=== PATIENT | female | born 1950 | race Caucasian/White ===

== ENCOUNTER 2020-03-27 18:57 | Emergency (ER) | payer MEDICARE, SELFPAY ==
--- NOTE | ~2020-03-27 | CT_ITS ---
EXAMINATION: CT BRAIN W/O DATE: 03/27/2020 19:37 INDICATION: Headache TECHNIQUE: Computed tomography (CT) of the head was performed without intravenous contrast. The dose- length product was 605.33 mGy-cm. The mA was adjusted according to patient size. Iterative reconstruc tion technique was employed. COMPARISON: No prior studies for comparison. FINDINGS: Normal brain parenchymal volume for age. Normal mendez-white differentiation. No acute intrac ranial hemorrhage, infarction, mass or mass effect. There are scattered mild periventricular and subc ortical white matter changes, most likely related to small vessel ischemic disease (microangiopathy). No ventriculomegaly or midline shift. Midline sagittal images demonstrate a normal corpus callosum, c raniovertebral junction and sella turcica. Basilar cisterns are patent. Paranasal sinuses and mastoids are pneumatized. No depressed skull fractures. IMPRESSION: 1. No acute intracranial abnormality. 2: Chronic age-related findings. Reviewed, dictated and finalized at location A.
--- NOTE | ~2020-03-27 | XR_ITS ---
XR chest 1V portable 03/27/2020 19:43 Indication: Hypertension. Procedure: AP view of the chest Comparison: No prior studies for comparison. Findings: Heart size normal. There is scarring in the left mid and lower lung. No acute focal pneumon ia, edema or effusion. There are bilateral clavicular osteotomy defects. No acute osseous abnormality . The lungs are hyperinflated which is consistent with, but not diagnostic of chronic obstructive pul monary disease. Impression: 1: No acute cardiopulmonary disease. Reviewed, dictated and finalized at location A. Impression: 1: No acute cardiopulmonary disease.
--- NOTE | 2020-03-27 19:11 | ECG_ITS ---
Measurements Intervals [place] Rate: 81 P: 68 AK: 150 QRS: -14 QRSD: 107 T: 71 QT: 393 QTc: 458 Interpretive Statements SINUS RHYTHM POSSIBLE LEFT ATRIAL ENLARGEMENT DELAYED PRECORDIAL R/S TRANSITION INFERIOR INFARCT, AGE INDETERMINATE ABNORMAL ECG Electronically Signed On 03-28-2020 7:05:41 CDT by Franklin Barros D.O.
[2020-03-27 19:13] VITALS: BP 222/105; PULSE 97; RESP 18; TEMP 37.1; O2SAT 95
--- NOTE | 2020-03-27 19:13 | ED.GENADULT ---
HPI - General Adult General Chief complaint: Recheck/Abnormal Lab/Rx Stated complaint: HTN for 2 week Time Seen by Provider: 03/27/20 19:04 Source: RN notes reviewed History of Present Illness HPI narrative: Patient presents emergency department from home for hypertension. Patient states that over the past 2 weeks she has noted that she has been having elevated blood pressures. States that with this she has been having an intermittent right frontal headache. Patient states that she has a history of hypertension but 3 years ago her blood pressures began to normalize and she is been off of her medication for the past 3 years. She denies any fevers or chills vision changes numbness or tingling in extremities chest pain shortness of breath abdominal pain nausea vomiting or any other symptoms Related Data Allergies Allergy/AdvReac Type Severity Reaction Status Date / Time No Known Allergies Allergy Verified 03/27/20 19:17 Review of Systems Review of Systems: Narrative: Gen.: Denies fevers or chills Eyes: Denies eye pain or visual change ENT: Denies congestion Respiratory: Denies shortness of breath or cough CV: Denies chest pain or palpitations GI: Denies abdominal pain nausea, emesis or diarrhea denies burning, urgency, frequency or hematuria Musculoskeletal: Denies back pain or muscle pain Neuro: Denies numbness, tingling, weakness or focal weakness reports headache Skin: Denies rash Except as documented, all other systems reviewed and negative FORMERLY [facility], [facility] Past Medical History Medical History (Updated 03/27/20 @ 21:18 by Jose Marroquin DO) Bipolar 1 disorder Social History Social History (Updated 03/27/20 @ 19:14 by Jose Marroquin DO) Smoking status: Current some day smoker Gender identity (if verbalized by the patient): Female Exam Narrative: Exam Narrative: APPEARANCE: No acute distress, nontoxic, resting in bed HEENT: Normocephalic, atraumatic, OMM, TMs clear bilaterally EYES: PERRL, EOMI NECK: Supple, nontender, full range of motion without pain, no meningismus RESPIRATORY: No respiratory distress, clear to auscultation bilaterally with no rhonchi wheezing or rales CARDIOVASCULAR: RRR s murmur ABDOMINAL: Soft, nontender, nondistended MUSCULOSKELETAL: Moves all extremities. No clubbing, cyanosis or edema. NEURO: A and O ?3, following commands, speech normal, cranial nerves II through XII grossly intact,muscle strength 5 out of 5 bilateral upper and lower extremities SKIN:: Warm, dry. Normal Color PSYCHIATRIC: Normal affect/mood Course Course Emergency Course: Attempted to page Dr. Stephen office currently with no answering service States he is feeling better this time ready for discharge discussed with patient results of work-up discussed need to follow-up with PCP as an outpatient to possibly be started on hypertensive medication Vital Signs Vital signs: Vital Signs Temperature 98.8 F 03/27/20 19:13 Pulse Rate 97 03/27/20 19:13 Respiratory Rate 18 03/27/20 19:13 Blood Pressure 222/105 H 03/27/20 19:13 Pulse Oximetry 95 03/27/20 19:13 Temperature 98.8 F 03/27/20 19:13 Pulse Rate 78 03/27/20 20:46 Respiratory Rate 03/27/20 20:46 Blood Pressure 171/83 H 03/27/20 20:46 Pulse Oximetry 100 03/27/20 20:46 Medical Decision Making Vital Signs Vital Signs: Vital Signs Temperature 98.8 F 03/27/20 19:13 Pulse Rate 97 03/27/20 19:13 Respiratory Rate 18 03/27/20 19:13 Blood Pressure 222/105 H 03/27/20 19:13 Pulse Oximetry 95 03/27/20 19:13 Temperature 98.8 F 03/27/20 19:13 Pulse Rate 78 03/27/20 20:46 Respiratory Rate 03/27/20 20:46 Blood Pressure 171/83 H 03/27/20 20:46 Pulse Oximetry 100 03/27/20 20:46 Lab Data Result diagrams: 03/27/20 19:20 03/27/20 19:20 Labs: Lab Results 03/27/20 03/27/20 03/27/20 Range/Units 19:20 19:20 19:29 WBC 5.5 (4.5-10.0) K/mm3 RBC 5.23 (4.2-5.4) M
[2020-03-27 19:26] LABS: Basophils Absolute Auto 0.1 K/mm3 (0.0-0.1); Basophils Percent Auto 0.9 % (0.2-1.2); Eosinophils Absolute Auto 0.3 K/mm3 (0-0.3); Eosinophils Percent Auto 4.5 % (0-4.4); Hemoglobin 15.1 g/dL (12.0-15.0); Immature Granulocyte Absolute 0.01 K/mm3 (0.00-0.031); Immature Granulocyte Percent A 0.2 % (0-0.5); Lymphocytes Absolute Auto 2.16 K/mm3 (0.9-3.2); Lymphocytes Percent Auto 39.2 % (18.3-44.2); Mean Corpuscular HGB Conc 33.6 g/dl (32-36); Mean Corpuscular Hemoglobin 28.9 pg (26-34); Mean Platelet Volume 11.2 fl (7.4-10.4); Monocytes Absolute Auto 0.8 K/mm3 (0.1-0.6); Monocytes Percent Auto 14.7 % (2.6-8.5); Neutrophils Absolute Auto 2.2 K/mm3 (1.3-6.7); Neutrophils Percent Auto 40.5 % (45.5-73.1); Platelet Count Result 182 k/mm3 (150-375); Red Blood Count 5.23 M/mm3 (4.2-5.4); Red Cell Distribution Width 14.4 % (11.5-14.5); White Blood Count 5.5 K/mm3 (4.5-10.0)
[2020-03-27 19:40] LABS: Alanine Aminotransferase 17 U/L (4-35); Albumin Level 3.8 g/dL (3.5-5.1); Alkaline Phosphatase 177 U/L (38-126); Aspartate Amino Transferase 31 U/L (14-36); Bilirubin,Total 0.7 mg/dL (0.2-1.3); Blood Urea Nitrogen 16 mg/dL (7-17); Calcium 9.5 mg/dL (8.4-10.2); Carbon Dioxide 24 mmol/L (22-30); Chloride 111 mmol/L (98-107); Estimated CRCL calculation 72 ml/min; Estimated Glomerular Filt Rate > 60; Glucose 106 mg/dL (65-105); Potassium 3.9 mmol/L (3.4-5.0); Sodium 140 mmol/L (137-145)
[2020-03-27 19:42] LABS: Add Urine Microscopic? YES; Appearance Urine Clear (Clear); Bilirubin Urine Negative (Negative); Blood Urine 1+ (Negative); Color Urine Yellow (Yellow); Glucose Urine UA Negative (Negative); Ketones Urine Negative (Negative); Leukocyte Esterase Ur Negative LEU/UL (Negative); Nitrate Urine Negative (Negative); Protein Urine Negative (Negative); RBC Urine 0-2 /hpf (0-2); Specific Grav Ur 1.013 (1.001-1.035); Squamous Epithelial Cell Urine Rare /hpf (Few); WBC Urine 0-3 /hpf
[2020-03-27 19:43] VITALS: BP 182/98; PULSE 77; RESP 18; O2SAT 95
[2020-03-27 20:46] VITALS: BP 171/83; PULSE 78; RESP 19; O2SAT 100
[2020-03-27 21:25] VITALS: BP 166/82; PULSE 84; RESP 19; TEMP 37.2; O2SAT 100
== END 2020-03-27 21:26 | disposition home or self-care (01) ==
PROVIDERS: Emergency Provider Emergency Medicine
DX: I10 Essential (primary) hypertension (principal); F17.200 Nicotine dependence, unspecified, uncomplicated; R94.31 Abnormal electrocardiogram [ECG] [EKG]
CPT/HCPCS: 36415; 70450; 71045; 80053; 81001; 85025; 93005; 96374; 99284; J0131

== ENCOUNTER 2021-06-21 20:44 | Inpatient (IN) | payer MEDICARE, SELFPAY ==
--- NOTE | ~2021-06-21 | XR_ITS ---
XR shoulder RT min 2V DATE: 06/21/2021 23:42 INDICATION: Posterior right shoulder pain. Patient found on floor. TECHNIQUE: 5 views COMPARISON: None FINDINGS: There is osteopenia. There is resection of the lateral aspect of the right clavicle. There is evidence of rotator cuff atrophy. There is no fracture or dislocation, periosteal reaction or bone destruction or abnormal soft tissue calcification of the right shoulder. Prominent degenerative changes of the cervical spine including degenerative change at the apophyseal joints throughout the cervical spine and prominent degenerative disc disease at C5-6 and C6-7. IMPRESSION: Resection lateral right clavicle Rotator cuff atrophy No fracture or dislocation of right shoulder Osteopenia Reviewed, dictated and finalized at location A.
--- NOTE | ~2021-06-21 | XR_ITS ---
EXAMINATION: XR chest 1V portable DATE: 06/24/2021 10:15 INDICATION: Dyspnea. TECHNIQUE: A single frontal view of the chest was obtained. COMPARISON: Chest single view 03/27/2020 FINDINGS: The lungs are hyperexpanded, consistent with emphysema. Again seen is mild scarring in left mid and lower lung zones. No pleural effusion or pneumothorax. The heart size is normal. IMPRESSION: 1. Unchanged mild scarring in left mid and lower lung zones. 2. Emphysema. Reviewed, dictated and finalized at location A.
--- NOTE | ~2021-06-21 | CT_ITS ---
EXAMINATION: CT brain wo con DATE: 06/21/2021 22:18 INDICATION: Confusion for 3 days TECHNIQUE: Computed tomography (CT) of the head was performed without intravenous contrast. The mA wa s adjusted according to patient size. Iterative reconstruction technique was employed. Exam dose: 68 1.00 mGy-cm total exam DLP. COMPARISON: 03/27/2020 CT brain FINDINGS: Bilateral carotid siphon internal carotid artery calcifications. There is nonspecific diminished attenuation cerebral white matter, likely due to chronic small vessel ischemic changes. No intracranial mass lesion or hemorrhage or cerebrovascular accident. No midline shift or mass effec t. No subdural or epidural hematoma. No fracture or bone destruction of the cranial vault. Included paranasal sinuses and mastoid air cell s are normally developed and aerated. IMPRESSION: Cerebral atherosclerosis and chronic small vessel ischemic changes of cerebral white mat ter No acute intracranial finding Reviewed, dictated and finalized at Location A. Reviewed, dictated and finalized at location A. IMPRESSION: Cerebral atherosclerosis and chronic small vessel ischemic changes of cerebral white matter No acute intracranial finding
--- NOTE | ~2021-06-21 | US_ITS ---
EXAMINATION: US carotid duplex BI EXAM DATE: 06/23/2021 11:17 INDICATION: Stroke. TECHNIQUE: Grayscale, color and pulsed Doppler images of the cervical carotid arteries were obtained . The degree of vessel stenosis is placed in one of the following categories: normal, <50% stenosis, 50-69% stenosis, >=70% stenosis but less than near-occlusion, near-occlusion, or occlusion. Note that percent stenosis relative to normal distal artery lumen diameter is indirectly measured from velocit y measurements as described by Andrés, et al. Radiology 2003; 229:340-346. Correlation is made to MR kaylynn guillaume from yesterday. FINDINGS: RIGHT SIDE: Right common carotid artery peak systolic velocity (PSV in cm/s): 72 Right bulb/internal carotid artery peak systolic velocity (PSV in cm/s): 74 Right internal carotid artery end diastolic velocity (EDV in cm/s): 15 Right ICA/CCA peak systolic ratio: 1.0 Right external carotid artery peak systolic velocity (PSV in cm/s): 100 Right vertebral artery antegrade flow: yes There is moderate carotid bulb plaque. Velocity and Doppler waveforms in the common and internal carotid arteries is normal. LEFT SIDE: Left common carotid artery peak systolic velocity (PSV in cm/s): 76 Left bulb/internal carotid artery peak systolic velocity (PSV in cm/s): 64 Left internal carotid artery end diastolic velocity (EDV in cm/s): 20 Left ICA/CCA peak systolic ratio: 0.8 Left external carotid artery peak systolic velocity (PSV in cm/s): 107 Left vertebral artery antegrade flow: yes There is no focal plaque identified. IMPRESSION: 1. Less than 50 percent stenosis in the right internal carotid artery. 2. Normal left internal carotid artery. > Reviewed, dictated and finalized at location A.
--- NOTE | ~2021-06-21 | MR_ITS ---
EXAMINATION: MR brain/brain stem wo con DATE: 06/22/2021 14:17 INDICATION: Altered mental status. TECHNIQUE: Magnetic resonance imaging (MRI) of the brain and brainstem was performed without intraven ous contrast. Sequences included sagittal and axial T1-weighted FSE, axial diffusion-weighted FS EPI, axial T2*-weighted GRE, axial T2-weighted FLAIR Propeller, and axial T2-weighted Propeller. Apparent diffusion coefficient (ADC) maps were created. COMPARISON: Head CT 06/21/2021 FINDINGS: There is a punctate acute infarct in left occipital lobe. There is no intracranial hemorrha ge or abnormal mass lesion. There are scattered areas of nonspecific increased T2-weighted signal int ensity in the cerebral white matter. The ventricles are normal in size. The paranasal sinuses are andrea ar. There are likely changes of right ocular lens replacement surgery. The mastoid air cells are norm al. IMPRESSION: 1. Punctate acute infarct in left occipital lobe. 2. Moderate nonspecific cerebral white matter disease, which likely represents chronic small vessel i schemic disease. Reviewed, dictated and finalized at location A. IMPRESSION: 1. Punctate acute infarct in left occipital lobe. 2. Moderate nonspecific cerebral white matter disease, which likely represents chronic small vessel ischemic disease.
--- NOTE | ~2021-06-21 | XR_ITS ---
XR hip RT 2V w AP pelvis DATE: 06/21/2021 23:41 INDICATION: Lateral right hip pain TECHNIQUE: AP pelvis. AP and lateral views of right hip COMPARISON: None FINDINGS: There is prominent multilevel degenerative disc disease of lumbar and lumbosacral spine, mo st severe at L4-5 and L5-S1. The pubic symphysis and sacroiliac joints are intact. No pelvic fracture or bone destruction is detected. There is heterotopic ossification along the lateral aspect of the greater trochanter and enthesopathy of the greater trochanter of the right proximal femur. No fracture or dislocation, avascular necrosi s or bone destruction of the right hip is detected. Right hip joint space appears well preserved and symmetric with the left side. IMPRESSION: No pelvic or right hip fracture or dislocation Multilevel degenerative disc disease of the lumbar and lumbosacral spine Reviewed, dictated and finalized at location A.
[2021-06-21 20:50] VITALS: BP 89/56; PULSE 94; RESP 16; TEMP 37.1; O2SAT 96
--- NOTE | 2021-06-21 20:56 | ECG_ITS ---
Measurements Intervals [place] Rate: 89 P: 145 AK: 159 QRS: -65 QRSD: 149 T: 118 QT: 415 QTc: 507 Interpretive Statements ECTOPIC ATRIAL RHYTHM LEFT ATRIAL ENLARGEMENT LEFT AXIS DEVIATION RIGHT BUNDLE BRANCH BLOCK BASELINE ARTIFACT- I, AVL ABNORMAL ECG Electronically Signed On 06-22-2021 6:46:52 CDT by Franklin Barros D.O.
[2021-06-21 21:13] VITALS: PULSE 89; RESP 19; O2SAT 99
[2021-06-21 21:30] LABS: Basophils Absolute Auto 0.1 K/mm3 (0.0-0.1); Basophils Percent Auto 0.5 % (0.2-1.2); Eosinophils Absolute Auto 0.1 K/mm3 (0-0.3); Eosinophils Percent Auto 0.6 % (0-4.4); Hematocrit 41.7 % (37.0-47.0); Immature Granulocyte Absolute 0.04 K/mm3 (0.00-0.031); Immature Granulocyte Percent A 0.4 % (0-0.5); Lymphocytes Absolute Auto 0.96 K/mm3 (0.9-3.2); Lymphocytes Percent Auto 9.4 % (18.3-44.2); Mean Corpuscular HGB Conc 33.6 g/dl (32-36); Mean Corpuscular Volume 86.5 fl (80-100); Mean Platelet Volume 10.1 fl (7.4-10.4); Monocytes Absolute Auto 1.5 K/mm3 (0.1-0.6); Monocytes Percent Auto 15.1 % (2.6-8.5); Neutrophils Absolute Auto 7.6 K/mm3 (1.3-6.7); Platelet Count Result 171 k/mm3 (150-375); Red Blood Count 4.82 M/mm3 (4.2-5.4); Red Cell Distribution Width 15.3 % (11.5-14.5); White Blood Count 10.2 K/mm3 (4.5-10.0)
--- NOTE | 2021-06-21 21:43 | PC.NURSE ---
Per daughter at bedside, pt left a note on her counter expressing wishes to Get out of everyones way. Per daughter pt has PMH of psych/SI/attempt. Pt currently denies SI. 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 Pt notes she has been drinking, but states it was a few days ago. Pt unable to recall if she took pills, unable to recall if has been taking normal RX'd PO medications. larry operator made aware. Protocol initiated.
--- NOTE | 2021-06-21 21:46 | PC.NURSE ---
Called lab and spoke to Kayla to add on Ethanol, TSH [phone]
[2021-06-21 21:49] VITALS: RESP 20
--- NOTE | 2021-06-21 21:52 | PC.NURSE ---
Pt to CT scan via stretcher, daughter at bedside, sitter placed at bedside at this time.
[2021-06-21 22:01] LABS: Alanine Aminotransferase 55 U/L (4-35); Albumin Level 3.4 g/dL (3.5-5.1); Alkaline Phosphatase 115 U/L (38-126); Anion Gap 5 mmol/L (8-16); Aspartate Amino Transferase 271 U/L (14-36); Bilirubin,Total 1.1 mg/dL (0.2-1.3); Blood Urea Nitrogen 16 mg/dL (7-17); Carbon Dioxide 22 mmol/L (22-30); Chloride 110 mmol/L (98-107); Estimated CRCL calculation 56 ml/min; Estimated Glomerular Filt Rate > 60; Glucose 109 mg/dL (65-110); Potassium 3.5 mmol/L (3.4-5.0); Sodium 137 mmol/L (137-145)
--- NOTE | 2021-06-21 22:03 | PC.NURSE ---
Pt belongings labeled and placed in room 3/4 cabinets.
[2021-06-21] MEDS: SODIUM CHLORIDE 0.9% IV 1,000 ML 999 ML IV CONT (22:04)
[2021-06-21 22:06] LABS: Add Urine Microscopic? YES; Appearance Urine Clear (Clear); Bilirubin Urine Negative (Negative); Blood Urine Negative (Negative); Color Urine Amber (Yellow); Glucose Urine UA Negative (Negative); Hyaline Casts Urine 15-19 /lpf; Ketones Urine Negative (Negative); Leukocyte Esterase Ur Negative LEU/UL (Negative); Mucus Urine Rare /lpf; Nitrate Urine Negative (Negative); Protein Urine 2+ mg/dL (Negative); RBC Urine 0-2 /hpf (0-2); Specific Grav Ur 1.018 (1.001-1.035); Squamous Epithelial Cell Urine Rare /hpf (Few); Urobilinogen Urine Negative mg/dL (<2.0)
--- NOTE | 2021-06-21 22:11 | PC.NURSE ---
Called [place] poison control and spoke to Ofelia, a pharmacist. Given EKG readings, w/out history of medications and VSS would recommend supportive and symptomatic care.
--- NOTE | 2021-06-21 22:18 | PC.NURSE ---
Called lab and spoke to Liv to add on Salicylate and Acetaminophen 2224
[2021-06-21 22:19] VITALS: BP 139/92; PULSE 90; RESP 18; O2SAT 98
--- NOTE | 2021-06-21 22:23 | ED.AMS ---
HPI - Altered Mental Status General Chief Complaint: Overdose Stated Complaint: AMS Time Seen by Provider: 06/21/21 21:46 Source: patient and family Mode of arrival: EMS Limitations: altered mental status History of Present Illness HPI narrative: Patient is a 70-year-old female brought in by EMS after being found on the floor and confused by a family member. Last known well was 3 days ago. Per family, patient usually able to do normal daily activities of living, and lives at home alone. Patient denies any headache, dizziness, neck pain, chest pain, shortness of breath, abdominal pain, nausea, vomiting, diarrhea, urinary symptoms, fever or chills. Related Data Allergies Allergy/AdvReac Type Severity Reaction Status Date / Time No Known Allergies Allergy Verified 03/27/20 19:17 Review of Systems Review of Systems: All systems reviewed & are unremarkable except as noted in HPI and below Constitutional: Constitutional: Denies body ache(s), Denies chills, Denies excessive sweating, Denies fatigue, Denies fever(s), Denies headache(s), Denies lethargy, Denies malaise, Denies weakness and Denies weight loss Eyes: Eyes: Denies blurry vision, Denies change in vision and Denies loss of vision ENT: Denies dizziness, Denies ear discharge, Denies headache(s), Denies lip swelling, Denies epistaxis, Denies nasal congestion, Denies neck pain, Denies throat swelling and Denies tongue swelling Cardiovascular: Cardiovascular: Denies chest pain, Denies chest pain at rest, Denies chest pain with activity, Denies diaphoresis, Denies rapid heart rate, Denies edema, Denies irregular heart rhythm, Denies lightheadedness, Denies palpitations, Denies dyspnea and Denies dyspnea on exertion Respiratory: Respiratory: Denies chest congestion, Denies cough, Denies hemoptysis, Denies dyspnea and Denies dyspnea on exertion Gastrointestinal: Gastrointestinal: Denies abdominal pain, Denies melena, Denies hematochezia, Denies diarrhea, Denies nausea, Denies vomiting and Denies hematemesis Musculoskeletal: Musculoskeletal: Denies abnormal gait, Denies deformity, Denies joint swelling, Denies limited range of motion, Denies neck pain and Denies numbness Neurologic: Denies Abnormal speech present, Denies abnormal gait, Denies confusion, Denies dizziness, Denies headache(s), Denies focal weakness, Denies loss of vision, Denies numbness, Denies Other visual disturbances, Denies Sensory deficit (Neuro) and Denies weakness Psychiatric: Psychiatric: Denies confusion, Denies depression, Denies auditory hallucinations, Denies homicidal ideation and Denies suicidal ideation Endocrine: Endocrine: Denies cold intolerance, Denies excessive sweating, Denies fatigue, Denies heat intolerance and Denies palpitations Hematologic/Lymphatic: Hematologic/Lymphatic: Denies easy bleeding and Denies easy bruising Allergic/Immunologic: Allergic/Immunologic: Denies lip swelling, Denies throat swelling and Denies tongue swelling PMFSH Past Medical History Medical History Bipolar 1 disorder Social History Social History Smoking status: Current some day smoker Substance use type: unknown Gender identity (if verbalized by the patient): Female Exam Const: General: cooperative, healthy appearing, comfortable, no acute distress, well developed, alert and awake Orientation/consciousness: patient oriented x3 Limitations: no limitations HENMT: Head: normal to inspection, normocephalic and atraumatic Ears: hearing grossly normal bilaterally, TM normal on the right and TM normal on the left General nose exam: Normal external nose present, Normal nares present and No nasal discharge present Face and sinus: normal facial exam Mouth: Yes Normal oral and palatal mucosa present, Yes lip normal, Yes tongue normal and Yes oropharynx normal Throat: posterior oropharynx normal, tonsils cristian
[2021-06-21 22:26] LABS: Ethanol < 10 mg/dL (<10)
[2021-06-21 22:44] LABS: Amphetamine Screen Urine Negative (Negative); Barbiturate Screen Urine Negative (Negative); Benzodiazepines Screen Urine Negative (Negative); Cannabinoid Screen Urine Negative (Negative); Cocaine Screen Urine Negative (Negative); Methadone Screen Urine Negative (Negative); Opiate Screen Urine Negative (Negative); Phencyclidine Screen Urine Negative (Negative)
[2021-06-21 22:45] LABS: Acetaminophen < 10 ug/mL (10-30); Salicylate < 1.0 mg/dL (2-20)
[2021-06-21 22:59] VITALS: BP 167/84; PULSE 91; RESP 17; O2SAT 98
[2021-06-21 23:10] LABS: Creatine Kinase 8044 U/L (30-135)
--- NOTE | 2021-06-21 23:28 | PC.NURSE ---
Pt to XRAY via stretcher at this time.
[2021-06-22] VITALS (12 sets, daily range): BP systolic 118–165; BP diastolic 57–90; PULSE 75–94; RESP 15–21; TEMP 36.4–36.8; O2SAT 93–98; BMI 30.4
[2021-06-22] MEDS: SODIUM CHLORIDE 0.9% IV 1,000 ML 999 ML IV CONT ×2 (00:24→01:11)
--- NOTE | 2021-06-22 01:52 | PC.NURSE ---
Was contacted by Vivian from poison control - calling for an update on pt and lab results. States will call back tomorrow for repeat lab and pt status update.
[2021-06-22] MEDS: SODIUM CHLORIDE 0.9% IV 1,000 ML 125 ML IV CONT ×2 (02:30→09:52)
--- NOTE | 2021-06-22 03:18 | ADMGEN ---
This patient, Sade Drake, was admitted to Intensive Care Unit-5 at 0220. Patient/family oriented to hospital policies and general routines including ID bracelet, bed and alarms, visiting hours, pain management, procedures, bathroom and other care routines, personal items, smoking policy, room service/diet, and visiting hours. Information on how to activate the Rapid Response Team has been discussed. Patient/Family are encouraged to report perceived risks to care and to ask questions if they do not understand what they are told or what they should do.
--- NOTE | 2021-06-22 10:40 | PM.IMHP ---
H&P: HPI History of Present Illness Date/Time: 06/22/21 10:40 Chief Complaint: Altered mental status Narrative: Patient is a 70-year-old female who was brought in yesterday to the ER when he was she was found on the floor by a family member. She was last well known 3 days ago. She lives by herself at home. She states that she fell couple days ago and bumped her right hip. She denies any trauma to her head. She she was not found to have any bony injury on evaluation in the ER. There is a mention of a note found by a family member switch is unavailable for me to review at this time. She however states she was not trying to hurt hurts herself was thus having her drink to have good time. She denies being suicidal at this time. Except for the pain in her right hip due to the fall she does not have any other complaints. Review of Systems Constitutional: Constitutional: Denies body ache(s), Denies chills, Reports fatigue, Reports lethargy, Denies night sweats and Denies weakness Eyes: Eyes: Denies blurry vision and Denies photophobia ENT: Reports Normal hearing present, Denies nasal congestion, Denies nasal discharge and Denies tinnitus Cardiovascular: Cardiovascular: Denies chest pain, Denies diaphoresis, Denies leg edema, Denies lightheadedness and Denies palpitations Respiratory: Respiratory: Denies cough, Denies hemoptysis, Denies dyspnea, Denies dyspnea on exertion and Denies wheezing Gastrointestinal: Gastrointestinal: Denies abdominal pain, Denies melena, Denies bloating, Denies nausea and Denies vomiting Genitourinary: Genitourinary: Denies nocturia and Denies dysuria Musculoskeletal: Musculoskeletal: Reports back pain, Reports arthralgias and Denies neck pain Integumentary/Breasts: Skin/Breast: Denies dry skin and Denies unusual bruising Neurologic: Denies confusion and Denies headache(s) [facility] Past Medical History Medical History (Updated 06/22/21 @ 12:05 by Tyree Donahue MD) Asthma Bipolar 1 disorder COPD (chronic obstructive pulmonary disease) Family History Family History Father Asthma Colon cancer Grandparent Asthma Chronic obstructive pulmonary disease Mother Colon cancer Diabetes mellitus Hypertension Sibling Hypertension Social History Social History Smoking packs per day: 0.5 Smoking cigarettes per day: 10.0 Years smoked: 48 Smoking pack-years: 24.00 Smoking status: Current every day smoker Tobacco type: cigarettes Second hand tobacco smoke exposure: Yes Alcohol intake: current Drinks per week: 5 Substance use: current Substance use type: marijuana Other substance usage details: recreational Last use: oct 2020 Gender identity (if verbalized by the patient): Female Spiritual care concerns: No Meds Home Medications and Allergies Home Medications Medication Instructions Recorded Confirmed Type Unable to Obtain Home Medications 06/22/21 06/22/21 History Allergies Allergy/AdvReac Type Severity Reaction Status Date / Time No Known Allergies Allergy Verified 06/22/21 03:17 Vital Signs Vital Signs - 24 hr 06/21/21 20:50 06/21/21 21:13 06/21/21 21:49 Temperature 98.7 F Pulse Rate 94 89 Respiratory Rate 16 19 20 Blood Pressure 89/56 L Pulse Oximetry 96 99 06/21/21 22:19 06/21/21 22:59 06/22/21 00:03 Temperature Pulse Rate 90 91 94 Respiratory Rate 18 17 18 Blood Pressure 139/92 H 167/84 H 149/90 H Pulse Oximetry 98 98 97 06/22/21 00:58 06/22/21 01:53 06/22/21 02:50 Temperature Pulse Rate 92 87 88 Respiratory Rate 16 17 18 Blood Pressure 129/57 L 148/77 H 152/74 H Pulse Oximetry 98 97 98 06/22/21 04:00 06/22/21 06:00 06/22/21 08:00 Temperature 97.6 F Pulse Rate 84 76 77 Respiratory Rate 16 15 17 Blood Pressure 157/79 H 137/73 148/76 H Pulse Oximetry 96 93 94 06/22/21 10:00 06/22/21 10:2
--- NOTE | 2021-06-22 12:04 | WPDCNINT ---
Assessment and Plan Assessment and plan (1) Rhabdomyolysis: Qualifiers: Encounter type: initial encounter Rhabdomyolysis type: traumatic Qualified Code(s): T79.6XXA - Traumatic ischemia of muscle, initial encounter Code(s): M62.82 - Rhabdomyolysis Status: Acute Assessment and Plan: IV fluids. Will change to LR at 200 mL/hour Monitor CK level and electrolytes (2) COPD (chronic obstructive pulmonary disease): Code(s): J44.9 - Chronic obstructive pulmonary disease, unspecified Status: Inactive Assessment and Plan: Not in any exacerbation On room air P.r.n. DuoNeb (3) Bipolar 1 disorder: Code(s): F31.9 - Bipolar disorder, unspecified Status: Acute Assessment and Plan: Patient daughter will bring the list of medication that she is on Psych evaluation once rhabdomyolysis improved Continue one-to-one sitter until patient evaluated by psychiatry (4) Altered mental status: Qualifiers: Altered mental status type: unspecified Qualified Code(s): R41.82 - Altered mental status, unspecified Code(s): R41.82 - Altered mental status, unspecified Status: Acute Assessment and Plan: Patient now alert oriented x3. 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 Patient told me that she has had problem with her balance lately and she fell yesterday and was unable to get up. She states that she slipped and was on the floor. She denies any trauma to head or loss of consciousness. When patient was brought to ER she was found to be little confused and workup showed rhabdomyolysis. Her hip pelvis x-ray and head CT were negative. At that time her son reported finding a suicide note. Her UDS was negative. When I asked her about this morning she told me that she has bipolar mood disorder but does not know what medication she takes for it. She denies any suicidal homicidal ideation in the past or at this time. States she has never tried to hurt herself or has any plans. She does states that she has started drinking alcohol recently. She was unable to give me exact amount. When I asked her about the suicide note she said that she was just scribbling last week as she was not feeling well. She continue smoke 1 pack per 2 days. Has smoked marijuana in the past and denies any other drug use. She is now alert oriented x3 She states she has pain in her hip and her back hip pain is 5/10. And worse with moving. Does not radiate anywhere else and improves with rest. Her back pain is chronic. Review of system was also positive chronic cough, issues with balance and frequent falls. I spoke to patient's daughter by phone and she told me patient has history of bipolar mood disorder and COPD/asthma. She will bring her medications next time she comes to the hospital. She states she lives with her son who found her on the floor Review of Systems Review of Systems: All systems reviewed & are unremarkable except as noted in HPI and below (HPI) [facility] Past Medical History Medical History (Updated 06/22/21 @ 12:05 by Tyree Donahue MD) Asthma Bipolar 1 disorder COPD (chronic obstructive pulmonary disease) Family History Family History Father Asthma Colon cancer Grandparent Asthma Chronic obstructive pulmonary disease
[2021-06-22] MEDS: LACTATED RINGERS 1,000 ML 200 ML IV CONT ×2 (14:25→19:44)
[2021-06-22] MEDS: HYDROcodone/acetaminophen (*CRX) 5-325 MG TABLET 1 TAB PO ×2 (14:31→20:16)
[2021-06-23] MEDS: LACTATED RINGERS 1,000 ML 200 ML IV CONT ×2 (00:50→09:08)
[2021-06-23 04:43] LABS: Hematocrit 38.5 % (37.0-47.0); Hemoglobin 12.7 g/dL (12.0-15.0); Mean Corpuscular Hemoglobin 29.1 pg (26-34); Mean Corpuscular Volume 88.1 fl (80-100); Mean Platelet Volume 10.6 fl (7.4-10.4); Platelet Count Result 151 k/mm3 (150-375); Red Blood Count 4.37 M/mm3 (4.2-5.4); Red Cell Distribution Width 15.3 % (11.5-14.5); White Blood Count 7.7 K/mm3 (4.5-10.0)
[2021-06-23] MEDS: HYDROcodone/acetaminophen (*CRX) 5-325 MG TABLET 1 TAB PO ×3 (04:46→20:32)
[2021-06-23 05:12] LABS: Alanine Aminotransferase 45 U/L (4-35); Albumin Level 2.8 g/dL (3.5-5.1); Alkaline Phosphatase 127 U/L (38-126); Anion Gap 2 mmol/L (8-16); Aspartate Amino Transferase 138 U/L (14-36); Bilirubin,Total 0.9 mg/dL (0.2-1.3); Blood Urea Nitrogen 9 mg/dL (7-17); Calcium 8.1 mg/dL (8.4-10.2); Carbon Dioxide 25 mmol/L (22-30); Chloride 112 mmol/L (98-107); Creatine Kinase 2580 U/L (30-135); Estimated CRCL calculation 84 ml/min; Estimated Glomerular Filt Rate > 60; Glucose 91 mg/dL (65-110); Magnesium 1.6 mg/dL (1.6-2.3); Phosphorus 1.9 mg/dL (2.5-4.5); Potassium 3.4 mmol/L (3.4-5.0); Sodium 139 mmol/L (137-145)
[2021-06-23 05:38] VITALS: BP 165/84; PULSE 92; RESP 20; TEMP 36.6
[2021-06-23 08:00] VITALS: BP 188/88; PULSE 75; RESP 20; TEMP 37.2; O2SAT 95
[2021-06-23 09:19] LABS: Hemoglobin A1C 5.2 % (<5.7)
[2021-06-23 09:21] LABS: Cholesterol 142 mg/dL (0-200); HDL Direct 57 mg/dL; Triglycerides 64 mg/dL (<150)
[2021-06-23 09:33] LABS: LDL Cholesterol Direct 53 mg/dL
[2021-06-23] MEDS: POTASSIUM PHOS/SODIUM PHOS 250 MG TABLET PO (09:41)
[2021-06-23] MEDS: FLUoxetine HCL 10 MG CAPSULE PO (09:42)
[2021-06-23] MEDS: PANTOPRAZOLE 40 MG TABLET PO (09:42)
[2021-06-23] MEDS: ENOXAPARIN 40 MG/0.4 ML SYRINGE SUB-Q (09:42)
[2021-06-23] MEDS: ASPIRIN 81 MG ENTERIC TABLET PO ×2 (12:06→18:20)
[2021-06-23] MEDS: ALBUTEROL SULFATE (*SP) AEROSOL 1 PUFF 2 PUFF INHALATION (12:14)
[2021-06-23] MEDS: LACTATED RINGERS 1,000 ML 75 ML IV CONT ×2 (14:08→20:29)
[2021-06-23] MEDS: PHARMACIST COMMUNICATION ORDER 1 EACH XX (14:44)
--- NOTE | 2021-06-23 15:25 | PM.IMPN ---
Progress Note: A&P Assessment and Plan (1) Rhabdomyolysis: Qualifiers: Encounter type: initial encounter Rhabdomyolysis type: traumatic Qualified Code(s): T79.6XXA - Traumatic ischemia of muscle, initial encounter Code(s): M62.82 - Rhabdomyolysis Status: Acute Assessment and Plan: IV fluids. LR at 200 mL/hour Monitor CK level and electrolytes CK level better. Will lower the fluids to 75 mL/hour recheck CK level in the morning (2) Altered mental status: Qualifiers: Altered mental status type: unspecified Qualified Code(s): R41.82 - Altered mental status, unspecified Code(s): R41.82 - Altered mental status, unspecified Status: Acute Assessment and Plan: Patient now alert oriented x3. Head CT was negative Could be delirium versus secondary to medication versus CVA Exam is nonfocal Brain MRI with acute left occipital lobe stroke she has not been taking her aspirin for past 2 months will resume aspirin 81 mg a day. Will resume her home medication P.T. OT to see echo and carotid Doppler ordered carotid ultrasound with no significant carotid artery stenosis (3) Bipolar 1 disorder: Code(s): F31.9 - Bipolar disorder, unspecified Status: Acute Assessment and Plan: Patient daughter will bring the list of medication that she is on Psych evaluation once rhabdomyolysis improved Continue one-to-one sitter until patient evaluated by psychiatry Psychiatry crisis team evaluated nonsuicidal no safety plan needed per the team. Love discontinue one-to-one sitter Additional Plan 70-year-old female found on the floor presented with altered mental status Found on the floor CT head negative. Degenerative disc disease in lumbar spine but no fractures or bony injury evident on evaluation. Rhabdomyolysis gentle IV hydration continue to monitor CK level. CK level improving Elevated liver enzymes recheck and monitor Acute encephalopathy CT head negative. Likely from medication and drinking alcohol currently improving Mild leukocytosis no signs of infection History of asthma History of Hepatitis C infection History of rotator cuff disease Hypertension DVT prophylaxis Lovenox History of bipolar disorder on Seroquel at home Possible suicide attempt patient denies same. Currently on suicide precaution. Nonsuicidal after discussion with the patient couple of times will discontinue suicide precautions Subjective Date/time seen: 06/23/21 15:25 Interval history: Patient feels well. States he was never suicidal. She had a note written out while she was attending AA meeting 12 years ago. No vision problem no weakness in her arms or legs. She has not been taking her aspirin for 2 months now Review of Systems Review of Systems: All systems reviewed & are unremarkable except as noted in HPI and below (HPI) Exam Narrative: General: Awake and alert not in acute distress Lungs/Chest: Clear to auscultation no respiratory distress Cardiac: RRR. Normal S1 S2. No murmurs Abdomen: Normal bowel sounds.. Soft. NT. ND. Extremities: No clubbing, cyanosis or edema. Warm Neurologic: Alert and oriented x3 nonsuicidal non non homicidal moving all her extremities Skin: No rash no lesion Musculoskeletal: Bruise on right hip on the lateral side tenderness on her lateral trochanteric area Objective Data Vital Signs Vital Signs: Vital Signs - 24 hr 06/22/21 19:54 06/22/21 21:07 06/23/21 05:38 Temperature 97.9 F 97.8 F Pulse Rate 88 88 92 Respiratory Rate 20 20 20 Blood Pressure 154/68 H 165/84 H Pulse Oximetry 98 98 06/23/21 08:00 Temperature 98.9 F Pulse Rate 75 Respiratory Rate 20 Blood Pressure 188/88 H Pulse Oximetry 95 Intake/Output Intake/Output: Intake & Output 06/20/21 06/21/21 06/22/21 06/23/21 23:59 23:59 23:59 23:59 Intake Total 1000 3450 2880 Output Total 1530 2350 Balance 1000 1920 530 Meds/Results Medications: Active
[2021-06-23 16:00] VITALS: BP 162/82; PULSE 93; RESP 21; TEMP 36.7; O2SAT 97
[2021-06-23] MEDS: QUEtiapine FUMARATE 100 MG TABLET 200 MG PO (18:20)
[2021-06-23 19:00] VITALS: BP 106/56; PULSE 86; RESP 14; TEMP 36.7; O2SAT 96
--- NOTE | 2021-06-23 19:09 | PC.NURSE ---
This patient, Sade Drake, was transferred to [ [facility]] on 06/23/21 [id number]. Personal belongings sent with patient. Report given to [Gisela STARK ]. Appropriate documentation sent with patient.
[2021-06-23] MEDS: ATORVASTATIN 20 MG TABLET PO (20:29)
[2021-06-23 21:27] VITALS: BP 123/54; PULSE 77; RESP 17; TEMP 36.4; O2SAT 97
--- NOTE | 2021-06-24 | ECHO_ITS ---
Patient Info Name: Sade Drake Age: 70 years : 1950 Gender: Female Ht: 67 in Wt: 196 lbs BSA: 2.08 m2 HR: 81 bpm BP: 147 / 85 mmHg Heart Rhythm: Sinus Rhythm Technical Quality: Fair Exam Date: 06/24/2021 3:37 PM Exam Location: [facility] Room: [facility] Patient Status: Inpatient Admit Date: 06/23/2021 Staff Ordering Physician: Kraig Encinas MD [employer] Clerk: Rochelle Arriaza RDCS Attending Provider: Karlene Esteban MD Exam Type: CA echo doppler color flow Study Info Indications - ALTERED MENTAL STATUS Complete two-dimensional, color flow and Doppler transthoracic echocardiogram is performed. Summary 1. Complete two-dimensional, color flow and Doppler transthoracic echocardiogram is performed. 2. Left ventricular chamber dimension is normal. 3. Left ventricular systolic function is hyperdynamic, estimated at >70%. 4. There is moderately increased left ventricular wall thickness. 5. The left ventricular diastolic function is grade I diastolic dysfunction. 6. Left atrial chamber dimension is mildly enlarged. 7. There is mild aortic valve stenosis with a peak velocity of 247 cm/s, mean gradient of 14 mmHg, and aortic valve area of 2.2 cm2. 8. There is mild aortic valve regurgitation. 9. There is mild mitral valve stenosis. 10. The mitral valve has thickened leaflets. 11. There is mild mitral valve regurgitation. 12. The mitral valve annulus is severely calcified. 13. There is mild tricuspid valve regurgitation. 14. Mild pulmonary hypertension, estimated pulmonary arterial systolic pressure is 35 mmHg. Left Ventricle Left ventricular chamber dimension is normal. Left ventricular systolic function is hyperdynamic, estimated at >70%. There is moderately increased left ventricular wall thickness. The left ventricular diastolic function is grade I diastolic dysfunction. Right Ventricle Right ventricular chamber dimension is normal. Right ventricular systolic function is normal. Left Atria Left atrial chamber dimension is mildly enlarged. Right Atria Right atrial chamber dimension is normal. Aortic Valve The aortic valve is not well visualized. There is mild aortic valve stenosis with a peak velocity of 247 cm/s, mean gradient of 14 mmHg, and aortic valve area of 2.2 cm2. There is mild aortic valve regurgitation. Pulmonic Valve The pulmonic valve is not well visualized. Mitral Valve The mitral valve has thickened leaflets. There is mild mitral valve stenosis. There is mild mitral valve regurgitation. The mitral valve annulus is severely calcified. Tricuspid Valve The tricuspid valve leaflets are normal. There is no significant tricuspid valve stenosis. There is mild tricuspid valve regurgitation. Mild pulmonary hypertension, estimated pulmonary arterial systolic pressure is 35 mmHg. Pericardium/Pleural The pericardium appears normal. There is no pericardial effusion. Inferior Vena Cava Normal inferior vena cava with >50% collapse upon inspiration consistent with elevated right atrial pressure, 10 mmHg. Aorta The aortic root size at the sinus of Valsalva is normal. Left Ventricular Outflow Tract Name Value Normal LVOT 2D LVOT Diameter
[2021-06-24 04:57] VITALS: BP 147/85; PULSE 81; RESP 17; TEMP 36.3; O2SAT 96
[2021-06-24 06:25] LABS: Hemoglobin 12.2 g/dL (12.0-15.0); Mean Corpuscular Volume 87.9 fl (80-100); Mean Platelet Volume 11.6 fl (7.4-10.4); Platelet Count Result 152 k/mm3 (150-375); Red Blood Count 4.21 M/mm3 (4.2-5.4); Red Cell Distribution Width 15.5 % (11.5-14.5)
[2021-06-24 07:02] LABS: Alanine Aminotransferase 40 U/L (4-35); Albumin Level 2.5 g/dL (3.5-5.1); Alkaline Phosphatase 123 U/L (38-126); Anion Gap 2 mmol/L (8-16); Aspartate Amino Transferase 98 U/L (14-36); Blood Urea Nitrogen 7 mg/dL (7-17); Calcium 7.9 mg/dL (8.4-10.2); Carbon Dioxide 25 mmol/L (22-30); Chloride 112 mmol/L (98-107); Creatine Kinase 1330 U/L (30-135); Estimated CRCL calculation 82 ml/min; Estimated Glomerular Filt Rate > 60; Glucose 86 mg/dL (65-110); Magnesium 1.5 mg/dL (1.6-2.3); Phosphorus 2.8 mg/dL (2.5-4.5); Potassium 3.2 mmol/L (3.4-5.0); Sodium 139 mmol/L (137-145)
[2021-06-24] MEDS: ENOXAPARIN 40 MG/0.4 ML SYRINGE SUB-Q (09:02)
[2021-06-24] MEDS: ASPIRIN 81 MG ENTERIC TABLET PO (09:02)
[2021-06-24] MEDS: PANTOPRAZOLE 40 MG TABLET PO (09:02)
[2021-06-24] MEDS: buPROPion HCL 100 MG TABLET PO (09:02)
[2021-06-24] MEDS: FLUoxetine HCL 10 MG CAPSULE PO (09:02)
--- NOTE | 2021-06-24 09:27 | WPDCDIQUERY2 ---
CDI Query Clarification Request - 06/22 Brain MRI impression: punctate acute infarct in left occipital lobe. - Altered mental status on problem list and Brain MRI with acute left occipital lobe stroke has been documented. Please clarify if there is a corresponding diagnosis for brain MRI findings. <Nan Junior RN - Last Filed: 06/24/21 09:31>
[2021-06-24 14:00] VITALS: BP 160/86; PULSE 98; RESP 18; TEMP 37.1; O2SAT 99
[2021-06-24] MEDS: HYDROcodone/acetaminophen (*CRX) 5-325 MG TABLET 1 TAB PO ×2 (14:51→21:08)
--- NOTE | 2021-06-24 16:03 | PM.IMPN ---
Progress Note: A&P Assessment and Plan (1) Rhabdomyolysis: Qualifiers: Encounter type: initial encounter Rhabdomyolysis type: traumatic Qualified Code(s): T79.6XXA - Traumatic ischemia of muscle, initial encounter Code(s): M62.82 - Rhabdomyolysis Status: Acute Assessment and Plan: IV fluids. LR at 200 mL/hour Monitor CK level and electrolytes CK level better. Will lower the fluids to 75 mL/hour recheck CK level in the morning She continues to improve will stop fluid today as looks little short of breath will also check chest x-ray (2) Altered mental status: Qualifiers: Altered mental status type: unspecified Qualified Code(s): R41.82 - Altered mental status, unspecified Code(s): R41.82 - Altered mental status, unspecified Status: Acute Assessment and Plan: Patient now alert oriented x3. Head CT was negative Could be delirium versus secondary to medication versus CVA Exam is nonfocal Brain MRI with acute left occipital lobe stroke she has not been taking her aspirin for past 2 months will resume aspirin 81 mg a day. Will resume her home medication P.T. OT to see echo and carotid Doppler ordered carotid ultrasound with no significant carotid artery stenosis echo is pending at Discuss smoking cessation Continue on aspirin and statin (3) Bipolar 1 disorder: Code(s): F31.9 - Bipolar disorder, unspecified Status: Acute Assessment and Plan: Patient daughter will bring the list of medication that she is on Psych evaluation once rhabdomyolysis improved Continue one-to-one sitter until patient evaluated by psychiatry Psychiatry crisis team evaluated nonsuicidal no safety plan needed per the team. Love discontinue one-to-one sitter (4) Acute stroke due to ischemia: Code(s): I63.9 - Cerebral infarction, unspecified Status: Acute Assessment and Plan: Left occipital lobe acute stroke continue aspirin and statin discussed smoking cessation no diabetes carotid ultrasound with no significant carotid artery stenosis. Echo is pending Additional Plan 70-year-old female found on the floor presented with altered mental status Found on the floor CT head negative. Degenerative disc disease in lumbar spine but no fractures or bony injury evident on evaluation. Rhabdomyolysis gentle IV hydration continue to monitor CK level. CK level improving Elevated liver enzymes recheck and monitor Acute encephalopathy CT head negative. Likely from medication and drinking alcohol currently improving Mild leukocytosis no signs of infection History of asthma History of Hepatitis C infection History of rotator cuff disease Hypertension DVT prophylaxis Lovenox History of bipolar disorder on Seroquel at home Possible suicide attempt patient denies same. Currently on suicide precaution. Nonsuicidal after discussion with the patient couple of times will discontinue suicide precautions Acute occipital lobe stroke see above Subjective Date/time seen: 06/24/21 16:03 Interval history: Feels well. No new complaints. She was to quit smoking. Denies any leg swelling or pain or weakness Review of Systems Review of Systems: All systems reviewed & are unremarkable except as noted in HPI and below (HPI) Exam Narrative: General: Awake and alert not in acute distress Lungs/Chest: Clear to auscultation no respiratory distress Cardiac: RRR. Normal S1 S2. No murmurs Abdomen: Normal bowel sounds.. Soft. NT. ND. Extremities: No clubbing, cyanosis or edema. Warm Neurologic: Alert and oriented x3 nonsuicidal non non homicidal moving all her extremities Skin: No rash no lesion Musculoskeletal: Bruise on right hip on the lateral side tenderness on her lateral trochanteric area Objective Data Vital Signs Vital Signs: Vital Signs - 24 hr 06/23/21 19:00 06/23/21 21:27 06/24/21 04:57 Temperature 98.1 F 97.5 F L 97.3 F L Pulse Rate 86 77 81 Respiratory
[2021-06-24 16:16] VITALS: BP 143/81; PULSE 81
[2021-06-24] MEDS: QUEtiapine FUMARATE 100 MG TABLET 200 MG PO (18:03)
[2021-06-24] MEDS: ATORVASTATIN 20 MG TABLET PO (21:08)
[2021-06-24 22:00] VITALS: BP 156/80; PULSE 88; RESP 18; TEMP 36.7; O2SAT 95
[2021-06-25 06:00] VITALS: BP 147/79; PULSE 86; RESP 18; TEMP 35.9; O2SAT 95
[2021-06-25 07:13] LABS: Hematocrit 39.1 % (37.0-47.0); Hemoglobin 12.4 g/dL (12.0-15.0); Mean Corpuscular HGB Conc 31.7 g/dl (32-36); Mean Corpuscular Hemoglobin 28.4 pg (26-34); Mean Corpuscular Volume 89.5 fl (80-100); Mean Platelet Volume 10.9 fl (7.4-10.4); Platelet Count Result 181 k/mm3 (150-375); Red Blood Count 4.37 M/mm3 (4.2-5.4); Red Cell Distribution Width 15.6 % (11.5-14.5); White Blood Count 6.3 K/mm3 (4.5-10.0)
[2021-06-25 07:45] LABS: Alanine Aminotransferase 42 U/L (4-35); Albumin Level 2.8 g/dL (3.5-5.1); Alkaline Phosphatase 133 U/L (38-126); Anion Gap 3 mmol/L (8-16); Aspartate Amino Transferase 85 U/L (14-36); Blood Urea Nitrogen 7 mg/dL (7-17); Calcium 7.9 mg/dL (8.4-10.2); Carbon Dioxide 30 mmol/L (22-30); Chloride 108 mmol/L (98-107); Creatine Kinase 950 U/L (30-135); Estimated CRCL calculation 81 ml/min; Estimated Glomerular Filt Rate > 60; Glucose 82 mg/dL (65-110); Magnesium 1.6 mg/dL (1.6-2.3); Phosphorus 3.1 mg/dL (2.5-4.5); Potassium 3.5 mmol/L (3.4-5.0); Sodium 141 mmol/L (137-145)
[2021-06-25] MEDS: ALBUTEROL SULFATE (*SP) AEROSOL 1 PUFF 2 PUFF INHALATION (08:07)
[2021-06-25 08:08] VITALS: PULSE 83; O2SAT 93
[2021-06-25] MEDS: ACETAMINOPHEN 325 MG TABLET 650 MG PO (09:39)
[2021-06-25] MEDS: LEVOTHYROXINE SODIUM 50 MCG TABLET PO (09:40)
[2021-06-25] MEDS: buPROPion HCL 100 MG TABLET PO (09:40)
[2021-06-25] MEDS: FLUoxetine HCL 10 MG CAPSULE PO (09:40)
[2021-06-25] MEDS: ENOXAPARIN 40 MG/0.4 ML SYRINGE SUB-Q (09:40)
[2021-06-25] MEDS: PANTOPRAZOLE 40 MG TABLET PO (09:40)
[2021-06-25] MEDS: ASPIRIN 81 MG ENTERIC TABLET PO (09:40)
--- NOTE | 2021-06-25 13:23 | PM.DS ---
DS: Admitting Diagnosis Admitting Diagnosis altered mental status DS: Discharge Diagnosis Discharge Diagnosis (1) Rhabdomyolysis: Qualifiers: Encounter type: initial encounter Rhabdomyolysis type: traumatic Qualified Code(s): T79.6XXA - Traumatic ischemia of muscle, initial encounter Code(s): M62.82 - Rhabdomyolysis Status: Acute Assessment and Plan: on admission with CK level 8000. Started on IV fluids with monitoring of CK level. CK level improved down to 900 the time of discharge (2) Altered mental status: Qualifiers: Altered mental status type: unspecified Qualified Code(s): R41.82 - Altered mental status, unspecified Code(s): R41.82 - Altered mental status, unspecified Status: Acute Assessment and Plan: On presentation could be delirium versus medications versus CVA CT head was negative however brain MRI with acute left occipital lobe stroke she has not been taking her aspirin for past 2 months resumed her aspirin 81 mg a day. also started on atorvastatin 20 mg. Her LDL came back at 53. Carotid Doppler with no significant carotid artery stenosis. Echocardiogram unremarkable with no thrombus or PFO. Discuss smoking cessation Continue on aspirin and statin At the time of discharge (3) Bipolar 1 disorder: Code(s): F31.9 - Bipolar disorder, unspecified Status: Acute Assessment and Plan: possible suicide attempt on the day admission due to presence of suicide note by her family members. Was placed on 1 is to 1 sitter in the beginning until her confusion resolved. She states she was drinking last week which is 12 years since her last drink. She stated she has never been suicidal and the note that was found was from the past while she was undergoing a treatments. Psychiatry crisis team also evaluated the patient and deemed nonsuicidal with no safety plan needed. One on 1 sitter was discontinued at that point. She was continued on her regular medication for her bipolar disorder. (4) Acute stroke due to ischemia: Code(s): I63.9 - Cerebral infarction, unspecified Status: Acute Assessment and Plan: Left occipital lobe acute stroke continue aspirin and statin discussed smoking cessation no diabetes carotid ultrasound with no significant carotid artery stenosis. Echo Unremarkable DS: Summary Hospital Course Hospital Course: see above Time Spent with Patient Time attestation: Total time spent providing and/or coordinating discharge services: 45 minutes Exam Narrative: General: Awake and alert not in acute distress Lungs/Chest: Clear to auscultation no respiratory distress Cardiac: RRR. Normal S1 S2. No murmurs Abdomen: Normal bowel sounds.. Soft. NT. ND. Extremities: No clubbing, cyanosis or edema. Warm Neurologic: Alert and oriented x3 nonsuicidal non non homicidal moving all her extremities Skin: No rash no lesion Musculoskeletal: Bruise on right hip on the lateral side tenderness on her lateral trochanteric area DS: Data Data Completed and Pending Labs on day of discharge: Labs from last 24 hours 06/25/21 06/25/21 06:00 06:00 WBC 6.3 RBC 4.37 Hgb 12.4 Hct 39.1 MCV 89.5 MCH 28.4 MCHC 31.7 L RDW 15.6 H Plt Count 181 MPV 10.9 H Sodium 141 Potassium 3.5 Chloride 108 H Carbon Dioxide 30 Anion Gap 3 L BUN 7 Creatinine 0.60 L Estim Creat Clear Calc 81 Estimated GFR > 60 Glucose 82 Calcium 7.9 L Phosphorus 3.1 Magnesium 1.6 Total Bilirubin 1.0 AST 85 H ALT 42 H Alkaline Phosphatase 133 H Total Creatine Kinase 950 H Total Protein 6.0 L Albumin 2.8 L Imaging Radiologist's impression: ITS Impressions Head CT 06/21/21 22:22 IMPRESSION: Cerebral atherosclerosis and chronic small vessel ischemic changes of cerebral white matter No acute intracranial finding Hip/Pelvis X-Ray 06/21/21 23:42 IMPRESSI
[2021-06-25] MEDS: HYDROcodone/acetaminophen (*CRX) 5-325 MG TABLET 1 TAB PO (13:29)
[2021-06-25 14:00] VITALS: BP 151/80; PULSE 72; RESP 16; TEMP 37.5; O2SAT 100
== END 2021-06-25 15:50 | disposition home or self-care (01) | DRG 66 ==
LOC: ANHED 06-22 00:20 → ANHICU 06-22 01:43 → ANH3MEDSUR 06-25 13:23 → ANHICU 06-28 14:43
PROVIDERS: Emergency Medicine; Internal Medicine; Admitting Provider Internal Medicine; Emergency Provider Emergency Medicine; Visit Provider Internal Medicine
DX: I63.9 Cerebral infarction, unspecified (principal); T79.6XXA Traumatic ischemia of muscle, initial encounter; W19.XXXA Unspecified fall, initial encounter; F31.9 Bipolar disorder, unspecified; J44.9 Chronic obstructive pulmonary disease, unspecified; F17.210 Nicotine dependence, cigarettes, uncomplicated; M51.36 Other intervertebral disc degeneration, lumbar region; I10 Essential (primary) hypertension; Z79.82 Long term (current) use of aspirin; Z79.899 Other long term (current) drug therapy
CPT/HCPCS: 36415; 51701; 70450; 70551; 71045; 73030; 73502; 80053; 80061; 80307; 81001; 82550; 83036; 83735; 84100; 84443; 85025; 85027; 93005; 93306; 93880; 94640; 96361; 96365; 96372; 97110; 97162; 97165; 97530; 97535; 99285; A9270; G0378; J0131; J1650; J7030; J7120

== ENCOUNTER 2022-03-09 13:57 | Inpatient (IN) | payer MEDICARE, SELFPAY ==
[2022-03-09] VITALS (18 sets, daily range): BP systolic 67–106; BP diastolic 47–87; PULSE 92–105; RESP 11–27; TEMP 36.2–36.9; O2SAT 93–100; BMI 24.7; BMI 24.6
--- NOTE | ~2022-03-09 | XR_ITS ---
XR abdomen NG/feed tube insert INDICATION: Evaluate NG tube position. TECHNIQUE: Limited KUB perform for evaluating NG tube . COMPARISON: 03/23/2022 FINDINGS: NG tube tip in the stomach, side port near the expected location of the GE junction. Visua lized bowel gas pattern is nonspecific, although incompletely visualized.Right percutaneous nephrosto my catheter partially visualized. Bibasilar atelectasis. IMPRESSION: 1: NG tube tip in the stomach. Reviewed, dictated and finalized at location A.
--- NOTE | ~2022-03-09 | XR_ITS ---
EXAMINATION: XR chest 1V portable DATE: 03/22/2022 06:13 INDICATION: Acute respiratory failure. TECHNIQUE: A single frontal view of the chest was obtained. COMPARISON: Chest single view 03/21/2022, chest CT 03/19/2022 FINDINGS: There are small pleural effusions. There are airspace opacities in the mid and lower lung z ones with a basilar predominance. No pneumothorax. The heart size is normal. The endotracheal tube ti p is 4.6 cm above the aryan. The nasogastric tube tip is beyond the inferior margin of the radiograp h, but at least to the stomach. A left upper extremity peripherally inserted central venous catheter (PICC) is seen with tip at the superior cavoatrial junction. IMPRESSION: 1. Stable small pleural effusions. 2. Stable airspace opacities in the mid and lower lung zones with a basilar predominance, likely atel ectasis. Pneumonia cannot be excluded. Reviewed, dictated and finalized at location A. IMPRESSION: 1. Stable small pleural effusions. 2. Stable airspace opacities in the mid and lower lung zones with a basilar pre dominance, likely atelectasis. Pneumonia cannot be excluded.
--- NOTE | ~2022-03-09 | XR_ITS ---
EXAM: XR abdomen NG/feed tube insert DATE: 03/19/2022 16:34 HISTORY: og insertion . COMPARISON: Same date at 3:01 PM. FINDINGS: Persistent bilateral costophrenic angle blunting. Persistent small bowel dilation. No endo tracheal tube, tip and side port project over the stomach. IMPRESSION: NG tube, in good position. Reviewed, dictated and finalized at location K. IMPRESSION: NG tube, in good position.
--- NOTE | ~2022-03-09 | XR_ITS ---
EXAMINATION: XR abdomen NG/feed tube insert INDICATION: Nasogastric tube insertion TECHNIQUE: Portable AP KUB-NG at 0639 hours COMPARISON: 03/09/2022 FINDINGS: The tip of the nasogastric tube is in the stomach. The proximal side port is near the gastr oesophageal junction. The visualized lung bases are clear. IMPRESSION: 1. Tip of nasogastric tube in the stomach with proximal side port in the distal esophagus. Recommend advancing 3 to 4 cm. Reviewed, dictated and finalized at location A.
--- NOTE | ~2022-03-09 | XR_ITS ---
XR chest 1V portable DATE: 03/28/2022 05:29 INDICATION: Respiratory failure TECHNIQUE: Portable AP chest views on 03/28/2022 at 0514 hours COMPARISON: 03/27/2022 portable AP chest at 0545 hours FINDINGS: Persistent bilateral lower lung infiltrate and/atelectasis and mild pleural effusions. Cardiac megaly. Aortic calcification. There is pulmonary vascular redistribution suggesting mild pulmonary venous hypertension. Chronic discoid scarring in the left mid and lower lung and discoid atelectasis in the right mid and lower lung NG tube in stomach. Diffuse osteopenia. There is widening of the left acromioclavicular joint since 03/27/2022. Bilateral rotator cuff atrophy . Status post resection of the lateral aspect of the right clavicle. IMPRESSION: No significant change of cardiac megaly, congestive changes, primarily lower lung infiltr ates and/or atelectasis and mild pleural effusions Reviewed, dictated and finalized at location A. IMPRESSION: No significant change of cardiac megaly, congestive changes, primar candi lower lung infiltrates and/or atelectasis and mild pleural effusions
--- NOTE | ~2022-03-09 | XR_ITS ---
XR shoulder RT min 2V DATE: 03/12/2022 09:47 INDICATION: Fall. Right shoulder pain TECHNIQUE: 5 views COMPARISON: 06/21/2021 right shoulder FINDINGS: Again noted is resection of the lateral aspect of the right clavicle. No fracture or disloc ation, periosteal reaction or bone destruction or abnormal soft tissue calcification to right shoulde r. IMPRESSION: Resection lateral aspect right clavicle; no fracture or dislocation Reviewed, dictated and finalized at location A.
--- NOTE | ~2022-03-09 | XR_ITS ---
EXAMINATION: XR chest 1V portable DATE: 03/17/2022 13:26 INDICATION: Shortness of breath. Cough. TECHNIQUE: A single frontal view of the chest was obtained. COMPARISON: Chest single view 03/09/2022, CT abdomen and pelvis 03/09/2022 FINDINGS: There are small pleural effusions. There are airspace opacities in the lower lung zones. No pneumothorax. The heart size is normal. IMPRESSION: 1. New small pleural effusions. 2. Worsened airspace opacities in the lower lung zones, consistent with atelectasis versus pneumonia. Reviewed, dictated and finalized at location A. IMPRESSION: 1. New small pleural effusions. 2. Worsened airspace opacities in the lower lung zones, consistent with atelect asis versus pneumonia.
--- NOTE | ~2022-03-09 | XR_ITS ---
XR abdomen NG/feed tube insert DATE: 03/26/2022 11:46 INDICATION: NG tube insertion TECHNIQUE: Portable AP view on 03/26/2022 at 1141 hours COMPARISON: 03/25/2022 portable AP view FINDINGS: NG tube is noted in the stomach, proximal side-port approximately 5.8 cm distal to the diap hragmatic hiatus. Nonspecific gaseous distention of small and large bowel segments. Left lower lobe infiltrate and/or atelectasis. There is chronic discoid scarring in the left lower carlton ng. There is discoid atelectasis in the right mid to lower lung. Bilateral congestive changes, small pleural effusions. IMPRESSION: NG tube in stomach Left lower lobe infiltrate or atelectasis Reviewed, dictated and finalized at Location A. Reviewed, dictated and finalized at location A.
--- NOTE | ~2022-03-09 | XR_ITS ---
XR chest 1V portable DATE: 03/26/2022 05:27 INDICATION: Respiratory failure TECHNIQUE: Portable AP chest on 03/26/2022 at 0520 hours COMPARISON: Portable AP chest on 03/25/2020 0510 hours Portable AP chest on 03/09/2022 at 1430 hours 06/24/2021 portable AP chest 03/27/2020 portable AP chest FINDINGS: ET tube 5.2 cm above aryan. NG tube in stomach. Left upper extremity PIC catheter tip situ ated near superior cavoatrial junction. Chronic discoid scar in the left mid to lower lung. Prominent band of discoid atelectasis overlying the mid to lower right lung. Heart size is normal. This pulmonary vascular congestion and redistribution. There are mild pleural e ffusions. Kaylyn B-lines are noted consistent with pulmonary interstitial edema. There are mild infiltrates in the mid and and to a greater extent lower lung zones, which may be due to pulmonary edema. Pneumonia is not excluded. There is some left lower lobe atelectasis or consolidation. Status post resection of the lateral aspect of the right clavicle. Osteopenia. IMPRESSION: Congestive changes, pulmonary edema, small pleural effusions Left lower lobe atelectasis and/or consolidation Prominent band of discoid atelectasis in the right mid to lower lung Congestive changes appear mildly increased since 03/25/2022 Reviewed, dictated and finalized at location A.
--- NOTE | ~2022-03-09 | XR_ITS ---
EXAM: XR abdomen NG/feed tube insert HISTORY: ng verification COMPARISON: None available FINDINGS: NG tube tip and side port project over the stomach. Small hiatal hernia. Clear lung bases. Partially visualized normal bowel gas pattern. IMPRESSION: NG tube, in good position. Reviewed, dictated and finalized at location K. IMPRESSION: NG tube, in good position.
--- NOTE | ~2022-03-09 | US_ITS ---
EXAMINATION: US venous doppler [facility] DATE: 03/20/2022 21:52 INDICATION: Swelling of lower extremities . TECHNIQUE: Grayscale images without and with compression and Doppler images of the bilateral lower ex tremity veins were obtained. COMPARISON: None FINDINGS: Exam limited by bilateral groin catheters, body habitus, and leg swelling. The right common femoral vein, profunda (deep) femoral vein, femoral vein, popliteal vein, peroneal v ein, posterior tibial veins, and greater saphenous vein are patent. The left common femoral vein, profunda femoral vein, femoral vein, popliteal vein, peroneal vein, pos terior tibial veins, and greater saphenous vein are patent. IMPRESSION: 1. Exam limited as described above, within those constraints, no evidence of deep venous thrombosis Reviewed, dictated and finalized at location K. IMPRESSION: 1. Exam limited as described above, within those constraints, no evidence of d eep venous thrombosis
--- NOTE | ~2022-03-09 | XR_ITS ---
EXAMINATION: XR chest 1V portable DATE: 03/23/2022 05:55 INDICATION: Acute respiratory failure. TECHNIQUE: A single frontal view of the chest was obtained. COMPARISON: Chest single view 03/22/2022 FINDINGS: There are airspace opacities in the mid and lower lung zones with a basilar predominance. T here are small pleural effusions. No pneumothorax. The heart size is normal. The endotracheal tube ti p is 5.7 cm above the aryan. A left upper extremity peripherally inserted central venous catheter (P ICC) is seen with tip at the superior cavoatrial junction. The nasogastric tube tip is beyond the inf erior margin of the radiograph, but at least to the stomach. IMPRESSION: 1. Stable airspace opacities in the mid and lower lung zones with a basilar predominance, likely atel ectasis. Pneumonia cannot be excluded. 2. Stable small pleural effusions. Reviewed, dictated and finalized at location A. IMPRESSION: 1. Stable airspace opacities in the mid and lower lung zones with a basilar pre dominance, likely atelectasis. Pneumonia cannot be excluded. 2. Stable small pleural effusions.
--- NOTE | ~2022-03-09 | XR_ITS ---
EXAM: XR abdomen obstructive series DATE: 03/19/2022 15:10 HISTORY: abdomen pain, no bowel sounds . COMPARISON: None available. FINDINGS: Possible bilateral small effusions. Mildly dilated loops of small bowel. Some centralizati on of bowel loops as can be seen with ascites. No organomegaly. No abnormal abdominal calcification. Degenerative changes in the lumbar spine. IMPRESSION: Small bowel ileus versus obstruction. Reviewed, dictated and finalized at location K.
--- NOTE | ~2022-03-09 | US_ITS ---
EXAMINATION: US abdomen limited DATE: 03/20/2022 10:06 INDICATION: Hyperbilirubinemia TECHNIQUE: Multiple grayscale and Doppler ultrasound images of the abdomen were obtained. COMPARISON: None FINDINGS: The visualized portion of the partially obscured pancreas appears normal. The gallbladder is dilated measuring 10.9 x 6.5 x 6.0 cm with mild wall thickening and shadowing likely impacted gallstone at th e neck of the gallbladder. Sonographic Hummel sign unable to be assessed due to decreased level consc iousness. Liver has normal echogenicity but with coarsened echotexture and subtle liver surface nodul arity consistent with cirrhosis. No liver lesion identified. No intrahepatic biliary duct dilation durbin spected. Portal venous flow was seen in the hepatopetal, normal direction and has normal Doppler wave form. Small amount of perihepatic ascites. Additional small amount of ascites in the right lower quad rant and trace ascites in the left lower quadrant. There is also a right pleural effusion. Visualized portion of the right kidney demonstrates normal echogenicity and contour with no hydronephrosis. IMPRESSION: 1. Acute cholecystitis with likely impacted gallstone at the neck of the gallbladder. 2. Mild dilation of the common bile duct which measures up to 10 mm which appears to taper more dista lly with no definite obstructing lesion or intrahepatic biliary ductal dilation. The distalmost duct is however obscured and would consider follow-up with serial liver function tests. 3. Cirrhosis with small amount of ascites. Reviewed, dictated and finalized at location A. IMPRESSION: 1. Acute cholecystitis with likely impacted gallstone at the neck of the gallbl adder. 2. Mild dilation of the common bile duct which measures up to 10 mm which appea rs to taper more distally with no definite obstructing lesion or intrahepatic b iliary ductal dilation. The distalmost duct is however obscured and would consi george follow-up with serial liver function tests. 3. Cirrhosis with small amount of ascites.
--- NOTE | ~2022-03-09 | CT_ITS ---
EXAMINATION: CT abdomen pelvis w con DATE: 03/09/2022 15:45 INDICATION: abdominal pain, vomiting, sepsis TECHNIQUE: Computed tomography (CT) of the abdomen and pelvis was performed with 100 mL Omnipaque-300 intravenous contrast. Automated exposure control and iterative reconstruction technique were employe d. The dose-length product was 858.41 mGy-cm. COMPARISON: None FINDINGS: Lower thorax: Lung bases clear. Aortic and mitral calcification. Possible mild coronary artery calcif ication. Hiatal hernia. Bilateral breast augmentation, with capsular calcifications and evidence of r upture. Liver: No mass. Nodular border. Left main portal and umbilical varices. The left portal varix passes adjacent to a peripherally nodular enhancing lesion that is likely a hemangioma. Biliary/Gallbladder: Gallbladder is absent. Mucosal hyperemia. Minimal pericholecystic fluid. The com mon bile duct measures 9 mm. Inflammatory change in the marcial hepatis. Spleen: Normal. Pancreas: No mass. Pancreatic duct measures 4 mm. Adrenals:No mass. Kidneys: No mass, stone, or hydronephrosis. Cortical thinning. GI tract: Distal esophageal and gastric wall edema. Segmental wall edema in the sigmoid colon. Scatte red diverticuli without diverticulosis. No obstruction. Appendix not visualized. Mesentery/Peritoneum: No ascites, mass, or free air. Retroperitoneum: No mass. Pelvis: Uterus is absent. Normal bladder. Soft Tissues: Soft tissues and body wall unremarkable. Bones: No acute osseous finding. IMPRESSION: Infectious, inflammatory, or ischemic change in the sigmoid colon. Extrahepatic biliary duct and panc reatic duct dilation with mild inflammatory changes of the gallbladder and marcial hepatis, no obstruct ing stone or mass detected in this examination, clinical and laboratory correlation advised. CT findi ngs suspicious for cirrhosis with portal hypertension. Reviewed, dictated and finalized at location K. IMPRESSION: Infectious, inflammatory, or ischemic change in the sigmoid colon. Extrahepatic biliary duct and pancreatic duct dilation with mild inflammatory changes of th e gallbladder and marcial hepatis, no obstructing stone or mass detected in this examination, clinical and laboratory correlation advised. CT findings suspiciou s for cirrhosis with portal hypertension.
--- NOTE | ~2022-03-09 | XR_ITS ---
EXAMINATION: XR abdomen NG/feed tube rechec INDICATION: Advanced nasogastric tube TECHNIQUE: Portable AP KUB-NG at 0816 hours COMPARISON: 0639 hours FINDINGS: The nasogastric tube has been advanced. The proximal side port is in the stomach. There is otherwise no significant change. IMPRESSION: 1. Nasogastric tube advanced with proximal side port in the stomach. Reviewed, dictated and finalized at location A.
--- NOTE | ~2022-03-09 | US_ITS ---
EXAMINATION: US venous doppler UE RT DATE: 03/17/2022 11:36 INDICATION: Right upper limb swelling TECHNIQUE: Grayscale images without and with compression and Doppler images of the right upper extrem ity veins were obtained. COMPARISON: None. FINDINGS: Noncompressible occlusive thrombus along a short segment of the mid right cephalic vein with the more proximal distal cephalic vein remaining patent and compressible. Additional noncompressible occlusiv e thrombus in the right ulnar vein. The right internal jugular vein, subclavian vein, axillary vein, brachial vein, basilic vein, radial vein are patent. IMPRESSION: 1. Thrombosis of the right ulnar vein and mid cephalic vein. Reviewed, dictated and finalized at location A.
--- NOTE | ~2022-03-09 | XR_ITS ---
EXAMINATION: XR abdomen NG/feed tube insert INDICATION: Nasogastric tube placement TECHNIQUE: Portable AP KUB-NG at 1009 hours COMPARISON: 0816 hours FINDINGS: The nasogastric tube has been further advanced. The tip now projects in the distal body of the stomach. The bowel gas pattern is unremarkable. IMPRESSION: 1. Nasogastric tube in the stomach. Reviewed, dictated and finalized at location A.
--- NOTE | ~2022-03-09 | XR_ITS ---
EXAMINATION: XR abdomen NG/feed tube insert DATE: 03/23/2022 08:32 INDICATION: Nasogastric tube placement. TECHNIQUE: A supine view of the abdomen was obtained. COMPARISON: CT abdomen and pelvis 03/19/2022 FINDINGS: The lower abdomen and right lateral aspect of the abdomen are excluded. The nasogastric tub e tip is in the stomach. A left upper extremity peripherally inserted central venous catheter (PICC) is seen with tip in the superior vena cava. IMPRESSION: 1. Nasogastric tube tip in the stomach. Reviewed, dictated and finalized at location A.
--- NOTE | ~2022-03-09 | CT_ITS ---
EXAMINATION: CT chest abdomen pelvis wo con DATE: 03/19/2022 21:36 INDICATION: Abdominal pain, recent C diff colitis . TECHNIQUE: Computed tomography (CT) of the chest, abdomen, and pelvis was performed without intraveno us contrast. Automated exposure control and iterative reconstruction technique were employed. The dos e-length product was 1697.39 mGy-cm. COMPARISON: 03/09/2022. FINDINGS: Left upper extremity PICC, endotracheal tube, left femoral arterial and right femoral venous catheter s, and nasogastric tubes, all in good position. Thoracic aorta: Atherosclerotic calcification. Lung parenchyma and airways: Senescent changes. Bibasilar atelectasis. Thoracic inlet, axillae and chest wall: No thyroid or sofft tissue mass. No axillary lymphadenopathy. Subcutaneous edema. Bilateral breast augmentation. Bilateral implant rupture. Mediastinum: No mass or lymphadenopathy. Heart and pericardium: Normal heart size. Trace pericardial effusion. Mitral annulus calcification. Coronary artery calcifications: Mild. Pleura: Moderate bilateral effusions. Thoracic bones: No acute osseous finding in the chest. ABDOMEN/PELVIS: Liver: Liver is small with a nodular border. Upper abdominal varices. Biliary/Gallbladder: Gallbladder hydrops. Cholelithiasis. No significant wall thickening or definite surrounding inflammatory change/fluid. No bile duct dilation. Pancreas: No mass or duct dilation. Spleen: Normal. Adrenals:No mass. Kidneys: No mass, stone, or hydronephrosis. GI tract: Mild dilation of proximal small bowel loops. Multiple small bowel air-fluid levels. Wall th ickening in the cecum and distal colon, perhaps related to the history of C. difficile colitis. Appen cecilio not visualized. Mesentery/Peritoneum: Small volume intraperitoneal fluid and mesenteric edema Retroperitoneum: No mass Pelvis: The bladder is decompressed by a Echols catheter. Uterus not visualized. Soft Tissues: Significant subcutaneous edema. Fat-containing bilateral inguinal hernias. Abdominopelvic bones: No acute osseous finding in the abdomen/pelvis. IMPRESSION: Anasarca. Moderate bilateral pleural effusions. Gallbladder hydrops with cholelithiasis, correlate wi th clinical/laboratory findings. Cirrhosis with portal hypertension. Mild small bowel dilation with a ir-fluid levels may reflect ileus, early/partial obstruction not excluded. Colonic wall thickening, p resumably related to the history of C. difficile colitis. The addition of suspected small bowel ileus to the preliminary report was reported telephonically to the patient's nurse Lyn Wolf by Dr. Baez at 6:25 PM on 03/20/2022. Reviewed, dictated and finalized at location K. IMPRESSION: Anasarca. Moderate bilateral pleural effusions. Gallbladder hydrops with cholel ithiasis, correlate with clinical/laboratory findings. Cirrhosis with portal hy pertension. Mild small bowel dilation with air-fluid levels may reflect ileus, early/partial obstruction not excluded. Colonic wall thickening, presumably rel ated to the history of C. difficile colitis. The addition of suspected small bowel ileus to the preliminary report was repor lamont telephonically to the patient's nurse Lyn Wolf by Dr. Baez at 6:25 P M on 03/20/2022.
--- NOTE | ~2022-03-09 | US_ITS ---
EXAMINATION: US perc cholecystostomy w imag DATE: 03/20/2022 15:28 INDICATION: Acute cholecystitis TECHNIQUE: The procedure including the risks and benefits was discussed with the patient's daughter. Risks discussed included bleeding including hemorrhage, infection and allergic reaction. The increase d risk of bleeding due to coagulopathy was discussed as well as the increased risk for surgical treat ment in this setting as well as the risk of ongoing sepsis in the absence of bladder drainage. [facility] consent was obtained. The patient was confirmed to be receiving appropriate antibiotic coverage. The skin overlying the bladder was prepped and draped in usual sterile fashion. Anesthetic was admi nistered with 1% lidocaine subcutaneously as well as at the gallbladder wall. A direct approach avoid ing the liver was chosen due to the coagulopathy and small distance between the gallbladder wall and the skin surface at this location. An 8.5 Fr catheter was inserted into the gallbladder by trocar te chnique and utilizing continuous ultrasound guidance. The metal stiffener and trocar needle were arlette brijesh, and the pigtail tip was locked. Bile was aspirated and sent for culture. The catheter was stitch ed to the skin with suture. Antibiotic ointment and a sterile dressing were applied. There were no im mediate complications. FINDINGS: The gallbladder is dilated with wall thickening and stones and sludge, consistent with acut e cholecystitis. Ultrasound images demonstrate the catheter within the gallbladder. 230 mL dark black maricruz brown-colored bile was aspirated. Final images show the formed pigtail catheter tip in the decom pressed gallbladder. IMPRESSION: 1. Successful ultrasound-guided cholecystostomy tube placement. 2. 50 mL bile was sent for aerobic, anaerobic, and fungal cultures. 3. The catheter will be managed by Dr. Isabel. A catheter cholangiogram may be performed not less than 48 hours after tube placement if clinically indicated to assess cystic duct patency. If cholecystec gwen is not eventually performed and the infectious episode has resolved, the tube may be removed ove r a guidewire, preferably not less than 3 weeks after placement to allow time for a mature catheter t ract to form to prevent bile leakage and peritonitis. Reviewed, dictated and finalized at location A. IMPRESSION: 1. Successful ultrasound-guided cholecystostomy tube placement. 2. 50 mL bile was sent for aerobic, anaerobic, and fungal cultures. 3. The catheter will be managed by Dr. Isabel. A catheter cholangiogram may be p erformed not less than 48 hours after tube placement if clinically indicated to assess cystic duct patency. If cholecystectomy is not eventually performed an d the infectious episode has resolved, the tube may be removed over a guidewire , preferably not less than 3 weeks after placement to allow time for a mature c atheter tract to form to prevent bile leakage and peritonitis.
--- NOTE | ~2022-03-09 | XR_ITS ---
EXAMINATION: XR chest 1V portable DATE: 03/21/2022 05:49 INDICATION: Acute respiratory failure. TECHNIQUE: A single frontal view of the chest was obtained. COMPARISON: Chest single view 03/20/2022, 03/19/2022 FINDINGS: There are small pleural effusions. There are airspace opacities in the mid and lower lung z ones with a basilar predominance. No pneumothorax. The heart size is normal. The endotracheal tube ti p is 4.1 cm above the aryan. The nasogastric tube tip is beyond the inferior margin of the radiograp h, but at least to the stomach. A left upper extremity peripherally inserted central venous catheter (PICC) is seen with tip at the superior cavoatrial junction. Partially visualized is a percutaneous c holecystostomy tube in expected position. Breast implants are noted. IMPRESSION: 1. Stable small pleural effusions. 2. Stable airspace opacities in the mid and lower lung zones with a basilar predominance, consistent with atelectasis. Pneumonia cannot be excluded. Reviewed, dictated and finalized at location A. IMPRESSION: 1. Stable small pleural effusions. 2. Stable airspace opacities in the mid and lower lung zones with a basilar pre dominance, consistent with atelectasis. Pneumonia cannot be excluded.
--- NOTE | ~2022-03-09 | US_ITS ---
US abdomen limited DATE: 03/27/2022 09:45 INDICATION: Cholecystostomy; confirm drain placement TECHNIQUE: Real-time imaging of the gallbladder area COMPARISON: 03/20/2022 Limited abdominal ultrasound 03/19/2022 CTA chest abdomen pelvis FINDINGS: Distended gallbladder containing heterogeneous soft tissue density and apparent intralumina l cholecystostomy catheter. Cholelithiasis. IMPRESSION: Cholecystostomy catheter in distended gallbladder with cholelithiasis Reviewed, dictated and finalized at Location A. Reviewed, dictated and finalized at location A. IMPRESSION: Cholecystostomy catheter in distended gallbladder with cholelithias is
--- NOTE | ~2022-03-09 | XR_ITS ---
EXAMINATION: XR chest 1V portable Exam Date/Time: 03/09/2022 14:25 CDT CLINICAL HISTORY: GI bleed, hypotension DIZZY WEAKNESS NOTED Comparison: 06/24/2021. RESULT: Lines, tubes, and devices: None. Lungs and pleura: Clear. Cardiomediastinal silhouette: Stable cardiomediastinal silhouette. Other: No acute osseous or upper abdominal finding. IMPRESSION: No acute cardiopulmonary process Reviewed, dictated and finalized at location K.
--- NOTE | ~2022-03-09 | XR_ITS ---
EXAMINATION: XR chest 1V portable Exam Date/Time: 03/19/2022 14:50 CDT HISTORY: Sepsis Comparison: 03/17/2022. RESULT: Lines, tubes, and devices: None. Lungs and pleura: Increased diffuse reticular pattern. Bibasilar midlung scarring. Persistent costop hrenic angle blunting bilaterally. Cardiomediastinal silhouette: Stable cardiomediastinal silhouette. Other: No acute osseous or upper abdominal finding. IMPRESSION: Pulmonary findings may reflect interstitial pulmonary edema. Likely small bilateral effusions. Reviewed, dictated and finalized at location K. IMPRESSION: Pulmonary findings may reflect interstitial pulmonary edema. Likely small bilat eral effusions.
--- NOTE | ~2022-03-09 | XR_ITS ---
EXAMINATION: XR chest 1V portable DATE: 03/25/2022 05:32 INDICATION: Respiratory failure. TECHNIQUE: A single frontal view of the chest was obtained. COMPARISON: Chest single view 03/24/2022 FINDINGS: There are small pleural effusions. There are airspace opacities in the mid and lower lung z ones. No pneumothorax. The heart size is normal. The nasogastric tube tip is in the stomach. The endo tracheal tube tip is 4.7 cm above the aryan. A left upper extremity peripherally inserted central ve nous catheter (PICC) is seen with tip in the azygos vein IMPRESSION: 1. Stable airspace opacities in the mid and lower lung zones, likely atelectasis. Pneumonia cannot be excluded. 2. Stable small pleural effusions. Reviewed, dictated and finalized at location A. IMPRESSION: 1. Stable airspace opacities in the mid and lower lung zones, likely atelectasi s. Pneumonia cannot be excluded. 2. Stable small pleural effusions.
--- NOTE | ~2022-03-09 | XR_ITS ---
EXAMINATION: XR chest ET placement Exam Date/Time: 03/19/2022 16:25 CDT HISTORY: ET placement Comparison: Same date at 2:55 PM. RESULT: Lines, tubes, and devices: Tracheal tube terminates 5.7 cm above the aryan. Nasogastric tube terminating off the [id number]. Left upper extremity PICC terminating at the cavoatrial junction. Lungs and pleura: Improved diffuse reticular pattern. Stable bilateral costophrenic angle blunting. Cardiomediastinal silhouette: Stable cardiomediastinal silhouette. Other: No acute osseous or upper abdominal finding. IMPRESSION: Slightly high positioned endotracheal tube, 5.7 cm above the aryan. Improved interstitial opacities. Unchanged small bilateral effusions versus chronic costophrenic angle blunting. Reviewed, dictated and finalized at location K. IMPRESSION: Slightly high positioned endotracheal tube, 5.7 cm above the aryan. Improved i nterstitial opacities. Unchanged small bilateral effusions versus chronic costo phrenic angle blunting.
--- NOTE | ~2022-03-09 | XR_ITS ---
XR chest 1V portable 03/29/2022 05:36 Indication: Respiratory failure Procedure: AP portable chest Comparison: Comparison to multiple prior studies sequentially, with oldest reviewed study dated 03/25. Findings: Significant progression of diffuse bilateral airspace disease. NG tube in the stomach. Smal l pleural effusions. No pneumothorax. Impression: 1: Significant progression of bilateral airspace disease which may represent edema and/or pneumonia. Reviewed, dictated and finalized at location A. Impression: 1: Significant progression of bilateral airspace disease which may represent ed lucrecia and/or pneumonia.
--- NOTE | ~2022-03-09 | XR_ITS ---
EXAMINATION: XR chest 1V portable DATE: 03/24/2022 05:55 INDICATION: Acute respiratory failure. TECHNIQUE: A single frontal view of the chest was obtained. COMPARISON: Chest single view 03/23/2022 FINDINGS: There are airspace opacities in the mid and lower lung zones with a basilar predominance. T here are small pleural effusions. No pneumothorax. The heart size is normal. The endotracheal tube ti p is 4.8 cm above the aryan. The nasogastric tube tip is in the stomach. A left upper extremity stanislaw pherally inserted central venous catheter (PICC) is seen with tip at the superior cavoatrial junction . IMPRESSION: 1. Stable airspace opacities in the mid and lower lung zones with a basilar predominance, likely atel ectasis. Pneumonia cannot be excluded. 2. Small pleural effusions with improvement on the left. Reviewed, dictated and finalized at location A. IMPRESSION: 1. Stable airspace opacities in the mid and lower lung zones with a basilar pre dominance, likely atelectasis. Pneumonia cannot be excluded. 2. Small pleural effusions with improvement on the left.
--- NOTE | ~2022-03-09 | XR_ITS ---
XR chest 1V portable DATE: 03/27/2022 06:08 INDICATION: Respiratory failure TECHNIQUE: Portable AP chest on 03/27/2022 0545 hours COMPARISON: 03/26/2022 portable AP chest at 0520 hours FINDINGS: Interval removal of ET tube since 03/26/2022. NG tube in stomach. Left upper extremity PIC c atheter tip newly curves distally, still overlying the superior vena cava. There is pulmonary vascular congestion but persistent bilateral lower lung infiltrate and/atelectasis and mild pleural effusions. Again noted is a prominent band of discoid atelectasis in the right mid lower lung and chronic discoid scarring in the left mid and lower lung. IMPRESSION: Mild improvement of pulmonary vascular congestion but persistent bilateral lower lung inf iltrate or atelectasis and mild pleural effusions Removal of ET tube since 03/26/2022 Reviewed, dictated and finalized at location A. IMPRESSION: Mild improvement of pulmonary vascular congestion but persistent bi lateral lower lung infiltrate or atelectasis and mild pleural effusions Removal of ET tube since 03/26/2022
--- NOTE | ~2022-03-09 | XR_ITS ---
EXAMINATION: XR chest 1V portable DATE: 03/20/2022 06:38 INDICATION: Acute respiratory failure TECHNIQUE: frontal view of the chest was obtained. COMPARISON: Chest radiograph and CT dated 03/19/2022 FINDINGS: Endotracheal tube tip 5.8 cm above the aryan. Nasogastric tube with proximal side-port in the body o f the stomach and with distal tip collimated off the study. Left upper extremity peripherally inserte d central venous catheter (PICC) tip at the caudal superior vena cava. Linear bands of discoid atelectasis/scarring at both the right middle lobe and lingula. Hazy opacitie s in the bilateral lower lung zones with blunting at the costophrenic angles and left-sided retrocard iac consolidation consistent with bilateral small posterior layering pleural effusions and associated atelectasis although a left lower lobe pneumonia cannot be excluded. No pneumothorax. The cardiomedi astinal silhouette is normal. Dystrophic capsular calcification at the periphery of bilateral breast implants. IMPRESSION: 1. Small bilateral pleural effusions with associated atelectasis in the bilateral lower lung zones. S uperimposed pneumonia cannot be excluded in the left lower lobe. 2. Endotracheal tube tip 5.8 cm above the aryan. Could consider advancement by 3-4 cm. Reviewed, dictated and finalized at location A. IMPRESSION: 1. Small bilateral pleural effusions with associated atelectasis in the bilater al lower lung zones. Superimposed pneumonia cannot be excluded in the left lowe r lobe. 2. Endotracheal tube tip 5.8 cm above the aryan. Could consider advancement by 3-4 cm.
--- NOTE | 2022-03-09 14:21 | ED.GIBLEED ---
HPI - GI Bleed General Chief complaint: GI Bleed Stated complaint: gi bleed Time Seen by Provider: 03/09/22 14:21 Source: patient and EMS Mode of arrival: EMS Limitations: no limitations History of Present Illness HPI Narrative: Patient is a 71-year-old female with a history of CVA, rhabdomyolysis, presenting to the emergency department for evaluation of potential GI bleed. Patient reports she was drinking heavily on January 01, reports nausea, multiple episodes of bloody emesis since the . Patient reports dark, tarry stool. Patient was given IV Zofran, IV fluids in route by EMS. She is denying any current chest pain or abdominal pain. She denies anticoagulation but per my chart review she has been on aspirin in the past. Patient reportedly had bloody emesis in route by EMS. Per my chart review, no history of GI bleed. Her last admission was for rhabdomyolysis, acute CVA. Per chart review, patient also has a history of alcohol abuse, but no diagnosis of cirrhosis. Patient with emesis basin at bedside with blood clot present in it. Related Data Home Medications Medication Instructions Recorded Confirmed albuterol sulfate [ProAir HFA] 18 mcg INHALATION DAILY PRN 06/22/21 03/09/22 aspirin 81 mg PO DAILY 06/22/21 03/09/22 bupropion HCl 100 mg PO DAILY 06/22/21 03/09/22 fluoxetine 10 mg PO DAILY 06/22/21 03/09/22 fluticasone propion-salmeterol 1 ea INHALATION BID 06/22/21 03/09/22 [Wixela Inhub] ibuprofen 800 mg PO TID PRN 06/22/21 03/09/22 quetiapine 200 mg PO QPM 06/22/21 03/09/22 Allergies Allergy/AdvReac Type Severity Reaction Status Date / Time No Known Allergies Allergy Verified 06/22/21 03:17 Review of Systems Review of Systems: CONSTITUTIONAL: Denies fever, chills, or sweats. EYES: Denies visual changes, redness, or discharge. ENT: Denies rhinorrhea, congestion, sore throat, or otalgia. CARDIOVASCULAR: Denies chest pain, palpitations, or edema. RESPIRATORY: Denies cough or dyspnea. GASTROINTESTINAL: Denies abdominal pain, reports nausea, vomiting, diarrhea with melanotic stool GENITOURINARY: Denies dysuria or hematuria. SKIN: Denies rash or itching. MUSCULOSKELETAL: Denies back pain, joint pain, or myalgia. NEUROLOGIC: Denies headache, numbness, reports feeling generally weak PSYCHIATRIC: Reports history of anxiety and depression [facility] Past Medical History Medical History Acute stroke due to ischemia Altered mental status Asthma Bipolar 1 disorder COPD (chronic obstructive pulmonary disease) Falls Rhabdomyolysis Family History Family History Father Asthma Colon cancer Grandparent Asthma Chronic obstructive pulmonary disease Mother Colon cancer Diabetes mellitus Hypertension Sibling Hypertension Social History Social History Smoking packs per day: 0.25 Smoking cigarettes per day: 5.0 Years smoked: 52 Smoking pack-years: 13.00 Smoking status: Light tobacco smoker Tobacco type: cigarettes Second hand tobacco smoke exposure: Yes Alcohol intake: current Drinks per week: 9 Substance use: never Substance use type: does not use Other substance usage details: recreational Last use: 03/03/22 Gender identity (if verbalized by the patient): Female Spiritual care concerns: No Exam Narrative: GENERAL: Awake, alert, conversant, unwell appearing HEAD: Normocephalic, atraumatic. EYES: PERRLA and EOMI. ENT: Nares clear, no rhinorrhea or epistaxis. Mucous membranes moist. NECK: Supple. CHEST: No respiratory distress, breathing even and non labored HEART: Regular rate, sinus rhythm, + holosystolic murmur ABDOMEN:Non distended, mild tenderness throughout, no guarding, rigidity or rebound, no flank tenderness EXTREMITIES: Normal range of motion. No edema. SKIN: Pale, warm, dry, no rash. NEURO:No focal
[2022-03-09] MEDS: ONDANSETRON INJ 4 MG/2 ML VIAL IV PUSH (14:28)
--- NOTE | 2022-03-09 14:28 | ECG_ITS ---
Measurements Intervals [place] Rate: 97 P: 62 AK: 128 QRS: -73 QRSD: 125 T: 55 QT: 403 QTc: 514 Interpretive Statements SINUS RHYTHM RIGHT BUNDLE BRANCH BLOCK LEFT ANTERIOR FASCICULAR BLOCK BASELINE WANDER- V6 ABNORMAL ECG Electronically Signed On 03-09-2022 14:59:19 CDT by Franklin Barros D.O.
[2022-03-09] MEDS: PANTOPRAZOLE SODIUM IV 40 MG VIAL 80 MG IV PUSH (14:32)
[2022-03-09] MEDS: SODIUM CHLORIDE 0.9% IV 500 ML 999 ML IV CONT (14:42)
[2022-03-09 14:48] LABS: Basophils Absolute Auto 0.1 K/mm3 (0.0-0.1); Basophils Percent Auto 0.3 % (0.2-1.2); Eosinophils Absolute Auto 0.1 K/mm3 (0-0.3); Eosinophils Percent Auto 0.6 % (0-4.4); Hematocrit 31.8 % (37.0-47.0); Hemoglobin 10.7 g/dL (12.0-15.0); Immature Granulocyte Absolute 0.11 K/mm3 (0.00-0.031); Immature Granulocyte Percent A 0.6 % (0-0.5); Lymphocytes Absolute Auto 2.37 K/mm3 (0.9-3.2); Mean Corpuscular HGB Conc 33.6 g/dl (32-36); Mean Corpuscular Hemoglobin 29.6 pg (26-34); Mean Corpuscular Volume 87.8 fl (80-100); Mean Platelet Volume 11.4 fl (7.4-10.4); Monocytes Absolute Auto 2.1 K/mm3 (0.1-0.6); Monocytes Percent Auto 10.4 % (2.6-8.5); Neutrophils Percent Auto 76.1 % (45.5-73.1); Platelet Count Result 210 k/mm3 (150-375); Red Blood Count 3.62 M/mm3 (4.2-5.4); Red Cell Distribution Width 16.2 % (11.5-14.5); White Blood Count 19.7 K/mm3 (4.5-10.0)
[2022-03-09 14:50] LABS: Alanine Aminotransferase 41 U/L (6-35); Albumin Level 2.5 g/dL (3.5-5.1); Alkaline Phosphatase 87 U/L (38-126); Anion Gap 6 mmol/L (8-16); Aspartate Amino Transferase 43 U/L (14-36); Bilirubin,Total 1.6 mg/dL (0.2-1.3); Blood Urea Nitrogen 46 mg/dL (7-17); Calcium 7.6 mg/dL (8.4-10.2); Carbon Dioxide 24 mmol/L (22-30); Chloride 108 mmol/L (98-107); Estimated CRCL calculation 46 ml/min; Estimated Glomerular Filt Rate 49; Glucose 100 mg/dL (65-110); Lactic Acid Reflex 2.6 mmol/L (0.7-2.0); Lipase 228 U/L (23-300); Sodium 138 mmol/L (137-145)
[2022-03-09 14:51] LABS: INR 1.6; Partial Thromboplastin Time 32.5 SECONDS (22.3-36.8); Prothrombin Time 18.4 Seconds (11.1-14.7)
[2022-03-09 14:56] LABS: Appearance Urine Clear (Clear); Bilirubin Urine Negative (Negative); Blood Urine Negative (Negative); Color Urine Yellow (Yellow); Glucose Urine UA Negative (Negative); Ketones Urine Negative (Negative); Leukocyte Esterase Ur Negative LEU/UL (Negative); Nitrate Urine Negative (Negative); Protein Urine Negative (Negative); Specific Grav Ur 1.015 (1.001-1.035); pH Urine 6.5 (5.0-9.0)
[2022-03-09 15:09] LABS: Add Urine Microscopic? NO
[2022-03-09] MEDS: OCTREOTIDE ACETATE 50 MCG/ML VIAL IV PUSH (15:12)
[2022-03-09 15:34] LABS: SARS-CoV-2 RNA PCR Negative
--- NOTE | 2022-03-09 15:34 | PC.NURSE ---
patient had approx 500ml dark red bloody emesis with clots. Dr. Lee aware
--- NOTE | 2022-03-09 15:36 | PC.NURSE ---
patient currently denies any thoughts of hurting self
[2022-03-09] MEDS: THIAMINE HCL 200 MG/2 ML VIAL 100 MG IV PUSH (16:05)
[2022-03-09] MEDS: FOLIC ACID 1 MG/0.2 ML INJ IV PUSH (16:18)
--- NOTE | 2022-03-09 16:28 | PC.NURSE ---
verified with brigido Youssef to infuse IV abx at this time and then transfuse 1 unit after IV abx are completed
[2022-03-09 16:46] LABS: Procalcitonin 0.3 ng/mL
[2022-03-09 17:00] LABS: Ethanol < 10 mg/dL (<10)
[2022-03-09 17:33] LABS: Hematocrit 32.4 % (37.0-47.0); Hemoglobin 10.8 g/dL (12.0-15.0)
[2022-03-09 17:38] LABS: Reflex Lactic Acid Yes or No Add Lactic
--- NOTE | 2022-03-09 18:58 | ADMGEN ---
This patient, Sade Drake, was admitted to Intensive Care Unit-6. Patient/family oriented to hospital policies and general routines including ID bracelet, bed and alarms, visiting hours, pain management, procedures, bathroom and other care routines, personal items, smoking policy, room service/diet, and visiting hours. Information on how to activate the Rapid Response Team has been discussed. Patient/Family are encouraged to report perceived risks to care and to ask questions if they do not understand what they are told or what they should do.
[2022-03-09 19:33] LABS: Lactic Acid 2.5 mmol/L (0.7-2.0)
[2022-03-09 19:50] LABS: Troponin I 0.347 ng/mL (0.000-0.034)
--- NOTE | 2022-03-09 20:16 | PC.NURSE ---
Home medications reviewed with patient. Very poor historian. Says she last took any medications over the weekend possibly Monday but not for sure. Nora aware for pt's poor memoory of medications. Perscriptions reviewed with Krystle at [facility] on [facility] in [place]. Patient states that is the only pharmacy she uses.They did not have a record of an albluterol inhaler but patient states she has 2 and uses PRN for shortness of breath or if she feels wheezey.
--- NOTE | 2022-03-09 20:46 | PM.IMHP ---
H&P: HPI History of Present Illness Date/Time: Patient requires inpatient monitoring with expected length of stay to exceed 2 midnights for management of care. 03/09/22 20:46 Chief Complaint: Hematemesis Narrative: Ms. Drake is a 71-year-old female who presents to the emergency room with complaints hematemesis and dark tarry stools that started today. Patient states that she was out ?partying on single to my? and has been vomiting since then, but today she noticed blood in her vomit and dark tarry stools. Patient states she has been getting very dizzy over the last few days and has fallen multiple times. Patient denies any loss of consciousness are hitting her head, she states she has just felt very weak. Patient denies any chest pain, shortness a breath, syncopal, or near syncopal episodes. Patient states that she does drink alcohol on a regular basis. Patient states it depends on what kind of weak it is but typically she drinks 2-3 times weekly and it can be up to a 5th of vodka at a time. Upon evaluation emergency room patient was noted to have bloody vomitus and patient underwent CT scan. CT of the abdomen and pelvis showed infectious, inflammatory, or ischemic changes to the sigmoid colon. Extrahepatic biliary duct and pancreatic duct dilatation with mild inflammatory changes the gallbladder and marcial hepatis, no obstructing stones or masses detected in this examination, clinical and laboratory correlation advised. CT finding suspicious for cirrhosis with portal hypertension. Patient did have an NG tube placed in the emergency room and there was approximately 500 cc of coffee-ground fluid return. Patient states she has a known history of hypertension, and per previous records patient also has a history of asthma, bipolar disorder, and COPD. Review of Systems Review of Systems: A 12 point review of systems was completed patient all pertinent positive and negative per HPI the remainder are unremarkable. [facility] Past Medical History Medical History Acute stroke due to ischemia Altered mental status Asthma Bipolar 1 disorder COPD (chronic obstructive pulmonary disease) Falls Rhabdomyolysis Family History Family History Father Asthma Colon cancer Grandparent Asthma Chronic obstructive pulmonary disease Mother Colon cancer Diabetes mellitus Hypertension Sibling Hypertension Social History Social History Smoking packs per day: 0.25 Smoking cigarettes per day: 5.0 Years smoked: 52 Smoking pack-years: 13.00 Smoking status: Light tobacco smoker Tobacco type: cigarettes Second hand tobacco smoke exposure: Yes Alcohol intake: current Drinks per week: 9 Substance use: never Substance use type: does not use Other substance usage details: recreational Last use: 03/03/22 Gender identity (if verbalized by the patient): Female Spiritual care concerns: No Meds Home Medications and Allergies Home Medications Medication Instructions Recorded Confirmed Type albuterol sulfate [ProAir HFA] 18 mcg INHALATION DAILY PRN 06/22/21 03/09/22 History aspirin 81 mg PO DAILY 06/22/21 03/09/22 History bupropion HCl 100 mg PO DAILY 06/22/21 03/09/22 History fluoxetine 10 mg PO DAILY 06/22/21 03/09/22 History fluticasone propion-salmeterol 1 ea INHALATION BID 06/22/21 03/09/22 History [Wixela Inhub] ibuprofen 800 mg PO TID PRN 06/22/21 03/09/22 History quetiapine 200 mg PO QPM 06/22/21 03/09/22 History Allergies Allergy/AdvReac Type Severity Reaction Status Date / Time No Known Allergies Allergy Verified 06/22/21 03:17 Vital Signs Vital Signs - 24 hr 03/09/22 13:55 03/09/22 14:06 03/09/22 14:15 Temperature 36.6 C Pulse Rate 103 H 104 H 102 H Respiratory Rate 11 L 18 17 Blood Pressure 88/59 L Pulse Oximetry 96 02/27
[2022-03-09] MEDS: SODIUM CHLORIDE 0.9% IV 250 ML 30 ML IV CONT (21:29)
[2022-03-09] MEDS: POTASSIUM CHLORIDE INJ 40 MEQ in SODIUM CHLORIDE 0.9% IV 500 ML 100 MEQ IVPB (21:50)
[2022-03-09] MEDS: LACTATED RINGERS 1,000 ML 999 ML IV CONT (21:51)
[2022-03-10] VITALS (19 sets, daily range): BP systolic 88–126; BP diastolic 52–94; PULSE 77–95; RESP 14–27; TEMP 36.2–37.1; O2SAT 92–100
--- NOTE | 2022-03-10 | ECHO_ITS ---
Patient Info Name: Sade Drake Age: 71 years : 1950 Gender: Female Ht: 67 in Wt: 157 lbs BSA: 1.84 m2 HR: 78 bpm BP: 107 / 79 mmHg Heart Rhythm: Sinus Rhythm Technical Quality: Good Exam Date: 03/10/2022 3:06 PM Exam Location: [facility] Pulmonary Exam Room: ICU6 Patient Status: Inpatient Admit Date: 03/10/2022 Staff Ordering Physician: Tyree Donahue MD [employer] Engine Operator: Rochelle Arriaza RDCS Attending Provider: Rafael Andrea MD Exam Type: CA echo dop color flow w con Study Info Indications - NSTEMI Complete two-dimensional, color flow and Doppler transthoracic echocardiogram is performed. Summary 1. Complete two-dimensional, color flow and Doppler transthoracic echocardiogram is performed. 2. Technically difficult study with limited views. Incomplete evaluation of the aortic valve. 3. Left ventricular systolic function is hyperdynamic, estimated at >70%. 4. There is mildly increased left ventricular wall thickness. 5. The left ventricular diastolic function is grade I diastolic dysfunction. 6. There is trace mitral valve regurgitation. 7. There is trace tricuspid valve regurgitation. 8. Moderate pulmonary hypertension, estimated pulmonary arterial systolic pressure is 44 mmHg. 9. There is small anteriorly located pericardial effusion with fibrinous material within the pericardial space. 10. Normal inferior vena cava with >50% collapse upon inspiration consistent with normal right atrial pressure, 5 mmHg. Left Ventricle Left ventricular chamber dimension is normal. Left ventricular systolic function is hyperdynamic, estimated at >70%. There is mildly increased left ventricular wall thickness. The left ventricular diastolic function is grade I diastolic dysfunction. Technically difficult study with limited views. Incomplete evaluation of the aortic valve. Right Ventricle Right ventricular chamber dimension is normal. Right ventricular systolic function is normal. Left Atria Left atrial chamber dimension is normal. Right Atria Right atrial chamber dimension is normal. Aortic Valve The aortic valve is not well visualized. Pulmonic Valve The pulmonic valve is not well visualized. Mitral Valve The mitral valve has thickened leaflets. There is trace mitral valve regurgitation. The mitral valve annulus is severely calcified. Tricuspid Valve The tricuspid valve leaflets are normal. There is trace tricuspid valve regurgitation. Moderate pulmonary hypertension, estimated pulmonary arterial systolic pressure is 44 mmHg. Pericardium/Pleural The pericardium appears normal. There is small anteriorly located pericardial effusion with fibrinous material within the pericardial space. Inferior Vena Cava Normal inferior vena cava with >50% collapse upon inspiration consistent with normal right atrial pressure, 5 mmHg. Aorta The aortic root size at the sinus of Valsalva is not well visualized. Mitral Valve Name Value Normal MV Doppler MV Decel [place] 464.62 cm/s2 MV PHT 0 s MV Area (PHT) 3.58 cm2 4.00-5.00 MV Diastolic Function
[2022-03-10] MEDS: LACTATED RINGERS 1,000 ML 125 ML IV CONT ×3 (01:22→08:24)
[2022-03-10] MEDS: LACTATED RINGERS 500 ML 300 ML IV CONT (01:25)
[2022-03-10 02:17] LABS: Hematocrit 30.6 % (37.0-47.0)
[2022-03-10 02:53] LABS: Troponin I 0.338 ng/mL (0.000-0.034)
--- NOTE | 2022-03-10 03:39 | PC.NURSE ---
[facility] called and asked to have a unit of PRBC ready in case we need to give emergently to bed 6, per Dr. almaraz request.
[2022-03-10 04:35] LABS: IFOB Positive Control Positive; Immunochemical Fecal Occult Bl Positive (N)
--- NOTE | 2022-03-10 06:04 | PC.NURSE ---
Patient lives with her grandson and his . They called and expressed concern because patient will take a handful of pills and they are unable to stop her. Also she is a heavy drinker and they stated that when she is intoxicated she is very mean to them and their children and they do not want her coming back to the apartment. They do not feel they can care for her as she needs and they said the rest of the family is done with her because she is so mean . They also stated that they will be moving out of the apartment soon and there will be no one to care for her. they are concerned for her welbeing, they stated that they love her but are unable to help her as she needs .
[2022-03-10 06:22] LABS: Basophils Absolute Auto 0.2 K/mm3 (0.0-0.1); Basophils Percent Auto 0.8 % (0.2-1.2); Eosinophils Absolute Auto 0.3 K/mm3 (0-0.3); Eosinophils Percent Auto 1.3 % (0-4.4); Hematocrit 29.7 % (37.0-47.0); Immature Granulocyte Percent A 0.5 % (0-0.5); Lymphocytes Absolute Auto 3.24 K/mm3 (0.9-3.2); Lymphocytes Percent Auto 16.2 % (18.3-44.2); Mean Corpuscular HGB Conc 33.7 g/dl (32-36); Mean Corpuscular Hemoglobin 29.9 pg (26-34); Mean Corpuscular Volume 88.9 fl (80-100); Mean Platelet Volume 11.3 fl (7.4-10.4); Monocytes Absolute Auto 2.4 K/mm3 (0.1-0.6); Monocytes Percent Auto 11.9 % (2.6-8.5); Neutrophils Absolute Auto 13.9 K/mm3 (1.3-6.7); Neutrophils Percent Auto 69.3 % (45.5-73.1); Platelet Count Result 151 k/mm3 (150-375); Red Blood Count 3.34 M/mm3 (4.2-5.4); Red Cell Distribution Width 15.5 % (11.5-14.5)
[2022-03-10 06:32] LABS: Alanine Aminotransferase 29 U/L (6-35); Albumin Level 1.9 g/dL (3.5-5.1); Alkaline Phosphatase 64 U/L (38-126); Anion Gap 2 mmol/L (8-16); Aspartate Amino Transferase 31 U/L (14-36); Bilirubin,Total 1.6 mg/dL (0.2-1.3); Blood Urea Nitrogen 44 mg/dL (7-17); Calcium 6.7 mg/dL (8.4-10.2); Carbon Dioxide 19 mmol/L (22-30); Chloride 113 mmol/L (98-107); Estimated CRCL calculation 41 ml/min; Estimated Glomerular Filt Rate 49; Glucose 121 mg/dL (65-110); Potassium 3.4 mmol/L (3.4-5.0); Sodium 134 mmol/L (137-145)
--- NOTE | 2022-03-10 09:05 | WPDCNINT ---
Assessment and Plan Assessment and plan (1) Upper gastrointestinal hemorrhage: Code(s): K92.2 - Gastrointestinal hemorrhage, unspecified Status: Acute Assessment and Plan: Upper GI bleed secondary to either varices or peptic ulcer disease. Status post transfusion of 1 unit PRBC and IV fluids NPO 10 mg vitamin K for liver disease induced coagulopathy Continue q.6 hours hemoglobin checks Transfuse as needed Continue PPI and octreotide infusion GI consulted and patient is scheduled for EGD today Continue NG tube (2) Sepsis: Code(s): A41.9 - Sepsis, unspecified organism Status: Acute Assessment and Plan: Patient met criteria for sepsis on presentation. Her UA and chest x-ray unremarkable. Her procalcitonin level is low. Her CT scan does show inflammatory changes in sigmoid area Blood cultures are sent and pending Check C diff Change antibiotics to Zosyn She has and is receiving IV fluids (3) Colitis: Code(s): K52.9 - Noninfective gastroenteritis and colitis, unspecified Status: Acute Assessment and Plan: CT of the abdomen and pelvis showed infectious, inflammatory, or ischemic changes to the sigmoid colon. Patient has mild tenderness left reported Change antibiotics to Zosyn GI is following (4) Acute non-ST segment elevation myocardial infarction: Code(s): I21.4 - Non-ST elevation (NSTEMI) myocardial infarction Status: Acute Assessment and Plan: Patient does not have any history of coronary disease but did had elevated troponin which is likely type [address] [place] from upper GI bleed and stress EKG reviewed Check echocardiogram Currently NPO and not a candidate for any antiplatelet or anticoagulation (5) Cardiac murmur: Code(s): R01.1 - Cardiac murmur, unspecified Status: Acute Assessment and Plan: Check echocardiogram (6) Alcohol abuse: Code(s): F10.10 - Alcohol abuse, uncomplicated Status: Acute Assessment and Plan: Thiamine and folic acid ordered Monitor for alcohol withdrawal (7) Acute hypokalemia: Code(s): E87.6 - Hypokalemia Status: Acute Assessment and Plan: Potassium improved after placement but is still lower than normal. Ordered additional replacement (8) COPD (chronic obstructive pulmonary disease): Code(s): J44.9 - Chronic obstructive pulmonary disease, unspecified Status: Acute Assessment and Plan: Not in exacerbation P.r.n. 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 This critical care time included obtaining a history; examining the patient; pulse oximetry; ordering and review of studies; arranging urgent treatment with development of a management plan; evaluation of patient's response to treatment; frequent reassessment; and discussions with other providers. It was exclusive of separately billable procedures and treating other patients and teaching time. Please see Assessment and Plan section and the rest of the note for further information on patient assessment and treatment [employer] Consult Note Consult date: 03/10/22 HPI: Sade Felix Craigalexander is a 71 year old female who presented to the emergency room yesterday with complaints of hematemesis an
[2022-03-10] MEDS: CALCIUM GLUC 2,000 MG/NS 100ML 2,000 MG/100 ML BAG 100 MG IVPB (09:46)
[2022-03-10] MEDS: POTASSIUM CHLORIDE INJ 40 MEQ in SODIUM CHLORIDE 0.9% IV 500 ML 130 MEQ IVPB (09:46)
[2022-03-10] MEDS: LACTATED RINGERS 1,000 ML 100 ML IV CONT ×2 (09:51→21:29)
[2022-03-10] MEDS: PHYTONADIONE INJ 10 MG/ML AMP SUB-Q (09:53)
[2022-03-10] MEDS: LORazepam INJ (*CRX) 2 MG/ML VIAL 1 MG IV PUSH (10:06)
[2022-03-10] MEDS: LACTATED RINGERS 1,000 ML 150 ML IV CONT (11:04)
--- NOTE | 2022-03-10 11:31 | WPDANESEPPF ---
Anes - Initial Pre Proc Eval Procedure: Operation Date: 03/10/22 11:30 Proposed Procedures p Esophagogastroduodenoscopy - Garrett Sanchez MD Date/Time: 03/10/22 11:31 Surgeon: Rafael Andrea MD Pre Op Diagnosis: GI bleed/sepsis Patient Data Age: 71 Gender: F Height: 1.7 m Weight: 71.3 kg Last Vital Signs Temp 97.2 F L 03/10/22 10:58 Pulse 86 03/10/22 10:58 Resp 14 03/10/22 10:58 BP 113/91 H 03/10/22 10:58 Pulse Ox 97 03/10/22 10:58 Allergies Allergy/AdvReac Type Severity Reaction Status Date / Time No Known Allergies Allergy Verified 03/10/22 10:54 Home Medications Medication Instructions Recorded Confirmed Type albuterol sulfate [ProAir HFA] 18 mcg INHALATION DAILY PRN 06/22/21 03/09/22 History aspirin 81 mg PO DAILY 06/22/21 03/09/22 History bupropion HCl 100 mg PO DAILY 06/22/21 03/09/22 History fluoxetine 10 mg PO DAILY 06/22/21 03/09/22 History fluticasone propion-salmeterol 1 ea INHALATION BID 06/22/21 03/09/22 History [Wixela Inhub] ibuprofen 800 mg PO TID PRN 06/22/21 03/09/22 History quetiapine 200 mg PO QPM 06/22/21 03/09/22 History Laboratory Tests 03/09/22 03/09/22 03/09/22 14:31 14:31 14:31 WBC RBC Hgb Hct MCV MCH MCHC RDW Plt Count MPV Immature Gran % (Auto) Neut % (Auto) Lymph % (Auto) Treasure % (Auto) Eos % (Auto) Baso % (Auto) Lymph # (Auto) Treasure # (Auto) Eos # (Auto) Baso # (Auto) Abs Immat Gran (auto) Absolute Neuts (auto) Absolute Nucleated RBC Nucleated RBC % PT 18.4 Seconds H Seconds (11.1-14.7) INR 1.6 APTT 32.5 SECONDS SECONDS (22.3-36.8) Sodium 138 mmol/L mmol/L (137-145) Potassium 3.0 mmol/L L mmol/L (3.4-5.0) Chloride 108 mmol/L H mmol/L (98-107) Carbon Dioxide 24 mmol/L mmol/L (22-30) Anion Gap 6 mmol/L L mmol/L (8-16) BUN 46 mg/dL H D mg/dL (7-17) Creatinine 1.10 mg/dL H mg/dL (0.7-1.0) Estim Creat Clear Calc 46 ml/min ml/min Estimated GFR 49 L (59 - ) Glucose 100 mg/dL mg/dL (65-110) Lactic Acid Calcium 7.6 mg/dL L mg/dL (8.4-10.2) Total Bilirubin 1.6 mg/dL H mg/dL (0.2-1.3) AST 43 U/L H U/L (14-36) ALT 41 U/L H U/L (6-35) Alkaline Phosphatase 87 U/L U/L (38-126) Troponin I Total Protein 6.0 g/dL L g/dL (6.3-8.2) Albumin 2.5 g/dL L g/dL (3.5-5.1) Lipase 228 U/L U/L (23-300) Procalcitonin Urine Color Urine Appearance Urine pH Ur Specific [place] Urine Protein Urine Glucose (UA) Urine Ketones Ur Blood (Man) Urine Nitrate Urine Bilirubin Urine Urobilinogen Leukocyte Esterase Rfl Stl Occult Blood (IFOB) Ethyl Alcohol C. difficile (PCR) SARS-CoV-2 RNA (RT-PCR) Blood Type B Positive Antibody Screen Negative Crossmatch See Detail 03/09/22 03/09/22 03/09/22 14:31 14:31 14:31 WBC RBC Hgb Hct MCV MCH MCHC RDW Plt Count MPV Immature Gran % (Auto) Neut % (Auto) Lymph % (Auto) Treasure % (Auto) Eos % (Auto) Baso % (Auto) Lymph # (Auto) Treasure # (Auto) Eos # (Auto) Baso # (Auto) Abs Immat Gran (auto)
--- NOTE | 2022-03-10 11:48 | WPDGICN ---
Assessment and Plan Assessment and plan (1) Upper gastrointestinal hemorrhage: Code(s): K92.2 - Gastrointestinal hemorrhage, unspecified Status: Acute Assessment and Plan: Patient presents with upper GI bleeding manifest by coffee-ground emesis of black melenic stools. Plan to monitor hemoglobin. Place patient on proton pump inhibitor. Octreotide has been started in the ER will be re-evaluated after endoscopy. EGD will be performed this morning. Further recommendations after endoscopy. (2) Alcohol abuse: Code(s): F10.10 - Alcohol abuse, uncomplicated Status: Acute Assessment and Plan: Patient with significant alcohol abuse. This raises the question of gastritis and concern over alcoholic liver disease. Plan for alcohol abstinence and supportive care if at all possible. Further recommendations after endoscopy. GI Consult Note Consult date/time: 03/10/22 11:48 HPI: Sade Drake is a 71 year old female I am asked to see at the request of the emergency room because of hematemesis. Patient apparently has history of alcohol intake. Yesterday began to vomit coffee-ground material. She began to pass black stools and for this reason presented the emergency room. Patient reports she typically drinks 2 to 3 times a week up to a 5th of alcohol at a time. In the emergency room NG tube lavage revealed coffee-ground return. Patient was admitted to the ICU overnight with octreotide drip for possible esophageal variceal bleeding. CT scan raised the question of possible portal hypertension. Family history is noncontributory. The patient denies any heartburn or pain. Past medical history is significant for bipolar disease, COPD, asthma, and hypertension. Review of Systems Review of Systems: All systems reviewed & are unremarkable except as noted in HPI and below [facility] Past Medical History Medical History (Updated 03/10/22 @ 09:18 by Tyree Donahue MD) Acute stroke due to ischemia Altered mental status Asthma Bipolar 1 disorder COPD (chronic obstructive pulmonary disease) Falls Rhabdomyolysis Family History Family History Father Asthma Colon cancer Grandparent Asthma Chronic obstructive pulmonary disease Mother Colon cancer Diabetes mellitus Hypertension Sibling Hypertension Social History Social History Smoking packs per day: 0.25 Smoking cigarettes per day: 5.0 Years smoked: 52 Smoking pack-years: 13.00 Smoking status: Light tobacco smoker Tobacco type: cigarettes Second hand tobacco smoke exposure: Yes Alcohol intake: current Drinks per week: 9 Substance use: never Substance use type: does not use Other substance usage details: recreational Last use: 03/03/22 Gender identity (if verbalized by the patient): Female Spiritual care concerns: No Meds Home Medications and Allergies Home Medications Medication Instructions Recorded Confirmed Type albuterol sulfate [ProAir HFA] 18 mcg INHALATION DAILY PRN 06/22/21 03/09/22 History aspirin 81 mg PO DAILY 06/22/21 03/09/22 History bupropion HCl 100 mg PO DAILY 06/22/21 03/09/22 History fluoxetine 10 mg PO DAILY 06/22/21 03/09/22 History fluticasone propion-salmeterol 1 ea INHALATION BID 06/22/21 03/09/22 History [Wixela Inhub] ibuprofen 800 mg PO TID PRN 06/22/21 03/09/22 History quetiapine 200 mg PO QPM 06/22/21 03/09/22 History Allergies Allergy/AdvReac Type Severity Reaction Status Date / Time No Known Allergies Allergy Verified 03/10/22 10:54 Vital Signs Vital Signs - 24 hr 03/09/22 13:55 03/09/22 14:06 03/09/22 14:15 Temperature 98 F Pulse Rate 103 H 104 H 102 H Respiratory Rate 11 L 18 17 Blood Pressure 88/59 L Pulse Oximetry 96 03/09/22 14:17 03/09/22 14:25 03/09/22 14:30 Temperature Pulse Rate 105 H 103 H 101 H Respiratory Rate 27 H 2
[2022-03-10 12:44] LABS: Toxigenic C. Diff POSITIVE (NEGATIVE)
[2022-03-10 13:30] LABS: Hematocrit 31.8 % (37.0-47.0); Hemoglobin 10.3 g/dL (12.0-15.0)
[2022-03-10 13:34] LABS: Ammonia < 9 umol/L (9-30)
[2022-03-10] MEDS: ALBUMIN HUMAN 25% 25 GM/100 ML 100 ML IVPB ×2 (15:01→20:19)
[2022-03-10] MEDS: metroNIDAZOLE 500 MG/ISO 100ML 500 MG/100 ML BAG 100 MG IVPB ×2 (15:01→20:20)
[2022-03-10] MEDS: VANCOMYCIN ORAL 125 MG/2.5 ML SYRUP PO ×3 (15:02→23:57)
[2022-03-10] MEDS: PERFLUTREN LIPID MICROSPHERES 1.5 ML VIAL DILUTED TO 10 ML TOTAL VOLUME IV PUSH (15:23)
--- NOTE | 2022-03-10 15:23 | IVDEFINITY ---
Prior to administration of IV Definity the patient was educated on the risks and benefits of the imaging enhancing agent including potential adverse side effects. The patient verbalized understanding. Allergies were verified. No exclusion criteria were identified and at least one of the following inclusion criteria were met: 1) physician request, 2) patient technically difficult to image (per the [place] [employer] guidelines of two or more segments not discernable within the apical view), or 3) questionable left ventricular function. ?
--- NOTE | 2022-03-10 16:14 | PM.IMPN ---
Progress Note: A&P Assessment and Plan (1) Upper gastrointestinal hemorrhage: Code(s): K92.2 - Gastrointestinal hemorrhage, unspecified Status: Acute Assessment and Plan: Upper GI bleed secondary to either varices or peptic ulcer disease. Status post transfusion of 1 unit PRBC and IV fluids NPO 10 mg vitamin K for liver disease induced coagulopathy Continue q.6 hours hemoglobin checks Transfuse as needed Continue PPI and octreotide infusion GI consulted and patient is scheduled for EGD today Continue NG tube 03/10/2022 interval history: patient still remained confused and crying her daughter is present in the room currently patient denies any abdominal pain nausea or vomiting, patient was seen GI and patient had a EGD it showed reflux esophagitis, acute gastric ulcer with hemorrhage acute duodenal ulcer, and multiple antral gastric ulcer, patient being treated with a PPI, avoid NSAID and alcohol, patient is also found to bacteremia preliminary both blood culture bottles are growing Gram-positive cocci in clusters present being treated with Cefepime, and Flagyl, patient is also positive for C diff and started on oral vancomycin, patient with history of alcohol abuse on CIAL protocol being monitor with Librium and Ativan as needed, patient is clinically stable will transfer the patient out of ICU to medical telemetry floor. (2) Sepsis: Code(s): A41.9 - Sepsis, unspecified organism Status: Acute Assessment and Plan: Patient met criteria for sepsis on presentation. Her UA and chest x-ray unremarkable. Her procalcitonin level is low. Her CT scan does show inflammatory changes in sigmoid area Blood cultures are sent and pending Check C diff Change antibiotics to Zosyn She has and is receiving IV fluids (3) Colitis: Code(s): K52.9 - Noninfective gastroenteritis and colitis, unspecified Status: Acute Assessment and Plan: CT of the abdomen and pelvis showed infectious, inflammatory, or ischemic changes to the sigmoid colon. Patient has mild tenderness left reported Change antibiotics to Zosyn GI is following (4) Acute non-ST segment elevation myocardial infarction: Code(s): I21.4 - Non-ST elevation (NSTEMI) myocardial infarction Status: Acute Assessment and Plan: Patient does not have any history of coronary disease but did had elevated troponin which is likely type [address] elevation [place] from upper GI bleed and stress EKG reviewed Check echocardiogram Currently NPO and not a candidate for any antiplatelet or anticoagulation (5) Cardiac murmur: Code(s): R01.1 - Cardiac murmur, unspecified Status: Acute Assessment and Plan: Check echocardiogram (6) Alcohol abuse: Code(s): F10.10 - Alcohol abuse, uncomplicated Status: Acute Assessment and Plan: Thiamine and folic acid ordered Monitor for alcohol withdrawal (7) Acute hypokalemia: Code(s): E87.6 - Hypokalemia Status: Acute Assessment and Plan: Potassium improved after placement but is still lower than normal. Ordered additional replacement (8) COPD (chronic obstructive pulmonary disease): Code(s): J44.9 - Chronic obstructive pulmonary disease, unspecified Status: Acute Assessment and Plan: Not in exacerbation P.r.n. bronchodilators (9) Cirrhosis: Code(s): K74.60 - Unspecified cirrhosis of liver Status: Acute Assessment and Plan: Finding suggest of cirrhosis from alcohol liver disease Check hepatitis panel Check ammonia Subjective Date/time seen: 03/10/22 16:14 Chief Complaint: Hematemesis Narrative: Ms. Drake is a 71-year-old female who presents to the emergency room with complaints hematemesis and dark tarry stools that started today. Patient states that she was out ?partying on single to my? and has been vomiting since then, but today she noticed blood in her vomit and dark tarry stools. Patient states
[2022-03-10] MEDS: SUCRALFATE 1 GM TABLET PO ×2 (18:03→20:20)
--- NOTE | 2022-03-10 18:15 | PC.NURSE ---
This patient, Sade Drake, was transferred to [[id number]] on 03/10/22 at 1815. Personal belongings sent with patient. Report given to [Roman STARK]. Appropriate documentation sent with patient.
[2022-03-10 19:12] LABS: Hematocrit 26.2 % (37.0-47.0); Hemoglobin 8.5 g/dL (12.0-15.0)
[2022-03-10] MEDS: FLUTICASONE/SALMETEROL 115-21 MCG INHALER 1 PUFF 2 PUFF INHALATION (19:53)
[2022-03-10] MEDS: PANTOPRAZOLE 40 MG TABLET PO (20:20)
[2022-03-11] VITALS (30 sets, daily range): BP systolic 94–146; BP diastolic 56–94; PULSE 81–95; RESP 14–24; TEMP 35.7–37.3; O2SAT 90–100
[2022-03-11 01:03] LABS: Hematocrit 24.2 % (37.0-47.0); Hemoglobin 7.7 g/dL (12.0-15.0)
[2022-03-11] MEDS: metroNIDAZOLE 500 MG/ISO 100ML 500 MG/100 ML BAG 100 MG IVPB ×4 (03:15→20:44)
[2022-03-11] MEDS: ALBUMIN HUMAN 25% 25 GM/100 ML 100 ML IVPB ×2 (03:15→08:35)
[2022-03-11 05:08] LABS: Hematocrit 22.1 % (37.0-47.0); Mean Corpuscular HGB Conc 31.2 g/dl (32-36); Mean Corpuscular Hemoglobin 29.9 pg (26-34); Mean Corpuscular Volume 95.7 fl (80-100); Mean Platelet Volume 11.4 fl (7.4-10.4); Platelet Count Result 113 k/mm3 (150-375); Red Blood Count 2.31 M/mm3 (4.2-5.4); Red Cell Distribution Width 15.9 % (11.5-14.5); White Blood Count 9.6 K/mm3 (4.5-10.0)
[2022-03-11 05:11] LABS: Hemoglobin 6.9 g/dL (12.0-15.0)
[2022-03-11 05:21] LABS: Alanine Aminotransferase 21 U/L (6-35); Albumin Level 2.7 g/dL (3.5-5.1); Alkaline Phosphatase 52 U/L (38-126); Anion Gap 6 mmol/L (8-16); Aspartate Amino Transferase 26 U/L (14-36); Bilirubin,Total 1.9 mg/dL (0.2-1.3); Blood Urea Nitrogen 29 mg/dL (7-17); Calcium 7.6 mg/dL (8.4-10.2); Carbon Dioxide 19 mmol/L (22-30); Chloride 115 mmol/L (98-107); Estimated CRCL calculation 49 ml/min; Estimated Glomerular Filt Rate > 60; Glucose 79 mg/dL (65-110); Magnesium 1.8 mg/dL (1.6-2.3); Potassium 3.4 mmol/L (3.4-5.0); Sodium 140 mmol/L (137-145)
[2022-03-11] MEDS: IPRATROPIUM BR 0.02% INH SOLN 0.5 MG/2.5 ML VIAL INHALATION ×2 (05:42→21:04)
[2022-03-11] MEDS: ALBUTEROL SULFATE NEB 2.5 MG/3 ML INH INHALATION ×2 (05:42→21:04)
[2022-03-11] MEDS: FLUTICASONE/SALMETEROL 115-21 MCG INHALER 1 PUFF 2 PUFF INHALATION ×2 (05:42→21:04)
[2022-03-11] MEDS: SODIUM CHLORIDE 0.9% IV 250 ML 30 ML IV CONT (08:33)
[2022-03-11] MEDS: LACTATED RINGERS 1,000 ML 100 ML IV CONT (08:34)
--- NOTE | 2022-03-11 09:21 | WPDANESPN ---
Anes - Prog Note Post-Op Date/Time: 03/11/22 09:21 Cardiovascular status: normal Respiratory status: normal Airway patency: baseline Mental status: baseline Post-Op hydration status: normal Vital Signs: Last Vital Signs Temp 35.7 C L 03/11/22 08:00 Pulse 89 03/11/22 08:00 Resp 20 03/11/22 08:00 BP 101/58 L 03/11/22 08:00 Pulse Ox 96 03/11/22 08:22 Pain Score (VAS): 0 I/O: Intake & Output 03/10/22 03/11/22 03/11/22 23:59 07:59 15:59 Intake Total 930 1200 Output Total 450 700 Balance 480 500 Laboratory Tests 03/11/22 04:16 03/11/22 04:16 03/09/22 03/10/22 03/10/22 14:31 03:52 13:10 WBC RBC Hgb 10.3 L Hct 31.8 L MCV MCH MCHC RDW Plt Count MPV Sodium Potassium Chloride Carbon Dioxide Anion Gap BUN Creatinine Estim Creat Clear Calc Estimated GFR Glucose Calcium Magnesium Total Bilirubin AST ALT Alkaline Phosphatase Ammonia Total Protein Albumin C. difficile (PCR) Positive A* Blood Type B Positive Antibody Screen Negative Crossmatch See Detail 03/10/22 03/10/22 03/11/22 13:10 18:40 00:32 WBC RBC Hgb 8.5 L 7.7 L Hct 26.2 L 24.2 L MCV MCH MCHC RDW Plt Count MPV Sodium Potassium Chloride Carbon Dioxide Anion Gap BUN Creatinine Estim Creat Clear Calc Estimated GFR Glucose Calcium Magnesium Total Bilirubin AST ALT Alkaline Phosphatase Ammonia < 9 L Total Protein Albumin C. difficile (PCR) Blood Type Antibody Screen Crossmatch 03/11/22 03/11/22 04:16 04:16 WBC 9.6 RBC 2.31 L Hgb 6.9 L* Hct 22.1 L MCV 95.7 D MCH 29.9 MCHC 31.2 L RDW 15.9 H Plt Count 113 L MPV 11.4 H Sodium 140 Potassium 3.4 Chloride 115 H Carbon Dioxide 19 L Anion Gap 6 L BUN 29 H D Creatinine 0.90 Estim Creat Clear Calc 49 Estimated GFR > 60 Glucose 79 Calcium 7.6 L Magnesium 1.8 Total Bilirubin 1.9 H AST 26 ALT 21 Alkaline Phosphatase 52 Ammonia Total Protein 5.0 L Albumin 2.7 L C. difficile (PCR) Blood Type Antibody Screen Crossmatch Microbiology 03/09/22 14:40 Blood Blood Culture - Preliminary 03/09/22 14:40 Blood Blood Culture - Preliminary Post-procedural complaints: none Patient Feedback: Patient satisfied with anesthetic care.
--- NOTE | 2022-03-11 12:44 | WPDGIPROGNO ---
Progress Note: A&P Assessment and Plan (1) Peptic ulcer disease: Code(s): K27.9 - Peptic ulcer, site unspecified, unspecified as acute or chronic, without hemorrhage or perforation Status: Acute Assessment and Plan: Patient with GI bleeding from gastric ulcerations. There are multiple ulcers with stigmata of recent bleeding by endoscopy yesterday. Additionally patient has duodenal ulcers and erosive esophagitis. Plan for patient to be started on PPI therapy. Advance diet as tolerated. Monitor hemoglobin closely. Patient's bleeding last night likely is passage of old blood. However patient may require transfusion intermittently. Patient should avoid NSAIDs. H pylori was negative by JOSE testing. Follow up EGD in 2 months advised. (2) C. difficile colitis: Code(s): A04.72 - Enterocolitis due to Clostridium difficile, not specified as recurrent Status: Acute Assessment and Plan: CT scan suggested colitis. Stool sampling confirmed C difficile. Patient now on antibiotic therapy. She may have some diarrhea on this basis. Will need to monitor (3) Alcohol abuse: Code(s): F10.10 - Alcohol abuse, uncomplicated Status: Acute Assessment and Plan: Patient with active alcohol abuse. Alcohol abstinence strongly encourage period (4) Bipolar 1 disorder: Code(s): F31.9 - Bipolar disorder, unspecified Status: Acute (5) Portal hypertension: Code(s): K76.6 - Portal hypertension Status: Acute Assessment and Plan: CT scan suggested possible portal hypertension. She has no lab findings nor endoscopic findings to confirm this however. Unable to be certain she has cirrhosis at this point. Subjective Date/time seen: 03/11/22 12:44 Patient continues to have some diarrhea. Past old blood. NG tube lavage with no active bleeding identified. Review of Systems Review of Systems: ROS unobtainable: Yes unobtainable due to medical condition Exam Narrative: Physical exam reveals patient to be alert. Vital signs stable. HEENT exam is unremarkable. Patient anicteric. Lungs are clear. Heart without murmur. Abdomen soft and nontender. Objective Data Vital Signs Vital Signs: Vital Signs - 24 hr 03/10/22 13:15 03/10/22 14:00 03/10/22 16:00 Temperature 98.7 F Pulse Rate 85 80 79 Pulse Rate [Right Radial] Respiratory Rate 17 16 16 Blood Pressure 110/77 99/64 L 116/64 Pulse Oximetry 92 94 94 03/10/22 18:24 03/10/22 19:54 03/10/22 20:00 Temperature 97.1 F L Pulse Rate 87 87 Pulse Rate [Right Radial] 88 Respiratory Rate 16 Blood Pressure 88/52 L Pulse Oximetry 96 95 03/10/22 21:30 03/10/22 22:00 03/11/22 00:00 Temperature 99.2 F Pulse Rate 86 91 Pulse Rate [Right Radial] 88 Respiratory Rate 16 Blood Pressure 105/56 L 98/57 L Pulse Oximetry 95 93 03/11/22 02:00 03/11/22 04:00 03/11/22 05:50 Temperature 97.7 F Pulse Rate 89 87 Pulse Rate [Right Radial] 84 Respiratory Rate 20 24 H Blood Pressure 94/66 L Pulse Oximetry 90 03/11/22 05:57 03/11/22 06:00 03/11/22 08:00 Temperature 96.3 F L Pulse Rate 90 89 Pulse Rate [Right Radial] Respiratory Rate 20 20 Blood Pressure 101/58 L Pulse Oximetry 94 03/11/22 08:22 03/11/22 10:00 03/11/22 11:05 Temperature 98 F Pulse Rate 95 88 Pulse Rate [Right Radial] Respiratory Rate 16 Blood Pressure 126/56 L Pulse Oximetry 96 99 03/11/22 11:20 03/11/22 12:00 03/11/22 12:20 Temperature 98.2 F 98.4 F Pulse Rate 88 87 87 Pulse Rate [Right Radial] Respiratory Rate 14 24 H Blood Pressure 122/69 137/70 Pulse Oximetry 99 96 03/11/22 12:28 Temperature 98.4 F Pulse Rate 87 Pulse Rate [Right Radial] Respiratory Rate 24 H Blood Pressure 137/70 Pulse Oximetry 96 Intake/Output Intake/Output: Intake & Output 03/08/22 03/09/22 03/10/22 03/11/22 23:59 23:59 23:59 23:59 Intake Total 1550 5368 1300 Outpu
[2022-03-11] MEDS: VANCOMYCIN ORAL 125 MG/2.5 ML SYRUP PO ×2 (16:51→20:53)
[2022-03-11] MEDS: POTASSIUM CHLORIDE 20 MEQ TABLET 40 MEQ PO (16:52)
[2022-03-11] MEDS: SUCRALFATE 1 GM TABLET PO ×2 (16:52→20:52)
--- NOTE | 2022-03-11 17:02 | PM.IMPN ---
Progress Note: A&P Assessment and Plan (1) Upper gastrointestinal hemorrhage: Code(s): K92.2 - Gastrointestinal hemorrhage, unspecified Status: Acute Assessment and Plan: Upper GI bleed secondary to either varices or peptic ulcer disease. Status post transfusion of 1 unit PRBC and IV fluids NPO 10 mg vitamin K for liver disease induced coagulopathy Continue q.6 hours hemoglobin checks Transfuse as needed Continue PPI and octreotide infusion GI consulted and patient is scheduled for EGD today Continue NG tube 03/10/2022 interval history: patient still remained confused and crying her daughter is present in the room currently patient denies any abdominal pain nausea or vomiting, patient was seen GI and patient had a EGD it showed reflux esophagitis, acute gastric ulcer with hemorrhage acute duodenal ulcer, and multiple antral gastric ulcer, patient being treated with a PPI, avoid NSAID and alcohol, patient is also found to bacteremia preliminary both blood culture bottles are growing Gram-positive cocci in clusters present being treated with Cefepime, and Flagyl, patient is also positive for C diff and started on oral vancomycin, patient with history of alcohol abuse on CIWA protocol being monitor with Librium and Ativan as needed, patient is clinically stable will transfer the patient out of ICU to medical telemetry floor. 03/11/2022 interval history: on 03/10 patient was confused and crying her daughter was present in the room, today patient's hemoglobin is trending down 6.9 is given 2 units of pack RBC, currently patient denies any abdominal pain nausea or vomiting, patient was seen GI and patient had a EGD on 03/10 it showed reflux esophagitis, acute gastric ulcer with hemorrhage acute duodenal ulcer, and multiple antral gastric ulcer, patient being treated with a PPI, avoid NSAID and alcohol, patient is also found to bacteremia 1 bottle blood culture is growing Streptococcus hominis another bottle is growing staphylococci epidermidis, present being treated with Cefepime, and Flagyl, however this may be contaminant, to further evaluate will do transthoracic echo for preminar evaluation for any vegetation, patient is also positive for C diff and started on oral vancomycin, patient with history of alcohol abuse on CIWA protocol being monitor with Librium and Ativan as needed, patient is clinically stable will transfer the patient out of ICU to medical telemetry floor. (2) Sepsis: Code(s): A41.9 - Sepsis, unspecified organism Status: Acute Assessment and Plan: Patient met criteria for sepsis on presentation. Her UA and chest x-ray unremarkable. Her procalcitonin level is low. Her CT scan does show inflammatory changes in sigmoid area Blood cultures are sent and pending Check C diff Change antibiotics to Zosyn She has and is receiving IV fluids (3) Colitis: Code(s): K52.9 - Noninfective gastroenteritis and colitis, unspecified Status: Acute Assessment and Plan: CT of the abdomen and pelvis showed infectious, inflammatory, or ischemic changes to the sigmoid colon. Patient has mild tenderness left reported Change antibiotics to Zosyn GI is following (4) Acute non-ST segment elevation myocardial infarction: Code(s): I21.4 - Non-ST elevation (NSTEMI) myocardial infarction Status: Acute Assessment and Plan: Patient does not have any history of coronary disease but did had elevated troponin which is likely type [address] elevation [place] from upper GI bleed and stress EKG reviewed Check echocardiogram Currently NPO and not a candidate for any antiplatelet or anticoagulation (5) Cardiac murmur: Code(s): R01.1 - Cardiac murmur, unspecified Status: Acute Assessment and Plan: Check echocardiogram (6) Alcohol abuse: Code(s): F10.10 - Alcohol abuse, uncomplicated Status: Acute Assessment and Plan: Thiamine and folic acid ordered M
[2022-03-11] MEDS: PANTOPRAZOLE 40 MG TABLET PO (20:51)
[2022-03-11] MEDS: ACETAMINOPHEN 325 MG TABLET 650 MG PO (20:54)
[2022-03-11] MEDS: LORazepam INJ (*CRX) 2 MG/ML VIAL 1 MG IV PUSH (21:10)
[2022-03-11 23:04] LABS: Basophils Absolute Auto 0.1 K/mm3 (0.0-0.1); Basophils Percent Auto 0.9 % (0.2-1.2); Eosinophils Absolute Auto 0.2 K/mm3 (0-0.3); Eosinophils Percent Auto 1.9 % (0-4.4); Hematocrit 31.5 % (37.0-47.0); Hemoglobin 10.4 g/dL (12.0-15.0); Immature Granulocyte Absolute 0.19 K/mm3 (0.00-0.031); Immature Granulocyte Percent A 1.6 % (0-0.5); Lymphocytes Absolute Auto 2.02 K/mm3 (0.9-3.2); Lymphocytes Percent Auto 17.2 % (18.3-44.2); Mean Corpuscular Hemoglobin 29.9 pg (26-34); Mean Corpuscular Volume 90.5 fl (80-100); Mean Platelet Volume 10.5 fl (7.4-10.4); Monocytes Percent Auto 8.4 % (2.6-8.5); Neutrophils Absolute Auto 8.2 K/mm3 (1.3-6.7); Nucleated Red Blood Cells Perc 0.3 % (0.0-0.2); Platelet Count Result 123 k/mm3 (150-375); Red Blood Count 3.48 M/mm3 (4.2-5.4); White Blood Count 11.7 K/mm3 (4.5-10.0)
[2022-03-12] VITALS (13 sets, daily range): BP systolic 127–186; BP diastolic 78–100; PULSE 82–102; RESP 20–28; TEMP 35.9–37.4; O2SAT 89–97
[2022-03-12] MEDS: metroNIDAZOLE 500 MG/ISO 100ML 500 MG/100 ML BAG 100 MG IVPB ×4 (03:13→20:58)
[2022-03-12] MEDS: FLUTICASONE/SALMETEROL 115-21 MCG INHALER 1 PUFF 2 PUFF INHALATION ×2 (05:46→20:22)
[2022-03-12 06:05] LABS: Hematocrit 31.1 % (37.0-47.0); Hemoglobin 10.3 g/dL (12.0-15.0); Immature Platelet Fraction Pct 5.7 % (0.9-11.2); Mean Corpuscular HGB Conc 33.1 g/dl (32-36); Mean Corpuscular Hemoglobin 29.9 pg (26-34); Mean Corpuscular Volume 90.4 fl (80-100); Mean Platelet Volume 11.4 fl (7.4-10.4); Platelet Count Result 117 k/mm3 (150-375); Red Blood Count 3.44 M/mm3 (4.2-5.4); Red Cell Distribution Width 15.3 % (11.5-14.5); White Blood Count 11.6 K/mm3 (4.5-10.0)
[2022-03-12] MEDS: SUCRALFATE 1 GM TABLET PO ×4 (06:15→20:59)
[2022-03-12] MEDS: VANCOMYCIN ORAL 125 MG/2.5 ML SYRUP PO ×4 (06:15→21:00)
[2022-03-12] MEDS: ACETAMINOPHEN 325 MG TABLET 650 MG PO (06:19)
[2022-03-12] MEDS: LACTATED RINGERS 1,000 ML 100 ML IV CONT ×2 (06:20→20:59)
[2022-03-12 06:23] LABS: Alanine Aminotransferase 20 U/L (6-35); Alkaline Phosphatase 59 U/L (38-126); Anion Gap 7 mmol/L (8-16); Aspartate Amino Transferase 33 U/L (14-36); Bilirubin,Total 2.8 mg/dL (0.2-1.3); Blood Urea Nitrogen 16 mg/dL (7-17); Calcium 7.5 mg/dL (8.4-10.2); Carbon Dioxide 18 mmol/L (22-30); Chloride 116 mmol/L (98-107); Estimated CRCL calculation 55 ml/min; Estimated Glomerular Filt Rate > 60; Glucose 88 mg/dL (65-110); Magnesium 1.7 mg/dL (1.6-2.3); Potassium 3.4 mmol/L (3.4-5.0); Sodium 141 mmol/L (137-145)
[2022-03-12 08:11] LABS: Glucose Point of Care 95 mg/dl (65-105)
[2022-03-12] MEDS: POTASSIUM CHLORIDE 20 MEQ TABLET 40 MEQ PO (10:05)
[2022-03-12] MEDS: PANTOPRAZOLE 40 MG TABLET PO ×2 (10:05→20:59)
[2022-03-12 12:14] LABS: Glucose Point of Care 98 mg/dl (65-105)
[2022-03-12] MEDS: LIDOCAINE 5% PATCH 2 PATCH TRANSDERM (13:04)
--- NOTE | 2022-03-12 13:18 | PM.IMPN ---
Progress Note: A&P Assessment and Plan (1) Upper gastrointestinal hemorrhage: Code(s): K92.2 - Gastrointestinal hemorrhage, unspecified Status: Acute Assessment and Plan: Upper GI bleed secondary to either varices or peptic ulcer disease. Status post transfusion of 1 unit PRBC and IV fluids NPO 10 mg vitamin K for liver disease induced coagulopathy Continue q.6 hours hemoglobin checks Transfuse as needed Continue PPI and octreotide infusion GI consulted and patient is scheduled for EGD today Continue NG tube 03/10/2022 interval history: patient still remained confused and crying her daughter is present in the room currently patient denies any abdominal pain nausea or vomiting, patient was seen GI and patient had a EGD it showed reflux esophagitis, acute gastric ulcer with hemorrhage acute duodenal ulcer, and multiple antral gastric ulcer, patient being treated with a PPI, avoid NSAID and alcohol, patient is also found to bacteremia preliminary both blood culture bottles are growing Gram-positive cocci in clusters present being treated with Cefepime, and Flagyl, patient is also positive for C diff and started on oral vancomycin, patient with history of alcohol abuse on CIWA protocol being monitor with Librium and Ativan as needed, patient is clinically stable will transfer the patient out of ICU to medical telemetry floor. 03/11/2022 interval history: on 03/10 patient was confused and crying her daughter was present in the room, today patient's hemoglobin is trending down 6.9 is given 2 units of pack RBC, currently patient denies any abdominal pain nausea or vomiting, patient was seen GI and patient had a EGD on 03/10 it showed reflux esophagitis, acute gastric ulcer with hemorrhage acute duodenal ulcer, and multiple antral gastric ulcer, patient being treated with a PPI, avoid NSAID and alcohol, patient is also found to bacteremia 1 bottle blood culture is growing Streptococcus hominis another bottle is growing staphylococci epidermidis, present being treated with Cefepime, and Flagyl, however this may be contaminant, to further evaluate will do transthoracic echo for preminar evaluation for any vegetation, patient is also positive for C diff and started on oral vancomycin, patient with history of alcohol abuse on CIWA protocol being monitor with Librium and Ativan as needed, patient is clinically stable will transfer the patient out of ICU to medical telemetry floor. 03/12/2022 interval history: on 03/10 patient was confused and crying her daughter was present in the room, on 03/11 patient's hemoglobin was trending down to 6.9 is given 2 units of pack RBC, today her Hgb is 10.3, currently patient denies any abdominal pain nausea or vomiting, patient was seen GI and patient had a EGD on 03/10 it showed reflux esophagitis, acute gastric ulcer with hemorrhage acute duodenal ulcer, and multiple antral gastric ulcer, patient being treated with a PPI, avoid NSAID and alcohol, patient is also found to bacteremia 1 bottle blood culture is growing Streptococcus hominis and both bottle is growing staphylococci epidermidis, present being treated with Cefepime, and Flagyl, however this may be contaminant, to further evaluate will do transthoracic echo for preminal evaluation for any vegetation, patient is also positive for C diff and started on oral vancomycin, patient with history of alcohol abuse on CIWA protocol being monitor with Librium and Ativan as needed, patient is clinically stable will transfer the patient out of ICU to medical telemetry floor. (2) Sepsis: Code(s): A41.9 - Sepsis, unspecified organism Status: Acute Assessment and Plan: Patient met criteria for sepsis on presentation. Her UA and chest x-ray unremarkable. Her procalcitonin level is low. Her CT scan does show inflammatory changes in sigmoid area Blood cultures are sent and pending Check C diff Change antibiotics to Zosyn She has and is rec
[2022-03-12 15:57] LABS: Glucose Point of Care 85 mg/dl (65-105)
[2022-03-12] MEDS: LORazepam INJ (*CRX) 2 MG/ML VIAL 1 MG IV PUSH (20:59)
--- NOTE | 2022-03-12 23:05 | PC.NURSE ---
This patient, Sade Drake, was transferred to [facility] on 03/12/22 at 2305. Personal belongings sent with patient. Report given to Zoraida STARK. Appropriate documentation sent with patient.
--- NOTE | 2022-03-12 23:21 | PC.NURSE ---
Recieved pt per bed from IMU.
[2022-03-13] VITALS (13 sets, daily range): BP systolic 120–148; BP diastolic 69–85; PULSE 84–97; RESP 16–26; TEMP 37.1–38; O2SAT 91–96
[2022-03-13] MEDS: metroNIDAZOLE 500 MG/ISO 100ML 500 MG/100 ML BAG 100 MG IVPB ×4 (02:39→20:18)
[2022-03-13] MEDS: ACETAMINOPHEN 325 MG TABLET 650 MG PO ×2 (02:46→08:42)
[2022-03-13] MEDS: LORazepam INJ (*CRX) 2 MG/ML VIAL 1 MG IV PUSH ×2 (02:58→12:34)
[2022-03-13] MEDS: ONDANSETRON INJ 4 MG/2 ML VIAL IV PUSH (03:03)
[2022-03-13] MEDS: VANCOMYCIN ORAL 125 MG/2.5 ML SYRUP PO ×3 (05:09→17:02)
[2022-03-13] MEDS: SUCRALFATE 1 GM TABLET PO ×4 (05:09→20:19)
[2022-03-13] MEDS: ALBUTEROL SULFATE NEB 2.5 MG/3 ML INH INHALATION ×2 (07:07→21:00)
[2022-03-13] MEDS: FLUTICASONE/SALMETEROL 115-21 MCG INHALER 1 PUFF 2 PUFF INHALATION ×2 (07:07→20:59)
[2022-03-13] MEDS: IPRATROPIUM BR 0.02% INH SOLN 0.5 MG/2.5 ML VIAL INHALATION ×2 (07:08→21:00)
[2022-03-13 07:12] LABS: Hematocrit 30.4 % (37.0-47.0); Hemoglobin 10.4 g/dL (12.0-15.0); Mean Corpuscular HGB Conc 34.2 g/dl (32-36); Mean Corpuscular Hemoglobin 30.3 pg (26-34); Mean Corpuscular Volume 88.6 fl (80-100); Mean Platelet Volume 10.7 fl (7.4-10.4); Platelet Count Result 160 k/mm3 (150-375); Red Blood Count 3.43 M/mm3 (4.2-5.4); Red Cell Distribution Width 15.5 % (11.5-14.5)
[2022-03-13 07:25] LABS: Alanine Aminotransferase 18 U/L (6-35); Albumin Level 2.6 g/dL (3.5-5.1); Alkaline Phosphatase 72 U/L (38-126); Anion Gap 4 mmol/L (8-16); Aspartate Amino Transferase 30 U/L (14-36); Bilirubin,Total 2.3 mg/dL (0.2-1.3); Blood Urea Nitrogen 6 mg/dL (7-17); Calcium 7.1 mg/dL (8.4-10.2); Carbon Dioxide 21 mmol/L (22-30); Chloride 112 mmol/L (98-107); Estimated CRCL calculation 70 ml/min; Estimated Glomerular Filt Rate > 60; Glucose 99 mg/dL (65-110); Magnesium 1.4 mg/dL (1.6-2.3); Potassium 2.9 mmol/L (3.4-5.0); Sodium 137 mmol/L (137-145)
[2022-03-13] MEDS: LIDOCAINE 5% PATCH 2 PATCH TRANSDERM (08:02)
[2022-03-13] MEDS: PANTOPRAZOLE 40 MG TABLET PO ×2 (08:02→20:19)
[2022-03-13] MEDS: POTASSIUM CHLORIDE 20 MEQ TABLET 40 MEQ PO (08:41)
[2022-03-13] MEDS: MAGNESIUM SULF 2 GM/WATER 50ML 2 GM/50 ML BAG IVPB (08:41)
[2022-03-13] MEDS: POTASSIUM CHLORIDE INJ 40 MEQ in SODIUM CHLORIDE 0.9% IV 500 ML 130 MEQ IVPB (08:41)
[2022-03-13] MEDS: LACTATED RINGERS 1,000 ML 100 ML IV CONT (09:05)
[2022-03-13] MEDS: MAGNESIUM OXIDE 400 MG TABLET PO (09:57)
--- NOTE | 2022-03-13 11:34 | PM.IMPN ---
Progress Note: A&P Assessment and Plan (1) Upper gastrointestinal hemorrhage: Code(s): K92.2 - Gastrointestinal hemorrhage, unspecified Status: Acute Assessment and Plan: Upper GI bleed secondary to either varices or peptic ulcer disease. Status post transfusion of 1 unit PRBC and IV fluids NPO 10 mg vitamin K for liver disease induced coagulopathy Continue q.6 hours hemoglobin checks Transfuse as needed Continue PPI and octreotide infusion GI consulted and patient is scheduled for EGD today Continue NG tube 03/10/2022 interval history: patient still remained confused and crying her daughter is present in the room currently patient denies any abdominal pain nausea or vomiting, patient was seen GI and patient had a EGD it showed reflux esophagitis, acute gastric ulcer with hemorrhage acute duodenal ulcer, and multiple antral gastric ulcer, patient being treated with a PPI, avoid NSAID and alcohol, patient is also found to bacteremia preliminary both blood culture bottles are growing Gram-positive cocci in clusters present being treated with Cefepime, and Flagyl, patient is also positive for C diff and started on oral vancomycin, patient with history of alcohol abuse on CIWA protocol being monitor with Librium and Ativan as needed, patient is clinically stable will transfer the patient out of ICU to medical telemetry floor. 03/11/2022 interval history: on 03/10 patient was confused and crying her daughter was present in the room, today patient's hemoglobin is trending down 6.9 is given 2 units of pack RBC, currently patient denies any abdominal pain nausea or vomiting, patient was seen GI and patient had a EGD on 03/10 it showed reflux esophagitis, acute gastric ulcer with hemorrhage acute duodenal ulcer, and multiple antral gastric ulcer, patient being treated with a PPI, avoid NSAID and alcohol, patient is also found to bacteremia 1 bottle blood culture is growing Streptococcus hominis another bottle is growing staphylococci epidermidis, present being treated with Cefepime, and Flagyl, however this may be contaminant, to further evaluate will do transthoracic echo for preminar evaluation for any vegetation, patient is also positive for C diff and started on oral vancomycin, patient with history of alcohol abuse on CIWA protocol being monitor with Librium and Ativan as needed, patient is clinically stable will transfer the patient out of ICU to medical telemetry floor. 03/12/2022 interval history: on 03/10 patient was confused and crying her daughter was present in the room, on 03/11 patient's hemoglobin was trending down to 6.9 is given 2 units of pack RBC, today her Hgb is 10.3, currently patient denies any abdominal pain nausea or vomiting, patient was seen GI and patient had a EGD on 03/10 it showed reflux esophagitis, acute gastric ulcer with hemorrhage acute duodenal ulcer, and multiple antral gastric ulcer, patient being treated with a PPI, avoid NSAID and alcohol, patient is also found to bacteremia 1 bottle blood culture is growing Streptococcus hominis and both bottle is growing staphylococci epidermidis, present being treated with Cefepime, and Flagyl, however this may be contaminant, to further evaluate will do transthoracic echo for preminal evaluation for any vegetation, patient is also positive for C diff and started on oral vancomycin, patient with history of alcohol abuse on CIWA protocol being monitor with Librium and Ativan as needed, patient is clinically stable will transfer the patient out of ICU to medical telemetry floor. 03/13/2022 interval history: on 03/10 patient was confused and crying her daughter was present in the room, on 03/11 patient's hemoglobin was trending down to 6.9 is given 2 units of pack RBC, today her Hgb is 10.3, currently patient denies any abdominal pain nausea or vomiting, patient was seen GI and patient had a EGD on 03/10 it showed reflux esophagitis, acute gastric ulcer with he
[2022-03-14] VITALS (18 sets, daily range): BP systolic 95–130; BP diastolic 51–76; PULSE 78–94; RESP 18–22; TEMP 36.6–37.8; O2SAT 94–100
[2022-03-14] MEDS: VANCOMYCIN ORAL 125 MG/2.5 ML SYRUP PO ×4 (00:52→17:02)
[2022-03-14] MEDS: IPRATROPIUM BR 0.02% INH SOLN 0.5 MG/2.5 ML VIAL INHALATION ×3 (02:14→21:21)
[2022-03-14] MEDS: ALBUTEROL SULFATE NEB 2.5 MG/3 ML INH INHALATION ×2 (02:14→15:30)
[2022-03-14] MEDS: LACTATED RINGERS 1,000 ML 100 ML IV CONT ×2 (02:36→12:25)
[2022-03-14] MEDS: metroNIDAZOLE 500 MG/ISO 100ML 500 MG/100 ML BAG 100 MG IVPB ×4 (02:37→20:48)
[2022-03-14] MEDS: SUCRALFATE 1 GM TABLET PO ×4 (06:25→20:47)
[2022-03-14] MEDS: LIDOCAINE 5% PATCH 2 PATCH TRANSDERM (07:54)
[2022-03-14] MEDS: MAGNESIUM OXIDE 400 MG TABLET PO (07:54)
[2022-03-14] MEDS: PANTOPRAZOLE 40 MG TABLET PO ×2 (07:54→20:47)
[2022-03-14] MEDS: POTASSIUM CHLORIDE 20 MEQ TABLET 40 MEQ PO (08:46)
[2022-03-14] MEDS: MAGNESIUM SULF 4 GM/WATER100ML 4 GM/100 ML BAG IVPB (08:46)
[2022-03-14] MEDS: POTASSIUM CHLORIDE INJ 40 MEQ in SODIUM CHLORIDE 0.9% IV 500 ML 130 MEQ IVPB (08:47)
[2022-03-14] MEDS: FLUTICASONE/SALMETEROL 115-21 MCG INHALER 1 PUFF 2 PUFF INHALATION ×2 (09:18→21:12)
[2022-03-14 10:11] LABS: Hematocrit 34.4 % (37.0-47.0); Hemoglobin 11.2 g/dL (12.0-15.0); Mean Corpuscular HGB Conc 32.6 g/dl (32-36); Mean Corpuscular Hemoglobin 30.8 pg (26-34); Mean Corpuscular Volume 94.5 fl (80-100); Platelet Count Result 185 k/mm3 (150-375); Red Blood Count 3.64 M/mm3 (4.2-5.4); Red Cell Distribution Width 17.6 % (11.5-14.5); White Blood Count 11.1 K/mm3 (4.5-10.0)
[2022-03-14 10:25] LABS: Alanine Aminotransferase 18 U/L (6-35); Albumin Level 2.5 g/dL (3.5-5.1); Alkaline Phosphatase 71 U/L (38-126); Anion Gap 5 mmol/L (8-16); Aspartate Amino Transferase 30 U/L (14-36); Bilirubin,Total 2.6 mg/dL (0.2-1.3); Blood Urea Nitrogen 3 mg/dL (7-17); Calcium 7.1 mg/dL (8.4-10.2); Carbon Dioxide 20 mmol/L (22-30); Chloride 111 mmol/L (98-107); Estimated CRCL calculation 80 ml/min; Estimated Glomerular Filt Rate > 60; Glucose 112 mg/dL (65-110); Magnesium 3.5 mg/dL (1.6-2.3); Potassium 3.2 mmol/L (3.4-5.0); Sodium 136 mmol/L (137-145)
--- NOTE | 2022-03-14 12:29 | WPDGIPROGNO ---
Progress Note: A&P Assessment and Plan (1) C. difficile colitis: Code(s): A04.72 - Enterocolitis due to Clostridium difficile, not specified as recurrent Status: Acute Assessment and Plan: C difficile identified at time of presentation. Plan to complete 10 day course of vancomycin. (2) Peptic ulcer disease: Code(s): K27.9 - Peptic ulcer, site unspecified, unspecified as acute or chronic, without hemorrhage or perforation Status: Acute Assessment and Plan: Patient with bleeding gastric ulcer identified by endoscopy. Also had multiple duodenal ulcers and erosive esophagitis. Plan to avoid NSAIDs. Continue pantoprazole after discharge. Follow-up EGD suggested in 2 months. (3) Alcohol abuse: Code(s): F10.10 - Alcohol abuse, uncomplicated Status: Acute Assessment and Plan: Patient with history of alcohol abuse. Alcohol abstinence strongly encouraged. Currently being monitor for signs of alcohol withdrawal. (4) Bipolar 1 disorder: Code(s): F31.9 - Bipolar disorder, unspecified Status: Acute Subjective Date/time seen: 03/14/22 12:29 Patient alert. No additional bleeding reported. Denies abdominal pain. Review of Systems Review of Systems: All systems reviewed & are unremarkable except as noted in HPI and below Exam Narrative: Patient alert. Vital signs stable HEENT exam unremarkable. Lungs are clear. Heart without murmur. Abdomen bowel sounds present soft nontender. No organomegaly evident. Objective Data Vital Signs Vital Signs: Vital Signs - 24 hr 03/13/22 15:15 03/13/22 16:00 03/13/22 17:26 Temperature 100.4 F H 99.7 F H Pulse Rate 88 86 89 Pulse Rate [Monitor] 86 Respiratory Rate 16 16 Blood Pressure 120/69 130/72 Pulse Oximetry 96 93 03/13/22 20:00 03/13/22 20:10 03/14/22 00:00 Temperature 99.2 F Pulse Rate 90 90 83 Pulse Rate [Monitor] Respiratory Rate 26 H 26 H Blood Pressure 132/85 Pulse Oximetry 95 03/14/22 02:11 03/14/22 02:21 03/14/22 04:00 Temperature Pulse Rate 94 94 92 Pulse Rate [Monitor] Respiratory Rate 22 H 22 H Blood Pressure Pulse Oximetry 03/14/22 05:44 03/14/22 08:00 03/14/22 09:17 Temperature 97.9 F 98.8 F Pulse Rate 80 88 Pulse Rate [Monitor] 88 Respiratory Rate 20 18 Blood Pressure 117/76 130/69 Pulse Oximetry 97 96 94 03/14/22 12:00 Temperature 99.5 F Pulse Rate 84 Pulse Rate [Monitor] Respiratory Rate 18 Blood Pressure 121/69 Pulse Oximetry 97 Intake/Output Intake/Output: Intake & Output 03/11/22 03/12/22 03/13/22 03/14/22 23:59 23:59 23:59 23:59 Intake Total 3420 2090 3820 1830 Output Total 1250 1100 2300 550 Balance 2170 990 1520 1280 Meds/Results Medications: Active Medications Generic Name Dose Route Start Last Admin Trade Name Freq PRN Reason Stop Dose Admin Acetaminophen 650 mg 03/11/22 18:27 03/13/22 08:42 Acetaminophen 325 Mg Tablet PO 650 mg Q6H PRN Administration Mild Pain (1-3) or Fever Albuterol 2.5 mg 03/10/22 09:18 03/14/22 02:14 Albuterol Sulfate Neb 2.5 Mg/3 Ml Inh INHALATION 2.5 mg Q4HRT PRN Administration Shortness Of Breath Cefepime HCl 1 gm in 50 mls @ 100 mls/hr 03/10/22 18:00 03/14/22 05:23 Maxipime 1 Gm/D5w 50 Ml IVPB 100 mls/hr Q12H SAY Administration Metronidazole 500 mg in 100 mls @ 100 mls/hr 03/10/22 21:00 03/14/22 09:02 Flagyl 500 Mg/Iso Soln 100 Ml IVPB Infused Q6H SAY Infusion Lactated Ringer's 1,000 mls @ 100 mls/hr 03/10/22 21:00 03/14/22 12:25 Lr - Lactated Ringers Iv IV CONT 100 mls/hr .Q10H SAY Administration Potassium Chloride 40 meq/ 520 mls @ 130 mls/hr 03/14/22 08:45 03/14/22 08:47 Sodium Chloride IVPB 03/14/22 12:44 130 mls/hr ONCE ONE Administration Ipratropium [place] 0.5 mg 03/10/22 09:18 03/14/22 02:14 Ipratropium Br 0.02% Inh Soln 0.5 Mg/2.5 Ml Vial INHALATION 0.5 mg Q4HRT PRN Adm
[2022-03-14] MEDS: ACETAMINOPHEN 325 MG TABLET 650 MG PO ×2 (14:00→21:41)
--- NOTE | 2022-03-14 14:16 | PC.NURSE ---
covid swab sent to lab
--- NOTE | 2022-03-14 15:23 | PC.NURSE ---
called respiratory for pt, pt wheezy, able to hear audibly.
[2022-03-14] MEDS: LORazepam INJ (*CRX) 2 MG/ML VIAL 1 MG IV PUSH (17:02)
--- NOTE | 2022-03-14 17:13 | PC.NURSE ---
tearfulness this shift, ativan given prn
[2022-03-14] MEDS: ALBUTEROL SULFATE NEB 2.5 MG/0.5 ML INH (21:22)
[2022-03-15] VITALS (16 sets, daily range): BP systolic 125–145; BP diastolic 67–82; PULSE 86–98; RESP 16–28; TEMP 36.1–37.6; O2SAT 96–100
[2022-03-15] MEDS: VANCOMYCIN ORAL 125 MG/2.5 ML SYRUP PO ×4 (01:38→17:12)
[2022-03-15] MEDS: metroNIDAZOLE 500 MG/ISO 100ML 500 MG/100 ML BAG 100 MG IVPB ×4 (03:38→20:08)
[2022-03-15] MEDS: SUCRALFATE 1 GM TABLET PO ×4 (05:55→20:09)
[2022-03-15 06:17] LABS: Hemoglobin 10.7 g/dL (12.0-15.0); Mean Corpuscular HGB Conc 33.4 g/dl (32-36); Mean Corpuscular Hemoglobin 30.4 pg (26-34); Mean Corpuscular Volume 90.9 fl (80-100); Mean Platelet Volume 10.6 fl (7.4-10.4); Platelet Count Result 179 k/mm3 (150-375); Red Blood Count 3.52 M/mm3 (4.2-5.4); White Blood Count 8.6 K/mm3 (4.5-10.0)
[2022-03-15 06:31] LABS: Alanine Aminotransferase 17 U/L (6-35); Albumin Level 2.4 g/dL (3.5-5.1); Alkaline Phosphatase 74 U/L (38-126); Anion Gap 4 mmol/L (8-16); Aspartate Amino Transferase 31 U/L (14-36); Blood Urea Nitrogen 5 mg/dL (7-17); Calcium 7.1 mg/dL (8.4-10.2); Carbon Dioxide 20 mmol/L (22-30); Chloride 114 mmol/L (98-107); Estimated CRCL calculation 71 ml/min; Estimated Glomerular Filt Rate > 60; Glucose 125 mg/dL (65-110); Magnesium 2.2 mg/dL (1.6-2.3); Potassium 3.5 mmol/L (3.4-5.0); Sodium 138 mmol/L (137-145)
[2022-03-15] MEDS: IPRATROPIUM BR 0.02% INH SOLN 0.5 MG/2.5 ML VIAL INHALATION ×2 (06:51→12:15)
[2022-03-15] MEDS: ALBUTEROL SULFATE NEB 2.5 MG/3 ML INH INHALATION (06:51)
[2022-03-15] MEDS: FLUTICASONE/SALMETEROL 115-21 MCG INHALER 1 PUFF 2 PUFF INHALATION ×2 (08:39→19:56)
--- NOTE | 2022-03-15 09:00 | PM.CNCAR ---
Assessment and Plan Assessment and plan (1) Peptic ulcer disease: Code(s): K27.9 - Peptic ulcer, site unspecified, unspecified as acute or chronic, without hemorrhage or perforation Status: Acute Assessment and Plan: 71-year-old female with history of CVA, COPD, bipolar disorder, rhabdomyolysis, falls, alcohol abuse. Patient admitted to the hospital with hematemesis and melena. EGD showed acute gastric and duodenal ulcer. Stool positive for C diff. -management as per primary team and Gastroenterology. -patient currently on PPI, sucralfate (2) C. difficile colitis: Code(s): A04.72 - Enterocolitis due to Clostridium difficile, not specified as recurrent Status: Acute Assessment and Plan: Management per primary team. Patient currently on metronidazole and vancomycin. (3) Bacteremia: Code(s): R78.81 - Bacteremia Status: Acute Assessment and Plan: Blood cultures positive for Staph hominis and epidermis. Patient has eaten breakfast this morning. She can be scheduled for transesophageal echocardiogram tomorrow after patient is NPO. Patient was confused at the time of evaluation today. Consent may have to be taken from patient's family/durable power of employment law attorney, if patient remains confused tomorrow. (4) Alcohol abuse: Code(s): F10.10 - Alcohol abuse, uncomplicated Status: Acute Assessment and Plan: Social work evaluation Delirium tremens prophylaxis as necessary per primary team (5) Elevated troponin: Code(s): R77.8 - Other specified abnormalities of plasma proteins Status: Acute Assessment and Plan: Nonspecific, flat, likely nonACS. Surface echocardiogram showed preserved ejection fraction. History of Present Illness History of Present Illness Consult date/time: 03/15/22 09:00 DATE OF CONSULT: 03/15/2022 REASON FOR CONSULT: Positive blood culture, JASON REQUESTING PHYSICIAN:Rafael Andrea MD CHIEF COMPLAINT: Blood in the vomitus and stool HPI: 71-year-old female with history of CVA, COPD, bipolar disorder, rhabdomyolysis, falls, alcohol abuse. Patient brought to [facility] on 09/09/2022 via EMS with complaints of blood in vomitus and stool. EGD showed acute gastric and duodenal ulcer. Stool positive for C diff. Blood cultures positive for Staph hominis and epidermis. Surface echocardiogram from 03/10/2022 showed hyperdynamic LV systolic function, grade 1 diastolic dysfunction, mild pulmonary hypertension. Cardiology has been consult report JASON. EKG admission which I personally evaluated showed sinus rhythm, RBBB, LAFB. At the time of evaluation today, patient was somewhat confused. She did not recall any prior cardiac history. She denied ongoing chest pain. Reports shortness of breath. On telemetry, patient has been sinus rhythm. Reason For Visit: GI bleed/sepsis Review of Systems Review of Systems: General: Positive for fatigue Psychological: Positive for anxiety Ophthalmic: negative for loss of vision ENT: Negative for epistaxis, headaches Allergy and immunology: Negative for hives, nasal congestion Hematologic and lymphatic: Positive for bruising Endocrine: Negative for hot flashes, palpitations Respiratory: Positive shortness of breath and wheezing Cardiovascular: Negative for chest pain Gastrointestinal: Positive for hematemesis and hematochezia Musculoskeletal: Positive for joint pains Neurological: Positive for generalized weakness Dermatological: Positive for bruising PMFSH Past Medical History Medical History Acute stroke due to ischemia Altered mental status Asthma Bipolar 1 disorder COPD (chronic obstructive pulmonary disease) Falls Rhabdomyolysis Family History Family History Father Asthma Colon cancer Grandparent Asthma Chronic obstructive pulmonary disease Moth
[2022-03-15] MEDS: MAGNESIUM OXIDE 400 MG TABLET PO (09:18)
[2022-03-15] MEDS: LIDOCAINE 5% PATCH 2 PATCH TRANSDERM (09:18)
[2022-03-15] MEDS: POTASSIUM CHLORIDE 20 MEQ TABLET 40 MEQ PO (09:18)
[2022-03-15] MEDS: PANTOPRAZOLE 40 MG TABLET PO ×2 (09:18→20:08)
[2022-03-15] MEDS: LORazepam INJ (*CRX) 2 MG/ML VIAL 1 MG IV PUSH ×3 (09:34→20:31)
--- NOTE | 2022-03-15 10:05 | PCPTNOTE ---
The patient treatment was not able to be completed at this time due to patient having reported increased pain and discomfort. RN states she gave patient medication to help with pain and requested PT hold therapy at this time. Will plan to continue treatment per plan of care.
[2022-03-15] MEDS: LACTATED RINGERS 1,000 ML 100 ML IV CONT (12:04)
[2022-03-15] MEDS: ALBUTEROL SULFATE NEB 2.5 MG/0.5 ML INH (12:15)
--- NOTE | 2022-03-15 12:20 | WPDGIPROGNO ---
Progress Note: A&P Assessment and Plan (1) Peptic ulcer disease: Code(s): K27.9 - Peptic ulcer, site unspecified, unspecified as acute or chronic, without hemorrhage or perforation Status: Acute Assessment and Plan: Patient with gastric ulcer causing bleeding this is now stopped. He also has duodenal ulcers and erosive esophagitis. Plan for long-term PPI therapy. Avoid NSAIDs. Follow-up EGD in 2 months. (2) C. difficile colitis: Code(s): A04.72 - Enterocolitis due to Clostridium difficile, not specified as recurrent Status: Acute Assessment and Plan: Patient with C diff colitis. This likely accounts for her diarrhea. Now on Dificid. Continue this for 10 day course advised. (3) Bipolar 1 disorder: Code(s): F31.9 - Bipolar disorder, unspecified Status: Acute (4) Alcohol abuse: Code(s): F10.10 - Alcohol abuse, uncomplicated Status: Acute Subjective Date/time seen: 03/15/22 12:20 Patient is somnolent this morning. Appears sedated. no complaints offered. Patient denies any obvious bleeding. Apparently has tolerated diet. Review of Systems Review of Systems: All systems reviewed & are unremarkable except as noted in HPI and below Exam Narrative: On physical exam patient is alert sedated. Difficult answer all questions. HEENT exam reveals no icterus. Lungs are clear. Heart without murmur. Abdomen bowel sounds are present soft nontender with no organomegaly. Objective Data Vital Signs Vital Signs: Vital Signs - 24 hr 03/14/22 14:00 03/14/22 15:30 03/14/22 15:42 Temperature 100 F H Pulse Rate 88 91 89 Pulse Rate [Monitor] Respiratory Rate 18 22 H 20 Blood Pressure 95/51 L Pulse Oximetry 100 98 03/14/22 16:00 03/14/22 16:02 03/14/22 17:00 Temperature 98.7 F Pulse Rate 92 Pulse Rate [Monitor] 92 88 Respiratory Rate Blood Pressure Pulse Oximetry 03/14/22 20:00 03/14/22 21:22 03/14/22 21:29 Temperature Pulse Rate 92 88 90 Pulse Rate [Monitor] 88 Respiratory Rate 20 22 H 20 Blood Pressure 100/58 L Pulse Oximetry 100 03/14/22 22:00 03/15/22 00:00 03/15/22 04:00 Temperature 99.6 F Pulse Rate 88 92 86 Pulse Rate [Monitor] Respiratory Rate 20 Blood Pressure 100/58 L Pulse Oximetry 100 03/15/22 05:55 03/15/22 06:51 03/15/22 08:00 Temperature 96.9 F L Pulse Rate 88 87 90 Pulse Rate [Monitor] Respiratory Rate 16 20 Blood Pressure 145/71 H Pulse Oximetry 96 03/15/22 08:39 03/15/22 09:25 03/15/22 12:00 Temperature Pulse Rate 91 Pulse Rate [Monitor] 88 98 Respiratory Rate 20 Blood Pressure Pulse Oximetry 99 Intake/Output Intake/Output: Intake & Output 03/12/22 03/13/22 03/14/22 03/15/22 23:59 23:59 23:59 23:59 Intake Total 2090 3820 4572 650 Output Total 1100 2300 1050 500 Balance 990 1520 3522 150 Meds/Results Medications: Active Medications Generic Name Dose Route Start Last Admin Trade Name Freq PRN Reason Stop Dose Admin Acetaminophen 650 mg 03/11/22 18:27 03/14/22 21:41 Acetaminophen 325 Mg Tablet PO 650 mg Q6H PRN Administration Mild Pain (1-3) or Fever Albuterol 2.5 mg 03/10/22 09:18 03/15/22 06:51 Albuterol Sulfate Neb 2.5 Mg/3 Ml Inh INHALATION 2.5 mg Q4HRT PRN Administration Shortness Of Breath Cefepime HCl 1 gm in 50 mls @ 100 mls/hr 03/10/22 18:00 03/15/22 06:25 Maxipime 1 Gm/D5w 50 Ml IVPB Infused Q12H SAY Infusion Metronidazole 500 mg in 100 mls @ 100 mls/hr 03/10/22 21:00 03/15/22 10:17 Flagyl 500 Mg/Iso Soln 100 Ml IVPB Infused Q6H SAY Infusion Lactated Ringer's 1,000 mls @ 100 mls/hr 03/10/22 21:00 03/15/22 12:04 Lr - Lactated Ringers Iv IV CONT 100 mls/hr .Q10H SAY Administration Ipratropium [place] 0.5 mg 03/10/22 09:18 03/15/22 06:51 Ipratropium Br 0.02% Inh Soln 0.5 Mg/2.5 Ml Vial INHALATION 0.5 mg Q4HRT PRN Administration W
[2022-03-15] MEDS: chlordiazePOXIDE (*CRX) 25 MG CAPSULE PO (17:12)
[2022-03-16] VITALS (21 sets, daily range): BP systolic 104–142; BP diastolic 59–79; PULSE 83–95; RESP 14–24; TEMP 36–36.3; O2SAT 94–100
[2022-03-16] MEDS: VANCOMYCIN ORAL 125 MG/2.5 ML SYRUP PO ×4 (00:20→18:22)
[2022-03-16] MEDS: LACTATED RINGERS 1,000 ML 100 ML IV CONT ×2 (00:22→13:32)
[2022-03-16] MEDS: metroNIDAZOLE 500 MG/ISO 100ML 500 MG/100 ML BAG 100 MG IVPB ×4 (03:03→20:27)
[2022-03-16] MEDS: chlordiazePOXIDE (*CRX) 25 MG CAPSULE PO (03:03)
[2022-03-16] MEDS: ALBUTEROL SULFATE NEB 2.5 MG/3 ML INH INHALATION ×2 (03:11→18:34)
[2022-03-16] MEDS: IPRATROPIUM BR 0.02% INH SOLN 0.5 MG/2.5 ML VIAL INHALATION (03:11)
[2022-03-16] MEDS: SUCRALFATE 1 GM TABLET PO ×4 (05:12→20:25)
[2022-03-16 07:49] LABS: Glucose Point of Care 92 mg/dl (65-105)
[2022-03-16] MEDS: FLUTICASONE/SALMETEROL 115-21 MCG INHALER 1 PUFF 2 PUFF INHALATION ×2 (08:49→18:35)
[2022-03-16] MEDS: LIDOCAINE 5% PATCH 2 PATCH TRANSDERM (09:18)
--- NOTE | 2022-03-16 10:35 | PC.NURSE ---
To Cardiac laborer operator via bed.
--- NOTE | 2022-03-16 10:51 | P.HPUP_ITS ---
History and Physical Update Update Date/Time: 03/16/22 10:51 Patient admitted with hematemesis (EGD showed acute gastric ulcer and duodenal ulcer with esophagitis), positive C diff, sepsis with blood cultures positive for Staph hominis and Staph epidermis. H/O Etoh abuse. Echo showed normal LV function. JASON is recommended to evaluate for possible endocarditis. The patient was very confused earlier this admission. Today she seems more oriented, knows that she is at [facility], that is Feb, 2022 and that she is here because ?I am sick!? History and Physical has been reviewed, including an updated exam of the patient. There are NO changes in the patient's condition. Risks, benefits, and alternatives have been discussed and questions answered. Patient agrees to proceed with procedure.
--- NOTE | 2022-03-16 10:54 | WPDMODSED ---
Moderate Sedation Note-Pt Data Patient Data Diagnosis: Sepsis, positive blood cultures, r/o SBE Present Complaint: Patient admitted with hematemesis (EGD showed acute gastric ulcer and duodenal ulcer with esophagitis), positive C diff, sepsis with blood cultures positive for Staph hominis and Staph epidermis. H/O Etoh abuse. Echo showed normal LV function. JASON is recommended to evaluate for possible endocarditis. The patient was very confused earlier this admission. Today she seems more oriented, knows that she is at [facility], that is Feb, 2022 and that she is here because ?I am sick!? Procedure to be performed/Plan: Conscious sedation Transesophageal echo Allergies Allergy/AdvReac Type Severity Reaction Status Date / Time No Known Allergies Allergy Verified 03/10/22 10:54 Home Medications Medication Instructions Recorded Confirmed Type albuterol sulfate [ProAir HFA] 18 mcg INHALATION DAILY PRN 06/22/21 03/09/22 History aspirin 81 mg PO DAILY 06/22/21 03/09/22 History bupropion HCl 100 mg PO DAILY 06/22/21 03/09/22 History fluoxetine 10 mg PO DAILY 06/22/21 03/09/22 History fluticasone propion-salmeterol 1 ea INHALATION BID 06/22/21 03/09/22 History [Wixela Inhub] ibuprofen 800 mg PO TID PRN 06/22/21 03/09/22 History quetiapine 200 mg PO QPM 06/22/21 03/09/22 History Current Medications: Active Medications Acetaminophen (Acetaminophen 325 Mg Tablet) 650 mg PO Q6H PRN PRN Reason: Mild Pain (1-3) or Fever Last Admin: 03/14/22 21:41 Dose: 650 mg Documented by: Albuterol (Albuterol Sulfate Neb 2.5 Mg/3 Ml Inh) 2.5 mg INHALATION Q4HRT PRN PRN Reason: Shortness Of Breath Last Admin: 03/16/22 03:11 Dose: 2.5 mg Documented by: Chlordiazepoxide HCl (Chlordiazepoxide (*Crx) 25 Mg Capsule) 25 mg PO Q6HR PRN PRN Reason: Alcohol Withdrawal Last Admin: 03/16/22 03:03 Dose: 25 mg Documented by: Cefepime HCl (Maxipime 1 Gm/D5w 50 Ml) 1 gm in 50 mls @ 100 mls/hr IVPB Q12H [facility] Last Infusion: 03/16/22 05:45 Dose: Infused Documented by: Metronidazole (Flagyl 500 Mg/Iso Soln 100 Ml) 500 mg in 100 mls @ 100 mls/hr IVPB Q6H [facility] Last Infusion: 03/16/22 10:17 Dose: Infused Documented by: Lactated Ringer's (Lr - Lactated Ringers Iv) 1,000 mls @ 100 mls/hr IV CONT .Q10H [facility] Last Admin: 03/16/22 00:22 Dose: 100 mls/hr Documented by: Ipratropium Perry (Ipratropium Br 0.02% Inh Soln 0.5 Mg/2.5 Ml Vial) 0.5 mg INHALATION Q4HRT PRN PRN Reason: Wheezing Last Admin: 03/16/22 03:11 Dose: 0.5 mg Documented by: Lidocaine (Lidocaine 5% Patch) 2 patch TRANSDERM DAILY [facility] Last Admin: 03/16/22 09:18 Dose: 2 patch Documented by: Lorazepam (Lorazepam Inj (*Crx) 2 Mg/Ml Vial) 1 mg IV PUSH Q2H PRN PRN Reason: Withdrawal Last Admin: 03/15/22 20:31 Dose: 1 mg Documented by: Lorazepam (Lorazepam Inj (*Crx) 2 Mg/Ml Vial) 2 mg IV PUSH Q2H PRN PRN Reason: Withdrawal Magnesium Oxide (Magnesium Oxide 400 Mg Tablet) 400 mg PO QAM [facility] Last Admin: 03/15/22 09:18 Dose: 400 mg Documented by: Ondansetron HCl (Ondansetron Inj 4 Mg/2 Ml Vial) 4 mg IV PUSH Q4H PRN PRN Reason: Nausea Last Admin: 03/13/22 03:03 Dose: 4 mg Documented by: Pantoprazole Sodium (Pantoprazole 40 Mg Tablet) 40 mg PO Q12HR [facility] Last Admin: 03/15/22 20:08 Dose: 40 mg Documented by: Perflutren Lipid Microsphere (Perflutren Lipid Microspheres 1.5 Ml Vial Diluted To 10 Ml Total Volume) 0 ml IV PUSH ONCE PRN; Protocol PRN Reason: adequate visualization Fluticasone/Salmeterol (Fluticasone/Salmeterol 115-21 Mcg Inhaler 1 Puff) 2 puff INHALATION Q12HRT [facility] Last Admin: 03/16/22 08:49 Dose: 2 puff Documented by: Sucralfate (Sucralfate 1 Gm Tablet) 1 gm PO ACHS [facility] Last Admin: 03/16/22 05:12 Dose: 1 gm Documented by: Vancomycin HCl (Vancomycin Oral 125 Mg/2.5 Ml Syrup) 125 mg PO Q6HR [facility] Last Admin: 03/16/22 05:12 Dose: 125 mg Documented by: Sedation/Anesthesia: No previous sedation/anesthesia problems (including fami
--- NOTE | 2022-03-16 10:56 | PM.IMPN ---
Progress Note: A&P Assessment and Plan (1) Upper gastrointestinal hemorrhage: Code(s): K92.2 - Gastrointestinal hemorrhage, unspecified Status: Acute Assessment and Plan: Upper GI bleed secondary to either varices or peptic ulcer disease. Monitor hemoglobin Transfuse as needed Continue PPI (2) Sepsis: Code(s): A41.9 - Sepsis, unspecified organism Status: Acute Assessment and Plan: Patient met criteria for sepsis on presentation. Her UA and chest x-ray unremarkable. Her procalcitonin level is low. Her CT scan does show inflammatory changes in sigmoid area C diff positive. Continue Flagyl (3) Colitis: Code(s): K52.9 - Noninfective gastroenteritis and colitis, unspecified Status: Acute Assessment and Plan: C diff positive. (4) Acute non-ST segment elevation myocardial infarction: Code(s): I21.4 - Non-ST elevation (NSTEMI) myocardial infarction Status: Acute Assessment and Plan: Likely related to type 2 in 5. No further workup needed. (5) Cardiac murmur: Code(s): R01.1 - Cardiac murmur, unspecified Status: Acute Assessment and Plan: JASON being performed this afternoon (6) Alcohol abuse: Code(s): F10.10 - Alcohol abuse, uncomplicated Status: Acute Assessment and Plan: Monitor for alcohol withdrawal (7) Acute hypokalemia: Code(s): E87.6 - Hypokalemia Status: Acute Assessment and Plan: Monitor (8) COPD (chronic obstructive pulmonary disease): Code(s): J44.9 - Chronic obstructive pulmonary disease, unspecified Status: Acute Assessment and Plan: Not in exacerbation P.r.n. bronchodilators (9) Cirrhosis: Code(s): K74.60 - Unspecified cirrhosis of liver Status: Acute Assessment and Plan: Monitor Subjective Date/time seen: 03/16/22 10:56 Having complaints of headache today. No focal neurological deficits. Exam Narrative: appears chronically ill older than her age Patient is comfortable, NAD HEENT: eyes are clear and none icteric LUNGS: normal respiratory effort ABD: not distended Lower extremities: no edema SKIN: nonjaundiced Neuro: grossly intact. Objective Data Vital Signs Vital Signs: Vital Signs - 24 hr 03/15/22 12:00 03/15/22 12:15 03/15/22 12:25 Temperature Pulse Rate 90 90 86 Pulse Rate [Monitor] 98 Respiratory Rate 20 20 Blood Pressure Pulse Oximetry 03/15/22 14:00 03/15/22 16:00 03/15/22 19:55 Temperature 99.6 F Pulse Rate 92 90 93 Pulse Rate [Monitor] 90 Respiratory Rate 28 H Blood Pressure 125/67 Pulse Oximetry 96 100 03/15/22 20:00 03/15/22 21:30 03/16/22 00:00 Temperature 97.8 F Pulse Rate 95 95 87 Pulse Rate [Monitor] Respiratory Rate 18 18 Blood Pressure 141/82 H Pulse Oximetry 100 100 03/16/22 03:11 03/16/22 03:21 03/16/22 04:00 Temperature Pulse Rate 91 89 88 Pulse Rate [Monitor] Respiratory Rate 22 H 20 Blood Pressure Pulse Oximetry 03/16/22 05:49 03/16/22 08:50 Temperature 97.3 F L Pulse Rate 91 Pulse Rate [Monitor] Respiratory Rate 18 Blood Pressure 142/75 H Pulse Oximetry 100 99 Intake/Output Intake/Output: Intake & Output 03/13/22 03/14/22 03/15/22 03/16/22 23:59 23:59 23:59 23:59 Intake Total 3820 4572 2690 350 Output Total 2300 1050 1500 900 Balance 1520 3522 1190 -550 Meds/Results Medications: Active Medications Generic Name Dose Route Start Last Admin Trade Name Freq PRN Reason Stop Dose Admin Acetaminophen 650 mg 03/11/22 18:27 03/14/22 21:41 Acetaminophen 325 Mg Tablet PO 650 mg Q6H PRN Administration Mild Pain (1-3) or Fever Albuterol 2.5 mg 03/10/22 09:18 03/16/22 03:11 Albuterol Sulfate Neb 2.5 Mg/3 Ml Inh INHALATION 2.5 mg Q4HRT PRN Administration Shortness Of Breath Chlordiazepoxide HCl 25 mg 03/15/22 13:21 03/16/22 03:03 Chlordiazepox
--- NOTE | 2022-03-16 11:02 | PCPTNOTE ---
The patient treatment was not able to be completed this morning due to patient out of room for testing. Will plan to continue treatment per plan of care.
--- NOTE | 2022-03-16 11:31 | PM.OP ---
Procedure Note - Brief Procedure Note - Brief Date of procedure: 03/16/22 Pre-op diagnosis: GI bleed/sepsis Bacteremia, sepsis Post-op diagnosis: Other (Possible aortic valve endocarditis) Procedure performed: Conscious sedation Transesophageal echo Description of procedure: Uneventful transesophageal ECHO. Surgeon: Bessie Murillo MD Complications: No immediate complications Condition: Stable Disposition: Floor Findings: Very small mobile mass, 1-2 mm, noted on the aortic valve which may represent aortic valve endocarditis.
--- NOTE | 2022-03-16 11:33 | W.PM.PROC2 ---
Procedure Note - Detailed Date of Procedure 03/16/22 Pre-op Diagnosis Bacteremia, sepsis, suspected aortic valve endocarditis Post-op Diagnosis Other (Aortic valve endocarditis.) Procedure Performed Conscious sedation Transesophageal echo Surgeon Bessie Murillo MD Anesthesia Local (With conscious sedation) Indications Patient admitted with hematemesis (EGD showed acute gastric ulcer and duodenal ulcer with esophagitis), positive C diff, sepsis with blood cultures positive for Staph hominis and Staph epidermis. H/O Etoh abuse. Echo showed normal LV function. JASON is recommended to evaluate for suspected endocarditis. Findings Small mobile mass noted on the aortic valve suggestive of aortic valve endocarditis. No regurgitation/insufficiency. Aortic valve sclerosis Mitral valve annular calcification and thickening with mild mitral regurgitation. Mild LVH with hyperdynamic left ventricular dysfunction, EF > 70%. Colorflow aliasing in the LVOT but no outflow tract obstruction/HOCM by transthoracic Echo Moderate atherosclerosis of the descending thoracic aorta Recommendations: Treat for aortic valve endocarditis Repeat transthoracic Echo in several weeks. Add statin for atherosclerosis. Description of Procedure Conscious sedation: Assessment: The patient has no history of anesthesia problems. The patient's oropharynx is clear. The patient was deemed to be a good candidate for conscious sedation. The patient had continuous hemodynamic and oximetric monitoring during the procedure. Start time: 1108 Completion time: 1127 Total conscious sedation time: 19 minutes Medications Used: Versed 2 mg, fentanyl 75 mcg IV push Trained observer: Omar Isabel RN Outcome: The patient tolerated the procedure well with no complications. Procedure: After informed consent the patient had viscous lidocaine gargle and Hurricaine spray the hypopharynx. The patient had conscious sedation as described above. The transesophageal echo probe was introduced in the esophagus without difficulty. Imaging was obtained in multiplane views. Agitated saline was injected to evaluate for intracardiac shunting. The patient tolerated the procedure well with no complications. Findings: The left atrium was moderately enlarged. There is no thrombus present in the left atrium or left atrial appendage. The atrial septum appeared mobile but intact. Mitral valve had moderate annular calcification and some thickening of the leaflets. However there is no vegetation seen. The left ventricle had had normal size and mild hypertrophy and a sigmoid septum. There was a degree of systolic anterior motion of the mitral valve apparatus. The left ventricle had hyperdynamic contractility of all segments. The ejection fraction is estimated to be: Greater than 70%. The aortic root was normal. The aortic valve had moderate sclerosis. There was a small mobile mass noted, possibly on the right coronary cusp, measuring about 1-2 mm which may represent aortic valve endocarditis although other etiologies such as a Lambl's excrescence cannot be excluded. The ascending aorta and aortic arch were normal. The descending thoracic aorta had moderate aortic atherosclerosis. The right atrium, tricuspid valve, right ventricle, pulmonic valve and pulmonic artery were all normal. There is no pericardial effusion. When agitated saline was injected intravenously there were couple bubbles seen late in the right atrium, not suggestive of a PFO or significant shunt. Colorflow Doppler Findings: Mild mitral regurgitation, trace tricuspid insufficiency, no aortic stenosis/insufficiency. Some color-flow aliasing in the left ventricular outflow tract. (No outflow obstruction noted on TTE.) No evidence of PFO by color flow. Urine Output 500 Complications No immediate complications Condition Stable Disposition Floor
[2022-03-16] MEDS: MAGNESIUM OXIDE 400 MG TABLET PO (12:36)
[2022-03-16] MEDS: PANTOPRAZOLE 40 MG TABLET PO ×2 (12:36→20:25)
--- NOTE | 2022-03-16 14:48 | WPDGIPROGNO ---
Progress Note: A&P Assessment and Plan (1) Endocarditis: Code(s): I38 - Endocarditis, valve unspecified Status: Acute Assessment and Plan: Patient found to have aortic valve endocarditis by echo today. Continued antibiotic therapy per Cardiology service. (2) C. difficile colitis: Code(s): A04.72 - Enterocolitis due to Clostridium difficile, not specified as recurrent Status: Acute Assessment and Plan: Patient with colitis and diarrhea at time of admission. Stool positive for C difficile. Plan to continue Vancomycin for complete course. (3) Peptic ulcer disease: Code(s): K27.9 - Peptic ulcer, site unspecified, unspecified as acute or chronic, without hemorrhage or perforation Status: Acute Assessment and Plan: Patient with peptic ulcer disease. Erosive esophagitis. Multiple gastric ulcers status post bleeding, and duodenal ulcers. Plan to continue PPI therapy. Avoid NSAIDs. May need to be somewhat cautious with anticoagulation over the next 1-2 weeks. (4) Alcohol abuse: Code(s): F10.10 - Alcohol abuse, uncomplicated Status: Acute Assessment and Plan: Alcohol avoidance strongly encouraged. (5) Bipolar 1 disorder: Code(s): F31.9 - Bipolar disorder, unspecified Status: Acute Subjective Date/time seen: 03/16/22 14:48 Patient appears weak. Less lethargic today. Had echo earlier today. No obvious bleeding described. Patient states she is hungry. Tolerating regular diet. No bleeding reported. Review of Systems Review of Systems: All systems reviewed & are unremarkable except as noted in HPI and below Exam Narrative: Physical exam reveals patient alert and answers all questions appropriately. HEENT exam unremarkable she is anicteric. Lungs are clear. Heart unremarkable to my exam. Abdomen bowel sounds present soft nontender with no organomegaly. Objective Data Vital Signs Vital Signs: Vital Signs - 24 hr 03/15/22 16:00 03/15/22 19:55 03/15/22 20:00 Temperature Pulse Rate 90 93 95 Pulse Rate [Monitor] 90 Respiratory Rate 18 Blood Pressure Pulse Oximetry 100 100 03/15/22 21:30 03/16/22 00:00 03/16/22 03:11 Temperature 97.8 F Pulse Rate 95 87 91 Pulse Rate [Monitor] Respiratory Rate 18 22 H Blood Pressure 141/82 H Pulse Oximetry 100 03/16/22 03:21 03/16/22 04:00 03/16/22 05:49 Temperature 97.3 F L Pulse Rate 89 88 91 Pulse Rate [Monitor] Respiratory Rate 20 18 Blood Pressure 142/75 H Pulse Oximetry 100 03/16/22 08:50 03/16/22 11:10 03/16/22 11:15 Temperature Pulse Rate 87 85 Pulse Rate [Monitor] Respiratory Rate 19 19 Blood Pressure 136/66 137/62 Pulse Oximetry 99 99 98 03/16/22 11:20 03/16/22 11:25 03/16/22 11:30 Temperature Pulse Rate 83 88 86 Pulse Rate [Monitor] Respiratory Rate 15 19 15 Blood Pressure 117/61 125/79 121/59 L Pulse Oximetry 97 97 99 03/16/22 11:45 03/16/22 12:00 03/16/22 12:15 Temperature Pulse Rate 88 85 86 Pulse Rate [Monitor] Respiratory Rate 18 19 19 Blood Pressure 121/65 104/61 111/77 Pulse Oximetry 95 96 96 03/16/22 13:26 Temperature 96.8 F L Pulse Rate 90 Pulse Rate [Monitor] Respiratory Rate 14 Blood Pressure 120/60 Pulse Oximetry 96 Intake/Output Intake/Output: Intake & Output 03/13/22 03/14/22 03/15/22 03/16/22 23:59 23:59 23:59 23:59 Intake Total 3820 4572 2690 1450 Output Total 2300 1050 1500 1400 Balance 1520 3522 1190 50 Meds/Results Medications: Active Medications Generic Name Dose Route Start Last Admin Trade Name Freq PRN Reason Stop Dose Admin Acetaminophen 650 mg 03/11/22 18:27 03/14/22 21:41 Acetaminophen 325 Mg Tablet PO 650 mg Q6H PRN Administration Mild Pain (1-3) or Fever Albuterol 2.5 mg 03/10/22 09:18 03/16/22 03:11 Albuterol Sulfate Neb 2.5 Mg/3 Ml Inh INHALATION 2.5 mg Q4HRT PRN Administration Shortness O
[2022-03-16] MEDS: ACETAMINOPHEN 325 MG TABLET 650 MG PO (16:16)
[2022-03-16] MEDS: ALBUTEROL SULFATE NEB 2.5 MG/3 ML INH (20:27)
[2022-03-17] VITALS (10 sets, daily range): BP systolic 109–126; BP diastolic 65–66; PULSE 86–92; RESP 18–22; TEMP 36.1–36.4; O2SAT 94–96; BMI 31.2
[2022-03-17] MEDS: VANCOMYCIN ORAL 125 MG/2.5 ML SYRUP PO ×4 (00:16→17:00)
[2022-03-17] MEDS: metroNIDAZOLE 500 MG/ISO 100ML 500 MG/100 ML BAG 100 MG IVPB ×2 (03:25→08:31)
[2022-03-17] MEDS: SUCRALFATE 1 GM TABLET PO ×4 (05:28→20:46)
[2022-03-17 07:08] LABS: Estimated CRCL calculation 65 ml/min; Estimated Glomerular Filt Rate > 60
[2022-03-17] MEDS: MAGNESIUM OXIDE 400 MG TABLET PO (08:15)
[2022-03-17] MEDS: LIDOCAINE 5% PATCH 2 PATCH TRANSDERM (08:15)
[2022-03-17] MEDS: ATORVASTATIN 20 MG TABLET PO (08:15)
[2022-03-17] MEDS: PANTOPRAZOLE 40 MG TABLET PO ×2 (08:15→20:46)
[2022-03-17] MEDS: FLUTICASONE/SALMETEROL 115-21 MCG INHALER 1 PUFF 2 PUFF INHALATION ×2 (09:34→20:01)
--- NOTE | 2022-03-17 10:02 | PM.IMPN ---
Progress Note: A&P Assessment and Plan (1) Upper gastrointestinal hemorrhage: Code(s): K92.2 - Gastrointestinal hemorrhage, unspecified Status: Acute Assessment and Plan: gastric ulcer ppi gi following (2) Sepsis: Code(s): A41.9 - Sepsis, unspecified organism Status: Acute Assessment and Plan: 2/2 bacteremia from endocarditis iv nafcillin (3) Colitis: Code(s): K52.9 - Noninfective gastroenteritis and colitis, unspecified Status: Acute Assessment and Plan: C diff positive. oral vanc (4) Acute non-ST segment elevation myocardial infarction: Code(s): I21.4 - Non-ST elevation (NSTEMI) myocardial infarction Status: Acute Assessment and Plan: Likely related to type 2 [place]. No further workup needed. (5) Cardiac murmur: Code(s): R01.1 - Cardiac murmur, unspecified Status: Acute Assessment and Plan: JASON being performed this afternoon (6) Alcohol abuse: Code(s): F10.10 - Alcohol abuse, uncomplicated Status: Acute Assessment and Plan: Monitor for alcohol withdrawal (7) Acute hypokalemia: Code(s): E87.6 - Hypokalemia Status: Acute Assessment and Plan: Monitor (8) COPD (chronic obstructive pulmonary disease): Code(s): J44.9 - Chronic obstructive pulmonary disease, unspecified Status: Acute Assessment and Plan: mild sob continue inhalers (9) Cirrhosis: Code(s): K74.60 - Unspecified cirrhosis of liver Status: Acute Assessment and Plan: Monitor (10) Endocarditis: Code(s): I38 - Endocarditis, valve unspecified Status: Acute Assessment and Plan: w bacteremia 4 weeks iv nafcillin will need to fu with cardiology as outpatient for aortic valve assessment Subjective Date/time seen: 03/17/22 10:02 appears mildly sob ? baseline reports pain all over, this is chronic Exam Narrative: appears chronically ill older than her age Patient is comfortable, NAD HEENT: eyes are clear and none icteric LUNGS: normal respiratory effort ABD: not distended Lower extremities: no edema SKIN: nonjaundiced Neuro: grossly intact. Objective Data Vital Signs Vital Signs: Vital Signs - 24 hr 03/16/22 11:10 03/16/22 11:15 03/16/22 11:20 Temperature Pulse Rate 87 85 83 Pulse Rate [Monitor] Respiratory Rate 19 19 15 Blood Pressure 136/66 137/62 117/61 Pulse Oximetry 99 98 97 03/16/22 11:25 03/16/22 11:30 03/16/22 11:45 Temperature Pulse Rate 88 86 88 Pulse Rate [Monitor] Respiratory Rate 19 15 18 Blood Pressure 125/79 121/59 L 121/65 Pulse Oximetry 97 99 95 03/16/22 12:00 03/16/22 12:15 03/16/22 13:26 Temperature 96.8 F L Pulse Rate 85 86 90 Pulse Rate [Monitor] Respiratory Rate 19 19 14 Blood Pressure 104/61 111/77 120/60 Pulse Oximetry 96 96 96 03/16/22 16:00 03/16/22 18:35 03/16/22 18:48 Temperature Pulse Rate 95 90 94 Pulse Rate [Monitor] Respiratory Rate 20 20 Blood Pressure Pulse Oximetry 03/16/22 20:00 03/16/22 22:00 03/17/22 00:00 Temperature 97.2 F L Pulse Rate 91 94 90 Pulse Rate [Monitor] 94 Respiratory Rate 24 H Blood Pressure 104/61 104/61 Pulse Oximetry 94 03/17/22 04:00 03/17/22 06:00 Temperature 97.0 F L Pulse Rate 89 86 Pulse Rate [Monitor] Respiratory Rate 20 Blood Pressure 126/66 Pulse Oximetry 94 Intake/Output Intake/Output: Intake & Output 03/14/22 03/15/22 03/16/22 03/17/22 23:59 23:59 23:59 23:59 Intake Total 4572 2690 2236 220 Output Total 1050 1500 1950 450 Balance 3522 1190 286 -230 Meds/Results Medications: Active Medications Generic Name Dose Route Start Last Admin Trade Name Freq PRN Reason Stop Dose Admin Acetaminophen 650 mg 03/11/22 18:27 03/16/22 16:16 Acetaminophen 325 Mg Tablet PO 650 mg Q6H PRN Administration Mild Pain (1-3) or Fever Albuterol 2.5 mg 03/10/22 09:
[2022-03-17] MEDS: ACETAMINOPHEN 325 MG TABLET 650 MG PO ×2 (10:22→20:46)
[2022-03-17] MEDS: ALBUTEROL SULFATE NEB 2.5 MG/3 ML INH INHALATION ×2 (10:27→20:01)
[2022-03-17] MEDS: IPRATROPIUM BR 0.02% INH SOLN 0.5 MG/2.5 ML VIAL INHALATION ×2 (10:27→20:02)
[2022-03-17 10:35] LABS: NT Pro B Type Natriuretic Pept 1720 pg/mL (5-100)
--- NOTE | 2022-03-17 13:01 | PCOTNOTE ---
Attempted to see patient this pm, however patient refused stating, Oh please not now. Can you turn off the light? I just want to sleep right now.
[2022-03-17] MEDS: LIDOCAINE HCL 1% PF INJ 5 ML VIAL INFILTRATE (13:40)
[2022-03-17] MEDS: CENTRAL LINE FLUSH 10 ML IV PUSH (20:46)
[2022-03-18] VITALS (25 sets, daily range): BP systolic 73–111; BP diastolic 20–67; PULSE 80–101; RESP 18–24; TEMP 36.2–36.4; O2SAT 91–100
[2022-03-18] MEDS: VANCOMYCIN ORAL 125 MG/2.5 ML SYRUP PO ×4 (00:57→17:59)
[2022-03-18] MEDS: CENTRAL LINE FLUSH 10 ML IV PUSH ×3 (04:57→21:12)
[2022-03-18] MEDS: SUCRALFATE 1 GM TABLET PO ×4 (04:57→21:11)
[2022-03-18] MEDS: ALBUTEROL SULFATE NEB 2.5 MG/3 ML INH INHALATION ×4 (05:00→23:59)
[2022-03-18] MEDS: IPRATROPIUM BR 0.02% INH SOLN 0.5 MG/2.5 ML VIAL INHALATION ×6 (05:00→23:59)
[2022-03-18] MEDS: FLUTICASONE/SALMETEROL 115-21 MCG INHALER 1 PUFF 2 PUFF INHALATION ×2 (05:00→19:29)
[2022-03-18] MEDS: ACETAMINOPHEN 325 MG TABLET 650 MG PO (08:30)
[2022-03-18] MEDS: FUROSEMIDE INJ 40 MG/4 ML VIAL IV PUSH (08:31)
[2022-03-18] MEDS: ONDANSETRON INJ 4 MG/2 ML VIAL IV PUSH (08:31)
[2022-03-18] MEDS: LIDOCAINE 5% PATCH 2 PATCH TRANSDERM (08:31)
[2022-03-18] MEDS: ATORVASTATIN 20 MG TABLET PO (08:32)
[2022-03-18] MEDS: MAGNESIUM OXIDE 400 MG TABLET PO (08:32)
[2022-03-18] MEDS: PANTOPRAZOLE 40 MG TABLET PO ×2 (08:32→21:11)
[2022-03-18] MEDS: CENTRAL LINE FLUSH 20 ML IV PUSH ×3 (08:40→18:40)
[2022-03-18 08:50] LABS: Hemoglobin 11.8 g/dL (12.0-15.0); Mean Corpuscular HGB Conc 32.8 g/dl (32-36); Mean Corpuscular Hemoglobin 30.3 pg (26-34); Mean Corpuscular Volume 92.5 fl (80-100); Mean Platelet Volume 10.2 fl (7.4-10.4); Platelet Count Result 279 k/mm3 (150-375); Red Blood Count 3.89 M/mm3 (4.2-5.4); White Blood Count 8.3 K/mm3 (4.5-10.0)
[2022-03-18 09:03] LABS: Anion Gap 6 mmol/L (8-16); Blood Urea Nitrogen 8 mg/dL (7-17); Calcium 7.7 mg/dL (8.4-10.2); Carbon Dioxide 20 mmol/L (22-30); Chloride 113 mmol/L (98-107); Estimated CRCL calculation 48 ml/min; Estimated Glomerular Filt Rate 49; Glucose 101 mg/dL (65-110); Potassium 3.8 mmol/L (3.4-5.0); Sodium 139 mmol/L (137-145)
[2022-03-18 09:09] LABS: NT Pro B Type Natriuretic Pept 1970 pg/mL (5-100)
--- NOTE | 2022-03-18 09:45 | PCPTNOTE ---
PT treatment held in A.M. per RN due to patient having low BP. PT will continue to follow.
--- NOTE | 2022-03-18 10:42 | PM.IMPN ---
Progress Note: A&P Assessment and Plan (1) Upper gastrointestinal hemorrhage: Code(s): K92.2 - Gastrointestinal hemorrhage, unspecified Status: Acute Assessment and Plan: gastric ulcer ppi gi following (2) Sepsis: Code(s): A41.9 - Sepsis, unspecified organism Status: Acute Assessment and Plan: 2/2 bacteremia from endocarditis iv nafcillin (3) Colitis: Code(s): K52.9 - Noninfective gastroenteritis and colitis, unspecified Status: Acute Assessment and Plan: C diff positive. oral vanc (4) Acute non-ST segment elevation myocardial infarction: Code(s): I21.4 - Non-ST elevation (NSTEMI) myocardial infarction Status: Acute Assessment and Plan: Likely related to type 2 [place]. No further workup needed. (5) Cardiac murmur: Code(s): R01.1 - Cardiac murmur, unspecified Status: Acute Assessment and Plan: endocartisis small vegetation on aortic valve no regurg (6) Alcohol abuse: Code(s): F10.10 - Alcohol abuse, uncomplicated Status: Acute Assessment and Plan: Monitor for alcohol withdrawal (7) Acute hypokalemia: Code(s): E87.6 - Hypokalemia Status: Acute Assessment and Plan: Monitor (8) COPD (chronic obstructive pulmonary disease): Code(s): J44.9 - Chronic obstructive pulmonary disease, unspecified Status: Acute Assessment and Plan: mild sob continue inhalers (9) Cirrhosis: Code(s): K74.60 - Unspecified cirrhosis of liver Status: Acute Assessment and Plan: Monitor (10) Endocarditis: Code(s): I38 - Endocarditis, valve unspecified Status: Acute Assessment and Plan: w bacteremia 4 weeks iv nafcillin will need to fu with cardiology as outpatient for aortic valve assessment Subjective Date/time seen: 03/18/22 10:42 appears sob, but not requiring oxygen Exam Narrative: appears chronically ill older than her age Patient is comfortable, NAD HEENT: eyes are clear and none icteric LUNGS: normal respiratory effort ABD: not distended Lower extremities: no edema SKIN: nonjaundiced Neuro: grossly intact. Objective Data Vital Signs Vital Signs: Vital Signs - 24 hr 03/17/22 12:00 03/17/22 16:00 03/17/22 20:00 Temperature Pulse Rate 91 89 91 Respiratory Rate 18 Blood Pressure Pulse Oximetry 03/17/22 20:03 03/17/22 20:06 03/17/22 21:54 Temperature 97.5 F L Pulse Rate 92 92 Respiratory Rate 18 22 H Blood Pressure 109/65 Pulse Oximetry 96 94 03/18/22 00:00 03/18/22 04:00 03/18/22 05:07 Temperature Pulse Rate 96 93 88 Respiratory Rate 18 Blood Pressure Pulse Oximetry 03/18/22 06:00 03/18/22 08:08 03/18/22 08:22 Temperature 97.1 F L Pulse Rate 80 92 Respiratory Rate 24 H 18 Blood Pressure 111/63 Pulse Oximetry 100 97 Intake/Output Intake/Output: Intake & Output 03/15/22 03/16/22 03/17/22 03/18/22 23:59 23:59 23:59 23:59 Intake Total 2690 2236 1090 318 Output Total 1500 1950 800 225 Balance 1190 286 290 93 Meds/Results Medications: Active Medications Generic Name Dose Route Start Last Admin Trade Name Amorq PRN Reason Stop Dose Admin Acetaminophen 650 mg 03/11/22 18:27 03/18/22 08:30 Acetaminophen 325 Mg Tablet PO 650 mg Q6H PRN Administration Mild Pain (1-3) or Fever Albuterol 2.5 mg 03/18/22 07:38 03/18/22 08:07 Albuterol Sulfate Neb 2.5 Mg/3 Ml Inh INHALATION 2.5 mg Q4HRT PRN Administration Shortness Of Breath Atorvastatin Calcium 20 mg 03/17/22 09:00 03/18/22 08:32 Atorvastatin 20 Mg Tablet PO 20 mg DAILY SAY Administration Chlordiazepoxide HCl 25 mg 03/15/22 13:21 03/16/22 03:03 Chlordiazepoxide (*Crx) 25 Mg Capsule PO 25 mg Q6HR PRN Administration Alcohol Withdrawal Nafcillin Sodium 2 gm/ Sodium 100 mls @ 200 mls/hr 03/17/22 12:00 03/18/22 08:31 Chloride IVPB
[2022-03-18] MEDS: HYDROcodone/acetaminophen (*CRX) 5-325 MG TABLET 1 TAB PO (14:47)
[2022-03-18 17:26] LABS: Procalcitonin 0.2 ng/mL
[2022-03-18 19:20] LABS: Lactic Acid Reflex 1.1 mmol/L (0.7-2.0)
[2022-03-19] VITALS (57 sets, daily range): BP systolic 64–155; BP diastolic 31–72; PULSE 94–115; RESP 17–27; TEMP 34.9–36.5; O2SAT 95–100
[2022-03-19] MEDS: VANCOMYCIN ORAL 125 MG/2.5 ML SYRUP PO ×2 (00:13→05:12)
[2022-03-19] MEDS: ACETAMINOPHEN 325 MG TABLET 650 MG PO (01:22)
[2022-03-19] MEDS: HYDROmorphone HCL INJ (*CRX) 1 MG/ML SYR IV PUSH (02:34)
[2022-03-19] MEDS: IPRATROPIUM BR 0.02% INH SOLN 0.5 MG/2.5 ML VIAL INHALATION ×5 (03:50→23:13)
[2022-03-19] MEDS: ALBUTEROL SULFATE NEB 2.5 MG/3 ML INH INHALATION ×5 (03:50→23:14)
[2022-03-19] MEDS: CENTRAL LINE FLUSH 10 ML IV PUSH ×3 (05:12→20:38)
[2022-03-19] MEDS: SUCRALFATE 1 GM TABLET PO ×2 (05:31→13:25)
[2022-03-19] MEDS: FLUTICASONE/SALMETEROL 115-21 MCG INHALER 1 PUFF 2 PUFF INHALATION (08:35)
[2022-03-19] MEDS: LIDOCAINE 5% PATCH 2 PATCH TRANSDERM (09:07)
--- NOTE | 2022-03-19 09:08 | PM.DS ---
DS: Admitting Diagnosis Discharge Date 03/19/22 Admitting Diagnosis sepsis, poa endocarditis bacteremia ulnar vein dvt DS: Discharge Diagnosis Discharge Diagnosis (1) Upper gastrointestinal hemorrhage: Code(s): K92.2 - Gastrointestinal hemorrhage, unspecified Status: Acute Assessment and Plan: gastric ulcer ppi, sucralfat on dc gi fu (2) Sepsis: Code(s): A41.9 - Sepsis, unspecified organism Status: Acute Assessment and Plan: 2/2 bacteremia from endocarditis iv nafcillinx 4 weeks to be done at sn[facility] (3) Colitis: Code(s): K52.9 - Noninfective gastroenteritis and colitis, unspecified Status: Acute Assessment and Plan: C diff positive. oral vanc on dc (4) Acute non-ST segment elevation myocardial infarction: Code(s): I21.4 - Non-ST elevation (NSTEMI) myocardial infarction Status: Acute Assessment and Plan: Likely related to type 2 [place]. No further workup needed. (5) Cardiac murmur: Code(s): R01.1 - Cardiac murmur, unspecified Status: Acute Assessment and Plan: endocartisis small vegetation on aortic valve no regurg fu cardiology on dc (6) Alcohol abuse: Code(s): F10.10 - Alcohol abuse, uncomplicated Status: Acute Assessment and Plan: Monitor for alcohol withdrawal (7) Acute hypokalemia: Code(s): E87.6 - Hypokalemia Status: Acute Assessment and Plan: Monitor (8) COPD (chronic obstructive pulmonary disease): Code(s): J44.9 - Chronic obstructive pulmonary disease, unspecified Status: Acute Assessment and Plan: mild sob continue inhalers (9) Cirrhosis: Code(s): K74.60 - Unspecified cirrhosis of liver Status: Acute Assessment and Plan: Monitor (10) Endocarditis: Code(s): I38 - Endocarditis, valve unspecified Status: Acute Assessment and Plan: w bacteremia 4 weeks iv nafcillin will need to fu with cardiology as outpatient for aortic valve assessment DS: Summary Hospital Course Hospital Course: Patient was admitted for sepsis and bacteremia. Found to have loose stools and diarrhea. Rectal tube was placed she was positive for C diff. Will need to complete oral vancomycin on discharge. rectal tube has been removed. Patient also had GI bleed with gastric ulcer, she will be discharged on PPI and sucralfate. Also patient was found to be bacteremic and was found have a possibility of a vegetation on her aortic valve without any significant regurgitation. She will need to follow up with Cardiology regarding this. But she will need 4 weeks of IV nafcillin which has been set up for the snf facility. Also to note, the patient did have some swelling in her right upper extremity I ordered a venous duplex. This came back with a ulnar vein DVT. Not likely the cause of her swelling. I spoke with sander wooden pencils and he did not feel strongly about being aggressive in treating this given her strong history of GI bleeding and GI bleeding on this admission. He thought maybe after week or 2 then we could start low-dose Eliquis after there was a lower concern for rebleeding. Again patient is at risk for bleeding and having significant complication being on anticoagulation. Time Spent with Patient Time attestation: Total time spent providing and/or coordinating discharge services: Exam Narrative: appears chronically ill older than her age Patient is comfortable, NAD HEENT: eyes are clear and none icteric LUNGS: normal respiratory effort ABD: not distended Lower extremities: no edema SKIN: nonjaundiced Neuro: grossly intact. DS: Data Data Completed and Pending Completed studies during hospitalization: Pending at discharge 03/10/22 12:09 Surgical [PTH] Routine Labs on day of discharge: Labs from last 24 hours 03/18/22 03/18/22 03/18/22 18:42 16:14 08:37 Lactic Acid 1.1 NT-Pro-B Natriuret Pep
[2022-03-19] MEDS: ONDANSETRON INJ 4 MG/2 ML VIAL IV PUSH (09:31)
--- NOTE | 2022-03-19 09:38 | PCPTNOTE ---
Attempted therapy at this time but patient recently declined to participate. Patient reports she is nauseated. RN updated on patient symptoms. Patient presents very lethargic and unable to keep eyes open. Will attempt therapy at a later time.
--- NOTE | 2022-03-19 09:43 | PM.IMPN ---
Progress Note: A&P Assessment and Plan (1) Upper gastrointestinal hemorrhage: Code(s): K92.2 - Gastrointestinal hemorrhage, unspecified Status: Acute Assessment and Plan: gastric ulcer ppi, sucralfat on dc gi fu (2) Sepsis: Code(s): A41.9 - Sepsis, unspecified organism Status: Acute Assessment and Plan: 2/2 bacteremia from endocarditis iv nafcillinx 4 weeks to be done at sn[facility] (3) Colitis: Code(s): K52.9 - Noninfective gastroenteritis and colitis, unspecified Status: Acute Assessment and Plan: C diff positive. oral vanc on dc (4) Acute non-ST segment elevation myocardial infarction: Code(s): I21.4 - Non-ST elevation (NSTEMI) myocardial infarction Status: Acute Assessment and Plan: Likely related to type 2 [place]. No further workup needed. (5) Cardiac murmur: Code(s): R01.1 - Cardiac murmur, unspecified Status: Acute Assessment and Plan: endocartisis small vegetation on aortic valve no regurg fu cardiology on dc (6) Alcohol abuse: Code(s): F10.10 - Alcohol abuse, uncomplicated Status: Acute Assessment and Plan: Monitor for alcohol withdrawal (7) Acute hypokalemia: Code(s): E87.6 - Hypokalemia Status: Acute Assessment and Plan: Monitor (8) COPD (chronic obstructive pulmonary disease): Code(s): J44.9 - Chronic obstructive pulmonary disease, unspecified Status: Acute Assessment and Plan: mild sob continue inhalers (9) Cirrhosis: Code(s): K74.60 - Unspecified cirrhosis of liver Status: Acute Assessment and Plan: Monitor (10) Endocarditis: Code(s): I38 - Endocarditis, valve unspecified Status: Acute Assessment and Plan: w bacteremia 4 weeks iv nafcillin will need to fu with cardiology as outpatient for aortic valve assessment Subjective Date/time seen: 03/19/22 09:43 sleepy today, received dilausis this am (unsure why) Exam Narrative: appears chronically ill older than her age Patient is comfortable, NAD HEENT: eyes are clear and none icteric LUNGS: normal respiratory effort ABD: not distended Lower extremities: no edema SKIN: nonjaundiced Neuro: grossly intact. Objective Data Vital Signs Vital Signs: Vital Signs - 24 hr 03/18/22 11:26 03/18/22 11:27 03/18/22 11:45 Temperature Pulse Rate 95 Respiratory Rate 24 H Blood Pressure 73/20 L 95/67 L 84/47 L Pulse Oximetry 95 03/18/22 11:51 03/18/22 12:00 03/18/22 12:01 Temperature Pulse Rate 96 95 94 Respiratory Rate 18 18 Blood Pressure Pulse Oximetry 03/18/22 15:50 03/18/22 15:59 03/18/22 16:00 Temperature 97.6 F Pulse Rate 92 95 98 Respiratory Rate 18 18 24 H Blood Pressure 95/54 L Pulse Oximetry 100 03/18/22 19:31 03/18/22 19:34 03/18/22 19:41 Temperature Pulse Rate 93 98 Respiratory Rate 18 18 Blood Pressure Pulse Oximetry 97 03/18/22 20:00 03/18/22 20:28 03/18/22 20:39 Temperature Pulse Rate 100 101 H 99 Respiratory Rate 20 18 Blood Pressure Pulse Oximetry 03/18/22 20:59 03/18/22 22:27 03/19/22 00:00 Temperature 97.6 F Pulse Rate 101 H 99 Respiratory Rate 18 Blood Pressure 105/61 Pulse Oximetry 91 93 03/19/22 00:01 03/19/22 00:11 03/19/22 03:50 Temperature Pulse Rate 97 97 94 Respiratory Rate 18 18 18 Blood Pressure Pulse Oximetry 03/19/22 04:00 03/19/22 04:01 03/19/22 06:00 Temperature 96.9 F L Pulse Rate 100 96 97 Respiratory Rate 18 20 Blood Pressure 86/50 L Pulse Oximetry 97 03/19/22 06:42 03/19/22 08:35 03/19/22 08:44 Temperature Pulse Rate 94 95 Respiratory Rate 18 18 Blood Pressure 98/60 L Pulse Oximetry Intake/Output Intake/Output: Intake & Output 03/16/22 03/17/22 03/18/22 03/19/22 23:59 23:59 23:59 23:59 Intake Total 2236 1090 1040 500 Output Total 1950 800 475 50 Gordy
[2022-03-19] MEDS: NALOXONE HCL 0.4 MG/ML VIAL IV PUSH (10:12)
[2022-03-19] MEDS: SODIUM CHLORIDE 0.9% IV 250 ML IV CONT (10:41)
--- NOTE | 2022-03-19 11:38 | PCOTNOTE ---
Attempted to see pt for Occupational therapy tx this AM, however, per RN pt is not appropriate at this time due to change in medical status. Will continue per POC duration/frequency tomorrow.
[2022-03-19] MEDS: SODIUM CHLORIDE 0.9% IV 1,000 ML 999 ML IV CONT (12:15)
[2022-03-19] MEDS: PANTOPRAZOLE 40 MG TABLET PO (13:24)
[2022-03-19] MEDS: ATORVASTATIN 20 MG TABLET PO (13:24)
[2022-03-19] MEDS: MAGNESIUM OXIDE 400 MG TABLET PO (13:25)
--- NOTE | 2022-03-19 14:10 | PC.NURSE ---
This patient, Sade Drake, was transferred to ICU 6 on 03/19/22 at 1410. Personal belongings sent with patient. Report given to Lyn STARK. Appropriate documentation sent with patient.
--- NOTE | 2022-03-19 14:31 | WPDCNINT ---
Assessment and Plan Assessment and plan (1) Acute respiratory failure: Code(s): J96.00 - Acute respiratory failure, unspecified whether with hypoxia or hypercapnia Status: Acute Assessment and Plan: Patient arrived in the ICU on 03/19, she had shallow broad respirations, tachypneic, ill looking and in impending respiratory failure -patient was intubated on 03/19, she had a lot of coffee-ground emesis during intubation, no white suction have and briskly placed in ET tube through the vocal cords using the glide scope. I still think she aspirated gastric contents -placed on CMV mode of ventilation, peep of and 100% FiO2 -will obtain post intubation blood gas -patient had wheezing, currently on bronchodilators -sedated with fentanyl and Versed infusion, maintain RASS of 0--2, daily sedation vacation (2) Septic shock: Code(s): A41.9 - Sepsis, unspecified organism; R65.21 - Severe sepsis with septic shock Status: Acute Assessment and Plan: Patient has been hypotensive since 03/18/2022. On 03/19/2022 received Dilaudid in the early hours in her systolic blood pressures dropped to the 70s, patient was given 250 mL IV fluid bolus in the was called. I did tell the hospitalist given additional 1 L IV fluid bolus and if blood pressures does not improve to center to the ICU. -upon arrival to the ICU patient systolic pressures was still in the 60s and 70s, under the 500 mL IV fluid bolus has been given, -noninvasive hemodynamic monitoring shows patient is fluid responsive -started patient on Levophed, will maintain mean arterial pressures > 65 mmHg -albumin is low, will also give Hespan and start albumin as patient is edematous -elevated lactic acidosis, will continue to trend -will obtain CT scan of the chest, abdomen and pelvis -will obtain blood cultures, urine cultures and sputum cultures -will switch antibiotics to vancomycin IV Zosyn IV and Flagyl IV (3) Ileus: Code(s): K56.7 - Ileus, unspecified Status: Acute Assessment and Plan: Patient was complaining of abdominal pain on arrival to the ICU, stat obstructive series showed possible ileus versus small-bowel obstruction -will obtain CT scan of the abdomen and pelvis once patient is more stable. CT scan shows obstruction, will have surgery evaluate the patient -patient recently had C diff colitis, currently on p.o. vancomycin. Will switch to IV Flagyl (4) Acute kidney injury: Code(s): N17.9 - Acute kidney failure, unspecified Status: Acute Assessment and Plan: Patient has been hypotensive since the morning of 03/18/2022 -acute kidney injury likely related to hypotension, ATN, septic shock, hypovolemia, infection, -patient has been adequately volume resuscitated -will start sodium bicarb infusion -lactic acid is elevated, will continue to trend -monitor urine output, renal function electrolytes (5) Endocarditis: Code(s): I38 - Endocarditis, valve unspecified Status: Acute Assessment and Plan: Will switch nafcillin to IV vancomycin given chest x-ray has infiltrates -this should also cover for endocarditis -JASON was done on 03/16 which showed Very small mobile mass, 1-2 mm, noted on the aortic valve which may represent aortic valve endocarditis (6) C. difficile colitis: Code(s): A04.72 - Enterocolitis due to Clostridium difficile, not specified as recurrent Status: Acute Assessment and Plan: Patient positive for C diff this admission, was placed on p.o. vancomycin, currently with ileus and or small bowel obstruction. Will switch to IV Flagyl (7) Peptic ulcer disease: Code(s): K27.9 - Peptic ulcer, site unspecified, unspecified as acute or chronic, without hemorrhage or perforation Status: Acute Assessment and Plan: Patient initially presented with hematemesis and melena 03/10: EGD showed reflux esophagitis, acute gastric ulcer with hemorrhage, acute duodenal ulcer, -will swit
[2022-03-19] MEDS: NOREPINEPHRINE 8 MG/D5W 250 ML 8 MG/250 ML BAG 18.75 MG IV CONT (15:00)
[2022-03-19 15:14] LABS: Alveolar/Arterial O2 Gradient 147.1 mmHg; Base Excess ABG -10.5 mEq/l (+/-2.0); Device NASAL CANNULA; Fractional Inspired Oxygen 36 %; HCO3 ABG 14.4 mEq/l (22.0-26.0); Modified Allen's Test Pass; Oxygen Content ABG 15.3 %vol (16.0-22.0); Oxygen Saturation ABG 94.2 % (95.0-100.0); Oxyhemoglobin 93.6 % THb (90.0-100.0); PCO2 ABG 29.4 mmHg (35.0-45.0); PO2 ABG 75.5 mmHg (80.0-100.0); Site Drawn RIGHT RADIAL; Total Hemoglobin 11.6 g/dL (12.0-18.0); pH ABG 7.309 (7.350-7.450)
[2022-03-19 15:17] LABS: Basophils Absolute Auto 0.1 K/mm3 (0.0-0.1); Basophils Percent Auto 0.2 % (0.2-1.2); Hematocrit 34.9 % (37.0-47.0); Hemoglobin 10.9 g/dL (12.0-15.0); Immature Granulocyte Absolute 0.25 K/mm3 (0.00-0.031); Lymphocytes Absolute Auto 0.79 K/mm3 (0.9-3.2); Lymphocytes Percent Auto 3.2 % (18.3-44.2); Mean Corpuscular HGB Conc 31.2 g/dl (32-36); Mean Corpuscular Hemoglobin 30.9 pg (26-34); Mean Corpuscular Volume 98.9 fl (80-100); Mean Platelet Volume 9.9 fl (7.4-10.4); Monocytes Absolute Auto 2.1 K/mm3 (0.1-0.6); Monocytes Percent Auto 8.6 % (2.6-8.5); Neutrophils Absolute Auto 21.1 K/mm3 (1.3-6.7); Nucleated Red Blood Cells Perc 0.1 % (0.0-0.2); Platelet Count Result 318 k/mm3 (150-375); Red Blood Count 3.53 M/mm3 (4.2-5.4); Red Cell Distribution Width 20.9 % (11.5-14.5); White Blood Count 24.3 K/mm3 (4.5-10.0)
[2022-03-19] MEDS: SODIUM CHLORIDE 0.9% IV 500 ML 999 ML (15:24)
[2022-03-19] MEDS: hetaSTARCH 6%/NACL 500 ML 250 ML IV CONT (15:25)
[2022-03-19 15:26] LABS: INR 2.9; Prothrombin Time 29.2 Seconds (11.1-14.7)
[2022-03-19 15:27] LABS: Partial Thromboplastin Time 71.1 SECONDS (22.3-36.8)
[2022-03-19 15:33] LABS: Ammonia < 9 umol/L (9-30)
[2022-03-19 15:37] LABS: Burr Cells 2+ (NORMAL); Platelet Estimate Adequate (Adequate)
[2022-03-19 15:47] LABS: Alanine Aminotransferase 18 U/L (6-35); Albumin Level 2.4 g/dL (3.5-5.1); Alkaline Phosphatase 84 U/L (38-126); Anion Gap 13 mmol/L (8-16); Aspartate Amino Transferase 67 U/L (14-36); Blood Urea Nitrogen 14 mg/dL (7-17); CRP 1.6 mg/dL (<1.0); Calcium 7.2 mg/dL (8.4-10.2); Carbon Dioxide 14 mmol/L (22-30); Chloride 113 mmol/L (98-107); Creatine Kinase 87 U/L (30-135); Estimated CRCL calculation 20 ml/min; Estimated Glomerular Filt Rate 17; Glucose 68 mg/dL (65-110); Magnesium 2.1 mg/dL (1.6-2.3); Phosphorus 4.4 mg/dL (2.5-4.5); Potassium 4.7 mmol/L (3.4-5.0); Sodium 140 mmol/L (137-145)
[2022-03-19 15:49] LABS: Lactic Acid Reflex 5.7 mmol/L (0.7-2.0)
[2022-03-19] MEDS: DEXTROSE 50% 25 GM/50 ML SYRINGE IV PUSH (15:55)
--- NOTE | 2022-03-19 16:00 | PC.NURSE ---
patient arrived to ICU 6 at 1500. dyer assistant assisted Dr. Farfan with Central Line placement and Levophed was started through PICC line. Due to impending respiratory failure, patient was intubated and started on sedation. Due to low blood pressures an ART line was placed.
[2022-03-19] MEDS: SODIUM BICARBONATE 8.4% 50 MEQ/50 ML SYRINGE IV PUSH ×2 (16:21→18:40)
[2022-03-19] MEDS: MIDAZOLAM 100MG/NS 100ML(*CRX) 100 MG/100 ML BAG IV CONT (16:30)
[2022-03-19] MEDS: FENTANYL 2,500MCG/NS250ML(*CRX 2,500 MCG/250 ML BAG IV CONT (16:30)
[2022-03-19 16:40] LABS: Glucose Point of Care 64 mg/dl (65-105)
[2022-03-19 16:40] LABS: Glucose Point of Care 104 mg/dl (65-105)
--- NOTE | 2022-03-19 17:05 | WPDPROCEDUR ---
Procedures Central Line Placement Right Femoral: Central Line Date: 03/19/22 Central Line Time: 15:32 Discussed w/ the patient/family/POA,the placement of a central venous catheter, including its clinical necessity/indication & associated potential risks, benifits and alternatives.: Yes The patient/family/POA understand(s) and acknowledge(s) the need to proceed with central venous catheter insertion as an important element of the patient's clinical management.: Yes Time Out Performed: Yes Patient Position: trendelenburg Patient placed on monitor/pulse ox: Yes Provider Prep: mask, sterile gown, sterile gloves, Max. sterile barrier precautions, cap and hand hygiene with conventional soap/water or alcohol based hand rub Central line prep: 2% Chlorhexidine scrub Local anesthesia used: lidocaine 1% Amount of anesthesia used (ml): 3 Sterile US Technique with sterile gel/sterile probe covers: Yes Hungarian: 12 Length (cm): 16 Depth of Insertion (cm): 16 Post Procedure: sutured in place, good blood return, all ports aspirated, flushed, capped, transparent dressing, hemostatic product, antimicrobial product, securement product and aseptic technique maintained throughout procedure Post procedure x-ray: tip of catheter in good position Patient tolerated procedure: well Complications: none
--- NOTE | 2022-03-19 17:06 | WPDPROCEDUR ---
Procedures Intubation Intubation Date: 03/19/22 Intubation Time: 15:56 A pre-procedural Time-Out was completed immediately before starting the procedure and confirmed: Patient Identification, Site, Procedure, Patient Position and the Availability of Requisite Equipment: Yes Sedative: etomidate Paralytic: rocuronium Laryngoscope: fiber optic video scope Assist device used: fiber optic device ET tube size: 7.5 Tube secured depth (cm): 21 Tube secured location: lips Tube placement confirmation: visualized tube passing through cords, equal breath sounds bilaterally, no breath sounds over epigastrium and confirmation by capnometry Patient tolerated procedure: well Intubation complications: none Additional comments: Patient had a lot of coffee-ground emesis during intubation, used suction and glide scope to visualize the vocal cords and briskly inserted the ETT. I still think that she aspirated gastric contents
--- NOTE | 2022-03-19 17:08 | WPDPROCEDUR ---
Procedures Arterial Line Arterial Line Date: 03/19/22 Arterial Line Time: 15:03 Discussed with the patient/family/POA, the placement of an arterial catheter, including its clinical necessity/indication and associated potential risks, benefits and alternatives.: Yes Patient/family/POA and/or understands and acknowledges the need to proceed with the arterial catheter insertion as an important element of the patient's clinical management.: Yes Time Out Performed: Yes Patient Position: supine Rail Director Prep: sterile gown, sterile gloves, mask and hat Site: left and femoral Site Prep: chlorhexidine and sterile drape Skin Anesthesia: 1% lidocaine Technique used: ultrasound-guided Size (Gauge): 14 Length: 12 cm Closure/Dressing: suture, transparent dressing, hemostatic product, antimicrobial product and securement product Patient tolerated procedure: well Complications: none
[2022-03-19 17:32] LABS: Alveolar/Arterial O2 Gradient 313.8 mmHg; Base Excess ABG -9.9 mEq/l (+/-2.0); Fractional Inspired Oxygen 100 %; HCO3 ABG 17.2 mEq/l (22.0-26.0); Oxygen Content ABG 15.6 %vol (16.0-22.0); Oxygen Saturation ABG 99.7 % (95.0-100.0); Oxyhemoglobin 98.3 % THb (90.0-100.0); PCO2 ABG 42.4 mmHg (35.0-45.0); PO2 ABG 356.8 mmHg (80.0-100.0); PO2 FiO2 Ratio Arterial Blood 3.57 %; Total Hemoglobin 10.6 g/dL (12.0-18.0)
[2022-03-19 17:33] LABS: Arterial Blood Gas PEEP 5 cmH2O; Arterial Blood Gas Tidal Volume 450 ml; Arterial Blood Gas Vent Mode CMV; Arterial Blood Gas Ventilator rate 24 /MIN; Device VENTILATOR; Modified Allen's Test Pass; Site Drawn ARTLINE; pH ABG 7.226 (7.350-7.450)
[2022-03-19] MEDS: SODIUM CHLORIDE 0.9% IV 500 ML IV CONT (18:04)
[2022-03-19 18:07] LABS: Hematocrit 31.5 % (37.0-47.0); Hemoglobin 9.8 g/dL (12.0-15.0)
[2022-03-19 18:14] LABS: Reflex Lactic Acid Yes or No Add Lactic
[2022-03-19] MEDS: metroNIDAZOLE 500 MG/ISO 100ML 500 MG/100 ML BAG 100 MG IVPB (18:17)
[2022-03-19] MEDS: PHYTONADIONE ADULT INJ 10 MG in DEXTROSE 5% IN WATER 50 ML 100 MG IVPB (18:25)
[2022-03-19] MEDS: SODIUM BICARBONATE 8.4% 150 MEQ in DEXTROSE 5% 1,000 ML 950 ML 100 MEQ IV CONT (19:03)
[2022-03-19] MEDS: ALBUMIN HUMAN 25% 25 GM/100 ML 100 ML IVPB ×2 (19:04→23:47)
[2022-03-19 19:28] LABS: Hepatitis B Surface Antigen Negative (Negative)
[2022-03-19 19:29] LABS: Lactic Acid 4.7 mmol/L (0.7-2.0)
[2022-03-19 19:33] LABS: HAV RESULT Negative (Negative); Hepatitis B Core IgM Result Negative (Negative)
[2022-03-19 19:55] LABS: Hepatitis C Virus Antibody Reactive (Negative)
--- NOTE | 2022-03-19 20:11 | PC.NURSE ---
Levophed titration documented according to dr. Farfan's Verbal orders while doing procedures in room.
[2022-03-19] MEDS: MINERAL OIL/WHITE PETROLATUM OINTMENT 1 APPLIC EACH EYE (20:37)
[2022-03-19] MEDS: PANTOPRAZOLE SODIUM IV 40 MG VIAL IV PUSH (22:33)
[2022-03-20] VITALS (74 sets, daily range): BP systolic 85–174; BP diastolic 44–85; PULSE 89–107; RESP 19–28; TEMP 35.7–37.5; O2SAT 92–100
[2022-03-20 00:17] LABS: Lactic Acid Reflex 3.1 mmol/L (0.7-2.0)
[2022-03-20 01:03] LABS: Glucose Point of Care 136 mg/dl (65-105)
[2022-03-20] MEDS: metroNIDAZOLE 500 MG/ISO 100ML 500 MG/100 ML BAG 100 MG IVPB ×3 (02:28→17:43)
[2022-03-20] MEDS: IPRATROPIUM BR 0.02% INH SOLN 0.5 MG/2.5 ML VIAL INHALATION ×6 (04:03→23:35)
[2022-03-20] MEDS: ALBUTEROL SULFATE NEB 2.5 MG/3 ML INH INHALATION ×6 (04:03→23:35)
[2022-03-20 04:55] LABS: Appearance Urine Slightly Cloudy (Clear); Bilirubin Urine 3+ (Negative); Blood Urine 3+ (Negative); Color Urine Other (Yellow); Glucose Urine UA Negative (Negative); Ketones Urine Trace mg/dL (Negative); Leukocyte Esterase Ur Negative LEU/UL (Negative); Nitrate Urine Positive (Negative); Protein Urine 3+ mg/dL (Negative); pH Urine 5.5 (5.0-9.0)
[2022-03-20 04:59] LABS: Basophils Absolute Auto 0.1 K/mm3 (0.0-0.1); Basophils Percent Auto 0.4 % (0.2-1.2); Eosinophils Absolute Auto 0.1 K/mm3 (0-0.3); Eosinophils Percent Auto 0.3 % (0-4.4); Hematocrit 23.3 % (37.0-47.0); Hemoglobin 7.2 g/dL (12.0-15.0); Immature Granulocyte Absolute 0.16 K/mm3 (0.00-0.031); Immature Granulocyte Percent A 0.8 % (0-0.5); Lymphocytes Absolute Auto 1.41 K/mm3 (0.9-3.2); Lymphocytes Percent Auto 6.7 % (18.3-44.2); Mean Corpuscular HGB Conc 30.9 g/dl (32-36); Mean Corpuscular Hemoglobin 30.1 pg (26-34); Mean Corpuscular Volume 97.5 fl (80-100); Mean Platelet Volume 10.2 fl (7.4-10.4); Monocytes Absolute Auto 1.5 K/mm3 (0.1-0.6); Monocytes Percent Auto 7.3 % (2.6-8.5); Neutrophils Absolute Auto 17.7 K/mm3 (1.3-6.7); Neutrophils Percent Auto 84.5 % (45.5-73.1); Nucleated Red Blood Cells Perc 0.1 % (0.0-0.2); Platelet Count Result 192 k/mm3 (150-375); Red Blood Count 2.39 M/mm3 (4.2-5.4); Red Cell Distribution Width 20.1 % (11.5-14.5)
[2022-03-20 05:03] LABS: Alveolar/Arterial O2 Gradient 112.2 mmHg; Base Excess ABG -1.3 mEq/l (+/-2.0); Carboxyhemoglobin 0.1 % THb (0-2.0); Fractional Inspired Oxygen 30 %; HCO3 ABG 23.1 mEq/l (22.0-26.0); Methemoglobin ABG 0.4 %THb (0-1.5); Oxygen Content ABG 10.5 %vol (16.0-22.0); Oxygen Saturation ABG 90.7 % (95.0-100.0); Oxyhemoglobin 91.7 % THb (90.0-100.0); PO2 ABG 58.2 mmHg (80.0-100.0); PO2 FiO2 Ratio Arterial Blood 1.94 %; Reduced Hemoglobin 7.8 %THb (0-5.0); Total Hemoglobin 8.1 g/dL (12.0-18.0); pH ABG 7.413 (7.350-7.450)
[2022-03-20 05:05] LABS: Lactic Acid Reflex 1.5 mmol/L (0.7-2.0)
[2022-03-20 05:05] LABS: Arterial Blood Gas PEEP 5 cmH2O; Arterial Blood Gas Tidal Volume 450 ml; Arterial Blood Gas Vent Mode CMV; Arterial Blood Gas Ventilator rate 24 /MIN; Device VENTILATOR; Site Drawn ARTLINE
[2022-03-20 05:05] LABS: Mucus Urine Rare /lpf; RBC Urine >75 /hpf (0-2); WBC Urine 16-20 /hpf
[2022-03-20 05:06] LABS: Add Urine Microscopic? YES
[2022-03-20 05:06] LABS: Alanine Aminotransferase 28 U/L (6-35); Albumin Level 2.7 g/dL (3.5-5.1); Alkaline Phosphatase 52 U/L (38-126); Anion Gap 10 mmol/L (8-16); Aspartate Amino Transferase 166 U/L (14-36); Bilirubin,Total 7.1 mg/dL (0.2-1.3); Blood Urea Nitrogen 20 mg/dL (7-17); CRP 2.2 mg/dL (<1.0); Calcium 6.8 mg/dL (8.4-10.2); Carbon Dioxide 22 mmol/L (22-30); Chloride 108 mmol/L (98-107); Creatine Kinase 85 U/L (30-135); Estimated CRCL calculation 20 ml/min; Estimated Glomerular Filt Rate 17; Glucose 130 mg/dL (65-110); Lipase 243 U/L (23-300); Phosphorus 2.8 mg/dL (2.5-4.5); Potassium 3.7 mmol/L (3.4-5.0); Sodium 140 mmol/L (137-145)
[2022-03-20] MEDS: SODIUM BICARBONATE 8.4% 150 MEQ in DEXTROSE 5% 1,000 ML 950 ML 100 MEQ IV CONT (05:08)
[2022-03-20] MEDS: CENTRAL LINE FLUSH 10 ML IV PUSH ×4 (05:09→20:18)
[2022-03-20] MEDS: ALBUMIN HUMAN 25% 25 GM/100 ML 100 ML IVPB ×2 (05:09→11:02)
[2022-03-20 05:12] LABS: INR 2.6; Prothrombin Time 27.4 Seconds (11.1-14.7)
[2022-03-20 05:14] LABS: Partial Thromboplastin Time 75.9 SECONDS (22.3-36.8)
[2022-03-20 05:24] LABS: Anisocytosis 1+ (NORMAL); Platelet Estimate Adequate (Adequate)
[2022-03-20 05:26] LABS: Poikilocytosis 1+ (NORMAL)
[2022-03-20] MEDS: NOREPINEPHRINE 8 MG/D5W 250 ML 8 MG/250 ML BAG 28.13 MG IV CONT (05:29)
--- NOTE | 2022-03-20 07:37 | PCPTNOTE ---
Pt had a significant change in status with transfer to ICU with intubation. Will DC skilled PT services.
--- NOTE | 2022-03-20 07:41 | PCOTNOTE ---
Pt had a significant change in status with transfer to ICU with intubation. Will DC skilled OT services at this time. Will reevaluate if status improves.
[2022-03-20] MEDS: PHYTONADIONE ADULT INJ 10 MG in DEXTROSE 5% IN WATER 50 ML 68 MG IVPB (08:16)
[2022-03-20] MEDS: MINERAL OIL/WHITE PETROLATUM OINTMENT 1 APPLIC EACH EYE ×2 (08:19→20:18)
[2022-03-20] MEDS: PANTOPRAZOLE SODIUM IV 40 MG VIAL IV PUSH ×2 (08:19→20:19)
[2022-03-20 08:41] LABS: Mean Platelet Volume 10.7 fl (7.4-10.4); Platelet Count Result 168 k/mm3 (150-375)
[2022-03-20 08:45] LABS: Hemoglobin 6.6 g/dL (12.0-15.0)
[2022-03-20 08:46] LABS: Hematocrit 20.8 % (37.0-47.0)
[2022-03-20 08:58] LABS: INR 2.8; Prothrombin Time 28.6 Seconds (11.1-14.7)
[2022-03-20 08:59] LABS: Partial Thromboplastin Time 67.4 SECONDS (22.3-36.8)
[2022-03-20] MEDS: SODIUM CHLORIDE 0.9% IV 250 ML 30 ML IV CONT ×3 (09:00→13:09)
[2022-03-20 09:02] LABS: D Dimer 3.43 ug/mL (<0.48)
[2022-03-20 09:05] LABS: Fibrinogen 160 mg/dl (215-510)
--- NOTE | 2022-03-20 09:10 | PM.CNGS ---
Assessment and Plan Assessment and plan (1) Septic shock: Code(s): A41.9 - Sepsis, unspecified organism; R65.21 - Severe sepsis with septic shock Status: Acute Assessment and Plan: continue IV antibiotics, source control with percutaneous cholecystostomy (2) Acute cholecystitis: Code(s): K81.0 - Acute cholecystitis Status: Acute Assessment and Plan: discussed with interventional radiology and well proceed with percutaneous cholecystostomy (3) Cirrhosis: Code(s): K74.60 - Unspecified cirrhosis of liver Status: Acute Assessment and Plan: end-stage at this point, management per aviation metals[employer] team (4) Acute respiratory failure: Code(s): J96.00 - Acute respiratory failure, unspecified whether with hypoxia or hypercapnia Status: Acute Assessment and Plan: intubated, vent management per aviation [employer] team History of Present Illness Consult details Consult date: 03/20/22 Reason for consult: abdominal pain Requesting physician: Tata Farfan MD Narrative: The patient is a 71-year-old female with multiple medical issues including alcoholic cirrhosis, that is now in the ICU with severe septic shock. The patient initially presented to the hospital with a GI bleed that has now stabilized. According to the chart, the patient became very hypotensive and unresponsive yesterday. She has been since transferred to the ICU and is now intubated. Workup for her sepsis, including imaging, is significant for acute cholecystitis. Of note, the patient is largely obtunded and does not follow commands. All history is obtained via chart. Review of Systems Review of Systems: ROS unobtainable: Yes unobtainable due to endotracheal tube and unobtainable due to medical condition [facility] Past Medical History Medical History Acute stroke due to ischemia Altered mental status Asthma Bipolar 1 disorder COPD (chronic obstructive pulmonary disease) Falls Rhabdomyolysis Family History Family History Father Asthma Colon cancer Grandparent Asthma Chronic obstructive pulmonary disease Mother Colon cancer Diabetes mellitus Hypertension Sibling Hypertension Social History Social History Smoking packs per day: 0.25 Smoking cigarettes per day: 5.0 Years smoked: 52 Smoking pack-years: 13.00 Smoking status: Light tobacco smoker Tobacco type: cigarettes Second hand tobacco smoke exposure: Yes Alcohol intake: current Drinks per week: 9 Substance use: never Substance use type: does not use Other substance usage details: recreational Last use: 03/03/22 Gender identity (if verbalized by the patient): Female Spiritual care concerns: No Meds Home Medications and Allergies Home Medications Medication Instructions Recorded Confirmed Type albuterol sulfate [ProAir HFA] 18 mcg INHALATION DAILY PRN 06/22/21 03/09/22 History aspirin 81 mg PO DAILY 06/22/21 03/09/22 History bupropion HCl 100 mg PO DAILY 06/22/21 03/09/22 History fluoxetine 10 mg PO DAILY 06/22/21 03/09/22 History fluticasone propion-salmeterol 1 ea INHALATION BID 06/22/21 03/09/22 History [Wixela Inhub] ibuprofen 800 mg PO TID PRN 06/22/21 03/09/22 History quetiapine 200 mg PO QPM 06/22/21 03/09/22 History atorvastatin 20 mg PO DAILY 30 Days #30 tablet 03/19/22 Rx nafcillin 2 g IV Q4HR 28 Days #112 ea 03/19/22 Rx sucralfate 1 g PO ACHS 30 Days #120 tablet 03/19/22 Rx vancomycin 125 mg PO Q6HR 10 Days #40 ea 03/19/22 Rx Allergies Allergy/AdvReac Type Severity Reaction Status Date / Time No Known Allergies Allergy Verified 03/10/22 10:54 Vital Signs Vital Signs - 24 hr 03/19/22 09:30 03/19/22 10:30 03/19/22 11:42 Temperature Pulse Rate Respiratory Rate Blood Pressure 64/31 L 73/37 L
--- NOTE | 2022-03-20 10:49 | PM.CNNEP ---
Assessment and Plan Additional Plan 1. Liver has acute kidney injury. She is oliguric. Total CK is normal. UA shows protein blood nitrates bilirubin red cells and white cells. These are all acute as the 1 done on admission was bland. Most likely her renal failure is due to hypotension and bleeding. Interstitial nephritis would be unlikely because of the pace of the rise of the creatinine. Does not have a rash and there is no peripheral eosinophilia. She was on ibuprofen before she came in but she has not received any of this while here. I will check urine electrolytes and a renal sonogram. Will continue supportive care. Her blood pressure seems a bit better now on the pressors. Hopefully there will be renal recovery once her hemodynamic situation is improved. 2. The patient has GI bleed. Dr. Campbell saw the patient and he is going to be doing a scope soon. 3. Patient had elevated white cell count. Cultures are done and she is on antibiotics. 4. She is very anemic. Should be getting transfusions. No need for EPO at this point. 5. Patient has a long history of alcohol abuse. She has liver damage from this. Her INR is 2.8. She is getting FFP for this. 6. Patient has C diff colitis. No liquid bowel movements lately. 7. Reversible airways disease. She is intubated. History of Present Illness Reason for Consult Consult date: 03/20/22 Chief Complaint Chief complaint: GI bleed/sepsis History of Present Illness Narrative: Tonya is a very pleasant 71-year-old lady who has multiple medical problems including alcohol abuse disorder and is still actively drinking, history of rhabdomyolysis, several falls, COPD, bipolar 1 disorder, asthma, ischemic stroke, reversible airways disease, hyperlipidemia, depression, arthritis. The patient came to the hospital because she was throwing up blood. She also had dark tarry stools. She was seen in the ER. CT showed changes to the sigmoid colon which could be infectious inflammatory or ischemic. Later cultures showed C diff. And admitted. She was given fluids. Blood cultures were done and were positive. Echo was done which showed pericardial fluid and a JASON was performed which showed a possible aortic valve endocarditis. The patient was treated supportively. It was a long hospital stay but yesterday the patient was felt to be ready for discharge. She was given some Dilaudid and her blood pressure dropped so she was given some fluids the blood pressure dropped further so she was transferred to the ICU and eventually had to be placed on pressors and intubated. She had more bleeding. CT scan showed dilated gallbladder and so surgery was consulted and they are going to send her for a cholecystostomy tube. In the meantime her creatinine was ranging from 0.6-1.1 early in the hospital stay. On the the creatinine was 0.8. Then it benny to 1.1 on the and 2.7 yesterday then 2.8 today. So renal consultation was made because of the high creatinine. The patient cannot give a history. There is no sign of prior renal issues in the chart. No history noted of grossly bloody urine, foamy urine, kidney stones, or bladder infections. There was a CT with contrast on , to long ago to be playing a role here. She was acidotic and so sodium bicarb drip was started. There is possibility of infection so she is on broad-spectrum antibiotics. Review of Systems Review of Systems: ROS unobtainable: Yes unobtainable due to endotracheal tube and unobtainable due to medical condition [facility] Past Medical History Medical History Acute stroke due to ischemia Altered mental status Asthma Bipolar 1 disorder COPD (chronic obstructive pulmonary disease) Falls Rhabdomyolysis Family History Family History Father Asthma Colon cancer Grandparent Asthma Chronic obstructive pulmonary dise
--- NOTE | 2022-03-20 10:49 | WPDINTPN ---
Progress Note: A&P Assessment and Plan (1) Septic shock: Code(s): A41.9 - Sepsis, unspecified organism; R65.21 - Severe sepsis with septic shock Status: Acute Assessment and Plan: Patient has been hypotensive since 03/18/2022. On 03/19/2022 received Dilaudid in the early hours in her systolic blood pressures dropped to the 70s, patient was given 250 mL IV fluid bolus in the was called. I did tell the hospitalist given additional 1 L IV fluid bolus and if blood pressures does not improve to center to the ICU. -upon arrival to the ICU patient systolic pressures was still in the 60s and 70s, patient was given 30 mL/kg IV fluids, -continue Levophed, will maintain mean arterial pressures > 65 mmHg -patient also give Hespan and start albumin as patient is edematous -lactic acid is normal -source is likely secondary to UTI, acute cholecystitis, hemorrhagic shock -03/19/2022: Blood cultures, urine cultures and sputum cultures obtained and pending -continue vancomycin IV, Zosyn IV, Flagyl IV 03/19/2022: CT scan of the chest abdomen and pelvis -Distended gallbladder with gallstone in the neck correlate for acute cholecystitis, cirrhosis, anasarca, small ascites. Bilateral breast implants probable intracapsular left imprint lecture and possible extracapsular right implant rupture. Moderate pleural effusions bilaterally with atelectasis, correlate for aspiration or pneumonia. (2) Acute respiratory failure: Code(s): J96.00 - Acute respiratory failure, unspecified whether with hypoxia or hypercapnia Status: Acute Assessment and Plan: Patient arrived in the ICU on 03/19, she had shallow broad respirations, tachypneic, ill looking and in impending respiratory failure -patient was intubated on 03/19, she had a lot of coffee-ground emesis during intubation, no white suction have and briskly placed in ET tube through the vocal cords using the glide scope. I still think she aspirated gastric contents -continue CMV mode of ventilation, peep of 5 on 30% FiO2 -chest x-ray and ABGs reviewed -continue bronchodilators -sedated with fentanyl and Versed infusion, maintain RASS of 0--2, daily sedation vacation -patient was also started on antibiotic as above (3) Ileus: Code(s): K56.7 - Ileus, unspecified Status: Acute Assessment and Plan: Patient was complaining of abdominal pain on arrival to the ICU, stat obstructive series showed possible ileus versus small-bowel obstruction -will obtain CT scan of the abdomen and pelvis once patient is more stable. CT scan shows obstruction, will have surgery evaluate the patient -patient recently had C diff colitis, currently on p.o. vancomycin. Will switch to IV Flagyl -NG tube with a ground emesis (4) Acute kidney injury: Code(s): N17.9 - Acute kidney failure, unspecified Status: Acute Assessment and Plan: Patient has been hypotensive since the morning of 03/18/2022 -acute kidney injury likely related to hypotension, ATN, septic shock, hypovolemia, infection, -patient has been adequately volume resuscitated -continue t sodium bicarb infusion -lactic acid normalized -low urine output with clots , have asked the bedside RN to flush Echols -will obtain renal ultrasound and urine lytes along with CK level and urine eosinophils -nephrology has been consulted -monitor urine output, renal function electrolytes (5) Endocarditis: Code(s): I38 - Endocarditis, valve unspecified Status: Acute Assessment and Plan: Will switch nafcillin to IV vancomycin given chest x-ray has infiltrates -this should also cover for endocarditis -JASON was done on 03/16 which showed Very small mobile mass, 1-2 mm, noted on the aortic valve which may represent aortic valve endocarditis -continue antibiotics as above (6) C. difficile colitis: Code(s): A04.72 - Enterocolitis due to Clostridium difficile, not specified as recurrent Status: Acute Assessment
--- NOTE | 2022-03-20 11:14 | WPDGICN ---
Assessment and Plan Assessment and plan (1) Upper gastrointestinal hemorrhage: Code(s): K92.2 - Gastrointestinal hemorrhage, unspecified Status: Acute Assessment and Plan: she had been found to have multiple ulcers on endoscopy 12 days ago but at that time there was no active bleeding. Now she obviously is bleeding based on the findings at the time of intubation and blood in her OG tube. She will have emergency EGD this morning. First we will give her 2 units of plasma (2) Acute cholecystitis: Code(s): K81.0 - Acute cholecystitis Status: Acute Assessment and Plan: surgery has spoke to Radiology. She is going to have a cholecystostomy tube placed this morning (3) Abnormal coagulation profile: Code(s): R79.1 - Abnormal coagulation profile Status: Acute Assessment and Plan: INR is 2.8. She is receiving plasma now (4) Acute respiratory failure: Code(s): J96.00 - Acute respiratory failure, unspecified whether with hypoxia or hypercapnia Status: Acute Assessment and Plan: she was intubated yesterday on arrival to intensive care (5) Endocarditis: Code(s): I38 - Endocarditis, valve unspecified Status: Acute Assessment and Plan: this was diagnosed a few days ago and she is currently on antibiotics, piperacillin and vancomycin at the present time (6) C. difficile colitis: Code(s): A04.72 - Enterocolitis due to Clostridium difficile, not specified as recurrent Status: Acute Assessment and Plan: she had been treated with oral vancomycin is now on intravenous vancomycin GI Consult Note Consult date/time: 03/20/22 11:14 HPI: Sade Drake is a 71 year old female who was originally admitted to the hospital about 11 days ago with evidence of gastrointestinal bleeding. She had coffee-ground emesis and black stools. It was noted that she drinks heavily, up to a 5th of alcohol at a time. She had she been started on octreotide for possible variceal bleeding. She then underwent endoscopy by Malena on March 10 which revealed severe erosive esophagitis, multiple gastric antral ulcers some with stigmata of bleeding but no active bleeding and also broad superficial duodenal ulcers. She was found have C difficile colitis as well. The C diff colitis was been treated with oral vancomycin. Few days ago she had jailyn revealing aortic valve endocarditis. For that she is currently on piperacillin and vancomycin. Over the last couple days she became hypotensive and had been transferred back to intensive care. She required intubation yesterday and during that process she was noted to have a large amount of coffee-ground emesis. Additionally her blood counts have been dropping, from 10.9 yesterday to 6.6 today also her INR has been persistently elevated at 2.8. Fibrinogen level is low at 160. Her platelet count is adequate. She has 2 units of fresh frozen plasma ordered has received at least 1 unit of blood so far this morning. Her blood pressure about 115/59. Yesterday It was 73/37 on presentation to intensive care. she is intubated therefore unresponsive and unable to give me any history. OG tube does have dark blood in it at this time. She will have emergency endoscopy this morning to hopefully control bleeding after she has received 2 units of platelets. FOR[facility]LY [facility] Past Medical History Medical History Acute stroke due to ischemia Altered mental status Asthma Bipolar 1 disorder COPD (chronic obstructive pulmonary disease) Falls Rhabdomyolysis Family History Family History Father Asthma Colon cancer Grandparent Asthma Chronic obstructive pulmonary disease Mother Colon cancer Diabetes mellitus Hypertension Sibling Hypertension Social History Social History (Reviewed 03/20/22 @ 11:18 by Florentino Gomes
--- NOTE | 2022-03-20 11:34 | PM.IMPN ---
Progress Note: A&P Assessment and Plan (1) Septic shock: Code(s): A41.9 - Sepsis, unspecified organism; R65.21 - Severe sepsis with septic shock Status: Acute Assessment and Plan: . As per ICU Also likely upper GI bleed. Plan for scope. (2) Acute respiratory failure: Code(s): J96.00 - Acute respiratory failure, unspecified whether with hypoxia or hypercapnia Status: Acute Assessment and Plan: Masching for ICU (3) Ileus: Code(s): K56.7 - Ileus, unspecified Status: Acute Assessment and Plan: GI consult noted. Plan for scope. (4) Acute kidney injury: Code(s): N17.9 - Acute kidney failure, unspecified Status: Acute Assessment and Plan: Patient has been hypotensive since the morning of 03/18/2022 -acute kidney injury likely related to hypotension, ATN, septic shock, hypovolemia, infection, -patient has been adequately volume resuscitated -continue t sodium bicarb infusion -lactic acid normalized -low urine output with clots , have asked the bedside RN to flush Echols -will obtain renal ultrasound and urine lytes along with CK level and urine eosinophils -nephrology has been consulted -monitor urine output, renal function electrolytes (5) Endocarditis: Code(s): I38 - Endocarditis, valve unspecified Status: Acute Assessment and Plan: -continue antibiotics as above (6) C. difficile colitis: Code(s): A04.72 - Enterocolitis due to Clostridium difficile, not specified as recurrent Status: Acute Assessment and Plan: Patient positive for C diff this admission, was placed on p.o. vancomycin, currently with ileus and or small bowel obstruction. Continue IV Flagyl -GI is following the patient (7) Hyperbilirubinemia: Code(s): E80.6 - Other disorders of bilirubin metabolism Status: Acute Assessment and Plan: Possible cholecystitis, surgical console continue supportive care in the ICU (8) Peptic ulcer disease: Code(s): K27.9 - Peptic ulcer, site unspecified, unspecified as acute or chronic, without hemorrhage or perforation Status: Acute Assessment and Plan: GI to perform scope. (9) Alcohol abuse: Code(s): F10.10 - Alcohol abuse, uncomplicated Status: Acute Assessment and Plan: Patient with history of alcohol abuse, -patient currently intubated and sedated -likely underlying chronic cirrhosis (10) Abnormal coagulation profile: Code(s): R79.1 - Abnormal coagulation profile Status: Acute Assessment and Plan: Likely underlying chronic cirrhosis. FFP given. (11) DVT prophylaxis: Code(s): Z29.9 - Encounter for prophylactic measures, unspecified Status: Acute Assessment and Plan: SCDs given patient had coffee-ground emesis (12) DVT (deep venous thrombosis): Code(s): I82.409 - Acute embolism and thrombosis of unspecified deep veins of unspecified lower extremity Status: Acute Assessment and Plan: Ulnar vein. Clearly not a main issue right now with her elevated INR and everything else going on with her. Question whether or not I would even treat this given her high risk for GI bleed. Subjective Date/time seen: 03/20/22 11:34 Patient now intubated in the ICU Exam Narrative: General: Patient intubated sedated HEENT: sclera is slightly icteric, ETT in place Neck: Supple, no lymphadenopathy Respiratory: bilateral coarse breath sounds, decreased at bases, adequate air entry Cardiac: S1-S2 is normal, sinus rate and rhythm Abdomen: Soft, distended, diffuse tenderness, no bowel sounds Extremities: Bilateral upper and lower extremity edema and puffiness Neuro: Patient currently intubated and sedated, does not open her eyes to name follows simple commands Prior to intubation Patient is awake, alert, follows simple commands, answers to questions Skin: Diffuse bruising noted on bilateral upper and l
[2022-03-20] MEDS: METOCLOPRAMIDE HCL INJ 10 MG/2 ML VIAL IV PUSH (11:59)
[2022-03-20] MEDS: MIDAZOLAM HCL (*CRX) 2 MG/2 ML VIAL IV PUSH ×2 (12:25→12:36)
[2022-03-20 12:32] LABS: Creatinine Urine 31.8 mg/dL; Total Protein Urine Random 190 mg/dL; Ur Ttl Prot Creatinine Ratio 5.97 mg/mg (0-0.20)
[2022-03-20 12:44] LABS: Sodium Urine Random 39 meq/L
[2022-03-20] MEDS: EPINEPHrine INJ 1 MG/10 ML SYRINGE (12:54)
--- NOTE | 2022-03-20 13:26 | SUR.OPER ---
ENTERED ROOM AT 1200, VS HR 102, TEMP 99.0, B/P 112/64, 02 SAT 100%. 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 PER DR FLORES PT TO RECEIVE SECOND UNIT OF PLASMA BEFORE BEGINNING PROCEDURE, KANDY STARK RUNNING PLASMA AT THIS TIME. KANDY STARK MANAGING PT'S VERSED AND FENTANYL FOR SEDATION PRIOR AND DURING PROCEDURE. VS AT START OF PROCEDURE 105, 99.0, 117/67, 95%. PT GIVEN 1.1MG(11ML) OF EPINEPHRINE DURING PROCEDURE WITH GOLD PROBE TO BLEEDING GASTRIC ULCER. VS AT END OF PROCEDURE 109. 99.1, 129/64, 95%. KANDY STARK REMAINS AT BEDSIDE.
[2022-03-20] MEDS: NOREPINEPHRINE 8 MG/D5W 250 ML 8 MG/250 ML BAG 33.75 MG IV CONT (14:04)
[2022-03-20 15:14] LABS: Glucose Point of Care 93 mg/dl (65-105)
[2022-03-20 15:30] LABS: Hematocrit 27.6 % (37.0-47.0); Hemoglobin 8.7 g/dL (12.0-15.0); Mean Corpuscular HGB Conc 31.5 g/dl (32-36); Mean Corpuscular Volume 95.2 fl (80-100); Mean Platelet Volume 10.5 fl (7.4-10.4); Platelet Count Result 140 k/mm3 (150-375); Red Cell Distribution Width 18.5 % (11.5-14.5); White Blood Count 15.6 K/mm3 (4.5-10.0)
[2022-03-20] MEDS: NOREPINEPHRINE 8 MG/D5W 250 ML 8 MG/250 ML BAG 37.5 MG IV CONT (20:30)
[2022-03-20] MEDS: VASOPRESSIN INJ 100 UNITS in DEXTROSE 5% 95 ML IV CONT (21:05)
[2022-03-21] VITALS (52 sets, daily range): BP systolic 80–147; BP diastolic 43–85; PULSE 81–100; RESP 20–24; TEMP 36.5–37.3; O2SAT 92–96; BMI 35.9
[2022-03-21] MEDS: metroNIDAZOLE 500 MG/ISO 100ML 500 MG/100 ML BAG 100 MG IVPB ×3 (02:17→18:03)
[2022-03-21] MEDS: ALBUTEROL SULFATE NEB 2.5 MG/3 ML INH INHALATION ×5 (04:19→20:11)
[2022-03-21] MEDS: IPRATROPIUM BR 0.02% INH SOLN 0.5 MG/2.5 ML VIAL INHALATION ×5 (04:19→20:11)
[2022-03-21 04:30] LABS: Alveolar/Arterial O2 Gradient 98.7 mmHg; Base Excess ABG -4.8 mEq/l (+/-2.0); Carboxyhemoglobin 0.3 % THb (0-2.0); Fractional Inspired Oxygen 30 %; HCO3 ABG 20.6 mEq/l (22.0-26.0); Methemoglobin ABG 0.2 %THb (0-1.5); Oxygen Content ABG 11.6 %vol (16.0-22.0); Oxygen Saturation ABG 93.1 % (95.0-100.0); Oxyhemoglobin 92.2 % THb (90.0-100.0); PCO2 ABG 38.9 mmHg (35.0-45.0); PO2 ABG 69.5 mmHg (80.0-100.0); PO2 FiO2 Ratio Arterial Blood 2.32 %; Reduced Hemoglobin 7.3 %THb (0-5.0); Total Hemoglobin 8.9 g/dL (12.0-18.0); pH ABG 7.341 (7.350-7.450)
[2022-03-21 04:32] LABS: Arterial Blood Gas Vent Mode CMV; Arterial Blood Gas Ventilator rate 24 /MIN; Device VENTILATOR; Site Drawn ARTLINE
[2022-03-21 04:33] LABS: Arterial Blood Gas PEEP 5 cmH2O; Arterial Blood Gas Tidal Volume 450 ml
[2022-03-21 05:14] LABS: Basophils Absolute Auto 0.1 K/mm3 (0.0-0.1); Basophils Percent Auto 0.4 % (0.2-1.2); Eosinophils Absolute Auto 0.1 K/mm3 (0-0.3); Eosinophils Percent Auto 0.8 % (0-4.4); Hematocrit 26.7 % (37.0-47.0); Hemoglobin 8.7 g/dL (12.0-15.0); Immature Granulocyte Absolute 0.26 K/mm3 (0.00-0.031); Immature Granulocyte Percent A 1.8 % (0-0.5); Lymphocytes Absolute Auto 1.07 K/mm3 (0.9-3.2); Lymphocytes Percent Auto 7.6 % (18.3-44.2); Mean Corpuscular HGB Conc 32.6 g/dl (32-36); Mean Corpuscular Volume 92.1 fl (80-100); Mean Platelet Volume 10.3 fl (7.4-10.4); Monocytes Absolute Auto 1.4 K/mm3 (0.1-0.6); Monocytes Percent Auto 9.5 % (2.6-8.5); Neutrophils Absolute Auto 11.3 K/mm3 (1.3-6.7); Neutrophils Percent Auto 79.9 % (45.5-73.1); Nucleated Red Blood Cells Absolute Auto 0.1 K/mm3 (0.0-0.012); Nucleated Red Blood Cells Perc 0.4 % (0.0-0.2); Platelet Count Result 163 k/mm3 (150-375); Red Cell Distribution Width 18.6 % (11.5-14.5); White Blood Count 14.2 K/mm3 (4.5-10.0)
[2022-03-21] MEDS: CENTRAL LINE FLUSH 10 ML IV PUSH ×4 (05:14→20:02)
[2022-03-21 05:26] LABS: Lactic Acid Reflex 1.2 mmol/L (0.7-2.0)
[2022-03-21 05:28] LABS: INR 2.3; Prothrombin Time 24.9 Seconds (11.1-14.7)
[2022-03-21 05:29] LABS: Partial Thromboplastin Time 66.1 SECONDS (22.3-36.8)
[2022-03-21 05:38] LABS: Alanine Aminotransferase 29 U/L (6-35); Albumin Level 2.8 g/dL (3.5-5.1); Alkaline Phosphatase 56 U/L (38-126); Anion Gap 9 mmol/L (8-16); Aspartate Amino Transferase 139 U/L (14-36); Bilirubin,Total 6.8 mg/dL (0.2-1.3); Blood Urea Nitrogen 33 mg/dL (7-17); Calcium 6.9 mg/dL (8.4-10.2); Carbon Dioxide 22 mmol/L (22-30); Chloride 105 mmol/L (98-107); Estimated CRCL calculation 17 ml/min; Estimated Glomerular Filt Rate 13; Glucose 111 mg/dL (65-110); Phosphorus 3.8 mg/dL (2.5-4.5); Potassium 3.6 mmol/L (3.4-5.0); Sodium 136 mmol/L (137-145)
[2022-03-21] MEDS: NOREPINEPHRINE 8 MG/D5W 250 ML 8 MG/250 ML BAG 18.75 MG IV CONT (08:16)
[2022-03-21] MEDS: MINERAL OIL/WHITE PETROLATUM OINTMENT 1 APPLIC EACH EYE ×2 (08:31→20:03)
[2022-03-21] MEDS: CALCIUM GLUC 2,000 MG/NS 100ML 2,000 MG/100 ML BAG 100 MG IVPB (08:31)
[2022-03-21] MEDS: PANTOPRAZOLE SODIUM IV 40 MG VIAL IV PUSH ×2 (08:39→20:03)
--- NOTE | 2022-03-21 11:44 | PCFNICU ---
ICU Rounding Note: Pt current nutrition is NPO Last recorded weight is 104.1 kg, no new weight to report. Bowel Motility: +BM reported 03/21 Labs Reviewed:Glu 111, GFR 13, BUN 33, Cr 3.5, Hct 26.7,Hgb 8.7,Alb 2.8, Na 136 Meds Noted:Fentanyl, Versed, Flagyl, Vancomycin, Zosyn, Levophed, Protonix, Albuterol Skin: WNL Additional Notes: Patient current with mechanical vent. EGD 03/20-gastric ulcer noted. No plans for nutrition at this time. Will continue to monitor and follow with plan of care. Following daily in ICU rounds.
--- NOTE | 2022-03-21 12:27 | P.PNNP_ITS ---
Progress Note: A&P Assessment and Plan (1) Acute kidney injury: Code(s): N17.9 - Acute kidney failure, unspecified Status: Acute Assessment and Plan: * due to ATN from hypotension, infection/sepsis, and prerenal factors * urine electrolytes are non-prerenal * CPK levels okay * imaging without obstruction * follow repeat labs and UOP * remains at risk for MANAGER IT SECURITY/dialysis (2) Septic shock: Code(s): A41.9 - Sepsis, unspecified organism; R65.21 - Severe sepsis with septic shock Status: Acute Assessment and Plan: * due to acute cholecystitis +/- UTI +/- endocarditis * pressor support to maintain MAP * IV antibiotics * follow culture data (3) Acute respiratory failure: Code(s): J96.00 - Acute respiratory failure, unspecified whether with hypoxia or hypercapnia Status: Acute Assessment and Plan: * due to sepsis and hemocynamic instability * continue ventilator support (4) Endocarditis: Code(s): I38 - Endocarditis, valve unspecified Status: Acute Assessment and Plan: * as noted by JASON * on antibioitcs (5) C. difficile colitis: Code(s): A04.72 - Enterocolitis due to Clostridium difficile, not specified as recurrent Status: Acute Assessment and Plan: * as noted by stool studies * continue current therapy (6) Cirrhosis: Code(s): K74.60 - Unspecified cirrhosis of liver Status: Chronic Assessment and Plan: * known issues secondary to alcohol abuse Will continue to follow. Subjective Date/time seen: 03/21/22 12:27 Chart reviewed - assuming care from Dr. Gutiérrez; remains on full ventilator support as well as pressor support with increasing requirements noted; decline in urine output noted with rise in creatinine as well. Exam Narrative: General: female intubated/sedated Heart: normal S1 and S2; no rub Lungs: coarse breath sounds Abdomen: soft, TTP, no bowel sounds Extremities: no cyanosis or clubbing; trace - 1+ edema Skin: jaundiced Objective Data Vital Signs Vital Signs: Vital Signs Temp Pulse Resp BP Pulse Ox 03/21/22 11:06 86 92 03/21/22 11:04 85 24 H 03/21/22 10:19 82 116/60 03/21/22 10:00 81 24 H 104/56 L 94 03/21/22 08:35 94 20 05/23/22 08:33 85 94 03/21/22 08:24 81 24 H 03/21/22 08:16 81 103/59 L 03/21/22 08:00 36.5 C 82 24 H 82/49 L 96 03/21/22 06:00 36.7 C 84 24 H 108/61 96 03/21/22 04:55 84 110/62 03/21/22 04:54 84 24 H 107/61 03/21/22 04:21 88 95 03/21/22 04:20 88 24 H 03/21/22 04:00 36.9 C 91 24 H 116/85 95 03/21/22 03:26 84 24 H 94 03/21/22 02:31 86 95 03/21/22 02:00 37.1 C 87 24 H 106/62 95 03/21/22 00:03 100 24 H 143/74 H 03/21/22 00:02 91 24 H 03/21/22 00:00 37.3 C 92 24 H 147/75 H 94 03/20/22 23:45 101 H 24 H 03/20/22 23:42 94 174/85 H 03/20/22 23:36 94 94 03/20/22 23:35 99 24 H 03/20/22 23:24 89 24 H 94 03/20/22 22:51 92 136/72 03/20/22 22:00 37.3 C 92 19 136/72 94 03/20/22 21:45 91 136/72 03/20/22 21:24 93 132/72 03/20/22 21:05 99 93/56 L
--- NOTE | 2022-03-21 12:27 | PM.PNNEP ---
Progress Note: A&P Assessment and Plan (1) Acute kidney injury: Code(s): N17.9 - Acute kidney failure, unspecified Status: Acute Assessment and Plan: due to ATN from hypotension, infection/sepsis, and prerenal factors urine electrolytes are non-prerenal CPK levels okay imaging without obstruction follow repeat labs and UOP remains at risk for TERMITE EXTERMINATOR/dialysis (2) Septic shock: Code(s): A41.9 - Sepsis, unspecified organism; R65.21 - Severe sepsis with septic shock Status: Acute Assessment and Plan: due to acute cholecystitis +/- UTI +/- endocarditis pressor support to maintain MAP IV antibiotics follow culture data (3) Acute respiratory failure: Code(s): J96.00 - Acute respiratory failure, unspecified whether with hypoxia or hypercapnia Status: Acute Assessment and Plan: due to sepsis and hemocynamic instability continue ventilator support (4) Endocarditis: Code(s): I38 - Endocarditis, valve unspecified Status: Acute Assessment and Plan: as noted by JASON on antibioitcs (5) C. difficile colitis: Code(s): A04.72 - Enterocolitis due to Clostridium difficile, not specified as recurrent Status: Acute Assessment and Plan: as noted by stool studies continue current therapy (6) Cirrhosis: Code(s): K74.60 - Unspecified cirrhosis of liver Status: Chronic Assessment and Plan: known issues secondary to alcohol abuse Will continue to follow. Subjective Date/time seen: 03/21/22 12:27 Chart reviewed - assuming care from Dr. Gutiérrez; remains on full ventilator support as well as pressor support with increasing requirements noted; decline in urine output noted with rise in creatinine as well. Exam Narrative: General: female intubated/sedated Heart: normal S1 and S2; no rub Lungs: coarse breath sounds Abdomen: soft, TTP, no bowel sounds Extremities: no cyanosis or clubbing; trace - 1+ edema Skin: jaundiced Objective Data Vital Signs Vital Signs: Vital Signs Temp Pulse Resp BP Pulse Ox 03/21/22 11:06 86 92 03/21/22 11:04 85 24 H 03/21/22 10:19 82 116/60 03/21/22 10:00 81 24 H 104/56 L 94 03/21/22 08:35 94 20 03/21/22 08:33 85 94 03/21/22 08:24 81 24 H 03/21/22 08:16 81 103/59 L 03/21/22 08:00 36.5 C 82 24 H 82/49 L 96 03/21/22 06:00 36.7 C 84 24 H 108/61 96 03/21/22 04:55 84 110/62 03/21/22 04:54 84 24 H 107/61 03/21/22 04:21 88 95 03/21/22 04:20 88 24 H 03/21/22 04:00 36.9 C 91 24 H 116/85 95 03/21/22 03:26 84 24 H 94 03/21/22 02:31 86 95 03/21/22 02:00 37.1 C 87 24 H 106/62 95 03/21/22 00:03 100 24 H 143/74 H 03/21/22 00:02 91 24 H 03/21/22 00:00 37.3 C 92 24 H 147/75 H 94 03/20/22 23:45 101 H 24 H 03/20/22 23:42 94 174/85 H 03/20/22 23:36 94 94 03/20/22 23:35 99 24 H 03/20/22 23:24 89 24 H 94 03/20/22 22:51 92 136/72 03/20/22 22:00 37.3 C 92 19 136/72 94 03/20/22 21:45 91 136/72 03/20/22 21:24 93 132/72 03/20/22 21:05 99 93/56 L 03/20/22 20:57 37.5 C 99 24 H 91/54 L 96 03/20/22 20:43 101 H 24 H 03/20/22 20:37 101 H 24 H 93 03/20/22 20:30 101 H 87/52 L 03/20/22 20:27 100 24 H 03/20/22 20:25 101 H 85/51 L 03/20/22 20:17 102 H 24 H 95/57 L 03/20/22 20:00 37.5 C 100 24 H 90/50 L 95 03/20/22 18:00 37.5 C 103 H 24 H 99/60 L 93 03/20/22 17:55 100/62 03/20/22 17:00 104 H 93 03/20/22 16:32 97 03/20/22 16:00 37.4 C 101 H 25 H 117/62 92 03/20/22 15:34 101 H 25 H 03/20/22 14:03 109/62 03/20/22 14:00 37.1 C 101 H 19 109/62 96 03/20/22 13:56 102 H 97 03/20/22 13:28 37.2 C 103 H 24 H 137/71 97 03/20/22 13:17 136/70 03/20/22 13:12 37.2 C 105 H 24 H 135/69 98 03/20/22
--- NOTE | 2022-03-21 12:36 | PM.IMPN ---
Progress Note: A&P Assessment and Plan (1) Septic shock: Code(s): A41.9 - Sepsis, unspecified organism; R65.21 - Severe sepsis with septic shock Status: Acute Assessment and Plan: . As per ICU Also likely upper GI bleed. Plan for scope. (2) Acute respiratory failure: Code(s): J96.00 - Acute respiratory failure, unspecified whether with hypoxia or hypercapnia Status: Acute Assessment and Plan: Masching for ICU (3) Ileus: Code(s): K56.7 - Ileus, unspecified Status: Acute Assessment and Plan: GI consult noted. Plan for scope. (4) Acute kidney injury: Code(s): N17.9 - Acute kidney failure, unspecified Status: Acute Assessment and Plan: Per Nephrology (5) Endocarditis: Code(s): I38 - Endocarditis, valve unspecified Status: Acute Assessment and Plan: -continue antibiotics as above (6) C. difficile colitis: Code(s): A04.72 - Enterocolitis due to Clostridium difficile, not specified as recurrent Status: Acute Assessment and Plan: Patient positive for C diff this admission, was placed on p.o. vancomycin, currently with ileus and or small bowel obstruction. Continue IV Flagyl -GI is following the patient (7) Hyperbilirubinemia: Code(s): E80.6 - Other disorders of bilirubin metabolism Status: Acute Assessment and Plan: Possible cholecystitis, surgical console continue supportive care in the ICU (8) Peptic ulcer disease: Code(s): K27.9 - Peptic ulcer, site unspecified, unspecified as acute or chronic, without hemorrhage or perforation Status: Acute Assessment and Plan: GI to perform scope. (9) Alcohol abuse: Code(s): F10.10 - Alcohol abuse, uncomplicated Status: Acute Assessment and Plan: Patient with history of alcohol abuse, -patient currently intubated and sedated -likely underlying chronic cirrhosis (10) Abnormal coagulation profile: Code(s): R79.1 - Abnormal coagulation profile Status: Acute Assessment and Plan: Likely underlying chronic cirrhosis. FFP given. (11) DVT prophylaxis: Code(s): Z29.9 - Encounter for prophylactic measures, unspecified Status: Acute Assessment and Plan: SCDs given patient had coffee-ground emesis (12) DVT (deep venous thrombosis): Code(s): I82.409 - Acute embolism and thrombosis of unspecified deep veins of unspecified lower extremity Status: Acute Assessment and Plan: Ulnar vein. Clearly not a main issue right now with her elevated INR and everything else going on with her. Question whether or not I would even treat this given her high risk for GI bleed. Additional Plan DVT prophylaxis -SCDs Stress ulcer prophylaxis -continue PPI infusion Nutrition -NPO Code Status -patient requests to be full code and requests her daughter to be her decision maker if she is unable to do it herself Total Critical Care Time - 32 minutes Due to a high probability of clinically significant, life threatening deterioration, the patient required my highest level of preparedness to intervene emergently and I personally spent this critical care time directly and personally managing the patient. This critical care time included obtaining a history; examining the patient; pulse oximetry; ordering and review of studies; arranging urgent treatment with development of a management plan; evaluation of patient's response to treatment; frequent reassessment; and discussions with other providers. It was exclusive of separately billable procedures and treating other patients and teaching time. Please see Assessment and Plan section and the rest of the note for further information on patient assessment and treatment Subjective Date/time seen: 03/21/22 12:36 Sedated and intubated in the ICU Exam Narrative: General: Patient intubated sedated HEENT: sclera is slightly icteric, ETT in plac
[2022-03-21] MEDS: MIDAZOLAM 100MG/NS 100ML(*CRX) 100 MG/100 ML BAG IV CONT (12:49)
[2022-03-21] MEDS: FENTANYL 2,500MCG/NS250ML(*CRX 2,500 MCG/250 ML BAG IV CONT (12:50)
[2022-03-21] MEDS: ALBUMIN HUMAN 25% 25 GM/100 ML 100 ML IVPB ×3 (13:10→23:47)
--- NOTE | 2022-03-21 13:21 | WPDINTPN ---
Progress Note: A&P Assessment and Plan (1) Septic shock: Code(s): A41.9 - Sepsis, unspecified organism; R65.21 - Severe sepsis with septic shock Status: Acute Assessment and Plan: Patient has been hypotensive since 03/18/2022. On 03/19/2022 received Dilaudid in the early hours in her systolic blood pressures dropped to the 70s, patient was given 250 mL IV fluid bolus in the was called. I did tell the hospitalist given additional 1 L IV fluid bolus and if blood pressures does not improve to center to the ICU. -upon arrival to the ICU patient systolic pressures was still in the 60s and 70s, patient was given 30 mL/kg IV fluids, -continue Levophed and vasopressin, will maintain mean arterial pressures > 65 mmHg -lactic acid is normal -source is likely secondary to UTI, acute cholecystitis, hemorrhagic shock -03/19/2022: Blood cultures, urine cultures and sputum cultures obtained and pending -continue vancomycin IV, Zosyn IV, Flagyl IV 03/20/2022: Ultrasound-guided percutaneous cholecystostomy tube was inserted by Interventional Radiology. Surgery team also following the patient 03/19/2022: CT scan of the chest abdomen and pelvis -Distended gallbladder with gallstone in the neck correlate for acute cholecystitis, cirrhosis, anasarca, small ascites. Bilateral breast implants probable intracapsular left imprint lecture and possible extracapsular right implant rupture. Moderate pleural effusions bilaterally with atelectasis, correlate for aspiration or pneumonia. (2) Acute respiratory failure: Code(s): J96.00 - Acute respiratory failure, unspecified whether with hypoxia or hypercapnia Status: Acute Assessment and Plan: Patient arrived in the ICU on 03/19, she had shallow broad respirations, tachypneic, ill looking and in impending respiratory failure -patient was intubated on 03/19, she had a lot of coffee-ground emesis during intubation, no white suction have and briskly placed in ET tube through the vocal cords using the glide scope. I still think she aspirated gastric contents -continue CMV mode of ventilation, peep of 5 on 30% FiO2 -chest x-ray and ABGs reviewed -continue bronchodilators -sedated with fentanyl and Versed infusion, maintain RASS of 0--2, daily sedation vacation -patient was also started on antibiotic as above (3) Ileus: Code(s): K56.7 - Ileus, unspecified Status: Acute Assessment and Plan: Patient was complaining of abdominal pain on arrival to the ICU, stat obstructive series showed possible ileus versus small-bowel obstruction -will obtain CT scan of the abdomen and pelvis once patient is more stable. CT scan shows obstruction, will have surgery evaluate the patient -patient recently had C diff colitis, currently on p.o. vancomycin. Now on IV Flagyl -NG tube with a ground emesis (4) Acute kidney injury: Code(s): N17.9 - Acute kidney failure, unspecified Status: Acute Assessment and Plan: Patient has been hypotensive since the morning of 03/18/2022 -acute kidney injury likely related to hypotension, ATN, septic shock, hypovolemia, infection, -patient has been adequately volume resuscitated -hold IV fluids as patient has received significant IV fluids and blood products -lactic acid normalized -low urine output with increase in creatinine, appreciate nephrology following the patient -urine lytes not reflective of volume depletion/prerenal, CK levels within normal limits -nephrology has been consulted -continue monitor urine output, renal function electrolytes (5) Endocarditis: Code(s): I38 - Endocarditis, valve unspecified Status: Acute Assessment and Plan: Will switch nafcillin to IV vancomycin given chest x-ray has infiltrates -this should also cover for endocarditis -JASON was done on 03/16 which showed Very small mobile mass, 1-2 mm, noted on the aortic valve which may represent aortic valve endocarditis -continue antibiotics as above
[2022-03-21] MEDS: PHYTONADIONE ADULT INJ 10 MG in DEXTROSE 5% IN WATER 50 ML 68 MG IVPB (14:15)
--- NOTE | 2022-03-21 14:55 | WPDGIPROGNO ---
Progress Note: A&P Assessment and Plan (1) Acute cholecystitis: Code(s): K81.0 - Acute cholecystitis Status: Acute Assessment and Plan: Patient with acute cholecystitis now with cholecystotomy tube. [place] to have septic shock in the ICU on pressors. Surgery service following. (2) Abnormal coagulation profile: Code(s): R79.1 - Abnormal coagulation profile Status: Acute Assessment and Plan: Elevated protime and INR not evident on presentation. I have discussed this with endoscopy registered nurse service. Patient likely and DIC. Known to have portal hypertension with significant alcohol intake is is suspected patient has significant alcoholic cirrhosis. This may be a contributing factor. (3) Acute kidney injury: Code(s): N17.9 - Acute kidney failure, unspecified Status: Acute Assessment and Plan: Patient is noted to have declining renal function with elevated creatinine suggesting renal injury at this time. (4) Endocarditis: Code(s): I38 - Endocarditis, valve unspecified Status: Acute (5) C. difficile colitis: Code(s): A04.72 - Enterocolitis due to Clostridium difficile, not specified as recurrent Status: Acute Assessment and Plan: Patient with C difficile colitis identified at time of presentation. Patient has been on vancomycin (6) Peptic ulcer disease: Code(s): K27.9 - Peptic ulcer, site unspecified, unspecified as acute or chronic, without hemorrhage or perforation Status: Acute Assessment and Plan: significant ulcerations of the stomach duodenum and esophagus noted on presentation. EGD yesterday by Dr. Campbell revealed bleeding gastric ulcerations status post endoscopic therapy yesterday will continue to monitor closely. Oral gastric tube continues to drain coffee-ground material. (7) Portal hypertension: Code(s): K76.6 - Portal hypertension Status: Acute Assessment and Plan: Portal hypertension identified on initial CT scan. Given patient's significant heavy alcohol intake suspect she has underlying cirrhosis. This likely contributes to the current coagulopathy. (8) Alcohol abuse: Code(s): F10.10 - Alcohol abuse, uncomplicated Status: Acute (9) Bipolar 1 disorder: Code(s): F31.9 - Bipolar disorder, unspecified Status: Acute (10) Acute respiratory failure: Code(s): J96.00 - Acute respiratory failure, unspecified whether with hypoxia or hypercapnia Status: Acute Assessment and Plan: Patient intubated remains on ventilator at this time with acute respiratory failure. Subjective Date/time seen: 03/21/22 14:55 Events of the weekend noted. Patient suffered respiratory distress and failure subsequently intubated. [place] to be septic ultimately found to have acute cholecystitis. Cholecystotomy tube placed over the weekend. Patient had decreased blood pressure consistent with shock. [place] to have sepsis likely on the basis of cholecystitis. Also experience significant upper GI bleeding requiring emergent EGD and cautery of gastric ulceration. Patient now with DIC and elevated protime. Patient has developed multiorgan failure with renal insufficiency and significant azotemia. Patient has underlying bipolar illness with alcohol abuse. Presented week and half ago with GI bleed from erosive esophagitis, duodenal ulcerations and gastric ulcerations. Patient has been treated with C difficile colitis and diarrhea. 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 Review of Systems Review of Systems: ROS unobtainable: Yes unobtainable due to endotracheal tube Exam Narrative: On physical exam patient remains on pressors. Orogastric tube with dark blackish to dark reddish return. Remains on ventilator. HEENT exam reveals no icterus. Lungs reveal scattered rhonchi. Heart without murmur. Abdomen with cholecystotomy tube in place. Wilian
--- NOTE | 2022-03-21 15:09 | PM.PNGS ---
Progress Note: A&P Assessment and Plan (1) Acute cholecystitis: Code(s): K81.0 - Acute cholecystitis Status: Acute Assessment and Plan: cont IV abx, perc drain (2) Sepsis: Code(s): A41.9 - Sepsis, unspecified organism Status: Acute Assessment and Plan: see above, await cx, wean pressors as elis Subjective Subjective Date/Time Seen: 03/21/22 15:09 no acute issues, still intubated on pressors, perc cholecystostomy yesterday Review of Systems Review of Systems: ROS unobtainable: Yes unobtainable due to endotracheal tube Exam Const: General: ill appearing Limitations: physical limitations Resp: Auscultation: diminished lung sounds Cardio: Rate: regular rate Rhythm: regular rhythm GI: Inspection: normal to inspection and distended GI Palp: Yes Soft to palpation Other: perc sunita - bilious drainage Objective Data Vital Signs Vital Signs: Vital Signs - 24 hr 03/20/22 15:34 03/20/22 16:00 03/20/22 16:32 Temperature 37.4 C Pulse Rate 101 H 101 H Respiratory Rate 25 H 25 H Blood Pressure 117/62 Pulse Oximetry 92 97 03/20/22 17:00 03/20/22 17:55 03/20/22 18:00 Temperature 37.5 C Pulse Rate 104 H 103 H Respiratory Rate 24 H Blood Pressure 100/62 99/60 L Pulse Oximetry 93 93 03/20/22 20:00 03/20/22 20:17 03/20/22 20:25 Temperature 37.5 C Pulse Rate 100 102 H 101 H Respiratory Rate 24 H 24 H Blood Pressure 90/50 L 95/57 L 85/51 L Pulse Oximetry 95 03/20/22 20:27 03/20/22 20:30 03/20/22 20:37 Temperature Pulse Rate 100 101 H 101 H Respiratory Rate 24 H 24 H Blood Pressure 87/52 L Pulse Oximetry 93 03/20/22 20:43 03/20/22 20:57 03/20/22 21:05 Temperature 37.5 C Pulse Rate 101 H 99 99 Respiratory Rate 24 H 24 H Blood Pressure 91/54 L 93/56 L Pulse Oximetry 96 03/20/22 21:24 03/20/22 21:45 03/20/22 22:00 Temperature 37.3 C Pulse Rate 93 91 92 Respiratory Rate 19 Blood Pressure 132/72 136/72 136/72 Pulse Oximetry 94 03/20/22 22:51 03/20/22 23:24 03/20/22 23:35 Temperature Pulse Rate 92 89 99 Respiratory Rate 24 H 24 H Blood Pressure 136/72 Pulse Oximetry 94 03/20/22 23:36 03/20/22 23:42 03/20/22 23:45 Temperature Pulse Rate 94 94 101 H Respiratory Rate 24 H Blood Pressure 174/85 H Pulse Oximetry 94 03/21/22 00:00 03/21/22 00:02 03/21/22 00:03 Temperature 37.3 C Pulse Rate 92 91 100 Respiratory Rate 24 H 24 H 24 H Blood Pressure 147/75 H 143/74 H Pulse Oximetry 94 03/21/22 02:00 03/21/22 02:31 03/21/22 03:26 Temperature 37.1 C Pulse Rate 87 86 84 Respiratory Rate 24 H 24 H Blood Pressure 106/62 Pulse Oximetry 95 95 94 03/21/22 04:00 03/21/22 04:20 03/21/22 04:21 Temperature 36.9 C Pulse Rate 91 88 88 Respiratory Rate 24 H 24 H Blood Pressure 116/85 Pulse Oximetry 95 95 03/21/22 04:54 03/21/22 04:55 03/21/22 06:00 Temperature 36.7 C Pulse Rate 84 84 84 Respiratory Rate 24 H 24 H Blood Pressure 107/61 110/62 108/61 Pulse Oximetry 96 03/21/22 08:00 03/21/22 08:16 03/21/22 08:24 Temperature 36.5 C Pulse Rate 82 81 81 Respiratory Rate 24 H 24 H Blood Pressure 82/49 L 103/59 L Pulse Oximetry 96 03/21/22 08:33 03/21/22 08:35 03/21/22 10:00 Temperature Pulse Rate 85 94 81 Respiratory Rate 20 24 H Blood Pressure 104/56 L Pulse Oximetry 94 94 03/21/22 10:19 03/21/22 11:04 03/21/22 11:06 Temperature Pulse Rate 82 85 86 Respiratory Rate 24 H Blood Pressure 116/60 Pulse Oximetry 92 03/21/22 12:30 03/21/22 12:49 03/21/22 12:50 Temperature Pulse Rate 90 89 Respiratory Rate 24 H 24 H Blood Pressure 80/43 L Pulse Oximetry 03/21/22 13:25 03/21/22 14:27 Temperature Pulse Rate 88 89 Respiratory Rate Blood Pressure 115/60 Pulse Oximetry 92 Intake/Output Intake/Output: Intake & Output 03/18/22 03/19/22 03/20/22 03/21/22 23:59 23:59 23:59 23:59 Intake To
[2022-03-21] MEDS: SODIUM CHLORIDE 0.9% IV 250 ML 30 ML IV CONT (17:00)
[2022-03-22] VITALS (53 sets, daily range): BP systolic 96–143; BP diastolic 54–77; PULSE 77–91; RESP 18–244; TEMP 36.3–36.8; O2SAT 92–97
[2022-03-22] MEDS: IPRATROPIUM BR 0.02% INH SOLN 0.5 MG/2.5 ML VIAL INHALATION ×6 (00:10→23:26)
[2022-03-22] MEDS: ALBUTEROL SULFATE NEB 2.5 MG/3 ML INH INHALATION ×6 (00:10→23:26)
[2022-03-22] MEDS: NOREPINEPHRINE 8 MG/D5W 250 ML 8 MG/250 ML BAG 7.5 MG IV CONT (01:06)
[2022-03-22] MEDS: metroNIDAZOLE 500 MG/ISO 100ML 500 MG/100 ML BAG 100 MG IVPB ×3 (01:47→17:13)
[2022-03-22] MEDS: ALBUMIN HUMAN 25% 25 GM/100 ML 100 ML IVPB (05:00)
[2022-03-22] MEDS: CENTRAL LINE FLUSH 10 ML IV PUSH ×3 (06:09→20:07)
[2022-03-22 06:11] LABS: Base Excess ABG -1.4 mEq/l (+/-2.0); HCO3 ABG 22.6 mEq/l (22.0-26.0); Oxygen Saturation ABG 97.5 % (95.0-100.0); PO2 ABG 93.7 mmHg (80.0-100.0)
[2022-03-22 06:13] LABS: Total Hemoglobin 6.3 g/dL (12.0-18.0)
[2022-03-22 06:14] LABS: Alveolar/Arterial O2 Gradient 152.4 mmHg; Carboxyhemoglobin 0.1 % THb (0-2.0); Fractional Inspired Oxygen 40 %; Methemoglobin ABG 0.7 %THb (0-1.5); Oxygen Content ABG 8.7 %vol (16.0-22.0); Oxyhemoglobin 95.5 % THb (90.0-100.0); PO2 FiO2 Ratio Arterial Blood 2.34 %; Reduced Hemoglobin 3.7 %THb (0-5.0)
[2022-03-22 06:15] LABS: Arterial Blood Gas Ventilator rate 24 /MIN; Device VENTILATOR; Site Drawn ARTLINE
[2022-03-22 06:16] LABS: Arterial Blood Gas PEEP 5 cmH2O; Arterial Blood Gas Tidal Volume 450 ml; Arterial Blood Gas Vent Mode CMV
[2022-03-22 06:21] LABS: Alanine Aminotransferase 23 U/L (6-35); Albumin Level 3.1 g/dL (3.5-5.1); Alkaline Phosphatase 45 U/L (38-126); Anion Gap 14 mmol/L (8-16); Aspartate Amino Transferase 81 U/L (14-36); Bilirubin,Total 5.5 mg/dL (0.2-1.3); Blood Urea Nitrogen 40 mg/dL (7-17); Calcium 7.7 mg/dL (8.4-10.2); Carbon Dioxide 21 mmol/L (22-30); Chloride 102 mmol/L (98-107); Estimated CRCL calculation 17 ml/min; Estimated Glomerular Filt Rate 13; Glucose 94 mg/dL (65-110); Phosphorus 3.8 mg/dL (2.5-4.5); Sodium 137 mmol/L (137-145)
[2022-03-22 06:34] LABS: Potassium 2.8 mmol/L (3.4-5.0)
[2022-03-22 06:48] LABS: INR 2.3; Partial Thromboplastin Time 57.9 SECONDS (22.3-36.8); Prothrombin Time 24.6 Seconds (11.1-14.7)
[2022-03-22 06:49] LABS: Red Blood Count 2.14 M/mm3 (4.2-5.4); White Blood Count 9.6 K/mm3 (4.5-10.0)
[2022-03-22 06:50] LABS: Hemoglobin 6.4 g/dL (12.0-15.0)
[2022-03-22 06:51] LABS: Immature Granulocyte Percent A 1.6 % (0-0.5); Mean Corpuscular Hemoglobin 29.9 pg (26-34); Mean Corpuscular Volume 93.5 fl (80-100); Mean Platelet Volume 10.6 fl (7.4-10.4); Nucleated Red Blood Cells Perc 0.8 % (0.0-0.2); Platelet Count Result 129 k/mm3 (150-375); Red Cell Distribution Width 18.8 % (11.5-14.5)
[2022-03-22 06:52] LABS: Basophils Percent Auto 0.3 % (0.2-1.2); Eosinophils Absolute Auto 0.1 K/mm3 (0-0.3); Eosinophils Percent Auto 0.6 % (0-4.4); Immature Granulocyte Absolute 0.15 K/mm3 (0.00-0.031); Lymphocytes Absolute Auto 1.05 K/mm3 (0.9-3.2); Lymphocytes Percent Auto 10.9 % (18.3-44.2); Neutrophils Absolute Auto 7.4 K/mm3 (1.3-6.7); Neutrophils Percent Auto 76.6 % (45.5-73.1); Nucleated Red Blood Cells Absolute Auto 0.1 K/mm3 (0.0-0.012)
[2022-03-22] MEDS: KCL 40 MEQ/WATER 100 ML 100 ML 25 ML IVPB (07:16)
[2022-03-22] MEDS: POTASSIUM CHLORIDE 20 MEQ PACKET (FOR LIQUID) 40 MEQ FEED TUBE ×2 (07:19→13:52)
[2022-03-22] MEDS: PANTOPRAZOLE SODIUM IV 40 MG VIAL IV PUSH ×2 (08:07→20:06)
[2022-03-22] MEDS: MINERAL OIL/WHITE PETROLATUM OINTMENT 1 APPLIC EACH EYE ×2 (08:07→20:06)
[2022-03-22] MEDS: CALCIUM GLUC 2,000 MG/NS 100ML 2,000 MG/100 ML BAG 100 MG IVPB (08:53)
[2022-03-22] MEDS: SODIUM CHLORIDE 0.9% IV 250 ML 30 ML IV CONT (08:59)
--- NOTE | 2022-03-22 10:47 | PM.PNGS ---
Progress Note: A&P Assessment and Plan (1) Acute cholecystitis: Code(s): K81.0 - Acute cholecystitis Status: Acute Assessment and Plan: improved s/p drainage, cont abx, wean pressors as elis (2) Upper gastrointestinal hemorrhage: Code(s): K92.2 - Gastrointestinal hemorrhage, unspecified Status: Acute Assessment and Plan: give blood products as necessary, await GI input for possible scope/intervention Subjective Subjective Date/Time Seen: 03/22/22 10:47 drop in H/H, currently getting PRBC, slowly weaning off pressors Review of Systems Review of Systems: ROS unobtainable: Yes unobtainable due to endotracheal tube Exam Const: Other: intubated, sedated Resp: Auscultation: diminished lung sounds Cardio: Rate: tachycardic Rhythm: regular rhythm GI: Other: soft, sl dist, perc sunita tube c bloody bilious drainage Objective Data Vital Signs Vital Signs: Vital Signs - 24 hr 03/21/22 11:04 03/21/22 11:06 03/21/22 12:49 Temperature Pulse Rate 85 86 90 Respiratory Rate 24 H 24 H Blood Pressure Pulse Oximetry 92 Oxygen Delivery Mechanical Ventilation Fraction of Inspired Oxygen 30 03/21/22 12:50 03/21/22 12:50 03/21/22 12:30 Temperature Pulse Rate 89 89 Respiratory Rate 24 H 24 H Blood Pressure 80/43 L Pulse Oximetry Oxygen Delivery Fraction of Inspired Oxygen 03/21/22 13:25 03/21/22 14:27 03/21/22 12:00 Temperature Pulse Rate 88 89 90 Respiratory Rate Blood Pressure 115/60 Pulse Oximetry 92 Oxygen Delivery Mechanical Ventilation Fraction of Inspired Oxygen 35 03/21/22 12:00 03/21/22 12:00 03/21/22 12:00 Temperature 36.8 C Pulse Rate 90 Respiratory Rate 24 H Blood Pressure 86/50 L Pulse Oximetry 95 Oxygen Delivery Mechanical Ventilation Fraction of Inspired Oxygen 35 35 03/21/22 14:00 03/21/22 14:00 03/21/22 16:00 Temperature Pulse Rate 86 90 Respiratory Rate 24 H Blood Pressure 103/57 L Pulse Oximetry 95 Oxygen Delivery Fraction of Inspired Oxygen 35 03/21/22 16:00 03/21/22 16:00 03/21/22 16:00 Temperature 36.6 C Pulse Rate 86 86 Respiratory Rate 24 H Blood Pressure 110/60 Pulse Oximetry 93 93 Oxygen Delivery Mechanical Ventilation Fraction of Inspired Oxygen 35 03/21/22 16:55 03/21/22 17:03 03/21/22 17:04 Temperature Pulse Rate 84 89 89 Respiratory Rate 24 H 24 H Blood Pressure Pulse Oximetry 93 Oxygen Delivery Mechanical Ventilation Fraction of Inspired Oxygen 35 03/21/22 17:15 03/21/22 17:30 03/21/22 17:59 Temperature 36.6 C 36.6 C 36.6 C Pulse Rate 86 87 87 Respiratory Rate 24 H 24 H 24 H Blood Pressure 121/63 123/66 132/69 Pulse Oximetry 92 94 94 Oxygen Delivery Fraction of Inspired Oxygen 03/21/22 15:30 03/21/22 17:00 03/21/22 18:00 Temperature Pulse Rate 88 84 Respiratory Rate Blood Pressure 128/47 L 128/67 Pulse Oximetry Oxygen Delivery Fraction of Inspired Oxygen 03/21/22 18:00 03/21/22 19:21 03/21/22 19:31 Temperature Pulse Rate 85 86 Respiratory Rate 24 H 24 H Blood Pressure 124/65 Pulse Oximetry 95 Oxygen Delivery Fraction of Inspired Oxygen 35 03/21/22 19:31 03/21/22 19:33 03/21/22 19:55 Temperature Pulse Rate 85 85 82 Respiratory Rate 24 H 24 H Blood Pressure 135/70 Pulse Oximetry 94 Oxygen Delivery Mechanical Ventilation Fraction of Inspired Oxygen 35 03/21/22 20:00 03/21/22 20:09 03/21/22 20:10 Temperature 36.6 C Pulse Rate 88 85 Respiratory Rate 24 H Blood Pressure 141/73 H 124/65 Pulse Oximetry 94 Oxygen Delivery Fraction of Inspired Oxygen 40 03/21/22 20:12 03/21/22 20:11 03/21/22 20:21 Temperature Pulse Rate 85 85 84 Respiratory Rate 24 H 24 H Blood Pressure Pulse Oximetry 95 Oxygen Delivery Mechanical Ventilation Fraction of Inspired Oxygen 40 03/21/22 20:00 03/21/22
--- NOTE | 2022-03-22 10:49 | PCNFU ---
Nutrition Follow-Up Complete: Suboptimal po intake related to reduced appetite and intake as evidenced by charted intake of meals 25% or less most meals. Goal: Increase PO intake Patient is not meeting current goal, due to intubation. Pt current nutrition is NPO x 4 days. Last recorded weight is 103.8 kg, down from 104.1 kg on admit. Bowel Motility: +Bm reported 03/21 Labs Reviewed:Cr 3.5,BUN 40, Alb 3.1, K 2.8, Hct 20.0,Hgb 6.4 Meds Noted:Fentanyl, Versed, Flagyl, Vancomycin, Zosyn, Protonix, Albuterol Skin: WNL Additional Notes: Patient currently NPO. blood given today. Cholecystostomy tube in place. Surgery and GI are following. No plans for nutrition today. Monitor daily in ICU rounds.
--- NOTE | 2022-03-22 10:53 | WPDINTPN ---
Progress Note: A&P Assessment and Plan (1) Septic shock: Code(s): A41.9 - Sepsis, unspecified organism; R65.21 - Severe sepsis with septic shock Status: Acute Assessment and Plan: Patient has been hypotensive since 03/18/2022. On 03/19/2022 received Dilaudid in the early hours in her systolic blood pressures dropped to the 70s, patient was given 250 mL IV fluid bolus in the was called. I did tell the hospitalist given additional 1 L IV fluid bolus and if blood pressures does not improve to center to the ICU. -upon arrival to the ICU patient systolic pressures was still in the 60s and 70s, patient was given 30 mL/kg IV fluids, -continue Levophed and vasopressin, will maintain mean arterial pressures > 65 mmHg -lactic acid has normalized -source is likely secondary to UTI, acute cholecystitis, hemorrhagic shock -03/19/2022: Blood cultures, urine cultures and sputum cultures obtained and pending -continue vancomycin IV, Flagyl IV, change Zosyn to cefepime 03/20/2022: Ultrasound-guided percutaneous cholecystostomy tube was inserted by Interventional Radiology. Surgery team also following the patient 03/19/2022: CT scan of the chest abdomen and pelvis -Distended gallbladder with gallstone in the neck correlate for acute cholecystitis, cirrhosis, anasarca, small ascites. Bilateral breast implants probable intracapsular left imprint lecture and possible extracapsular right implant rupture. Moderate pleural effusions bilaterally with atelectasis, correlate for aspiration or pneumonia. (2) Acute respiratory failure: Code(s): J96.00 - Acute respiratory failure, unspecified whether with hypoxia or hypercapnia Status: Acute Assessment and Plan: Patient arrived in the ICU on 03/19, she had shallow broad respirations, tachypneic, ill looking and in impending respiratory failure -patient was intubated on 03/19, she had a lot of coffee-ground emesis during intubation, no white suction have and briskly placed in ET tube through the vocal cords using the glide scope. Physician who intubated the patient concluded that patient likely aspirated gastric contents -continue CMV mode of ventilation, peep of 5 on 30% FiO2 decrease rate to 22 -chest x-ray and ABGs reviewed -continue bronchodilators -sedated with fentanyl and Versed infusion, maintain RASS of 0--2, daily sedation vacation -patient was also started on antibiotic as above (3) Ileus: Code(s): K56.7 - Ileus, unspecified Status: Acute Assessment and Plan: Patient was complaining of abdominal pain on arrival to the ICU, stat obstructive series showed possible ileus versus small-bowel obstruction CT scan suggested obstruction -general surgery is following. NG tube suction NPO -patient recently had C diff colitis, currently on p.o. vancomycin. Now on IV Flagyl -NG tube with a ground emesis (4) Acute kidney injury: Code(s): N17.9 - Acute kidney failure, unspecified Status: Acute Assessment and Plan: Patient has been hypotensive since the morning of 03/18/2022 -acute kidney injury likely related to hypotension, ATN, septic shock, hypovolemia, infection, -patient has been adequately volume resuscitated -hold further IV fluids as patient has received significant IV fluids and blood products -lactic acid normalized -low urine output with increase in creatinine, appreciate nephrology following the patient -urine lytes not reflective of volume depletion/prerenal, CK levels within normal limits -continue monitor urine output, renal function electrolytes (5) Endocarditis: Code(s): I38 - Endocarditis, valve unspecified Status: Acute Assessment and Plan: Was switched from nafcillin to IV vancomycin given her chest x-ray has infiltrates -this should also cover for endocarditis -JASON was done on 03/16 which showed Very small mobile mass, 1-2 mm, noted on the aortic valve which may represent aortic valve endocarditis -continue an
--- NOTE | 2022-03-22 11:48 | PM.IMPN ---
Progress Note: A&P Assessment and Plan (1) Septic shock: Code(s): A41.9 - Sepsis, unspecified organism; R65.21 - Severe sepsis with septic shock Status: Acute Assessment and Plan: GI bleed likely with cholecystitis. Drains placed by Interventional Radiology. Continue supportive care in the ICU. IV antibiotics per ICU as well. Patient condition also likely complicated by DIC and liver cirrhosis. other possibilities include small bowel obstruction. Surgery and GI is also following. (2) Acute respiratory failure: Code(s): J96.00 - Acute respiratory failure, unspecified whether with hypoxia or hypercapnia Status: Acute Assessment and Plan: being managed by ICU (3) Acute kidney injury: Code(s): N17.9 - Acute kidney failure, unspecified Status: Acute Assessment and Plan: Per Nephrology (4) Endocarditis: Code(s): I38 - Endocarditis, valve unspecified Status: Acute Assessment and Plan: -continue antibiotics as above (5) C. difficile colitis: Code(s): A04.72 - Enterocolitis due to Clostridium difficile, not specified as recurrent Status: Acute Assessment and Plan: Patient positive for C diff this admission, was placed on p.o. vancomycin, currently with ileus and or small bowel obstruction. Continue IV Flagyl -GI is following the patient (6) Hyperbilirubinemia: Code(s): E80.6 - Other disorders of bilirubin metabolism Status: Acute Assessment and Plan: likely cholecystitis, cholecystostomy tube placed by IR (7) Peptic ulcer disease: Code(s): K27.9 - Peptic ulcer, site unspecified, unspecified as acute or chronic, without hemorrhage or perforation Status: Acute Assessment and Plan: see plan above (8) Alcohol abuse: Code(s): F10.10 - Alcohol abuse, uncomplicated Status: Acute Assessment and Plan: Patient with history of alcohol abuse, -patient currently intubated and sedated -likely underlying chronic cirrhosis (9) Abnormal coagulation profile: Code(s): R79.1 - Abnormal coagulation profile Status: Acute Assessment and Plan: Likely underlying chronic cirrhosis. (10) DVT prophylaxis: Code(s): Z29.9 - Encounter for prophylactic measures, unspecified Status: Acute Assessment and Plan: SCDs given patient had coffee-ground emesis (11) DVT (deep venous thrombosis): Code(s): I82.409 - Acute embolism and thrombosis of unspecified deep veins of unspecified lower extremity Status: Acute Assessment and Plan: Ulnar vein. Clearly not a main issue right now with her elevated INR and everything else going on with her. Question whether or not I would even treat this given her high risk for GI bleed. (12) Acute cholecystitis: Code(s): K81.0 - Acute cholecystitis Status: Acute Additional Plan DVT prophylaxis -SCDs Stress ulcer prophylaxis -continue PPI infusion Nutrition -NPO Code Status -patient requests to be full code and requests her daughter to be her decision maker if she is unable to do it herself Total Critical Care Time - 32 minutes Due to a high probability of clinically significant, life threatening deterioration, the patient required my highest level of preparedness to intervene emergently and I personally spent this critical care time directly and personally managing the patient. This critical care time included obtaining a history; examining the patient; pulse oximetry; ordering and review of studies; arranging urgent treatment with development of a management plan; evaluation of patient's response to treatment; frequent reassessment; and discussions with other providers. It was exclusive of separately billable procedures and treating other patients and teaching time. Please see Assessment and Plan section and the rest of the note for further information on patient assessment and treatment Subj
[2022-03-22 12:11] LABS: Hematocrit 27.2 % (37.0-47.0)
[2022-03-22 12:21] LABS: Anion Gap 10 mmol/L (8-16); Blood Urea Nitrogen 42 mg/dL (7-17); Calcium 8.2 mg/dL (8.4-10.2); Carbon Dioxide 24 mmol/L (22-30); Chloride 107 mmol/L (98-107); Estimated CRCL calculation 17 ml/min; Estimated Glomerular Filt Rate 13; Glucose 85 mg/dL (65-110); Potassium 3.3 mmol/L (3.4-5.0); Sodium 141 mmol/L (137-145)
[2022-03-22 12:26] LABS: Fibrinogen 184 mg/dl (215-510)
--- NOTE | 2022-03-22 12:52 | WPDGIPROGNO ---
Progress Note: A&P Assessment and Plan (1) Acute cholecystitis: Code(s): K81.0 - Acute cholecystitis Status: Acute Assessment and Plan: Patient with acute cholecystitis now status post cholecystotomy tube. Surgical service is following. Patient appears to be septic on this basis. Likely has ileus on this basis as well. Continued supportive care. (2) Acute kidney injury: Code(s): N17.9 - Acute kidney failure, unspecified Status: Acute Assessment and Plan: Renal insufficiency with significant azotemia. Likely related to acute sepsis. (3) Abnormal coagulation profile: Code(s): R79.1 - Abnormal coagulation profile Status: Acute Assessment and Plan: Patient's protime elevated consistent with DIC. This is protime remains prolonged period likely this contributes to her current bleeding from the gastric ulcer. Coagulopathy would make it difficult for additional cautery. Currently she does not appear to be actively bleeding will follow conservatively at this point. D IC being treated by warehouse logistics manager service. (4) Ileus: Code(s): K56.7 - Ileus, unspecified Status: Acute Assessment and Plan: Patient with apparent ileus. Likely related to acute cholecystitis. Continued supportive care. Hopefully we can stop NG tube suction soon as this undoubtedly traumatize the stomach while coagulopathy persists. (5) Acute respiratory failure: Code(s): J96.00 - Acute respiratory failure, unspecified whether with hypoxia or hypercapnia Status: Acute Assessment and Plan: Patient now on ventilator. (6) Endocarditis: Code(s): I38 - Endocarditis, valve unspecified Status: Acute Assessment and Plan: Aortic valve endocarditis identified patient anticipated to be on long-term antibiotics. (7) Peptic ulcer disease: Code(s): K27.9 - Peptic ulcer, site unspecified, unspecified as acute or chronic, without hemorrhage or perforation Status: Acute Assessment and Plan: Patient with bleeding evident from gastric ulcers. Status post cautery on Monday. She additionally has erosive esophagitis and duodenal ulcers. Continue to monitor. Likely she has had intermittent bleeding aggravated by her coagulopathy. Transfuse as necessary. Hemoglobin pending today after 2units given this morning. (8) C. difficile colitis: Code(s): A04.72 - Enterocolitis due to Clostridium difficile, not specified as recurrent Status: Acute Assessment and Plan: Patient with C difficile colitis identified at the time of admission. She has received vancomycin for week and half. Hopefully this is adequate we may need to check for residual infection at some point if diarrhea returns. (9) Alcohol abuse: Code(s): F10.10 - Alcohol abuse, uncomplicated Status: Acute (10) Bipolar 1 disorder: Code(s): F31.9 - Bipolar disorder, unspecified Status: Acute (11) Upper gastrointestinal hemorrhage: Code(s): K92.2 - Gastrointestinal hemorrhage, unspecified Status: Acute Assessment and Plan: Patient admitted with GI bleeding from peptic ulcers. Follow-up EGD on Monday revealed active bleeding from a gastric ulcer. This was cauterized. Patient may have additional bleeding as she remains with coagulopathy. Will follow hemoglobin and transfuse as necessary. Because of old dried blood in her NG tube no signs of active bleeding at this time would defer endoscopy. Endoscopy and cautery while anticoagulated may trigger additional bleeding if not corrected. Subjective Date/time seen: 03/22/22 12:52 Patient remains intubated on the ventilator. Oral gastric tube in place with dark coffee-ground black return. No evidence for active bleeding. Review of Systems Review of Systems: ROS unobtainable: Yes unobtainable due to endotracheal tube Exam Narrative: Patient remains on ventilator. Remain
--- NOTE | 2022-03-22 13:04 | PDONCCN ---
[facility] - Date of Consult Date/Time: 03/22/22 13:04 Requesting Physician: Rafael Andrea MD Primary Care Provider: PHYSICIAN NOT ON STAFF - Consult Narrative Reason for consult: Profound anemia and thrombocytopenia Narrative: Sade Drake is a 71 year old female with history of liver cirrhosis came into the hospital with hematemesis and dark tarry stool is started day of the admission. She was also complaining of nausea vomiting. She was complaining of lightheadedness and dizziness. Patient has a history of drinking on a regular basis. CT abdomen and pelvis showed mild inflammatory changes of the gallbladder and marcial hepaticus and inflammatory changes of the sigmoid colon. Labs on admission showed hemoglobin of 10.7 now dropped down to 6.4. Platelets were normal at 210,000 now dropped down to 129,000. She is currently intubated and sedated. Patient was diagnosed with sepsis and DIC. PTT and INR was elevated. Fibrinogen level was low at 160. She received multiple units of fresh frozen plasma as well as cryoprecipitate. She also received total of 7 units of packed red blood cell transfusion. Patient was diagnosed with acute cholecystitis, diff colitis and acute renal failure secondary sepsis. Patient was also diagnosed with endocarditis and received IV antibiotics. Review of Systems - Review of Systems All systems reviewed & are unremarkable except as noted in [facility] and [facility] Medical History: Medical History (Last Reviewed 03/20/22 @ 11:01 by Alexei Gutiérrez MD) Acute stroke due to ischemia Altered mental status Asthma Bipolar 1 disorder COPD (chronic obstructive pulmonary disease) Falls Rhabdomyolysis Family History: Family History (Last Reviewed 03/20/22 @ 11:18 by Florentino Campbell MD) Father Asthma Colon cancer Grandparent Asthma Chronic obstructive pulmonary disease Mother Colon cancer Diabetes mellitus Hypertension Sibling Hypertension - Social History Social History: Social History (Last Reviewed 03/20/22 @ 11:18 by Florentino Campbell MD) Gender Identity: Gender identity (if verbalized by the patient): Female Alcohol Use: Alcohol intake: current Drinks per week: 9 Substance Use: Substance use: never Substance use type: does not use Other substance usage details: recreational Last use: 03/03/22 Others: Spiritual care concerns: No Smoking Status: Smoking status: Light tobacco smoker Tobacco type: cigarettes Second hand tobacco smoke exposure: Yes Smoking Pack-years: Smoking packs per day: 0.25 Smoking cigarettes per day: 5.0 Years smoked: 52 Smoking pack-years: 13.00 Meds Home Medications Medication Instructions Recorded Confirmed Type albuterol sulfate 90 mcg/actuation 18 mcg inhalation DAILY PRN 06/22/21 03/09/22 History aerosol inhaler (ProAir HFA) Shortness Of Breath Or Wheezing aspirin 81 mg tablet,delayed 81 mg PO DAILY 06/22/21 03/09/22 History release bupropion HCl 100 mg tablet 100 mg PO DAILY 06/22/21 03/09/22 History fluoxetine 10 mg capsule 10 mg PO DAILY 06/22/21 03/09/22 History fluticasone 100 mcg-salmeterol 50 1 ea inhalation BID 06/22/21 03/09/22 History mcg/dose blistr powdr for inhalation (Kera Hawley) ibuprofen 800 mg tablet 800 mg PO TID PRN Pain 06/22/21 03/09/22 History quetiapine 200 mg tablet 200 mg PO QPM 06/22/21 03/09/22 History atorvastatin 20 mg tablet 20 mg PO DAILY 30 days #30 tabs 03/19/22 Rx nafcillin 2 gram intravenous 2 g IV Q4HR 28 days #112 ea 03/19/22 Rx solution sucralfate 1 gram tablet 1 g PO ACHS 30 days #120 tabs 03/19/22 Rx vancomycin 1,000 mg intravenous 125 mg PO Q6HR 10 days #40 ea 03/19/22 Rx injection Allergies Allergy/AdvReac Type Severity Reaction Status Date / Time No Known Allergies Allergy Verified 03/10/22 10:54 Results - Labs CBC & Chem 7: 03/22/22 12:05 03/22/22 12:05 Labs:
--- NOTE | 2022-03-22 13:13 | PM.PNNEP ---
Progress Note: A&P Assessment and Plan (1) Acute kidney injury: Code(s): N17.9 - Acute kidney failure, unspecified Status: Acute Assessment and Plan: the patient has acute kidney injury. due to ATN from hypotension, infection/sepsis, and prerenal factors urine electrolytes are non-prerenal CPK levels okay imaging without obstruction Creatinine benny quickly then seemed to plateau the last couple of days. Now the creatinine is slightly lower than it was yesterday. She made 900cc of urine yesterday. Will check some more labs tomorrow (2) Septic shock: Code(s): A41.9 - Sepsis, unspecified organism; R65.21 - Severe sepsis with septic shock Status: Acute Assessment and Plan: due to acute cholecystitis +/- UTI +/- endocarditis she is off pressors. Getting IV antibiotics yeast in the sputum follow culture data (3) Acute respiratory failure: Code(s): J96.00 - Acute respiratory failure, unspecified whether with hypoxia or hypercapnia Status: Acute Assessment and Plan: due to sepsis and hemodynamic instability continue ventilator support (4) Endocarditis: Code(s): I38 - Endocarditis, valve unspecified Status: Acute Assessment and Plan: as noted by JASON on antibioitcs (5) C. difficile colitis: Code(s): A04.72 - Enterocolitis due to Clostridium difficile, not specified as recurrent Status: Acute Assessment and Plan: as noted by stool studies continue current therapy (6) Cirrhosis: Code(s): K74.60 - Unspecified cirrhosis of liver Status: Chronic Assessment and Plan: known issues secondary to alcohol abuse Will continue to follow. Additional Plan 1. Liver has acute kidney injury. She is oliguric. Total CK is normal. UA shows protein blood nitrates bilirubin red cells and white cells. These are all acute as the 1 done on admission was bland. Most likely her renal failure is due to hypotension and bleeding. Interstitial nephritis would be unlikely because of the pace of the rise of the creatinine. Does not have a rash and there is no peripheral eosinophilia. She was on ibuprofen before she came in but she has not received any of this while here. I will check urine electrolytes and a renal sonogram. Will continue supportive care. Her blood pressure seems a bit better now on the pressors. Hopefully there will be renal recovery once her hemodynamic situation is improved. 2. The patient has GI bleed. Dr. Campbell saw the patient and he is going to be doing a scope soon. 3. Patient had elevated white cell count. Cultures are done and she is on antibiotics. 4. She is very anemic. Should be getting transfusions. No need for EPO at this point. 5. Patient has a long history of alcohol abuse. She has liver damage from this. Her INR is 2.8. She is getting FFP for this. 6. Patient has C diff colitis. No liquid bowel movements lately. 7. Reversible airways disease. She is intubated. Subjective Date/time seen: 03/22/22 13:13 Interval history: patient is on the ventilator. Sedated. Exam Narrative: General: female intubated/sedated Heart: normal S1 and S2; no rub or gallop Lungs: coarse breath sounds Abdomen: soft, TTP, no bowel sounds Extremities: no cyanosis or clubbing; trace - 1+ edema Skin: jaundiced Objective Data Vital Signs Vital Signs: Vital Signs - 24 hr 03/21/22 13:25 03/21/22 14:27 03/21/22 14:00 Temperature Pulse Rate 88 89 86 Respiratory Rate Blood Pressure 115/60 Pulse Oximetry 92 Oxygen Delivery Mechanical Ventilation Fraction of Inspired Oxygen 35 03/21/22 14:00 03/21/22 16:00 03/21/22 16:00 Temperature 36.6 C Pulse Rate 90 86 Respiratory Rate 24 H 24 H Blood Pressure 103/57 L 110/60 Pulse Oximetry 95 93 Oxygen Delivery Fraction of Inspired Oxygen 35 03/21/22 16:00
--- NOTE | 2022-03-22 13:15 | PC.NURSE ---
Notified Dr. Donahue of patient's potassium level of 3.3 after 40meq IVPB and 40 meq per feeding tube given this AM. New order for 40meq per feeding tube one time and recheck in AM
[2022-03-22 14:16] LABS: Lactate Dehydrogenase 614 U/L (313-618)
[2022-03-22 15:23] LABS: Folic Acid 11.2 ng/mL (2.76->20)
[2022-03-22] MEDS: MIDAZOLAM 100MG/NS 100ML(*CRX) 100 MG/100 ML BAG IV CONT (17:17)
[2022-03-22 17:54] LABS: Hematocrit 27.1 % (37.0-47.0)
[2022-03-22 18:25] LABS: Vancomycin Trough 18.2 ug/mL (10.0-20.0)
[2022-03-23] VITALS (38 sets, daily range): BP systolic 92–189; BP diastolic 50–88; PULSE 81–105; RESP 16–26; TEMP 36.8–37.2; O2SAT 88–99
[2022-03-23 00:43] LABS: Hematocrit 27.2 % (37.0-47.0); Hemoglobin 9.1 g/dL (12.0-15.0)
[2022-03-23] MEDS: metroNIDAZOLE 500 MG/ISO 100ML 500 MG/100 ML BAG 100 MG IVPB ×3 (01:15→18:19)
[2022-03-23] MEDS: IPRATROPIUM BR 0.02% INH SOLN 0.5 MG/2.5 ML VIAL INHALATION ×5 (04:41→19:46)
[2022-03-23] MEDS: ALBUTEROL SULFATE NEB 2.5 MG/3 ML INH INHALATION ×5 (04:41→19:46)
[2022-03-23 04:46] LABS: Alveolar/Arterial O2 Gradient 85.3 mmHg; Base Excess ABG -2.6 mEq/l (+/-2.0); Carboxyhemoglobin 0.3 % THb (0-2.0); Fractional Inspired Oxygen 30 %; HCO3 ABG 22.6 mEq/l (22.0-26.0); Methemoglobin ABG 0.4 %THb (0-1.5); Oxygen Content ABG 14.3 %vol (16.0-22.0); Oxygen Saturation ABG 95.6 % (95.0-100.0); Oxyhemoglobin 94.2 % THb (90.0-100.0); PCO2 ABG 40.4 mmHg (35.0-45.0); PO2 ABG 81.1 mmHg (80.0-100.0); Reduced Hemoglobin 5.1 %THb (0-5.0); Total Hemoglobin 10.7 g/dL (12.0-18.0); pH ABG 7.365 (7.350-7.450)
[2022-03-23 04:48] LABS: Arterial Blood Gas Vent Mode CMV; Arterial Blood Gas Ventilator rate 22 /MIN; Device VENTILATOR; Modified Allen's Test Unable to perform; Site Drawn ARTLINE
[2022-03-23 04:49] LABS: Arterial Blood Gas PEEP 5 cmH2O; Arterial Blood Gas Tidal Volume 450 ml
[2022-03-23] MEDS: CENTRAL LINE FLUSH 10 ML IV PUSH ×3 (05:06→20:17)
[2022-03-23 05:12] LABS: Basophils Absolute Auto 0.1 K/mm3 (0.0-0.1); Basophils Percent Auto 0.7 % (0.2-1.2); Eosinophils Absolute Auto 0.3 K/mm3 (0-0.3); Eosinophils Percent Auto 2.7 % (0-4.4); Hematocrit 28.4 % (37.0-47.0); Hemoglobin 9.5 g/dL (12.0-15.0); Immature Granulocyte Absolute 0.19 K/mm3 (0.00-0.031); Immature Granulocyte Percent A 1.9 % (0-0.5); Lymphocytes Absolute Auto 1.08 K/mm3 (0.9-3.2); Lymphocytes Percent Auto 10.9 % (18.3-44.2); Mean Corpuscular HGB Conc 33.5 g/dl (32-36); Mean Corpuscular Hemoglobin 30.6 pg (26-34); Mean Corpuscular Volume 91.6 fl (80-100); Mean Platelet Volume 10.4 fl (7.4-10.4); Monocytes Absolute Auto 1.2 K/mm3 (0.1-0.6); Neutrophils Absolute Auto 7.1 K/mm3 (1.3-6.7); Neutrophils Percent Auto 71.8 % (45.5-73.1); Nucleated Red Blood Cells Absolute Auto 0.1 K/mm3 (0.0-0.012); Nucleated Red Blood Cells Perc 0.5 % (0.0-0.2); Platelet Count Result 139 k/mm3 (150-375); Red Cell Distribution Width 17.7 % (11.5-14.5); White Blood Count 9.9 K/mm3 (4.5-10.0)
[2022-03-23 05:18] LABS: Alanine Aminotransferase 22 U/L (6-35); Albumin Level 2.8 g/dL (3.5-5.1); Alkaline Phosphatase 50 U/L (38-126); Anion Gap 10 mmol/L (8-16); Aspartate Amino Transferase 64 U/L (14-36); Bilirubin,Total 5.5 mg/dL (0.2-1.3); Blood Urea Nitrogen 44 mg/dL (7-17); Calcium 8.2 mg/dL (8.4-10.2); Carbon Dioxide 23 mmol/L (22-30); Chloride 110 mmol/L (98-107); Estimated CRCL calculation 18 ml/min; Estimated Glomerular Filt Rate 14; Glucose 79 mg/dL (65-110); Magnesium 1.9 mg/dL (1.6-2.3); Phosphorus 3.5 mg/dL (2.5-4.5); Potassium 3.1 mmol/L (3.4-5.0); Sodium 143 mmol/L (137-145)
[2022-03-23 05:19] LABS: Prothrombin Time 22.2 Seconds (11.1-14.7)
[2022-03-23 05:20] LABS: Partial Thromboplastin Time 50.4 SECONDS (22.3-36.8)
[2022-03-23] MEDS: MINERAL OIL/WHITE PETROLATUM OINTMENT 1 APPLIC EACH EYE ×2 (08:38→20:07)
[2022-03-23] MEDS: KCL 40 MEQ/WATER 100 ML 100 ML 25 ML IVPB (08:38)
[2022-03-23] MEDS: PANTOPRAZOLE SODIUM IV 40 MG VIAL IV PUSH ×2 (08:38→20:08)
[2022-03-23] MEDS: CEFEPIME 0.5 GM in DEXTROSE 5% IN WATER 50 ML IVPB ×2 (08:43→20:14)
--- NOTE | 2022-03-23 09:02 | WPDINTPN ---
Progress Note: A&P Assessment and Plan (1) Septic shock: Code(s): A41.9 - Sepsis, unspecified organism; R65.21 - Severe sepsis with septic shock Status: Acute Assessment and Plan: Patient has been hypotensive since 03/18/2022. On 03/19/2022 received Dilaudid in the early hours in her systolic blood pressures dropped to the 70s, patient was given 250 mL IV fluid bolus in the was called. I did tell the hospitalist given additional 1 L IV fluid bolus and if blood pressures does not improve to center to the ICU. -upon arrival to the ICU patient systolic pressures was still in the 60s and 70s, patient was given 30 mL/kg IV fluids, -Levophed and vasopressin weaned off at this time, will maintain mean arterial pressures > 65 mmHg -lactic acid has normalized -source is likely secondary to UTI, acute cholecystitis, hemorrhagic shock -03/19/2022: Blood cultures, urine cultures and sputum cultures obtained and pending -continue vancomycin IV, Flagyl IV, changed Zosyn to cefepime 03/20/2022: Ultrasound-guided percutaneous cholecystostomy tube was inserted by Interventional Radiology. Surgery team also following the patient 03/19/2022: CT scan of the chest abdomen and pelvis -Distended gallbladder with gallstone in the neck correlate for acute cholecystitis, cirrhosis, anasarca, small ascites. Bilateral breast implants probable intracapsular left imprint lecture and possible extracapsular right implant rupture. Moderate pleural effusions bilaterally with atelectasis, correlate for aspiration or pneumonia. (2) Acute respiratory failure: Code(s): J96.00 - Acute respiratory failure, unspecified whether with hypoxia or hypercapnia Status: Acute Assessment and Plan: Patient arrived in the ICU on 03/19, she had shallow broad respirations, tachypneic, ill looking and in impending respiratory failure -patient was intubated on 03/19, she had a lot of coffee-ground emesis during intubation, no white suction have and briskly placed in ET tube through the vocal cords using the glide scope. Physician who intubated the patient concluded that patient likely aspirated gastric contents -continue CMV mode of ventilation, peep of 5 on 30% FiO2 decrease rate to 22 -chest x-ray and ABGs reviewed -continue bronchodilators -sedated with fentanyl and Versed infusion. sedation holiday today -patient was also started on antibiotic as above (3) Ileus: Code(s): K56.7 - Ileus, unspecified Status: Acute Assessment and Plan: Patient was complaining of abdominal pain on arrival to the ICU, stat obstructive series showed possible ileus versus small-bowel obstruction CT scan suggested obstruction -general surgery is following. NG tube suction NPO -patient recently had C diff colitis, currently on p.o. vancomycin. Now on IV Flagyl -NG tube with a minimal coffee ground emesis (4) Acute kidney injury: Code(s): N17.9 - Acute kidney failure, unspecified Status: Acute Assessment and Plan: Patient has been hypotensive since the morning of 03/18/2022 -acute kidney injury likely related to hypotension, ATN, septic shock, hypovolemia, infection, -patient has been adequately volume resuscitated -hold further IV fluids as patient has received significant IV fluids and blood products -lactic acid normalized - creatinine remains elevated but is stable -low urine output with increase in creatinine, appreciate nephrology following the patient -urine lytes not reflective of volume depletion/prerenal, CK levels within normal limits -continue monitor urine output, renal function electrolytes (5) Endocarditis: Code(s): I38 - Endocarditis, valve unspecified Status: Acute Assessment and Plan: she was switched from nafcillin to IV vancomycin given her chest x-ray has infiltrates -this should also cover for endocarditis -JASON was done on 03/16 which showed Very small mobile mass, 1-2 mm, noted on the aortic valve w
[2022-03-23] MEDS: POTASSIUM CHLORIDE 20 MEQ PACKET (FOR LIQUID) 40 MEQ FEED TUBE (09:41)
--- NOTE | 2022-03-23 09:56 | PM.PNGS ---
Progress Note: A&P Assessment and Plan (1) Acute cholecystitis: Code(s): K81.0 - Acute cholecystitis Status: Acute Assessment and Plan: much improved, cont abx, perc drain, ok to start po feeds (2) Sepsis: Code(s): A41.9 - Sepsis, unspecified organism Status: Acute Assessment and Plan: resolving, off pressors, wean vent per couture alterations dressmaker Subjective Subjective Date/Time Seen: 03/23/22 09:56 no acute issues overnight, off pressors Review of Systems Review of Systems: ROS unobtainable: Yes unobtainable due to endotracheal tube Exam Resp: Auscultation: diminished lung sounds Cardio: Rate: regular rate Rhythm: regular rhythm GI: Other: soft, sl dist, perc sunita c bilious output Objective Data Vital Signs Vital Signs: Vital Signs - 24 hr 03/22/22 10:00 03/22/22 10:00 03/22/22 10:00 Temperature 36.3 C L 36.4 C L Pulse Rate 82 82 80 Respiratory Rate 20 24 H Blood Pressure 118/67 112/59 L Pulse Oximetry 96 93 Oxygen Delivery Fraction of Inspired Oxygen 03/22/22 10:56 03/22/22 11:10 03/22/22 11:10 Temperature 36.4 C L Pulse Rate 79 80 80 Respiratory Rate 20 23 H Blood Pressure 112/62 Pulse Oximetry 96 96 Oxygen Delivery Mechanical Ventilation Fraction of Inspired Oxygen 30 03/22/22 11:17 03/22/22 12:31 03/22/22 10:00 Temperature Pulse Rate 85 82 82 Respiratory Rate 23 H 20 20 Blood Pressure Pulse Oximetry Oxygen Delivery Fraction of Inspired Oxygen 03/22/22 12:32 03/22/22 12:00 03/22/22 12:00 Temperature 36.4 C Pulse Rate 82 83 Respiratory Rate 20 22 H Blood Pressure 102/56 L Pulse Oximetry 94 Oxygen Delivery Fraction of Inspired Oxygen 35 03/22/22 12:00 03/22/22 12:00 03/22/22 14:00 Temperature Pulse Rate 83 81 Respiratory Rate Blood Pressure Pulse Oximetry 97 Oxygen Delivery Mechanical Ventilation Fraction of Inspired Oxygen 35 03/22/22 14:00 03/22/22 14:34 03/22/22 14:34 Temperature 36.5 C Pulse Rate 80 80 80 Respiratory Rate 22 H 22 H 22 H Blood Pressure 102/57 L Pulse Oximetry 94 Oxygen Delivery Fraction of Inspired Oxygen 03/22/22 14:35 03/22/22 16:00 03/22/22 16:24 Temperature Pulse Rate 80 81 80 Respiratory Rate 22 H Blood Pressure Pulse Oximetry 94 Oxygen Delivery Mechanical Ventilation Fraction of Inspired Oxygen 30 03/22/22 16:24 03/22/22 16:00 03/22/22 17:17 Temperature 36.6 C Pulse Rate 80 80 82 Respiratory Rate 22 H 18 22 H Blood Pressure 99/57 L Pulse Oximetry 93 Oxygen Delivery Fraction of Inspired Oxygen 03/22/22 17:20 03/22/22 16:00 03/22/22 16:00 Temperature Pulse Rate 82 Respiratory Rate 22 H Blood Pressure Pulse Oximetry 93 Oxygen Delivery Mechanical Ventilation Fraction of Inspired Oxygen 35 35 03/22/22 18:19 03/22/22 18:31 03/22/22 18:31 Temperature 36.7 C Pulse Rate 81 80 80 Respiratory Rate 22 H Blood Pressure 102/58 L Pulse Oximetry 95 92 Oxygen Delivery Mechanical Ventilation Fraction of Inspired Oxygen 30 03/22/22 19:23 03/22/22 19:25 03/22/22 19:44 Temperature Pulse Rate 83 79 Respiratory Rate 24 H 22 H Blood Pressure Pulse Oximetry 93 Oxygen Delivery Mechanical Ventilation Fraction of Inspired Oxygen 30 30 03/22/22 19:44 03/22/22 20:00 03/22/22 20:02 Temperature Pulse Rate 81 81 84 Respiratory Rate 22 H 22 H Blood Pressure Pulse Oximetry 93 Oxygen Delivery Mechanical Ventilation Fraction of Inspired Oxygen 30 03/22/22 20:15 03/22/22 20:00 03/22/22 20:00 Temperature 36.7 C Pulse Rate 83 85 86 Respiratory Rate 22 H 22 H Blood Pressure 103/57 L Pulse Oximetry 94 Oxygen Delivery Fraction of Inspired Oxygen 03/22/22 22:00 03/22/22 22:00 03/22/22 22:37 Temperature 36.8 C Pulse Rate 84 84 85 Respiratory Rate 22 H 26 H Blood Pressure 99/58 L Pulse Oximetry 93
[2022-03-23] MEDS: OXYMETAZOLINE HCL 0.05% NAS 15 ML BTL (*BKC) 1 SPRAY NASAL ×4 (11:06→12:44)
--- NOTE | 2022-03-23 11:28 | PCNFU ---
Nutrition Follow-Up Complete: Suboptimal po intake related to reduced appetite and intake as evidenced by charted intake of meals 25% or less most meals. Goal: Increase PO intake Patient is not progressing towards goal. We will continue current goal. Pt current nutrition is Vital AF 1.2 at 20 ml/hr. Last recorded weight is 102.8 kg, down from 104.1 kg on admit. Bowel Motility:+BM reported 03/23 Labs Reviewed:Cr 3.3,K 3.1,BUN 44, GFR 14, Hct 28.4,Hgb 9.5 Meds Noted:Protonix, Flagyl, Zosyn, Levophed, Vancomycin, Atrovent, Cefepime Skin: WNL Additional Notes: Patient remains on mechanical vent. Patient is currently not on any sedation. Tube feedings started today of Vital AF 1.2 at 20 ml/hr over 22 hours,providing 528 kcals/33 gms protein. Recommend goal rate at 70 ml/hr over 22 hours providing 1848 kcals/115 gm protein/1249 ml water. 30 ml free water flush q 4 hours. Monitoring: daily in ICU rounds and reassessing every Monday and Monday.
[2022-03-23] MEDS: ALBUMIN HUMAN 25% 25 GM/100 ML 100 ML IVPB ×3 (11:35→23:46)
[2022-03-23 11:58] LABS: Hematocrit 28.4 % (37.0-47.0); Hemoglobin 9.5 g/dL (12.0-15.0)
--- NOTE | 2022-03-23 12:48 | P.PNNP_ITS ---
Progress Note: A&P Assessment and Plan (1) Acute kidney injury: Code(s): N17.9 - Acute kidney failure, unspecified Status: Acute Assessment and Plan: * due to ATN from hypotension, infection/sepsis, and prerenal factors * evaluation to date: * urine electrolytes are non-prerenal * CPK levels okay * imaging without obstruction * possible peak/plateau creatinine at 3.5mg/dl -- creatinine doing better in the last 48 hours with increase in urine output * follow repeat labs and UOP (2) Septic shock: Code(s): A41.9 - Sepsis, unspecified organism; R65.21 - Severe sepsis with septic shock Status: Acute Assessment and Plan: * due to acute cholecystitis +/- UTI +/- endocarditis * s/p cholecystostomy drain placement * off pressors at this time * continue IV antibiotics * follow culture data (3) Acute respiratory failure: Code(s): J96.00 - Acute respiratory failure, unspecified whether with hypoxia or hyperca pnia Status: Acute Assessment and Plan: * due to sepsis and hemodynamic instability * continue ventilator support * wean as tolerated (4) Endocarditis: Code(s): I38 - Endocarditis, valve unspecified Status: Acute Assessment and Plan: * as noted by JASON * on antibioitcs (5) C. difficile colitis: Code(s): A04.72 - Enterocolitis due to Clostridium difficile, not specified as recurrent Status: Acute Assessment and Plan: * as noted by stool studies * continue current therapy (6) Cirrhosis: Code(s): K74.60 - Unspecified cirrhosis of liver Status: Chronic Assessment and Plan: * known issues secondary to alcohol abuse Will continue to follow. Subjective Date/time seen: 03/23/22 12:48 Remains on full ventilator support at this time; remains hemodynamically stable off vasopressor therapy at this time; H/H remains relatively stable at this time; no other issues/events overnight or earlier this morning. Exam Narrative: General: female intubated/sedated Heart: normal S1 and S2; no rub Lungs: coarse breath sounds Abdomen: soft, TTP, no bowel sounds Extremities: no cyanosis or clubbing; trace - 1+ edema Skin: jaundice apparent Objective Data Vital Signs Vital Signs: Vital Signs Temp Pulse Resp BP Pulse Ox O2 Del Method FiO2 03/23/22 12:00 30 03/23/22 12:00 93 CPAP 30 03/23/22 12:00 101 H 03/23/22 12:00 36.9 C 101 H 16 131/69 91 03/23/22 11:03 95 99 Mechanical Ventilation 30 03/23/22 10:00 36.9 C 95 22 H 93/51 L 94 03/23/22 10:00 95 03/23/22 08:00 36.9 C 89 22 H 103/59 L 94 03/23/22 08:00 98 03/23/22 08:00 30 03/23/22 08:00 22 H 94 Mechanical Ventilation 30 03/23/22 08:45 95 22 H 03/23/22 08:45 95 22 H 03/23/22 08:00 89 22 H 03/23/22 08:00 89 22 H 03/23/22 08:20 95 95 Mechanical Ventilation 03/23/22 08:17 95 24 H 03/23/22 06:00 89 22 H 92/50 L 92 03/23/22 06:00 88 03/23/22 05:58 93 22 H 03/23/22 05:58 93 22 H 03/23/22 04:57 90 22 H 03/23/22 04:57 90 22 H 03/23/22 04:49 93 95 Mechanical V
--- NOTE | 2022-03-23 12:48 | PM.PNNEP ---
Progress Note: A&P Assessment and Plan (1) Acute kidney injury: Code(s): N17.9 - Acute kidney failure, unspecified Status: Acute Assessment and Plan: due to ATN from hypotension, infection/sepsis, and prerenal factors evaluation to date: urine electrolytes are non-prerenal CPK levels okay imaging without obstruction possible peak/plateau creatinine at 3.5mg/dl -- creatinine doing better in the last 48 hours with increase in urine output follow repeat labs and UOP (2) Septic shock: Code(s): A41.9 - Sepsis, unspecified organism; R65.21 - Severe sepsis with septic shock Status: Acute Assessment and Plan: due to acute cholecystitis +/- UTI +/- endocarditis s/p cholecystostomy drain placement off pressors at this time continue IV antibiotics follow culture data (3) Acute respiratory failure: Code(s): J96.00 - Acute respiratory failure, unspecified whether with hypoxia or hypercapnia Status: Acute Assessment and Plan: due to sepsis and hemodynamic instability continue ventilator support wean as tolerated (4) Endocarditis: Code(s): I38 - Endocarditis, valve unspecified Status: Acute Assessment and Plan: as noted by JASON on antibioitcs (5) C. difficile colitis: Code(s): A04.72 - Enterocolitis due to Clostridium difficile, not specified as recurrent Status: Acute Assessment and Plan: as noted by stool studies continue current therapy (6) Cirrhosis: Code(s): K74.60 - Unspecified cirrhosis of liver Status: Chronic Assessment and Plan: known issues secondary to alcohol abuse Will continue to follow. Subjective Date/time seen: 03/23/22 12:48 Remains on full ventilator support at this time; remains hemodynamically stable off vasopressor therapy at this time; H/H remains relatively stable at this time; no other issues/events overnight or earlier this morning. Exam Narrative: General: female intubated/sedated Heart: normal S1 and S2; no rub Lungs: coarse breath sounds Abdomen: soft, TTP, no bowel sounds Extremities: no cyanosis or clubbing; trace - 1+ edema Skin: jaundice apparent Objective Data Vital Signs Vital Signs: Vital Signs Temp Pulse Resp BP Pulse Ox O2 Del Method FiO2 03/23/22 12:00 30 03/23/22 12:00 93 CPAP 30 03/23/22 12:00 101 H 03/23/22 12:00 36.9 C 101 H 16 131/69 91 03/23/22 11:03 95 99 Mechanical Ventilation 30 03/23/22 10:00 36.9 C 95 22 H 93/51 L 94 03/23/22 10:00 95 03/23/22 08:00 36.9 C 89 22 H 103/59 L 94 03/23/22 08:00 98 03/23/22 08:00 30 03/23/22 08:00 22 H 94 Mechanical Ventilation 03/23/22 08:45 95 22 H 03/23/22 08:45 95 22 H 03/23/22 08:00 89 22 H 03/23/22 08:00 89 22 H 03/23/22 08:20 95 95 Mechanical Ventilation 03/23/22 08:17 95 24 H 03/23/22 06:00 89 22 H 92/50 L 92 03/23/22 06:00 88 03/23/22 05:58 93 22 H 03/23/22 05:58 93 22 H 03/23/22 04:57 90 22 H 03/23/22 04:57 90 22 H 03/23/22 04:49 93 95 Mechanical Ventilation 03/23/22 04:42 96 24 H 03/23/22 04:00 90 03/23/22 04:00 36.8 C 90 22 H 104/59 L 93 03/23/22 03:20 30 03/23/22 03:16 88 22 H 93 Mechanical Ventilation 03/23/22 02:25 85 24 H 03/23/22 02:25 85 24 H 03/23/22 02:01 84 22 H 03/23/22 02:00 36.8 C 83 22 H 101/56 L 95 03/23/22 02:00 84 03/22/22 23:45 85 22 H 03/23/22 01:56 85 96 Mechanical Ventilation 03/23/22 00:00 82 03/23/22 00:00 36.8 C 81 22 H 100/55 L 94 03/22/22 23:25 87 23 H 03/22/22 23:10 30 03/22/22 23:07 86 22 H 95 Mechanical Ventilation 03/22/22 23:03 86 96 Mechanical Ventilation 03/22/22 22:37
[2022-03-23] MEDS: BACITRACIN OINTMENT 15 GM TUBE 1 APPLIC TOPICAL (14:06)
[2022-03-23] MEDS: fentaNYL CITRATE INJ (*CRX) 100 MCG/2 ML VIAL 50 MCG IV PUSH (14:10)
--- NOTE | 2022-03-23 14:12 | P.PNCROSS_ITS ---
Event Note Event Note Event Note: patient had OG tube in place. NG tube was inserted this morning in anticipati on the patient will need gastric access for GI bleed and possible tube feeds in the event she gets extubated. Post NG insertion patient started having epistaxis. Blood was coming from both sides but it is most likely coming from the right as that is where the NG tube was inserted. Patient also is coagulopathic from sepsis and liver disease. we tried Afrin spray multiple times with no benefit. I inserted a rhino rocket on the right side with bacitracin ointment. ENT has been consulted. I will monitor. If bleeding persists on the left side I will insert another on the left. Also spoke to patient's daughter at bedside and updated her with events and answered all her questions.
[2022-03-23] MEDS: MIDAZOLAM HCL (*CRX) 2 MG/2 ML VIAL IV PUSH (14:56)
--- NOTE | 2022-03-23 15:00 | PC.NURSE ---
NG tube inserted into right nare to 55cm per measurement. After initial chest x-ray it was advanced 15 more cm and was then in proper location per x-ray. 5-10 minutes after advancement, red drainage was noticed coming from right nare. Nare was suctioned and pressure applied for 5 minutes. Bleeding seemed to have stopped, but when I re-entered the room 10 minutes later, drainage was again down patient's face. Pressure was again applied and rolled tissue inserted into patient's nare. Doctor Godfrey notified. Later, blood was noticed coming out of the left nare and patient's mouth. Dr. Donahue was again notified and Afran spray ordered. After 4 attempts using Afran spray in bilateral nares, Dr. Donahue was again notified. He then consulted ENT who suggested a 7.5 Rhino Rocket, which Dr. Donahue applied to the patient's right nare. After an hour, there was still blood coming from the left nare and mouth so a second Rhino Rocket was inserted into the left nare. ENT to come evaluate later.
--- NOTE | 2022-03-23 15:04 | WPDGIPROGNO ---
Progress Note: A&P Assessment and Plan (1) Acute cholecystitis: Code(s): K81.0 - Acute cholecystitis Status: Acute Assessment and Plan: Patient with acute cholecystitis. Now with cholecystotomy tube in place. Appears to be improving clinically. Surgical service following. Suspect sepsis is related to this. (2) Acute kidney injury: Code(s): N17.9 - Acute kidney failure, unspecified Status: Acute Assessment and Plan: Patient with depressed renal function elevated creatinine. Appears to correlate with sepsis from her cholecystitis and now DIC. Continued supportive care. (3) Abnormal coagulation profile: Code(s): R79.1 - Abnormal coagulation profile Status: Acute Assessment and Plan: Elevated prothrombin time. This appears to be secondary to DIC. This appears to contribute to her bleeding not only from the stomach but from the nose after placement of NG tube today. Hemoglobin improved after transfusion. Platelets modestly low but not to the same degree as her coagulopathy. (4) Ileus: Code(s): K56.7 - Ileus, unspecified Status: Acute Assessment and Plan: Patient initially felt to have ileus. Her abdomen is much softer today. There was a question of small-bowel obstruction on CT scanning. But this seems unlikely to clinical exam. Surgeon following. Hopefully we can stop in G-tube decompressions. (5) Acute respiratory failure: Code(s): J96.00 - Acute respiratory failure, unspecified whether with hypoxia or hypercapnia Status: Acute Assessment and Plan: Patient remains on the ventilator at this time. (6) Endocarditis: Code(s): I38 - Endocarditis, valve unspecified Status: Acute Assessment and Plan: Endocarditis by JASON. Patient will require long-term antibiotics. (7) C. difficile colitis: Code(s): A04.72 - Enterocolitis due to Clostridium difficile, not specified as recurrent Status: Acute Assessment and Plan: Patient found to have C diff colitis at the time of presentation. Now after complete course of therapy will need to monitor for recurrence. (8) Cirrhosis: Code(s): K74.60 - Unspecified cirrhosis of liver Status: Chronic Assessment and Plan: Initial scanning reveals a nodular liver consistent with cirrhosis. Features suspicious for portal hypertension. There were no varices on EGD. Underlying alcoholic liver disease may contribute to her coagulopathy however. Continued supportive care for now. (9) Bipolar 1 disorder: Code(s): F31.9 - Bipolar disorder, unspecified Status: Acute (10) DVT (deep venous thrombosis): Code(s): I82.409 - Acute embolism and thrombosis of unspecified deep veins of unspecified lower extremity Status: Acute Subjective Date/time seen: 03/23/22 15:04 patient remains sedated on the ventilator. OG tube was attempted be changed NG tube today. Patient subsequently had bleeding from the trauma of placement of NG tube. Review of Systems Review of Systems: ROS unobtainable: Yes unobtainable due to endotracheal tube Exam Narrative: Physical exam patient is on the ventilator. Sedated. HEENT exam reveals some epistaxis. Lungs reveal bilateral rhonchi. Heart without murmur. Abdomen bowel sounds present soft no localized tenderness. Cholecystotomy tube in place. Objective Data Vital Signs Vital Signs: Vital Signs - 24 hr 03/22/22 16:00 03/22/22 16:24 03/22/22 16:24 Temperature Pulse Rate 81 80 80 Respiratory Rate 22 H 22 H Blood Pressure Pulse Oximetry Oxygen Delivery Fraction of Inspired Oxygen 03/22/22 16:00 03/22/22 17:17 03/22/22 17:20 Temperature 97.8 F Pulse Rate 80 82 82 Respiratory Rate 18 22 H 22 H Blood Pressure 99/57 L Pulse Oximetry 93 Oxygen Delivery Fraction of Inspired Oxygen 03/22/22 16:00 03/22/22 16:00 03/22/22 18:19 Temp
[2022-03-23 16:40] LABS: Glucose Point of Care 85 mg/dl (65-105)
--- NOTE | 2022-03-23 17:03 | PM.IMPN ---
Progress Note: A&P Assessment and Plan (1) Septic shock: Code(s): A41.9 - Sepsis, unspecified organism; R65.21 - Severe sepsis with septic shock Status: Acute Assessment and Plan: Patient has been hypotensive since 03/18/2022. On 03/19/2022 received Dilaudid in the early hours in her systolic blood pressures dropped to the 70s, patient was given 250 mL IV fluid bolus in the was called. I did tell the hospitalist given additional 1 L IV fluid bolus and if blood pressures does not improve to center to the ICU. -upon arrival to the ICU patient systolic pressures was still in the 60s and 70s, patient was given 30 mL/kg IV fluids, -Levophed and vasopressin weaned off at this time, will maintain mean arterial pressures > 65 mmHg -lactic acid has normalized -source is likely secondary to UTI, acute cholecystitis, hemorrhagic shock -03/19/2022: Blood cultures, urine cultures and sputum cultures obtained and pending -continue vancomycin IV, Flagyl IV, changed Zosyn to cefepime 03/20/2022: Ultrasound-guided percutaneous cholecystostomy tube was inserted by Interventional Radiology. Surgery team also following the patient 03/19/2022: CT scan of the chest abdomen and pelvis -Distended gallbladder with gallstone in the neck correlate for acute cholecystitis, cirrhosis, anasarca, small ascites. Bilateral breast implants probable intracapsular left imprint lecture and possible extracapsular right implant rupture. Moderate pleural effusions bilaterally with atelectasis, correlate for aspiration or pneumonia. 03/23/2022 interval history: patient is 71-year-old female admitted to the hospital with GI bleed and history of alcohol abuse patient went into respiratory failure on 03/19 and was transferred to ICU and intubated patient had a coffee-ground emesis during the intervention, patient also developed sepsis reason shock patient was directly hydrated however required pressors, patient also with acute cholecystitis on 03/20 patient had ultrasound-guided cholecystostomy tube placement surgery service suspect sepsis secondary to acute cholecystitis being treated Cefepime, Flagyl and vancomycin, bile still no growth, patient with abnormal prothrombin time secondary to DIC, and cause of her bleeding, patient currently on vent unable to provide any review of symptom, patient is seen by pharmacy clerk, GI and General surgery and appreciate. (2) Acute respiratory failure: Code(s): J96.00 - Acute respiratory failure, unspecified whether with hypoxia or hypercapnia Status: Acute Assessment and Plan: Patient arrived in the ICU on 03/19, she had shallow broad respirations, tachypneic, ill looking and in impending respiratory failure -patient was intubated on 03/19, she had a lot of coffee-ground emesis during intubation, no white suction have and briskly placed in ET tube through the vocal cords using the glide scope. Physician who intubated the patient concluded that patient likely aspirated gastric contents -continue CMV mode of ventilation, peep of 5 on 30% FiO2 decrease rate to 22 -chest x-ray and ABGs reviewed -continue bronchodilators -sedated with fentanyl and Versed infusion. sedation holiday today -patient was also started on antibiotic as above (3) Ileus: Code(s): K56.7 - Ileus, unspecified Status: Acute Assessment and Plan: Patient was complaining of abdominal pain on arrival to the ICU, stat obstructive series showed possible ileus versus small-bowel obstruction CT scan suggested obstruction -general surgery is following. NG tube suction NPO -patient recently had C diff colitis, currently on p.o. vancomycin. Now on IV Flagyl -NG tube with a minimal coffee ground emesis (4) Acute kidney injury: Code(s): N17.9 - Acute kidney failure, unspecified Status: Acute Assessment and Plan: Patient has been hypotensive since the morning of 03/18/2022 -acute kidney injury likely related to hypotens
--- NOTE | 2022-03-23 17:44 | WPDCN ---
Assessment and Plan Assessment and plan (1) Right-sided epistaxis: Code(s): R04.0 - Epistaxis Status: Acute Plan Epistaxis. Keep rhinorocket inflated. Can inflate further if desired. About 12-15cc of air in their now. Can insert in left if needed as well. If the patient isn't bleeding Monday will lower balloon. Please fix DIC if possible. HPI Data of Consult Date/Time: 03/23/22 17:44 Requesting Physician: Rafael Andrea MD Primary Care Provider: PHYSICIAN NOT ON STAFF Consult Narrative Narrative: Sade Drake is a 71 year old female with a pmh of liver failure and dic. NG placed, epistaxis resulted. ICU placed rhinorocket. ENT consulted for further evaluation and treatment. Review of Systems Review of Systems: ROS unobtainable: Yes unobtainable due to endotracheal tube PMFSH Past Medical History Medical History Acute stroke due to ischemia Altered mental status Asthma Bipolar 1 disorder COPD (chronic obstructive pulmonary disease) [place] Rhabdomyolysis Family History Family History Father Asthma Colon cancer Grandparent Asthma Chronic obstructive pulmonary disease Mother Colon cancer Diabetes mellitus Hypertension Sibling Hypertension Social History Social History Smoking packs per day: 0.25 Smoking cigarettes per day: 5.0 Years smoked: 52 Smoking pack-years: 13.00 Smoking status: Light tobacco smoker Tobacco type: cigarettes Second hand tobacco smoke exposure: Yes Alcohol intake: current Drinks per week: 9 Substance use: never Substance use type: does not use Other substance usage details: recreational Last use: 03/03/22 Gender identity (if verbalized by the patient): Female Spiritual care concerns: No Meds Home Medications and Allergies Home Medications Medication Instructions Recorded Confirmed Type albuterol sulfate 90 mcg/actuation 18 mcg inhalation DAILY PRN 06/22/21 03/09/22 History aerosol inhaler (ProAir HFA) Shortness Of Breath Or Wheezing aspirin 81 mg tablet,delayed 81 mg PO DAILY 06/22/21 03/09/22 History release bupropion HCl 100 mg tablet 100 mg PO DAILY 06/22/21 03/09/22 History fluoxetine 10 mg capsule 10 mg PO DAILY 06/22/21 03/09/22 History fluticasone 100 mcg-salmeterol 50 1 ea inhalation BID 06/22/21 03/09/22 History mcg/dose blistr powdr for inhalation (Kera Inhub) ibuprofen 800 mg tablet 800 mg PO TID PRN Pain 06/22/21 03/09/22 History quetiapine 200 mg tablet 200 mg PO QPM 06/22/21 03/09/22 History atorvastatin 20 mg tablet 20 mg PO DAILY 30 days #30 tabs 03/19/22 Rx nafcillin 2 gram intravenous 2 g IV Q4HR 28 days #112 ea 03/19/22 Rx solution sucralfate 1 gram tablet 1 g PO ACHS 30 days #120 tabs 03/19/22 Rx vancomycin 1,000 mg intravenous 125 mg PO Q6HR 10 days #40 ea 03/19/22 Rx injection Allergies Allergy/AdvReac Type Severity Reaction Status Date / Time No Known Allergies Allergy Verified 03/10/22 10:54 Vital Signs Vital Signs - 24 hr 03/22/22 18:19 03/22/22 18:31 03/22/22 18:31 Temperature 36.7 C Pulse Rate 81 80 80 Respiratory Rate 22 H Blood Pressure 102/58 L Pulse Oximetry 95 92 Oxygen Delivery Mechanical Ventilation Fraction of Inspired Oxygen 30 03/22/22 19:23 03/22/22 19:25 03/22/22 19:44 Temperature Pulse Rate 83 79 Respiratory Rate 24 H 22 H Blood Pressure Pulse Oximetry 93 Oxygen Delivery Mechanical Ventilation Fraction of Inspired Oxygen 30 30 03/22/22 19:44 03/22/22 20:00 03/22/22 20:02 Temperature Pulse Rate 81 81 84 Respiratory Rate 22 H 22 H Blood Pressure Pulse Oximetry 93 Oxygen Delivery Mechanical Ventilation Fraction of Inspired Oxygen 30 03/22/22 20:15 03/22/22 20:00 03/22/22 20:00 Temperature 36.7 C Pu
--- NOTE | 2022-03-23 18:33 | PC.NURSE ---
Patient continues to have bleeding from right nare. 3 more ml of air inserted into rhino rocket per Dr. Arango's note.
[2022-03-23 20:52] LABS: Hematocrit 23.7 % (37.0-47.0); Hemoglobin 7.9 g/dL (12.0-15.0); Mean Corpuscular HGB Conc 33.3 g/dl (32-36); Mean Corpuscular Volume 92.9 fl (80-100); Platelet Count Result 118 k/mm3 (150-375); Red Blood Count 2.55 M/mm3 (4.2-5.4); Red Cell Distribution Width 18.1 % (11.5-14.5); White Blood Count 8.8 K/mm3 (4.5-10.0)
[2022-03-23] MEDS: FENTANYL 2,500MCG/NS250ML(*CRX 2,500 MCG/250 ML BAG 7.5 MCG IV CONT (21:29)
[2022-03-24] VITALS (49 sets, daily range): BP systolic 114–168; BP diastolic 61–104; PULSE 83–919; RESP 20–26; TEMP 36.8–37.7; O2SAT 91–97
[2022-03-24] MEDS: IPRATROPIUM BR 0.02% INH SOLN 0.5 MG/2.5 ML VIAL INHALATION ×6 (02:13→23:34)
[2022-03-24] MEDS: ALBUTEROL SULFATE NEB 2.5 MG/3 ML INH INHALATION ×6 (02:13→23:34)
[2022-03-24] MEDS: metroNIDAZOLE 500 MG/ISO 100ML 500 MG/100 ML BAG 100 MG IVPB ×3 (02:44→18:05)
[2022-03-24] MEDS: CENTRAL LINE FLUSH 10 ML IV PUSH ×3 (05:03→20:10)
[2022-03-24] MEDS: ALBUMIN HUMAN 25% 25 GM/100 ML 100 ML IVPB ×4 (05:03→23:24)
[2022-03-24 05:15] LABS: Basophils Absolute Auto 0.1 K/mm3 (0.0-0.1); Eosinophils Absolute Auto 0.2 K/mm3 (0-0.3); Eosinophils Percent Auto 2.1 % (0-4.4); Hemoglobin 7.7 g/dL (12.0-15.0); Immature Granulocyte Absolute 0.19 K/mm3 (0.00-0.031); Immature Granulocyte Percent A 2.3 % (0-0.5); Lymphocytes Absolute Auto 1.15 K/mm3 (0.9-3.2); Lymphocytes Percent Auto 13.9 % (18.3-44.2); Mean Corpuscular HGB Conc 33.5 g/dl (32-36); Mean Corpuscular Hemoglobin 30.7 pg (26-34); Mean Corpuscular Volume 91.6 fl (80-100); Mean Platelet Volume 10.7 fl (7.4-10.4); Monocytes Absolute Auto 1.4 K/mm3 (0.1-0.6); Monocytes Percent Auto 17.4 % (2.6-8.5); Neutrophils Absolute Auto 5.2 K/mm3 (1.3-6.7); Neutrophils Percent Auto 63.3 % (45.5-73.1); Nucleated Red Blood Cells Perc 0.5 % (0.0-0.2); Platelet Count Result 128 k/mm3 (150-375); Red Blood Count 2.51 M/mm3 (4.2-5.4); Red Cell Distribution Width 17.8 % (11.5-14.5); White Blood Count 8.3 K/mm3 (4.5-10.0)
[2022-03-24 05:23] LABS: Alanine Aminotransferase 17 U/L (6-35); Albumin Level 3.3 g/dL (3.5-5.1); Alkaline Phosphatase 53 U/L (38-126); Anion Gap 11 mmol/L (8-16); Aspartate Amino Transferase 50 U/L (14-36); Bilirubin,Total 5.3 mg/dL (0.2-1.3); Blood Urea Nitrogen 41 mg/dL (7-17); Calcium 8.4 mg/dL (8.4-10.2); Carbon Dioxide 22 mmol/L (22-30); Chloride 111 mmol/L (98-107); Estimated CRCL calculation 22 ml/min; Estimated Glomerular Filt Rate 17; Glucose 72 mg/dL (65-110); Magnesium 1.9 mg/dL (1.6-2.3); Phosphorus 3.1 mg/dL (2.5-4.5); Potassium 3.1 mmol/L (3.4-5.0); Sodium 144 mmol/L (137-145)
[2022-03-24 05:25] LABS: INR 2.2; Partial Thromboplastin Time 50.2 SECONDS (22.3-36.8); Prothrombin Time 23.8 Seconds (11.1-14.7)
[2022-03-24 05:44] LABS: Alveolar/Arterial O2 Gradient 124.4 mmHg; Arterial Blood Gas Vent Mode CMV; Arterial Blood Gas Ventilator rate 22 /MIN; Carboxyhemoglobin 0.3 % THb (0-2.0); Device VENTILATOR; Fractional Inspired Oxygen 35 %; HCO3 ABG 22.7 mEq/l (22.0-26.0); Methemoglobin ABG 0.5 %THb (0-1.5); Oxygen Content ABG 13.6 %vol (16.0-22.0); Oxygen Saturation ABG 96.9 % (95.0-100.0); Oxyhemoglobin 94.9 % THb (90.0-100.0); PO2 ABG 85.6 mmHg (80.0-100.0); PO2 FiO2 Ratio Arterial Blood 2.45 %; Reduced Hemoglobin 4.3 %THb (0-5.0); Site Drawn ARTLINE; Total Hemoglobin 10.1 g/dL (12.0-18.0); pH ABG 7.443 (7.350-7.450)
[2022-03-24 05:45] LABS: Arterial Blood Gas PEEP 5 cmH2O; Arterial Blood Gas Tidal Volume 450 ml
[2022-03-24] MEDS: CEFEPIME 0.5 GM in DEXTROSE 5% IN WATER 50 ML IVPB ×2 (08:01→20:07)
[2022-03-24] MEDS: PANTOPRAZOLE SODIUM IV 40 MG VIAL IV PUSH ×2 (08:08→20:08)
[2022-03-24] MEDS: MINERAL OIL/WHITE PETROLATUM OINTMENT 1 APPLIC EACH EYE ×2 (08:08→20:08)
[2022-03-24 08:11] LABS: Hepatitis C RNA, Quant PCR <15 IU/mL
--- NOTE | 2022-03-24 08:51 | WPDINTPN ---
Progress Note: A&P Assessment and Plan (1) Septic shock: Code(s): A41.9 - Sepsis, unspecified organism; R65.21 - Severe sepsis with septic shock Status: Acute Assessment and Plan: Patient has been hypotensive since 03/18/2022. On 03/19/2022 received Dilaudid in the early hours in her systolic blood pressures dropped to the 70s, patient was given 250 mL IV fluid bolus in the was called. I did tell the hospitalist given additional 1 L IV fluid bolus and if blood pressures does not improve to center to the ICU. -upon arrival to the ICU patient systolic pressures was still in the 60s and 70s, patient was given 30 mL/kg IV fluids, -Levophed and vasopressin weaned off at this time, will maintain mean arterial pressures > 65 mmHg -lactic acid has normalized -source is likely secondary to UTI, acute cholecystitis, hemorrhagic shock -03/19/2022: Blood cultures, urine cultures and sputum cultures obtained and negative till now - currently on vancomycin IV, Flagyl IV, changed Zosyn to cefepime. I will DC vancomycin but continue Flagyl and cefepime 03/20/2022: Ultrasound-guided percutaneous cholecystostomy tube was inserted by Interventional Radiology. Surgery team also following the patient 15 mL output overnight 03/19/2022: CT scan of the chest abdomen and pelvis -Distended gallbladder with gallstone in the neck correlate for acute cholecystitis, cirrhosis, anasarca, small ascites. Bilateral breast implants probable intracapsular left imprint lecture and possible extracapsular right implant rupture. Moderate pleural effusions bilaterally with atelectasis, correlate for aspiration or pneumonia. (2) Acute respiratory failure: Code(s): J96.00 - Acute respiratory failure, unspecified whether with hypoxia or hypercapnia Status: Acute Assessment and Plan: Patient arrived in the ICU on 03/19, she had shallow broad respirations, tachypneic, ill looking and in impending respiratory failure -patient was intubated on 03/19, she had a lot of coffee-ground emesis during intubation, no white suction have and briskly placed in ET tube through the vocal cords using the glide scope. Physician who intubated the patient concluded that patient likely aspirated gastric contents -continue CMV mode of ventilation, peep of 5 on 30% FiO2 decrease rate to 22 -chest x-ray and ABGs reviewed -continue bronchodilators - currently sedated with fentanyl infusion. sedation holiday today -patient was also started on antibiotic as above - patient tolerated pressure support ventilation yesterday drowsy and not awake enough. And also was having epistaxis hence no temps ways to extubate patient -I will discuss with GI and see if they have any plan to repeat EGD (3) Ileus: Code(s): K56.7 - Ileus, unspecified Status: Acute Assessment and Plan: Patient was complaining of abdominal pain on arrival to the ICU, stat obstructive series showed possible ileus versus small-bowel obstruction CT scan suggested obstruction -general surgery is following. NG tube suction NPO -patient recently had C diff colitis, currently on p.o. vancomycin. Now on IV Flagyl -NG tube with a bloody output with blood clots (4) Acute kidney injury: Code(s): N17.9 - Acute kidney failure, unspecified Status: Acute Assessment and Plan: Patient has been hypotensive since the morning of 03/18/2022 -acute kidney injury likely related to hypotension, ATN, septic shock, hypovolemia, infection, -patient has been adequately volume resuscitated -hold further IV fluids as patient has received significant IV fluids and blood products -lactic acid normalized - creatinine remains elevated but is stable -low urine output with increase in creatinine, appreciate nephrology following the patient -urine lytes not reflective of volume depletion/prerenal, CK levels within normal limits -continue monitor urine output, renal function electrolytes (5) Endocarditis:
[2022-03-24] MEDS: KCL 40 MEQ/WATER 100 ML 100 ML 25 ML IVPB (09:12)
[2022-03-24] MEDS: POTASSIUM CHLORIDE 20 MEQ PACKET (FOR LIQUID) 40 MEQ FEED TUBE (09:12)
--- NOTE | 2022-03-24 10:11 | WPDGIPROGNO ---
Progress Note: A&P Assessment and Plan (1) Right-sided epistaxis: Code(s): R04.0 - Epistaxis Status: Acute Assessment and Plan: Patient had nasal packing yesterday because of significant bleeding after attempts to place NG tube. This may contribute to anemia. Continue to monitor blood count closely. (2) Acute cholecystitis: Code(s): K81.0 - Acute cholecystitis Status: Acute Assessment and Plan: Acute cholecystitis evident. Cholecystotomy tube in place. Clinically this appears improving. Surgery is following this (3) DVT (deep venous thrombosis): Code(s): I82.409 - Acute embolism and thrombosis of unspecified deep veins of unspecified lower extremity Status: Acute (4) Abnormal coagulation profile: Code(s): R79.1 - Abnormal coagulation profile Status: Acute Assessment and Plan: patient continues to have a prolonged clotting time coagulation profile prolonged. Likely this is related to DIC. Fibrinogen level is low. Potentially patient has underlying cirrhosis contributing to this as well. Patient to receive additional plasma attempts to control this presently. 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 Patient continues on antibiotics will need this long-term. (7) C. difficile colitis: Code(s): A04.72 - Enterocolitis due to Clostridium difficile, not specified as recurrent Status: Acute Assessment and Plan: C difficile colitis has been treated with antibiotics. Now status post a 10 day course. Continued monitoring advised. (8) Cirrhosis: Code(s): K74.60 - Unspecified cirrhosis of liver Status: Chronic Assessment and Plan: Imaging studies suggest patient has underlying cirrhosis on the basis of alcohol use. Likely this contributes to her coagulopathy. Anasarca on this basis as well. Supportive care for now. There were no varices identified on either of the 2 previous endoscopies. (9) Peptic ulcer disease: Code(s): K27.9 - Peptic ulcer, site unspecified, unspecified as acute or chronic, without hemorrhage or perforation Status: Acute Assessment and Plan: Patient found to have gastric ulceration with evidence for bleeding. Current bleeding likely related to NG tube trauma. Would recommend discontinuing NG tube suction. NG tube can be used to place Carafate. Will continue patient on PPI therapy for now. Monitor hemoglobin closely. Blood return from NG tube likely from nasal bleeding today. (10) Alcohol abuse: Code(s): F10.10 - Alcohol abuse, uncomplicated Status: Acute (11) Bipolar 1 disorder: Code(s): F31.9 - Bipolar disorder, unspecified Status: Acute Subjective Date/time seen: 03/24/22 10:11 Patient remains intubated. Significant clotting at the nose after nasal packing was placed last night. Patient had significant epistaxis after attempts to place NG tube. Overnight hemoglobin has dropped somewhat. NG tube lavage reported to have clots returned. Patient to receive additional transfusion and plasma today. Review of Systems Review of Systems: Unable to obtain review of systems because of intubation. Exam Narrative: On physical exam patient is sedated intubated in the ICU. Orogastric tube reveals blackish to dark return. Significant clotting at the nasal opening were packing is in place. HEENT exam reveals no icterus. Lungs reveal a few rhonchi bilaterally. Heart without murmur. Abdomen is bowel sounds present soft nontender cholecystostomy tube in place. Objective Data Vital Signs Vital Signs:
[2022-03-24] MEDS: SODIUM CHLORIDE 0.9% IV 250 ML 30 ML IV CONT ×2 (10:20→17:17)
[2022-03-24] MEDS: FENTANYL 2,500MCG/NS250ML(*CRX 2,500 MCG/250 ML BAG IV CONT (10:34)
[2022-03-24] MEDS: MIDAZOLAM HCL (*CRX) 2 MG/2 ML VIAL IV PUSH (11:17)
--- NOTE | 2022-03-24 12:16 | PCFNICU ---
ICU Rounding Note: Pt current nutrition is Vital AF 1.2 at 20 ml/hr. Last recorded weight is 107 kg, up from 104 kg on admit. Bowel Motility: +Bm reported 03/23 Labs Reviewed:Cr 2.7,K 3.1, Alb 3.3,GFR 17, BUN 41, Hct 23.0,Hgb 7.7 Meds Noted:Protonix, Flagyl, Zosyn, Levophed, Vancomycin, Atrovent, Cefepime, Fentanyl. Skin: WNL Additional Notes: Patient remains on mechanical vent and tube feeding of Vital AF 1.2 started today at 20 ml/hr. NGT placed. Goal rate of tube feeding recommended at 70 ml/hr over 22 hours, which will provide 1848 kcals/115 gm protein/1249 ml water. Free water flush 30 ml q 4 hours. Following daily in ICU rounds and reassessing every Monday and Monday.
--- NOTE | 2022-03-24 12:57 | P.PNNP_ITS ---
Progress Note: A&P Assessment and Plan (1) Acute kidney injury: Code(s): N17.9 - Acute kidney failure, unspecified Status: Acute Assessment and Plan: * due to ATN from hypotension, infection/sepsis, and prerenal factors * evaluation to date: * urine electrolytes are non-prerenal * CPK levels okay * imaging without obstruction * possible peak/plateau creatinine at 3.5mg/dl * creatinine continues to improve * cautious repletion of K+ * follow repeat labs and UOP (2) Septic shock: Code(s): A41.9 - Sepsis, unspecified organism; R65.21 - Severe sepsis with septic shock Status: Acute Assessment and Plan: * due to acute cholecystitis +/- UTI +/- endocarditis * s/p cholecystostomy drain placement * off pressors at this time * continue IV antibiotics * follow culture data (3) Acute respiratory failure: Code(s): J96.00 - Acute respiratory failure, unspecified whether with hypoxia or hypercapnia Status: Acute Assessment and Plan: * due to sepsis and hemodynamic instability * continue ventilator support * wean as tolerated (4) Endocarditis: Code(s): I38 - Endocarditis, valve unspecified Status: Acute Assessment and Plan: * as noted by JASON * on antibioitcs (5) C. difficile colitis: Code(s): A04.72 - Enterocolitis due to Clostridium difficile, not specified as recurrent Status: Acute Assessment and Plan: * as noted by stool studies * continue current therapy (6) Cirrhosis: Code(s): K74.60 - Unspecified cirrhosis of liver Status: Chronic Assessment and Plan: * known issues secondary to alcohol abuse Will continue to follow. Subjective Date/time seen: 03/24/22 12:57 Events noted yesterday afternoon -- NG tube placement complicated by epistaxis; unable to control bleeding so Rhino-rocket placement and ENT consulted; noted drop in H/H by AM labs; remain on mechanical ventilation with stable hemodynamics without the need for pressor support. Exam Narrative: General: female intubated/sedated Heart: normal S1 and S2; no rub Lungs: coarse breath sounds Abdomen: soft, TTP, no bowel sounds Extremities: no cyanosis or clubbing; trace - 1+ edema Skin: jaundice noted Objective Data Vital Signs Vital Signs: Vital Signs Temp Pulse Resp BP Pulse Ox O2 Del Method FiO2 03/24/22 12:00 37.4 C 98 22 H 168/79 H 93 03/24/22 12:00 35 03/24/22 12:00 93 Mechanical Ventilation 35 03/24/22 12:00 92 03/24/22 13:12 37.3 C 87 22 H 140/67 95 03/24/22 12:56 37.4 C 83 20 131/67 95 03/24/22 12:15 37.4 C 92 22 H 147/72 H 93 03/24/22 12:26 89 96 Mechanical Ventilation 35 03/24/22 11:38 36.8 C 101 H 22 H 164/78 H 93 03/24/22 10:00 37.2 C 87 22 H 139/67 97 03/24/22 10:00 87 03/24/22 10:38 37.3 C 88 22 H 131/62 95 03/24/22 10:34 89 22 H 03/24/22 10:22 37.2 C 89 22 H 150/73 H 97 03/24/22 09:15 89 22 H 03/24/22 08:00 88 22 H 03/24/22 08:00 35 03/24/22 08:00 94 Mechanical Ventilation 35 03/24/22 08:00 89 03/24/22 08:07 88 22 H 03/24/22 08:03 90 93 Mechanical Ventilation
--- NOTE | 2022-03-24 12:57 | PM.PNNEP ---
Progress Note: A&P Assessment and Plan (1) Acute kidney injury: Code(s): N17.9 - Acute kidney failure, unspecified Status: Acute Assessment and Plan: due to ATN from hypotension, infection/sepsis, and prerenal factors evaluation to date: urine electrolytes are non-prerenal CPK levels okay imaging without obstruction possible peak/plateau creatinine at 3.5mg/dl creatinine continues to improve cautious repletion of K+ follow repeat labs and UOP (2) Septic shock: Code(s): A41.9 - Sepsis, unspecified organism; R65.21 - Severe sepsis with septic shock Status: Acute Assessment and Plan: due to acute cholecystitis +/- UTI +/- endocarditis s/p cholecystostomy drain placement off pressors at this time continue IV antibiotics follow culture data (3) Acute respiratory failure: Code(s): J96.00 - Acute respiratory failure, unspecified whether with hypoxia or hypercapnia Status: Acute Assessment and Plan: due to sepsis and hemodynamic instability continue ventilator support wean as tolerated (4) Endocarditis: Code(s): I38 - Endocarditis, valve unspecified Status: Acute Assessment and Plan: as noted by JASON on antibioitcs (5) C. difficile colitis: Code(s): A04.72 - Enterocolitis due to Clostridium difficile, not specified as recurrent Status: Acute Assessment and Plan: as noted by stool studies continue current therapy (6) Cirrhosis: Code(s): K74.60 - Unspecified cirrhosis of liver Status: Chronic Assessment and Plan: known issues secondary to alcohol abuse Will continue to follow. Subjective Date/time seen: 03/24/22 12:57 Events noted yesterday afternoon -- NG tube placement complicated by epistaxis; unable to control bleeding so Rhino-rocket placement and ENT consulted; noted drop in H/H by AM labs; remain on mechanical ventilation with stable hemodynamics without the need for pressor support. Exam Narrative: General: female intubated/sedated Heart: normal S1 and S2; no rub Lungs: coarse breath sounds Abdomen: soft, TTP, no bowel sounds Extremities: no cyanosis or clubbing; trace - 1+ edema Skin: jaundice noted Objective Data Vital Signs Vital Signs: Vital Signs Temp Pulse Resp BP Pulse Ox O2 Del Method FiO2 03/24/22 12:00 37.4 C 98 22 H 168/79 H 93 03/24/22 12:00 35 03/24/22 12:00 93 Mechanical Ventilation 35 03/24/22 12:00 92 03/24/22 13:12 37.3 C 87 22 H 140/67 95 03/24/22 12:56 37.4 C 83 20 131/67 95 03/24/22 12:15 37.4 C 92 22 H 147/72 H 93 03/24/22 12:26 89 96 Mechanical Ventilation 35 03/24/22 11:38 36.8 C 101 H 22 H 164/78 H 93 03/24/22 10:00 37.2 C 87 22 H 139/67 97 03/24/22 10:00 87 03/24/22 10:38 37.3 C 88 22 H 131/62 95 03/24/22 10:34 89 22 H 03/24/22 10:22 37.2 C 89 22 H 150/73 H 97 03/24/22 09:15 89 22 H 03/24/22 08:00 88 22 H 03/24/22 08:00 35 03/24/22 08:00 94 Mechanical Ventilation 35 03/24/22 08:00 89 03/24/22 08:07 88 22 H 03/24/22 08:03 90 93 Mechanical Ventilation 35 03/24/22 07:59 91 22 H 03/24/22 07:39 37.2 C 89 22 H 150/71 H 93 03/24/22 07:16 89 22 H 03/24/22 06:00 37.2 C 89 22 H 136/67 92 03/24/22 06:00 89 03/24/22 05:50 88 22 H 03/24/22 03:30 89 22 H 03/24/22 05:35 86 22 H 03/24/22 05:30 86 93 Mechanical Ventilation 35 03/24/22 04:00 37.2 C 92 22 H 138/70 93 03/24/22 04:00 92 03/24/22 04:00 35 03/24/22 04:00 Mechanical Ventilation 35 03/24/22 02:00 37.2 C 90 22 H 141/72 H 93 03/24/22 02:00 90 03/24/22 02:17 87 93 Mechanical Ventilation 35 03/24/22 02:16 87 22 H 03/23/22 20:00 95 23 H 03/24/22 00:35 95
--- NOTE | 2022-03-24 12:58 | PM.PNGS ---
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 Subjective Subjective Date/Time Seen: 03/24/22 12:58 no acute issues, still intubated, sedated, does not follow commands when off sedation Review of Systems Review of Systems: ROS unobtainable: Yes unobtainable due to endotracheal tube Exam Const: Other: intubated, sedated Resp: Auscultation: diminished lung sounds Cardio: Rate: regular rate Rhythm: regular rhythm GI: Other: soft, sl dist, perc sunita c bilious drainage Objective Data Vital Signs Vital Signs: Vital Signs - 24 hr 03/23/22 13:44 03/23/22 14:03 03/23/22 14:00 Temperature Pulse Rate 100 102 H 99 Respiratory Rate 22 H Blood Pressure Pulse Oximetry 89 L Oxygen Delivery Mechanical Ventilation Fraction of Inspired Oxygen 30 03/23/22 14:00 03/23/22 14:50 03/23/22 15:59 Temperature 36.8 C Pulse Rate 99 105 H 96 Respiratory Rate 19 26 H 22 H Blood Pressure 149/73 H Pulse Oximetry 92 Oxygen Delivery Fraction of Inspired Oxygen 03/23/22 16:00 03/23/22 16:00 03/23/22 16:00 Temperature 37.1 C Pulse Rate 94 99 Respiratory Rate 22 H 26 H Blood Pressure 158/74 H Pulse Oximetry 91 91 Oxygen Delivery Mechanical Ventilation Fraction of Inspired Oxygen 30 03/23/22 16:00 03/23/22 16:46 03/23/22 16:40 Temperature Pulse Rate 96 95 Respiratory Rate 24 H Blood Pressure Pulse Oximetry 96 Oxygen Delivery Mechanical Ventilation Fraction of Inspired Oxygen 30 30 03/23/22 16:49 03/23/22 18:00 03/23/22 18:00 Temperature 37.2 C Pulse Rate 94 103 H 103 H Respiratory Rate 24 H 20 Blood Pressure 189/88 H Pulse Oximetry 96 Oxygen Delivery Fraction of Inspired Oxygen 03/23/22 18:00 03/23/22 18:49 03/23/22 20:00 Temperature 37.2 C Pulse Rate 103 H 98 95 Respiratory Rate 20 22 H 22 H Blood Pressure 141/69 H Pulse Oximetry 93 Oxygen Delivery Fraction of Inspired Oxygen 03/23/22 20:00 03/23/22 20:41 03/23/22 20:00 Temperature Pulse Rate Respiratory Rate Blood Pressure Pulse Oximetry 88 L Oxygen Delivery Mechanical Ventilation Fraction of Inspired Oxygen 30 40 30 03/23/22 20:00 03/23/22 21:29 03/23/22 21:29 Temperature Pulse Rate 97 90 90 Respiratory Rate 22 H 22 H Blood Pressure Pulse Oximetry Oxygen Delivery Fraction of Inspired Oxygen 03/23/22 22:00 03/23/22 22:00 03/23/22 19:45 Temperature 37.2 C Pulse Rate 88 88 94 Respiratory Rate 22 H Blood Pressure 127/64 Pulse Oximetry 96 95 Oxygen Delivery Mechanical Ventilation Fraction of Inspired Oxygen 30 03/23/22 19:48 03/24/22 00:00 03/24/22 00:00 Temperature 37.1 C Pulse Rate 94 83 83 Respiratory Rate 23 H 22 H Blood Pressure 114/61 Pulse Oximetry 93 Oxygen Delivery Fraction of Inspired Oxygen 03/24/22 00:00 03/24/22 00:00 03/23/22 23:00 Temperature Pulse Rate 88 Respiratory Rate Blood Pressure Pulse Oximetry 96 Oxygen Delivery Mechanical Ventilation Mechanical Ventilation Fraction of Inspired Oxygen 35 35 40 03/24/22 00:35 03/23/22 20:00 03/24/22 02:16 Temperature Pulse Rate 95 87 Respiratory Rate 23 H 22 H Blood Pressure Pulse Oximetry 95 Oxygen Delivery Fraction of Inspired Oxygen 35 03/24/22 02:17 03/24/22 02:00 03/24/22 02:00 Temperature 37.2 C Pulse Rate 87 90 90 Respiratory Rate 22 H Bloo
--- NOTE | 2022-03-24 15:21 | PCRCNOTE ---
Window of time for administration has passed. See next scheduled administration.
[2022-03-24 16:27] LABS: Mean Corpuscular HGB Conc 33.2 g/dl (32-36); Mean Corpuscular Volume 93.5 fl (80-100); Mean Platelet Volume 9.9 fl (7.4-10.4); Platelet Count Result 107 k/mm3 (150-375); Red Blood Count 2.16 M/mm3 (4.2-5.4); Red Cell Distribution Width 18.3 % (11.5-14.5); White Blood Count 7.8 K/mm3 (4.5-10.0)
[2022-03-24 16:30] LABS: Hematocrit 20.2 % (37.0-47.0); Hemoglobin 6.7 g/dL (12.0-15.0)
--- NOTE | 2022-03-24 16:30 | PM.IMPN ---
Progress Note: A&P Assessment and Plan (1) Septic shock: Code(s): A41.9 - Sepsis, unspecified organism; R65.21 - Severe sepsis with septic shock Status: Acute Assessment and Plan: Patient has been hypotensive since 03/18/2022. On 03/19/2022 received Dilaudid in the early hours in her systolic blood pressures dropped to the 70s, patient was given 250 mL IV fluid bolus in the was called. I did tell the hospitalist given additional 1 L IV fluid bolus and if blood pressures does not improve to center to the ICU. -upon arrival to the ICU patient systolic pressures was still in the 60s and 70s, patient was given 30 mL/kg IV fluids, -Levophed and vasopressin weaned off at this time, will maintain mean arterial pressures > 65 mmHg -lactic acid has normalized -source is likely secondary to UTI, acute cholecystitis, hemorrhagic shock -03/19/2022: Blood cultures, urine cultures and sputum cultures obtained and pending -continue vancomycin IV, Flagyl IV, changed Zosyn to cefepime 03/20/2022: Ultrasound-guided percutaneous cholecystostomy tube was inserted by Interventional Radiology. Surgery team also following the patient 03/19/2022: CT scan of the chest abdomen and pelvis -Distended gallbladder with gallstone in the neck correlate for acute cholecystitis, cirrhosis, anasarca, small ascites. Bilateral breast implants probable intracapsular left imprint lecture and possible extracapsular right implant rupture. Moderate pleural effusions bilaterally with atelectasis, correlate for aspiration or pneumonia. 03/23/2022 interval history: patient is 71-year-old female admitted to the hospital with GI bleed and history of alcohol abuse patient went into respiratory failure on 03/19 and was transferred to ICU and intubated patient had a coffee-ground emesis during the intervention, patient also developed sepsis reason shock patient was directly hydrated however required pressors, patient also with acute cholecystitis on 03/20 patient had ultrasound-guided cholecystostomy tube placement surgery service suspect sepsis secondary to acute cholecystitis being treated Cefepime, Flagyl and vancomycin, bile still no growth, patient with abnormal prothrombin time secondary to DIC, and cause of her bleeding, patient currently on vent unable to provide any review of symptom, patient is seen by decision support manager, GI and General surgery and appreciate. 03/24/2022 interval history: patient is 71-year-old female admitted to the hospital with GI bleed and history of alcohol abuse patient went into respiratory failure on 03/19 and was transferred to ICU and intubated patient had a coffee-ground emesis during the intervention, patient also developed sepsis reason shock patient was directly hydrated however required pressors, patient also with acute cholecystitis on 03/20 patient had ultrasound-guided cholecystostomy tube placement surgery service suspect sepsis secondary to acute cholecystitis being treated Cefepime, Flagyl and vancomycin, bile still no growth, patient with abnormal prothrombin time secondary to DIC, and cause of her bleeding, Patient developed nose bleeding seen by ENT, and rhino rocket was placed, and plan is to remove the packing on Monday is no bleeding, patient currently on vent unable to provide any review of symptom, patient is seen by decision support manager, GI and General surgery and appreciate. (2) Acute respiratory failure: Code(s): J96.00 - Acute respiratory failure, unspecified whether with hypoxia or hypercapnia Status: Acute Assessment and Plan: Patient arrived in the ICU on 03/19, she had shallow broad respirations, tachypneic, ill looking and in impending respiratory failure -patient was intubated on 03/19, she had a lot of coffee-ground emesis during intubation, no white suction have and briskly placed in ET tube through the vocal cords using the glide scope. Physician who intubated the patient concluded that patient likely aspirate
--- NOTE | 2022-03-24 16:54 | PC.NURSE ---
Patient's art line no longer working. Removal discussed with Dr. Donahue. Art line was originally removed with minimal bleeding; however, while I was holding pressure to ensure clot formation, Respiratory needed to suction the patient. This caused the patient to bare down, breaking the newly formed clot. Another nurse was called in to help apply additional pressure (2 inches above insertion site) until the patient calmed down and a new clot was formed. I continued to hold pressure for 10 additional minutes to insure there was no further bleeding. Site is soft, with no hematoma or bruising. Doctor Godfrey notified. Will continue to monitor.
[2022-03-24] MEDS: ALTEPLASE 2 MG VIAL (CATHFLO) IV PUSH (17:17)
[2022-03-24 20:45] LABS: Heparin Induced Platelet Antib Negative (Negative)
[2022-03-24] MEDS: FUROSEMIDE INJ 40 MG/4 ML VIAL IV PUSH (21:58)
[2022-03-24 22:40] LABS: Hematocrit 23.7 % (37.0-47.0); Hemoglobin 7.9 g/dL (12.0-15.0)
[2022-03-25] VITALS (29 sets, daily range): BP systolic 85–169; BP diastolic 51–91; PULSE 85–103; RESP 14–25; TEMP 37.3–37.7; O2SAT 92–100
[2022-03-25] MEDS: metroNIDAZOLE 500 MG/ISO 100ML 500 MG/100 ML BAG 100 MG IVPB ×3 (01:16→17:19)
[2022-03-25] MEDS: ALBUTEROL SULFATE NEB 2.5 MG/3 ML INH INHALATION ×6 (04:04→23:43)
[2022-03-25] MEDS: IPRATROPIUM BR 0.02% INH SOLN 0.5 MG/2.5 ML VIAL INHALATION ×6 (04:04→23:44)
[2022-03-25 04:15] LABS: Hematocrit 21.9 % (37.0-47.0); Hemoglobin 7.6 g/dL (12.0-15.0); Mean Corpuscular HGB Conc 34.7 g/dl (32-36); Mean Corpuscular Hemoglobin 31.5 pg (26-34); Mean Corpuscular Volume 90.9 fl (80-100); Mean Platelet Volume 10.4 fl (7.4-10.4); Platelet Count Result 110 k/mm3 (150-375); Red Blood Count 2.41 M/mm3 (4.2-5.4); Red Cell Distribution Width 17.4 % (11.5-14.5); White Blood Count 8.9 K/mm3 (4.5-10.0)
[2022-03-25 04:29] LABS: Alanine Aminotransferase 15 U/L (6-35); Albumin Level 3.7 g/dL (3.5-5.1); Alkaline Phosphatase 42 U/L (38-126); Anion Gap 13 mmol/L (8-16); Aspartate Amino Transferase 37 U/L (14-36); Bilirubin,Total 5.9 mg/dL (0.2-1.3); Blood Urea Nitrogen 38 mg/dL (7-17); Calcium 8.9 mg/dL (8.4-10.2); Carbon Dioxide 23 mmol/L (22-30); Chloride 111 mmol/L (98-107); Estimated CRCL calculation 28 ml/min; Estimated Glomerular Filt Rate 23; Glucose 93 mg/dL (65-110); Magnesium 1.6 mg/dL (1.6-2.3); Phosphorus 2.6 mg/dL (2.5-4.5); Potassium 3.1 mmol/L (3.4-5.0); Sodium 147 mmol/L (137-145)
[2022-03-25] MEDS: ALBUMIN HUMAN 25% 25 GM/100 ML 100 ML IVPB ×4 (05:02→23:36)
[2022-03-25] MEDS: CENTRAL LINE FLUSH 10 ML IV PUSH ×3 (05:03→20:38)
[2022-03-25 05:15] LABS: Alveolar/Arterial O2 Gradient 99.5 mmHg; Base Excess ABG -0.1 mEq/l (+/-2.0); Carboxyhemoglobin 0.3 % THb (0-2.0); Fractional Inspired Oxygen 30 %; HCO3 ABG 22.7 mEq/l (22.0-26.0); Methemoglobin ABG 0.8 %THb (0-1.5); Oxygen Content ABG 10.8 %vol (16.0-22.0); Oxygen Saturation ABG 96.8 % (95.0-100.0); Oxyhemoglobin 93.8 % THb (90.0-100.0); PCO2 ABG 29.5 mmHg (35.0-45.0); PO2 ABG 79.7 mmHg (80.0-100.0); PO2 FiO2 Ratio Arterial Blood 2.66 %; Reduced Hemoglobin 5.1 %THb (0-5.0); Total Hemoglobin 8.1 g/dL (12.0-18.0)
[2022-03-25 05:17] LABS: Device VENTILATOR; Modified Allen's Test Unable to perform; Site Drawn RIGHT RADIAL; pH ABG 7.504 (7.350-7.450)
[2022-03-25 05:18] LABS: Arterial Blood Gas PEEP 5 cmH2O; Arterial Blood Gas Tidal Volume 450 ml; Arterial Blood Gas Vent Mode CMV; Arterial Blood Gas Ventilator rate 22 /MIN
--- NOTE | 2022-03-25 08:15 | WPDINTPN ---
Progress Note: A&P Assessment and Plan (1) Septic shock: Code(s): A41.9 - Sepsis, unspecified organism; R65.21 - Severe sepsis with septic shock Status: Acute Assessment and Plan: Patient has been hypotensive since 03/18/2022. On 03/19/2022 received Dilaudid in the early hours in her systolic blood pressures dropped to the 70s, patient was given 250 mL IV fluid bolus in the was called. I did tell the hospitalist given additional 1 L IV fluid bolus and if blood pressures does not improve to center to the ICU. -upon arrival to the ICU patient systolic pressures was still in the 60s and 70s, patient was given 30 mL/kg IV fluids, -Levophed and vasopressin weaned off at this time -lactic acid has normalized -source is likely secondary to UTI, acute cholecystitis, hemorrhagic shock -03/19/2022: Blood cultures, urine cultures and sputum cultures obtained and negative till now - vancomycin IV dced 03/24 - changed Zosyn to cefepime 03/23 - Continue Flagyl and cefepime 03/20/2022: Ultrasound-guided percutaneous cholecystostomy tube was inserted by Interventional Radiology. Surgery team also following the patient 15 mL output overnight - will send repeat cultures 03/19/2022: CT scan of the chest abdomen and pelvis -Distended gallbladder with gallstone in the neck correlate for acute cholecystitis, cirrhosis, anasarca, small ascites. Bilateral breast implants probable intracapsular left imprint lecture and possible extracapsular right implant rupture. Moderate pleural effusions bilaterally with atelectasis, correlate for aspiration or pneumonia. (2) Acute respiratory failure: Code(s): J96.00 - Acute respiratory failure, unspecified whether with hypoxia or hypercapnia Status: Acute Assessment and Plan: Patient arrived in the ICU on 03/19, she had shallow broad respirations, tachypneic, ill looking and in impending respiratory failure -patient was intubated on 03/19, she had a lot of coffee-ground emesis during intubation, no white suction have and briskly placed in ET tube through the vocal cords using the glide scope. Physician who intubated the patient concluded that patient likely aspirated gastric contents -continue CMV mode of ventilation, peep of 5 on 30% FiO2 decrease rate to 20 and tidal volume to 400 -chest x-ray and ABGs reviewed -continue bronchodilators - currently sedated with fentanyl infusion. sedation holiday today -patient was also started on antibiotic as above - patient tolerated pressure support ventilation 03/23. she was drowsy and not awake enough. And also was having epistaxis hence no attempts were made to extubate patient - patient is scheduled for EGD today. Plan SBT post EGD (3) Ileus: Code(s): K56.7 - Ileus, unspecified Status: Acute Assessment and Plan: Patient was complaining of abdominal pain on arrival to the ICU, stat obstructive series showed possible ileus versus small-bowel obstruction CT scan suggested obstruction -general surgery is following. -patient recently had C diff colitis, currently on p.o. vancomycin. Now on IV Flagyl - tube feeds were started yesterday but were hold for anticipated EGD (4) Acute kidney injury: Code(s): N17.9 - Acute kidney failure, unspecified Status: Acute Assessment and Plan: Patient has been hypotensive since the morning of 03/18/2022 -acute kidney injury likely related to hypotension, ATN, septic shock, hypovolemia, infection, -patient has been adequately volume resuscitated -hold further IV fluids as patient has received significant IV fluids and blood products -lactic acid normalized - creatinine improving and is 2.1 today -low urine output with increase in creatinine, appreciate nephrology following the patient -urine lytes not reflective of volume depletion/prerenal, CK levels within normal limits -continue monitor urine output, renal function electrolytes - Lasix 40 mg IV given 03/24 after blood
[2022-03-25] MEDS: CEFEPIME 0.5 GM in DEXTROSE 5% IN WATER 50 ML IVPB ×2 (08:19→20:30)
[2022-03-25] MEDS: KCL 40 MEQ/WATER 100 ML 100 ML 25 ML IVPB (08:19)
[2022-03-25] MEDS: MAGNESIUM SULF 2 GM/WATER 50ML 2 GM/50 ML BAG IVPB (08:20)
[2022-03-25] MEDS: POTASSIUM CHLORIDE 20 MEQ PACKET (FOR LIQUID) 40 MEQ FEED TUBE (08:20)
[2022-03-25] MEDS: MINERAL OIL/WHITE PETROLATUM OINTMENT 1 APPLIC EACH EYE ×2 (08:21→20:38)
[2022-03-25] MEDS: PANTOPRAZOLE SODIUM IV 40 MG VIAL IV PUSH ×2 (08:21→20:38)
--- NOTE | 2022-03-25 10:33 | PM.PNNEP ---
Progress Note: A&P Assessment and Plan (1) Acute kidney injury: Code(s): N17.9 - Acute kidney failure, unspecified Status: Acute Assessment and Plan: improving due to ATN from hypotension, infection/sepsis, and prerenal factors evaluation to date: urine electrolytes are non-prerenal CPK levels okay imaging without obstruction peak/plateau of creatinine at 3.5mg/dl creatinine continues to improve cautious repletion of K+ follow repeat labs and UOP (2) Septic shock: Code(s): A41.9 - Sepsis, unspecified organism; R65.21 - Severe sepsis with septic shock Status: Acute Assessment and Plan: due to acute cholecystitis +/- UTI +/- endocarditis s/p cholecystostomy drain placement - Surgery following off pressors at this time continue IV antibiotics follow culture data (3) Acute respiratory failure: Code(s): J96.00 - Acute respiratory failure, unspecified whether with hypoxia or hypercapnia Status: Acute Assessment and Plan: due to sepsis and previous hemodynamic instability continue ventilator support wean as tolerated (4) Endocarditis: Code(s): I38 - Endocarditis, valve unspecified Status: Acute Assessment and Plan: as noted by JASON on antibioitcs (5) C. difficile colitis: Code(s): A04.72 - Enterocolitis due to Clostridium difficile, not specified as recurrent Status: Acute Assessment and Plan: as noted by stool studies continue current therapy (6) Cirrhosis: Code(s): K74.60 - Unspecified cirrhosis of liver Status: Chronic Assessment and Plan: known issues secondary to alcohol abuse Will continue to follow. Subjective Date/time seen: 03/25/22 10:33 Drop in H/H noted yesterday afternoon so transfused with PRBCs and FFP; noted plans for repeat EGD today as well; remains on mechanical ventilation; ongoing improvement in renal function noted with excellent urine output; remains hemodynamically stable without the need for vasopressor therapy. Exam Narrative: General: female intubated/sedated Heart: normal S1 and S2; no rub Lungs: coarse breath sounds Abdomen: soft, TTP, no bowel sounds Extremities: no cyanosis or clubbing; trace - 1+ edema Skin: jaundice noted Objective Data Vital Signs Vital Signs: Vital Signs Temp Pulse Resp BP Pulse Ox O2 Del Method FiO2 03/25/22 10:00 103 H 03/25/22 10:44 99 92 Mechanical Ventilation 30 03/25/22 10:00 37.5 C 102 H 19 152/91 H 92 03/25/22 08:00 37.7 C H 100 14 153/87 H 92 03/25/22 08:00 30 03/25/22 08:00 101 H 03/25/22 08:00 101 H 21 H 93 Mechanical Ventilation 03/25/22 07:45 97 22 H 03/25/22 07:31 96 93 Mechanical Ventilation 30 03/25/22 07:31 96 22 H 03/25/22 06:00 37.7 C H 103 H 22 H 133/85 97 03/25/22 06:00 103 H 03/25/22 04:53 100 97 Mechanical Ventilation 03/25/22 04:12 98 25 H 03/25/22 04:04 95 22 H 03/25/22 04:00 37.7 C H 98 22 H 85/51 L 94 03/25/22 04:00 30 03/25/22 04:00 98 22 H 94 Mechanical Ventilation 03/25/22 04:00 98 03/25/22 02:00 94 97 Mechanical Ventilation 03/25/22 02:00 37.7 C H 99 22 H 135/81 97 03/25/22 02:00 99 03/25/22 00:00 37.7 C H 102 H 22 H 139/87 95 03/25/22 00:00 30 03/25/22 00:00 102 H 22 H 95 Mechanical Ventilation 03/25/22 00:00 102 H 03/24/22 23:44 97 26 H 03/24/22 23:34 99 25 H 03/24/22 23:00 98 96 Mechanical Ventilation 30 03/24/22 22:00 37.7 C H 96 22 H 139/98 H 96 03/24/22 22:00 98 03/24/22 21:30 37.7 C H 96 22 H 148/86 H 96 03/24/22 19:30 37.6 C H 87 22 H 140/94 H 96 03/24/22 20:05 94 97 Mechanical Ventilation 35 03/24/22 20:00 37.7 C H 93 22 H 145/89 H 97 03/24/22 20:00
--- NOTE | 2022-03-25 10:33 | P.PNNP_ITS ---
Progress Note: A&P Assessment and Plan (1) Acute kidney injury: Code(s): N17.9 - Acute kidney failure, unspecified Status: Acute Assessment and Plan: * improving * due to ATN from hypotension, infection/sepsis, and prerenal factors * evaluation to date: * urine electrolytes are non-prerenal * CPK levels okay * imaging without obstruction * peak/plateau of creatinine at 3.5mg/dl * creatinine continues to improve * cautious repletion of K+ * follow repeat labs and UOP (2) Septic shock: Code(s): A41.9 - Sepsis, unspecified organism; R65.21 - Severe sepsis with septic shock Status: Acute Assessment and Plan: * due to acute cholecystitis +/- UTI +/- endocarditis * s/p cholecystostomy drain placement - Surgery following * off pressors at this time * continue IV antibiotics * follow culture data (3) Acute respiratory failure: Code(s): J96.00 - Acute respiratory failure, unspecified whether with hypoxia or hypercapnia Status: Acute Assessment and Plan: * due to sepsis and previous hemodynamic instability * continue ventilator support * wean as tolerated (4) Endocarditis: Code(s): I38 - Endocarditis, valve unspecified Status: Acute Assessment and Plan: * as noted by JASON * on antibioitcs (5) C. difficile colitis: Code(s): A04.72 - Enterocolitis due to Clostridium difficile, not specified as recurrent Status: Acute Assessment and Plan: * as noted by stool studies * continue current therapy (6) Cirrhosis: Code(s): K74.60 - Unspecified cirrhosis of liver Status: Chronic Assessment and Plan: * known issues secondary to alcohol abuse Will continue to follow. Subjective Date/time seen: 03/25/22 10:33 Drop in H/H noted yesterday afternoon so transfused with PRBCs and FFP; noted plans for repeat EGD today as well; remains on mechanical ventilation; ongoing improvement in renal function noted with excellent urine output; remains hemodynamically stable without the need for vasopressor therapy. Exam Narrative: General: female intubated/sedated Heart: normal S1 and S2; no rub Lungs: coarse breath sounds Abdomen: soft, TTP, no bowel sounds Extremities: no cyanosis or clubbing; trace - 1+ edema Skin: jaundice noted Objective Data Vital Signs Vital Signs: Vital Signs Temp Pulse Resp BP Pulse Ox O2 Del Method FiO2 03/25/22 10:00 103 H 03/25/22 10:44 99 92 Mechanical Ventilation 03/25/22 10:00 37.5 C 102 H 19 152/91 H 92 03/25/22 08:00 37.7 C H 100 14 153/87 H 92 03/25/22 08:00 30 03/25/22 08:00 101 H 03/25/22 08:00 101 H 21 H 93 Mechanical Ventilation 03/25/22 07:45 97 22 H 03/25/22 07:31 96 93 Mechanical Ventilation 03/25/22 07:31 96 22 H 03/25/22 06:00 37.7 C H 103 H 22 H 133/85 97 03/25/22 06:00 103 H 03/25/22 04:53 100 97 Mechanical Ventilation 03/25/22 04:12 98 25 H 03/25/22 04:04 95 22 H 03/25/22 04:00 37.7 C H 98 22 H 85/51 L 94 03/25/22 04:00 30 03/25/22 04:00 98 22 H 94 Mechanical Ventilation 03/25/22 04:00 98 03/25/22 02:00 94 97
[2022-03-25 10:43] LABS: Appearance Urine Cloudy (Clear); Blood Urine Trace-Intact (Negative); Color Urine Yellow (Yellow); Glucose Urine UA Negative (Negative); Ketones Urine Negative (Negative); Protein Urine Negative (Negative); Specific Grav Ur 1.015 (1.001-1.035); pH Urine 6.5 (5.0-9.0)
[2022-03-25 10:48] LABS: Add Urine Microscopic? YES; Bilirubin Urine Negative (Negative); Leukocyte Esterase Ur 1+ LEU/UL (Negative); Nitrate Urine Negative (Negative); Urobilinogen Urine 0.2 mg/dL (<2.0)
[2022-03-25 10:52] LABS: Bacteria Urine 1+ /hpf; Budding Yeast Urine Present /hpf; RBC Urine 21-50 /hpf (0-2); WBC Clumps Urine Present /HPF; WBC Urine 16-20 /hpf
--- NOTE | 2022-03-25 10:52 | PM.PNGS ---
Progress Note: A&P Assessment and Plan (1) Acute cholecystitis: Code(s): K81.0 - Acute cholecystitis Status: Acute Assessment and Plan: better, off pressors, good drainage, leukocytosis resolved (2) Upper GI bleed: Code(s): K92.2 - Gastrointestinal hemorrhage, unspecified Status: Acute Assessment and Plan: EGD today Subjective Subjective Date/Time Seen: 03/25/22 10:52 intubated, sedated, cont to have upper GI bleed, plan for EGD today Review of Systems Review of Systems: ROS unobtainable: Yes unobtainable due to endotracheal tube Exam Const: Other: intubated, sedated Resp: Auscultation: diminished lung sounds Cardio: Rate: regular rate Rhythm: regular rhythm GI: Other: soft, sl dist, perc sunita c bloody bilious drainage Objective Data Vital Signs Vital Signs: Vital Signs - 24 hr 03/24/22 11:38 03/24/22 12:26 03/24/22 12:15 Temperature 36.8 C 37.4 C Pulse Rate 101 H 89 92 Respiratory Rate 22 H 22 H Blood Pressure 164/78 H 147/72 H Pulse Oximetry 93 96 93 Oxygen Delivery Mechanical Ventilation Fraction of Inspired Oxygen 35 03/24/22 12:56 03/24/22 13:12 03/24/22 12:00 Temperature 37.4 C 37.3 C Pulse Rate 83 87 92 Respiratory Rate 20 22 H Blood Pressure 131/67 140/67 Pulse Oximetry 95 95 Oxygen Delivery Fraction of Inspired Oxygen 03/24/22 12:00 03/24/22 12:00 03/24/22 12:00 Temperature 37.4 C Pulse Rate 98 Respiratory Rate 22 H Blood Pressure 168/79 H Pulse Oximetry 93 93 Oxygen Delivery Mechanical Ventilation Fraction of Inspired Oxygen 35 35 03/24/22 14:53 03/24/22 14:57 03/24/22 15:06 Temperature Pulse Rate 89 97 91 Respiratory Rate 22 H 22 H Blood Pressure Pulse Oximetry 94 Oxygen Delivery Mechanical Ventilation Fraction of Inspired Oxygen 35 03/24/22 14:12 03/24/22 15:00 03/24/22 14:00 Temperature 37.5 C 37.6 C Pulse Rate 89 102 H 89 Respiratory Rate 22 H 22 H Blood Pressure 129/76 138/104 H Pulse Oximetry 91 93 Oxygen Delivery Fraction of Inspired Oxygen 03/24/22 14:00 03/24/22 16:00 03/24/22 16:00 Temperature 37.4 C 37.6 C H Pulse Rate 85 100 Respiratory Rate 22 H 22 H Blood Pressure 140/69 149/87 H Pulse Oximetry 93 95 95 Oxygen Delivery Mechanical Ventilation Fraction of Inspired Oxygen 35 03/24/22 16:00 03/24/22 16:00 03/24/22 17:15 Temperature 37.5 C Pulse Rate 96 92 Respiratory Rate 22 H Blood Pressure 135/83 Pulse Oximetry 96 Oxygen Delivery Fraction of Inspired Oxygen 35 03/24/22 17:30 03/24/22 17:29 03/24/22 18:00 Temperature 37.5 C Pulse Rate 94 93 95 Respiratory Rate 22 H Blood Pressure 134/81 Pulse Oximetry 96 95 Oxygen Delivery Mechanical Ventilation Fraction of Inspired Oxygen 35 03/24/22 18:00 03/24/22 18:30 03/24/22 19:55 Temperature 37.6 C Pulse Rate 95 90 90 Respiratory Rate 22 H 22 H 22 H Blood Pressure 134/83 133/83 Pulse Oximetry 95 97 Oxygen Delivery Fraction of Inspired Oxygen 03/24/22 20:05 03/24/22 20:00 03/24/22 20:00 Temperature Pulse Rate 91 919 H 93 Respiratory Rate 22 H 22 H Blood Pressure Pulse Oximetry 97 Oxygen Delivery Mechanical Ventilation Fraction of Inspired Oxygen 35 03/24/22 20:00 03/24/22 20:00 03/24/22 20:05 Temperature 37.7 C H Pulse Rate 93 94 Respiratory Rate 22 H Blood Pressure 145/89 H Pulse Oximetry 97 97 Oxygen Delivery Mechanical Ventilation Fraction of Inspired Oxygen 35 35 03/24/22 19:30 03/24/22 21:30 03/24/22 22:00 Temperature 37.6 C H 37.7 C H Pulse Rate 87 96 98 Respiratory Rate 22 H 22 H Blood Pressure 140/94 H 148/86 H Pulse Oximetry 96 96 Oxygen Delivery Fraction of Inspired Oxygen 03/24/22 22:00 03/24/22 23:00 03/24/22 23:34 Temperature 37.7 C H Pulse Rate 96 98 99 Respiratory Rate 22 H 25 H Blood Pressure 139/98 H Pulse Oximetry 96 96 Oxygen Delivery
--- NOTE | 2022-03-25 11:52 | PCNFU ---
Nutrition Follow-Up Complete: Suboptimal po intake related to reduced appetite and intake as evidenced by charted intake of meals 25% or less most meals. Goal: Increase PO intake Patient has limited progress towards goal. Pt current nutrition is NPO. Last recorded weight is 101.7 kg, down from 104.1 kg on admit. Bowel Motility:+BM reported 03/25 Labs Reviewed:Cr 2.1,Na 147, Hgb 7.6, Hct 21.9, GFR 23 Meds Noted:Protonix, Flagyl, Zosyn, Levophed, Vancomycin, Atrovent, Cefepime, Fentanyl. Skin: WNL Additional Notes: Patient remains on mechanical vent. Plans for EGD today. Bloody stools reported. Tube feeding recommendations: Vital AF 1.2 at 20 ml/hr over 22 hours advancing by 10 ml q 4 hours to goal rate of 70 ml/hr. Free water flush 30 ml q 4 hours. If tube feedings are not started would recommend Clinimix 5/15 at 40 ml/hr with 250 ml of 20% Lipid Emulsion. Will monitor in ICU rounds and reassessing every Monday and Monday.
--- NOTE | 2022-03-25 12:44 | PM.OP ---
Procedure Note - Brief Procedure Note - Brief Date of procedure: 03/25/22 Pre-op diagnosis: GI bleed/sepsis gastric ulcer, GI bleeding Procedure performed: EGD. Description of procedure: Informed consent for the procedure obtained from patient's power of civil attorney. The risks benefits alternatives indications were discussed. The family agrees to proceed. Risks include but are not limited to aspiration. The risk of missed pathology. The risk of bleeding. They agreed to proceed. Patient is given additional sedation with fentanyl, Versed and propofol under the direction of the package line relief operator. Fujinon video endoscope passed through the esophagus. No varices are noted. Previous erosions appear to have healed. GE junction located 40 cm from the incisors. Stomach is seen in its entirety and reveals several crater gastric ulcers in the antrum. At the present time the base of these ulcers appear clean flat white. There are no stigmata of recent bleeding. Duodenum reveals several erosions in the duodenal bulb these are not bleeding. And much improved from previous endoscopy several weeks ago. Surgeon: Garrett Sanchez MD Estimated blood loss (mL): 0 Findings: Several gastric ulcers. These are currently not bleeding. No varices identified. plan to continue pantoprazole. Avoid NSAIDs. May advanced diet as tolerated. I see no contraindication to extubation if necessary. Carafate can used additionally if necessary however complete stop this time as there is no ongoing bleeding. Continue monitor hemoglobin as we are doing.
[2022-03-25] MEDS: PROPOFOL IV EMULSION 100 ML 50 MG (13:06)
[2022-03-25] MEDS: MIDAZOLAM HCL (*CRX) 2 MG/2 ML VIAL 4 MG IV PUSH (13:08)
[2022-03-25] MEDS: fentaNYL CITRATE INJ (*CRX) 100 MCG/2 ML VIAL 50 MCG IV PUSH (13:08)
--- NOTE | 2022-03-25 15:13 | PM.IMPN ---
Progress Note: A&P Assessment and Plan (1) Septic shock: Code(s): A41.9 - Sepsis, unspecified organism; R65.21 - Severe sepsis with septic shock Status: Acute Assessment and Plan: Patient has been hypotensive since 03/18/2022. On 03/19/2022 received Dilaudid in the early hours in her systolic blood pressures dropped to the 70s, patient was given 250 mL IV fluid bolus in the was called. I did tell the hospitalist given additional 1 L IV fluid bolus and if blood pressures does not improve to center to the ICU. -upon arrival to the ICU patient systolic pressures was still in the 60s and 70s, patient was given 30 mL/kg IV fluids, -Levophed and vasopressin weaned off at this time, will maintain mean arterial pressures > 65 mmHg -lactic acid has normalized -source is likely secondary to UTI, acute cholecystitis, hemorrhagic shock -03/19/2022: Blood cultures, urine cultures and sputum cultures obtained and pending -continue vancomycin IV, Flagyl IV, changed Zosyn to cefepime 03/20/2022: Ultrasound-guided percutaneous cholecystostomy tube was inserted by Interventional Radiology. Surgery team also following the patient 03/19/2022: CT scan of the chest abdomen and pelvis -Distended gallbladder with gallstone in the neck correlate for acute cholecystitis, cirrhosis, anasarca, small ascites. Bilateral breast implants probable intracapsular left imprint lecture and possible extracapsular right implant rupture. Moderate pleural effusions bilaterally with atelectasis, correlate for aspiration or pneumonia. 03/23/2022 interval history: patient is 71-year-old female admitted to the hospital with GI bleed and history of alcohol abuse patient went into respiratory failure on 03/19 and was transferred to ICU and intubated patient had a coffee-ground emesis during the intervention, patient also developed sepsis reason shock patient was directly hydrated however required pressors, patient also with acute cholecystitis on 03/20 patient had ultrasound-guided cholecystostomy tube placement surgery service suspect sepsis secondary to acute cholecystitis being treated Cefepime, Flagyl and vancomycin, bile still no growth, patient with abnormal prothrombin time secondary to DIC, and cause of her bleeding, patient currently on vent unable to provide any review of symptom, patient is seen by administrative aide, GI and General surgery and appreciate. 03/24/2022 interval history: patient is 71-year-old female admitted to the hospital with GI bleed and history of alcohol abuse patient went into respiratory failure on 03/19 and was transferred to ICU and intubated patient had a coffee-ground emesis during the intervention, patient also developed sepsis reason shock patient was directly hydrated however required pressors, patient also with acute cholecystitis on 03/20 patient had ultrasound-guided cholecystostomy tube placement surgery service suspect sepsis secondary to acute cholecystitis being treated Cefepime, Flagyl and vancomycin, bile still no growth, patient with abnormal prothrombin time secondary to DIC, and cause of her bleeding, Patient developed nose bleeding seen by ENT, and rhino rocket was placed, and plan is to remove the packing on Monday is no bleeding, patient currently on vent unable to provide any review of symptom, patient is seen by administrative aide, GI and General surgery and appreciate. 03/25/2022 interval history: patient is 71-year-old female admitted to the hospital with GI bleed and history of alcohol abuse patient went into respiratory failure on 03/19 and was transferred to ICU and intubated patient had a coffee-ground emesis during the intervention, patient also developed sepsis reason shock patient was vigorously hydrated however required pressors, patient also with acute cholecystitis on 03/20 patient had ultrasound-guided cholecystostomy tube placement, surgery service suspect sepsis secondary to acute cholecystitis being treated Cefepime, [place]
[2022-03-25] MEDS: SUCRALFATE 1 GM TABLET PO ×2 (17:18→23:37)
[2022-03-25 17:20] LABS: Hematocrit 21.7 % (37.0-47.0); Hemoglobin 7.2 g/dL (12.0-15.0); Mean Corpuscular HGB Conc 33.2 g/dl (32-36); Mean Corpuscular Hemoglobin 30.9 pg (26-34); Mean Corpuscular Volume 93.1 fl (80-100); Mean Platelet Volume 10.3 fl (7.4-10.4); Platelet Count Result 108 k/mm3 (150-375); Red Blood Count 2.33 M/mm3 (4.2-5.4); Red Cell Distribution Width 18.9 % (11.5-14.5); White Blood Count 8.6 K/mm3 (4.5-10.0)
[2022-03-26] VITALS (35 sets, daily range): BP systolic 110–164; BP diastolic 65–102; PULSE 90–131; RESP 14–25; TEMP 37.2–37.8; O2SAT 90–100
[2022-03-26] MEDS: metroNIDAZOLE 500 MG/ISO 100ML 500 MG/100 ML BAG 100 MG IVPB ×3 (02:22→17:51)
[2022-03-26] MEDS: ALBUTEROL SULFATE NEB 2.5 MG/3 ML INH INHALATION ×6 (02:40→23:16)
[2022-03-26] MEDS: IPRATROPIUM BR 0.02% INH SOLN 0.5 MG/2.5 ML VIAL INHALATION ×6 (02:40→23:16)
[2022-03-26] MEDS: FENTANYL 2,500MCG/NS250ML(*CRX 2,500 MCG/250 ML BAG IV CONT (03:27)
[2022-03-26] MEDS: CENTRAL LINE FLUSH 10 ML IV PUSH ×3 (04:57→20:41)
[2022-03-26 05:34] LABS: Alveolar/Arterial O2 Gradient 97.9 mmHg; Base Excess ABG -0.6 mEq/l (+/-2.0); Carboxyhemoglobin 0.3 % THb (0-2.0); Fractional Inspired Oxygen 30 %; HCO3 ABG 23.4 mEq/l (22.0-26.0); Methemoglobin ABG 0.7 %THb (0-1.5); Oxygen Content ABG 10.6 %vol (16.0-22.0); Oxygen Saturation ABG 95.5 % (95.0-100.0); Oxyhemoglobin 92.9 % THb (90.0-100.0); PCO2 ABG 35.4 mmHg (35.0-45.0); PO2 ABG 74.4 mmHg (80.0-100.0); PO2 FiO2 Ratio Arterial Blood 2.48 %; Reduced Hemoglobin 6.1 %THb (0-5.0); pH ABG 7.438 (7.350-7.450)
[2022-03-26 05:36] LABS: Site Drawn RIGHT BRACHIAL
[2022-03-26 05:37] LABS: Arterial Blood Gas PEEP 5 cmH2O; Arterial Blood Gas Tidal Volume 400 ml; Arterial Blood Gas Vent Mode CMV; Arterial Blood Gas Ventilator rate 20 /MIN; Device VENTILATOR
[2022-03-26] MEDS: ALBUMIN HUMAN 25% 25 GM/100 ML 100 ML IVPB ×4 (05:39→23:10)
[2022-03-26 05:40] LABS: Hematocrit 21.6 % (37.0-47.0); Hemoglobin 7.2 g/dL (12.0-15.0); Mean Corpuscular HGB Conc 33.3 g/dl (32-36); Mean Corpuscular Volume 93.1 fl (80-100); Mean Platelet Volume 9.6 fl (7.4-10.4); Platelet Count Result 110 k/mm3 (150-375); Red Blood Count 2.32 M/mm3 (4.2-5.4); Red Cell Distribution Width 19.5 % (11.5-14.5); White Blood Count 7.4 K/mm3 (4.5-10.0)
[2022-03-26] MEDS: SUCRALFATE 1 GM TABLET PO ×4 (05:40→23:08)
[2022-03-26 05:53] LABS: INR 2.6; Prothrombin Time 27.3 Seconds (11.1-14.7)
[2022-03-26 05:54] LABS: Partial Thromboplastin Time 44.1 SECONDS (22.3-36.8)
[2022-03-26 05:56] LABS: Alanine Aminotransferase 13 U/L (6-35); Albumin Level 3.9 g/dL (3.5-5.1); Alkaline Phosphatase 43 U/L (38-126); Anion Gap 10 mmol/L (8-16); Aspartate Amino Transferase 37 U/L (14-36); Bilirubin,Total 6.3 mg/dL (0.2-1.3); Blood Urea Nitrogen 34 mg/dL (7-17); Calcium 8.8 mg/dL (8.4-10.2); Carbon Dioxide 25 mmol/L (22-30); Chloride 113 mmol/L (98-107); Estimated CRCL calculation 36 ml/min; Estimated Glomerular Filt Rate 32; Glucose 98 mg/dL (65-110); Magnesium 1.7 mg/dL (1.6-2.3); Phosphorus 2.5 mg/dL (2.5-4.5); Potassium 2.6 mmol/L (3.4-5.0); Sodium 148 mmol/L (137-145)
[2022-03-26] MEDS: POTASSIUM CHLORIDE 20 MEQ PACKET (FOR LIQUID) 40 MEQ FEED TUBE ×2 (06:44→12:07)
[2022-03-26] MEDS: MINERAL OIL/WHITE PETROLATUM OINTMENT 1 APPLIC EACH EYE (08:22)
[2022-03-26] MEDS: KCL 40 MEQ/WATER 100 ML 100 ML 25 ML IVPB ×2 (08:22→19:51)
[2022-03-26] MEDS: PANTOPRAZOLE SODIUM IV 40 MG VIAL IV PUSH ×2 (08:25→20:41)
[2022-03-26] MEDS: CEFEPIME 0.5 GM in DEXTROSE 5% IN WATER 50 ML IVPB ×2 (08:35→20:41)
--- NOTE | 2022-03-26 08:37 | WPDINTPN ---
Progress Note: A&P Assessment and Plan (1) Septic shock: Code(s): A41.9 - Sepsis, unspecified organism; R65.21 - Severe sepsis with septic shock Status: Acute Assessment and Plan: Patient has been hypotensive since 03/18/2022. On 03/19/2022 received Dilaudid in the early hours in her systolic blood pressures dropped to the 70s, patient was given 250 mL IV fluid bolus in the was called. I did tell the hospitalist given additional 1 L IV fluid bolus and if blood pressures does not improve to center to the ICU. -upon arrival to the ICU patient systolic pressures was still in the 60s and 70s, patient was given 30 mL/kg IV fluids, -Levophed and vasopressin weaned off at this time -lactic acid has normalized -source is likely secondary to UTI, acute cholecystitis, hemorrhagic shock -03/19/2022: Blood cultures, urine cultures and sputum cultures obtained and negative till now - vancomycin IV dced 03/24 - changed Zosyn to cefepime 03/23 - Continue Flagyl and cefepime 03/20/2022: Ultrasound-guided percutaneous cholecystostomy tube was inserted by Interventional Radiology. Surgery team also following the patient 10 mL output overnight - 03/25 repeat blood and urine culture sent - change Echols 03/19/2022: CT scan of the chest abdomen and pelvis -Distended gallbladder with gallstone in the neck correlate for acute cholecystitis, cirrhosis, anasarca, small ascites. Bilateral breast implants probable intracapsular left imprint lecture and possible extracapsular right implant rupture. Moderate pleural effusions bilaterally with atelectasis, correlate for aspiration or pneumonia. (2) Acute respiratory failure: Code(s): J96.00 - Acute respiratory failure, unspecified whether with hypoxia or hypercapnia Status: Acute Assessment and Plan: Patient arrived in the ICU on 03/19, she had shallow broad respirations, tachypneic, ill looking and in impending respiratory failure -patient was intubated on 03/19, she had a lot of coffee-ground emesis during intubation, no white suction have and briskly placed in ET tube through the vocal cords using the glide scope. Physician who intubated the patient concluded that patient likely aspirated gastric contents -continue CMV mode of ventilation, peep of 5 on 30% FiO2 decrease rate to 20 and tidal volume to 400 -chest x-ray and ABGs reviewed -continue bronchodilators - currently sedated with fentanyl infusion. sedation holiday today -patient was also started on antibiotic as above - patient tolerated pressure support ventilation 03/23. she was drowsy and not awake enough. And also was having epistaxis hence no attempts were made to extubate patient - patient placed on weaning trial this morning - Lasix IV ordered (3) Ileus: Code(s): K56.7 - Ileus, unspecified Status: Acute Assessment and Plan: Patient was complaining of abdominal pain on arrival to the ICU, stat obstructive series showed possible ileus versus small-bowel obstruction CT scan suggested obstruction -general surgery is following. -patient recently had C diff colitis, currently on p.o. vancomycin. Now on IV Flagyl - tube feeds were resumed after EGD yesterday (4) Acute kidney injury: Code(s): N17.9 - Acute kidney failure, unspecified Status: Acute Assessment and Plan: Patient has been hypotensive since the morning of 03/18/2022 -acute kidney injury likely related to hypotension, ATN, septic shock, hypovolemia, infection, -patient has been adequately volume resuscitated -hold further IV fluids as patient has received significant IV fluids and blood products -lactic acid normalized - creatinine improving and is1.6 today -low urine output with increase in creatinine, appreciate nephrology following the patient -urine lytes not reflective of volume depletion/prerenal, CK levels within normal limits -continue monitor urine output, renal function electrolytes - will give another Las
[2022-03-26 10:08] LABS: Alveolar/Arterial O2 Gradient 106.7 mmHg; Base Excess ABG -0.9 mEq/l (+/-2.0); Fractional Inspired Oxygen 30 %; HCO3 ABG 24.2 mEq/l (22.0-26.0); Oxygen Content ABG 10.1 %vol (16.0-22.0); Oxygen Saturation ABG 89.6 % (95.0-100.0); Oxyhemoglobin 88.3 % THb (90.0-100.0); PCO2 ABG 41.9 mmHg (35.0-45.0); PO2 FiO2 Ratio Arterial Blood 1.93 %; Total Hemoglobin 8.1 g/dL (12.0-18.0); pH ABG 7.379 (7.350-7.450)
[2022-03-26 10:11] LABS: Device VENTILATOR; Modified Allen's Test Pass; Site Drawn RIGHT RADIAL
[2022-03-26 10:12] LABS: Arterial Blood Gas PEEP 5 cmH2O; Arterial Blood Gas Pressure Support 5 cmH2O; Arterial Blood Gas Vent Mode SPONTANEOUS
--- NOTE | 2022-03-26 10:29 | PCFNICU ---
ICU Rounding Note: Pt current nutrition is NPO, Tube feeding ordered and initiated: Vital AF 1.2. Nutrition recommendation: Vital AF 1.2 at 20 ml/hr over 22 hours advancing by 10 ml q 4 hours to goal rate of 70 ml/hr. Free water flush 30 ml q 4 hours. *If tube feedings are not started would recommend Clinimix 5/15 at 40 ml/hr with 250 ml of 20% Lipid Emulsion. Last recorded weight is 101.2 - down from 104 kg. Bowel Motility:+BM 03/26 Labs Reviewed:Hgb:7.2, HCT:21.6, NA:148, K:2.6, GFR:32, BUN:34, Cr:1.6 Meds Noted:Protonix, Flagyl, Zosyn, Levophed, Vancomycin, Atrovent, Cefepime, Fentanyl. Skin: WNL Additional Notes: Pt remains on mechanical ventilation. TF was initiated overnight at 20ml/hr, noted 80-200ml residuals per nursing, blood in residuals this AM. TF to be placed on hold again today for trial extubation. Following daily in ICU rounds. Monitor intake, wt, labs. Follow up in 5 days.
[2022-03-26] MEDS: FUROSEMIDE INJ 40 MG/4 ML VIAL IV PUSH (10:41)
--- NOTE | 2022-03-26 10:44 | PC.NURSE ---
Lasix 40 mg ivp given now, per Dr. Donahue
--- NOTE | 2022-03-26 10:47 | P.PNCROSS_ITS ---
Event Note Event Note Event Note: 03/03 PSV SBT done for more than 1 hour. RSBI, ABGI and Vitals acceptable. Pt aw cynthia and following commands. she is very weak and has a weak cough. air leak present around deflated ETT cuff. I have extubated patient and will monitor closely. Lasix IV will be given. Will keep NPO. she does have a high risk of re-intubation. I spoke to patient regarding this and she is AO x1. She stated no when asked if she wanted re-intubation if needed. It did not appear the patient fully understood the situation. I spoke to patient's daughter. She is on her way to see patient and will let me know if patient does not want re- intubation.
--- NOTE | 2022-03-26 10:53 | PC.NURSE ---
Patient extubated at 1030, placed on Venti mask 15 L 50%
--- NOTE | 2022-03-26 11:24 | P.PNIM_ITS ---
Progress Note: A&P Assessment and Plan (1) Septic shock: Code(s): A41.9 - Sepsis, unspecified organism; R65.21 - Severe sepsis with septic shock Status: Acute Assessment and Plan: Patient has been hypotensive since 03/18/2022. On 03/19/2022 received Dilaudid in the early hours in her systolic blood pressures dropped to the 70s, patient was given 250 mL IV fluid bolus in the was called. I did tell the hospitalist given additional 1 L IV fluid bolus and if blood pressures does not improve to center to the ICU. -upon arrival to the ICU patient systolic pressures was still in the 60s and 70s, patient was given 30 mL/kg IV fluids, -Levophed and vasopressin weaned off at this time -lactic acid has normalized -source is likely secondary to UTI, acute cholecystitis, hemorrhagic shock -03/19/2022: Blood cultures, urine cultures and sputum cultures obtained and negative till now - vancomycin IV dced 03/24 - changed Zosyn to cefepime 03/23 - Continue Flagyl and cefepime 03/20/2022: Ultrasound-guided percutaneous cholecystostomy tube was inserted by Interventional Radiology. Surgery team also following the patient 10 mL output overnight - 03/25 repeat blood and urine culture sent - change Echols 03/19/2022: CT scan of the chest abdomen and pelvis -Distended gallbladder with gallstone in the neck correlate for acute cholecystitis, cirrhosis, anasarca, small ascites. Bilateral breast implants probable intracapsular left imprint lecture and possible extracapsular right implant rupture. Moderate pleural effusions bilaterally with atelectasis, correlate for aspiration or pneumonia. (2) Acute respiratory failure: Code(s): J96.00 - Acute respiratory failure, unspecified whether with hypoxia or hypercapnia Status: Acute Assessment and Plan: Patient arrived in the ICU on 03/19, she had shallow broad respirations, tachypneic, ill looking and in impending respiratory failure -patient was intubated on 03/19, she had a lot of coffee-ground emesis during intubation, no white suction have and briskly placed in ET tube through the vocal cords using the glide scope. Physician who intubated the patient concluded that patient likely aspirated gastric contents -continue CMV mode of ventilation, peep of 5 on 30% FiO2 decrease rate to 20 and tidal volume to 400 -chest x-ray and ABGs reviewed -continue bronchodilators - currently sedated with fentanyl infusion. sedation holiday today -patient was also started on antibiotic as above - patient tolerated pressure support ventilation 03/23. she was drowsy and not awake enough. And also was having epistaxis hence no attempts were made to extubate patient - patient placed on weaning trial this morning - Lasix IV ordered (3) Ileus: Code(s): K56.7 - Ileus, unspecified Status: Acute Assessment and Plan: Patient was complaining of abdominal pain on arrival to the ICU, stat obstruct abner series showed possible ileus versus small-bowel obstruction CT scan suggested obstruction -general surgery is following. -patient recently had C diff colitis, currently on p.o. vancomycin. Now on IV Flagyl - tube feeds were resumed after EGD yesterday (4) Acute kidney injury: Code(s): N17.9 - Acute kidney failure, unspecified Status: Acute Assessment and Plan: Patient has been hypotensive since the morning of 03/18/2022 -acute kidney injury likely related to hypotension, ATN, septic shock, hypovolemia, infection, -patient has been adequately volume resuscitated -hold further IV fluids as patient has received significant IV fluids and blood products -lactic acid normalized
--- NOTE | 2022-03-26 12:36 | WPDGIPROGNO ---
Subjective Date/time seen: 03/26/22 12:36 Patient recently extubated. She is not having any specific complaints. She appears ill. Patient continues to have some black stools. Blood continues to drain from cholecystostomy tube. Vitals pulse 108 saturation 94% respiratory rate 21 blood pressure 130/80. Heart rate and rhythm regular. Lungs decreased breath sounds with expiratory wheezes. Abdomen was soft. Bowel sounds were present. Cholecystostomy tube in place. Skin multiple bruises. Acute blood loss anemia secondary to gastric ulcer disease. multiple other areas contribute to anemia. Gastric ulcer disease. Alcoholic Cirrhosis with complicating factors: Coagulopathy. 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 Portal hypertension. C diff colitis. Cholecystitis status post cholecystostomy tube. Endocarditis. COPD. Acute Respiratory failure. DVT. alcohol abuse. Nose bleed status post packing. CECILE. History CVA. Bipolar disease. Recommendation: Continue Protonix. Continue Carafate. Continue treatment for C diff colitis. Continue supportive care. Objective Data Vital Signs Vital Signs: Vital Signs - 24 hr 03/25/22 13:06 03/25/22 13:32 03/25/22 13:33 Temperature Pulse Rate 85 86 86 Respiratory Rate 22 H Blood Pressure Pulse Oximetry 95 Oxygen Delivery Mechanical Ventilation Oxygen Flow Rate Fraction of Inspired Oxygen 30 03/25/22 13:45 03/25/22 14:00 03/25/22 14:00 Temperature 37.3 C Pulse Rate 89 93 93 Respiratory Rate 20 22 H Blood Pressure 148/84 H Pulse Oximetry 92 Oxygen Delivery Oxygen Flow Rate Fraction of Inspired Oxygen 03/25/22 16:45 03/25/22 16:45 03/25/22 16:00 Temperature Pulse Rate 102 H 102 H 95 Respiratory Rate 22 H 18 Blood Pressure Pulse Oximetry 98 93 Oxygen Delivery Mechanical Ventilation Mechanical Ventilation Oxygen Flow Rate Fraction of Inspired Oxygen 30 30 03/25/22 16:00 03/25/22 16:00 03/25/22 16:00 Temperature 37.4 C Pulse Rate 100 100 Respiratory Rate 20 Blood Pressure 152/89 H Pulse Oximetry 100 Oxygen Delivery Oxygen Flow Rate Fraction of Inspired Oxygen 30 03/25/22 18:00 03/25/22 18:00 03/25/22 17:04 Temperature 37.5 C Pulse Rate 101 H 101 H 100 Respiratory Rate 22 H 22 H Blood Pressure 142/89 H Pulse Oximetry 100 Oxygen Delivery Oxygen Flow Rate Fraction of Inspired Oxygen 03/25/22 20:04 03/25/22 20:00 03/25/22 20:00 Temperature Pulse Rate 95 94 Respiratory Rate 21 H 20 Blood Pressure Pulse Oximetry 99 Oxygen Delivery Mechanical Ventilation Oxygen Flow Rate Fraction of Inspired Oxygen 30 30 03/25/22 20:00 03/25/22 20:10 03/25/22 20:10 Temperature 37.5 C Pulse Rate 92 97 97 Respiratory Rate 20 22 H Blood Pressure 169/87 H Pulse Oximetry 98 97 Oxygen Delivery Mechanical Ventilation Oxygen Flow Rate Fraction of Inspired Oxygen 35 03/25/22 20:20 03/25/22 20:00 03/25/22 22:00 Temperature Pulse Rate 97 96 94 Respiratory Rate 22 H 20 Blood Pressure 124/64 Pulse Oximetry 97 Oxygen Delivery Oxygen Flow Rate Fraction of Inspired Oxygen 03/25/22 23:44 03/25/22 23:44 03/25/22 23:54 Temperature Pulse Rate 90 90 90 Respiratory Rate 24 H 24 H Blood Pressure Pulse Oximetry 97 Oxygen Delivery Mechanical Ventilation Oxygen Flow Rate Fraction of Inspired Oxygen 30 03/26/22 00:00 03/26/22 00:00 03/26/22 00:00 Temperature Pulse Rate 91 91 Respiratory Rate 20 Blood Pressure Pulse Oximetry 95 Oxygen Delivery Mechanical Ventilation Oxygen Flow Rate Fraction of Inspired Oxygen 30 30 03/26/22 00:00 03/26/22 01:43 03/26/22 01:43 Temperature 37.3 C 37.2 C Pulse Rate 91 97 95 Respiratory Rate 20 19 Blood Pressure 116/67 110/65 Pulse Oximetry 94 96 Oxygen Delivery Oxygen Flow Rate Fraction of Ins
--- NOTE | 2022-03-26 12:46 | P.PNNP_ITS ---
Progress Note: A&P Assessment and Plan (1) Acute kidney injury: Code(s): N17.9 - Acute kidney failure, unspecified Status: Acute Assessment and Plan: * improving * due to ATN from hypotension, infection/sepsis, and prerenal factors * evaluation to date: * urine electrolytes are non-prerenal * CPK levels okay * imaging without obstruction * peak/plateau of creatinine at 3.5mg/dl * creatinine continues to improve * repletion of K+ as needed * follow repeat labs and UOP (2) Hypernatremia: Code(s): E87.0 - Hyperosmolality and hypernatremia Status: Acute Assessment and Plan: * due to free water deficit with possible exacerbation by PRN IV diuretics * would use free water tube flushes to compensate * alternatively, D5W IVFs can be used if necessary * follow trend of sodium (3) Septic shock: Code(s): A41.9 - Sepsis, unspecified organism; R65.21 - Severe sepsis with septic shock Status: Acute Assessment and Plan: * resolving * due to acute cholecystitis +/- UTI +/- endocarditis * s/p cholecystostomy drain placement - Surgery following * off pressors at this time * continue IV antibiotics * follow culture data (4) Acute respiratory failure: Code(s): J96.00 - Acute respiratory failure, unspecified whether with hypoxia or hypercapnia Status: Acute Assessment and Plan: * due to sepsis and previous hemodynamic instability * extubated today (but at high risk for re-intubation) * follow respiratory status closely (5) Endocarditis: Code(s): I38 - Endocarditis, valve unspecified Status: Acute Assessment and Plan: * as noted by JASON * on antibioitcs (6) C. difficile colitis: Code(s): A04.72 - Enterocolitis due to Clostridium difficile, not specified as recurrent Status: Acute Assessment and Plan: * as noted by stool studies * continue current therapy (7) Cirrhosis: Code(s): K74.60 - Unspecified cirrhosis of liver Status: Chronic Assessment and Plan: * known issues secondary to alcohol abuse Will continue to follow. Subjective Date/time seen: 03/26/22 12:46 S/P repeat EGD yesterday with noted presence of several gastric ulcer but no active bleeding; extubated earlier today as well but not fully oriented (she remains at risk for re-intubation as well); renal function continues to improve with good urine output; rising sodium and chloride noted. Exam Narrative: General: female (looks older than stated age); extubated on venti- mask Heart: normal S1 and S2; no rub Lungs: coarse breath sounds Abdomen: soft, TTP, no bowel sounds Extremities: no cyanosis or clubbing; trace - 1+ edema Skin: jaundice present Objective Data Vital Signs Vital Signs: Vital Signs Temp Pulse Resp BP Pulse Ox O2 Del Method O2 Flow Rate 03/26/22 12:00 102 H 03/26/22 11:09 106 H 18 93 Venturi Mask 15 03/26/22 11:09 117 H 15 03/26/22 11:00 103 H 15 03/26/22 10:30 102 H 90 03/26/22 10:00 103 H 19 151/84 H 03/26/22 10:00 103 H 03/26/22 10:12 93 Mechanical Ventilation 03/26/22 09:00 96 16 03/26/22 08:56 95 100 Mechanical Ventilation 03/26/22 08:00 105 H 03/26/22 08:00
--- NOTE | 2022-03-26 12:46 | PM.PNNEP ---
Progress Note: A&P Assessment and Plan (1) Acute kidney injury: Code(s): N17.9 - Acute kidney failure, unspecified Status: Acute Assessment and Plan: improving due to ATN from hypotension, infection/sepsis, and prerenal factors evaluation to date: urine electrolytes are non-prerenal CPK levels okay imaging without obstruction peak/plateau of creatinine at 3.5mg/dl creatinine continues to improve repletion of K+ as needed follow repeat labs and UOP (2) Hypernatremia: Code(s): E87.0 - Hyperosmolality and hypernatremia Status: Acute Assessment and Plan: due to free water deficit with possible exacerbation by PRN IV diuretics would use free water tube flushes to compensate alternatively, D5W IVFs can be used if necessary follow trend of sodium (3) Septic shock: Code(s): A41.9 - Sepsis, unspecified organism; R65.21 - Severe sepsis with septic shock Status: Acute Assessment and Plan: resolving due to acute cholecystitis +/- UTI +/- endocarditis s/p cholecystostomy drain placement - Surgery following off pressors at this time continue IV antibiotics follow culture data (4) Acute respiratory failure: Code(s): J96.00 - Acute respiratory failure, unspecified whether with hypoxia or hypercapnia Status: Acute Assessment and Plan: due to sepsis and previous hemodynamic instability extubated today (but at high risk for re-intubation) follow respiratory status closely (5) Endocarditis: Code(s): I38 - Endocarditis, valve unspecified Status: Acute Assessment and Plan: as noted by JASON on antibioitcs (6) C. difficile colitis: Code(s): A04.72 - Enterocolitis due to Clostridium difficile, not specified as recurrent Status: Acute Assessment and Plan: as noted by stool studies continue current therapy (7) Cirrhosis: Code(s): K74.60 - Unspecified cirrhosis of liver Status: Chronic Assessment and Plan: known issues secondary to alcohol abuse Will continue to follow. Subjective Date/time seen: 03/26/22 12:46 S/P repeat EGD yesterday with noted presence of several gastric ulcer but no active bleeding; extubated earlier today as well but not fully oriented (she remains at risk for re-intubation as well); renal function continues to improve with good urine output; rising sodium and chloride noted. Exam Narrative: General: female (looks older than stated age); extubated on venti-mask Heart: normal S1 and S2; no rub Lungs: coarse breath sounds Abdomen: soft, TTP, no bowel sounds Extremities: no cyanosis or clubbing; trace - 1+ edema Skin: jaundice present Objective Data Vital Signs Vital Signs: Vital Signs Temp Pulse Resp BP Pulse Ox O2 Del Method O2 Flow Rate 03/26/22 12:00 102 H 03/26/22 11:09 106 H 18 93 Venturi Mask 15 03/26/22 11:09 117 H 15 03/26/22 11:00 103 H 15 03/26/22 10:30 102 H 90 03/26/22 10:00 103 H 19 151/84 H 03/26/22 10:00 103 H 03/26/22 10:12 93 Mechanical Ventilation 03/26/22 09:00 96 16 03/26/22 08:56 95 100 Mechanical Ventilation 03/26/22 08:00 105 H 03/26/22 08:00 37.5 C 97 20 114/76 92 03/26/22 08:00 03/26/22 08:00 98 20 94 Mechanical Ventilation 03/26/22 06:00 93 24 H 128/72 93 03/26/22 05:30 94 94 Mechanical Ventilation 03/26/22 04:00 95 03/26/22 04:00 37.4 C 100 17 130/78 96 03/26/22 04:00 03/26/22 04:00 91 20 95 Mechanical Ventilation 03/26/22 03:27 97 19 03/26/22 03:27 97 19 03/26/22 02:54 90 20 03/26/22 02:44 90 20 03/26/22 02:44 90 97 Mechanical Ventilation 03/26/22 01:43 37.2 C 95 19 110/65 96 03/26/22 01:43 97 03/26/22 00:00 37.3 C 91 20 116/67 94 03/26/22 00:00 91
[2022-03-26 12:57] LABS: Glucose Point of Care 100 mg/dl (65-105)
[2022-03-26 16:15] LABS: Hematocrit 22.4 % (37.0-47.0); Hemoglobin 7.3 g/dL (12.0-15.0); Mean Corpuscular HGB Conc 32.6 g/dl (32-36); Mean Corpuscular Hemoglobin 31.3 pg (26-34); Mean Corpuscular Volume 96.1 fl (80-100); Mean Platelet Volume 9.7 fl (7.4-10.4); Platelet Count Result 117 k/mm3 (150-375); Red Blood Count 2.33 M/mm3 (4.2-5.4); Red Cell Distribution Width 20.6 % (11.5-14.5); White Blood Count 8.3 K/mm3 (4.5-10.0)
[2022-03-26 16:25] LABS: Anion Gap 12 mmol/L (8-16); Blood Urea Nitrogen 31 mg/dL (7-17); Calcium 9.1 mg/dL (8.4-10.2); Carbon Dioxide 26 mmol/L (22-30); Chloride 112 mmol/L (98-107); Estimated CRCL calculation 40 ml/min; Estimated Glomerular Filt Rate 37; Glucose 103 mg/dL (65-110); Potassium 3.2 mmol/L (3.4-5.0); Sodium 150 mmol/L (137-145)
[2022-03-26] MEDS: VANCOMYCIN ORAL 125 MG/2.5 ML SYRUP FEED TUBE ×2 (17:51→23:10)
[2022-03-26] MEDS: racEPINEPHrine 2.25% NEBU SOLN 0.5 ML VIAL.NEB INHALATION (18:00)
[2022-03-26] MEDS: methylPREDNISolone SOD SUCC 40 MG VIAL IV PUSH ×2 (18:05→23:08)
[2022-03-26 18:40] LABS: Glucose Point of Care 108 mg/dl (65-105)
--- NOTE | 2022-03-26 18:41 | PC.NURSE ---
Stridor now absent. One dose of racemic epinephrine given and 40 mg of solumedrol IV given as ordered. will continue to monitor.
--- NOTE | 2022-03-26 19:33 | PC.NURSE ---
Tc Alfonso and Susan have communicated that patient should not be intubated if her respiratory status deteriorates. 2nd RN verification Erika Rodriguez RN.
[2022-03-26 23:58] LABS: Glucose Point of Care 131 mg/dl (65-105)
[2022-03-27] VITALS (38 sets, daily range): BP systolic 120–186; BP diastolic 71–116; PULSE 74–115; RESP 14–27; TEMP 36.8–37.4; O2SAT 94–99
[2022-03-27] MEDS: metroNIDAZOLE 500 MG/ISO 100ML 500 MG/100 ML BAG 100 MG IVPB (01:36)
[2022-03-27] MEDS: IPRATROPIUM BR 0.02% INH SOLN 0.5 MG/2.5 ML VIAL INHALATION ×5 (03:13→20:25)
[2022-03-27] MEDS: ALBUTEROL SULFATE NEB 2.5 MG/3 ML INH INHALATION ×5 (03:13→20:25)
[2022-03-27 05:46] LABS: Hematocrit 23.9 % (37.0-47.0); Hemoglobin 7.9 g/dL (12.0-15.0); Mean Corpuscular HGB Conc 33.1 g/dl (32-36); Mean Corpuscular Hemoglobin 31.7 pg (26-34); Mean Platelet Volume 10.5 fl (7.4-10.4); Platelet Count Result 147 k/mm3 (150-375); Red Blood Count 2.49 M/mm3 (4.2-5.4); Red Cell Distribution Width 21.3 % (11.5-14.5); White Blood Count 8.9 K/mm3 (4.5-10.0)
[2022-03-27] MEDS: ALBUMIN HUMAN 25% 25 GM/100 ML 100 ML IVPB (05:50)
[2022-03-27] MEDS: CENTRAL LINE FLUSH 10 ML IV PUSH ×3 (05:53→21:28)
[2022-03-27] MEDS: methylPREDNISolone SOD SUCC 40 MG VIAL IV PUSH ×2 (05:53→11:45)
[2022-03-27 05:56] LABS: INR 2.9; Prothrombin Time 29.3 Seconds (11.1-14.7)
[2022-03-27 05:57] LABS: Partial Thromboplastin Time 42.9 SECONDS (22.3-36.8)
[2022-03-27 06:00] LABS: Alanine Aminotransferase 18 U/L (6-35); Albumin Level 4.6 g/dL (3.5-5.1); Alkaline Phosphatase 49 U/L (38-126); Anion Gap 13 mmol/L (8-16); Aspartate Amino Transferase 43 U/L (14-36); Bilirubin,Total 8.2 mg/dL (0.2-1.3); Blood Urea Nitrogen 30 mg/dL (7-17); Calcium 9.2 mg/dL (8.4-10.2); Carbon Dioxide 25 mmol/L (22-30); Chloride 112 mmol/L (98-107); Estimated CRCL calculation 46 ml/min; Estimated Glomerular Filt Rate 44; Glucose 138 mg/dL (65-110); Magnesium 1.5 mg/dL (1.6-2.3); Phosphorus 2.6 mg/dL (2.5-4.5); Potassium 3.4 mmol/L (3.4-5.0); Sodium 150 mmol/L (137-145)
[2022-03-27] MEDS: VANCOMYCIN ORAL 125 MG/2.5 ML SYRUP FEED TUBE ×3 (06:05→17:46)
[2022-03-27] MEDS: SUCRALFATE 1 GM TABLET PO ×3 (06:05→17:46)
[2022-03-27] MEDS: POTASSIUM CHLORIDE 20 MEQ PACKET (FOR LIQUID) 40 MEQ FEED TUBE (08:22)
[2022-03-27] MEDS: MAGNESIUM SULF 2 GM/WATER 50ML 2 GM/50 ML BAG IVPB (08:29)
[2022-03-27] MEDS: LABETALOL HCL INJ 100 MG/20 ML VIAL 20 MG IV PUSH ×2 (08:32→15:18)
[2022-03-27] MEDS: FUROSEMIDE INJ 40 MG/4 ML VIAL IV PUSH ×2 (08:34→16:36)
--- NOTE | 2022-03-27 08:35 | WPDINTPN ---
Progress Note: A&P Assessment and Plan (1) Septic shock: Code(s): A41.9 - Sepsis, unspecified organism; R65.21 - Severe sepsis with septic shock Status: Acute Assessment and Plan: Patient has been hypotensive since 03/18/2022. On 03/19/2022 received Dilaudid in the early hours in her systolic blood pressures dropped to the 70s, patient was given 250 mL IV fluid bolus in the was called. I did tell the hospitalist given additional 1 L IV fluid bolus and if blood pressures does not improve to center to the ICU. -upon arrival to the ICU patient systolic pressures was still in the 60s and 70s, patient was given 30 mL/kg IV fluids, -Levophed and vasopressin weaned off at this time -lactic acid has normalized -source is likely secondary to UTI, acute cholecystitis, hemorrhagic shock -03/19/2022: Blood cultures, urine cultures and sputum cultures obtained and negative till now urine culture grew Margot which is likely a colonization. - vancomycin IV dced 03/24 - changed Zosyn to cefepime 03/23 - 03/26 change Flagyl to p.o. vancomycin for C diff - Continue cefepime - 03/25 repeat blood and urine culture sent - 03/26 - Urine culture grew Margot, guzman replaced. patient is afebrile now and WBCs normal hence I will hold anti fungal treatment at this time she is afebrile and WBCs normal tomorrow will try to obtain a multi lumen PICC line and remove will central venous catheter and a single-lumen PICC 03/19/2022: CT scan of the chest abdomen and pelvis -Distended gallbladder with gallstone in the neck correlate for acute cholecystitis, cirrhosis, anasarca, small ascites. Bilateral breast implants probable intracapsular left imprint lecture and possible extracapsular right implant rupture. Moderate pleural effusions bilaterally with atelectasis, correlate for aspiration or pneumonia. (2) Acute respiratory failure: Code(s): J96.00 - Acute respiratory failure, unspecified whether with hypoxia or hypercapnia Status: Acute Assessment and Plan: Patient arrived in the ICU on 03/19, she had shallow broad respirations, tachypneic, ill looking and in impending respiratory failure -patient was intubated on 03/19, she had a lot of coffee-ground emesis during intubation, no white suction have and briskly placed in ET tube through the vocal cords using the glide scope. Physician who intubated the patient concluded that patient likely aspirated gastric contents 03/26 extubated after a successful weaning trial patient is maintaining her oxygenation on Ventimask. She did develop some stridor as per nursing report to me by phone yesterday evening. she has some wheezing on exam today continue course of Solu-Medrol will give another dose of Lasix today patient's daughter has decided the patient would not want re-intubation if respiratory status deteriorates. Patient was DNR earlier but now she is also DNI incentive spirometry if patient able to do it (3) Ileus: Code(s): K56.7 - Ileus, unspecified Status: Acute Assessment and Plan: Patient was complaining of abdominal pain on arrival to the ICU, stat obstructive series showed possible ileus versus small-bowel obstruction CT scan suggested obstruction -general surgery is following. - patient is having bowel movements andtolerating tube feeds -patient recently had C diff colitis, currently on p.o. vancomycin- > IV Flagyl -> per tube vancomycin - tube feeds were resumed after EGD yesterday and I will advance them to 40 cc (4) Acute kidney injury: Code(s): N17.9 - Acute kidney failure, unspecified Status: Acute Assessment and Plan: Patient has been hypotensive since the morning of 03/18/2022 -acute kidney injury likely related to hypotension, ATN, septic shock, hypovolemia, infection, -patient has been adequately volume resuscitated -hold further IV fluids as patient has received significant IV fluids and blood products -lactic acid normal
[2022-03-27] MEDS: PANTOPRAZOLE SODIUM IV 40 MG VIAL IV PUSH ×2 (08:37→21:28)
[2022-03-27] MEDS: CEFEPIME 0.5 GM in DEXTROSE 5% IN WATER 50 ML IVPB ×2 (08:45→21:27)
--- NOTE | 2022-03-27 10:00 | P.PNIM_ITS ---
Progress Note: A&P Assessment and Plan (1) Septic shock: Code(s): A41.9 - Sepsis, unspecified organism; R65.21 - Severe sepsis with septic shock Status: Acute Assessment and Plan: Patient has been hypotensive since 03/18/2022. On 03/19/2022 received Dilaudid in the early hours in her systolic blood pressures dropped to the 70s, patient was given 250 mL IV fluid bolus in the was called. I did tell the hospitalist given additional 1 L IV fluid bolus and if blood pressures does not improve to center to the ICU. -upon arrival to the ICU patient systolic pressures was still in the 60s and 70s, patient was given 30 mL/kg IV fluids, -Levophed and vasopressin weaned off at this time -lactic acid has normalized -source is likely secondary to UTI, acute cholecystitis, hemorrhagic shock -03/19/2022: Blood cultures, urine cultures and sputum cultures obtained and negative till now urine culture grew Margot which is likely a colonization. - vancomycin IV dced 03/24 - changed Zosyn to cefepime 03/23 - 03/26 change Flagyl to p.o. vancomycin for C diff - Continue cefepime - 03/25 repeat blood and urine culture sent - 03/26 - Urine culture grew Margot, guzman replaced. patient is afebrile now and WBCs normal hence I will hold anti fungal treatment at this time she is afebrile and WBCs normal tomorrow will try to obtain a multi lumen PICC line and remove will central v enous catheter and a single-lumen PICC 03/19/2022: CT scan of the chest abdomen and pelvis -Distended gallbladder with gallstone in the neck correlate for acute cholecystitis, cirrhosis, anasarca, sm all ascites. Bilateral breast implants probable intracapsular left imprint lecture and possible extracapsular right implant rupture. Moderate pleural effusions bilaterally with atelectasis, correlate for aspiration or pneumonia. (2) Acute respiratory failure: Code(s): J96.00 - Acute respiratory failure, unspecified whether with hypoxia or hy percapnia Status: Acute Assessment and Plan: Patient arrived in the ICU on 03/19, she had shallow broad respirations, tachypneic, ill looking and in impending respiratory failure -patient was intubated on 03/19, she had a lot of coffee-ground emesis during intubation, no white suction have and briskly placed in ET tube through the vocal cords using the glide scope. Physician who intubated the patient concluded that patient likely aspirated gastric contents 03/26 extubated after a successful weaning trial patient is maintaining her oxygenation on Ventimask. She did develop some stridor as per nursing report to me by phone yesterday evening. she has some wheezing on exam today continue course of Solu-Medrol will give another dose of Lasix today patient's daughter has decided the patient would not want re-intubation if respiratory status deteriorates. Patient was DNR earlier but now she is also DNI incentive spirometry if patient able to do it (3) Ileus: Code(s): K56.7 - Ileus, unspecified Status: Acute Assessment and Plan: Patient was complaining of abdominal pain on arrival to the ICU, stat obstructive series showed possible ileus versus small-bowel obstruction CT scan suggested obstruction -general surgery is following. - patient is having bowel movements andtolerating tube feeds -patient recently had C diff colitis, currently on p.o. vancomycin- > IV Flagyl -> per tube vancomycin - tube feeds were resumed after EGD yesterday and I will advance them to 40 cc (4) Acute kidney injury: Code(s): N17.9 - Acute kidney failure, unspecified Status: Acute Assessment and Plan: Patient has been hypot
--- NOTE | 2022-03-27 10:07 | WPDGIPROGNO ---
Subjective Date/time seen: 03/27/22 10:07 Patient tolerating extubation. Continues have blood per cholecystostomy tube. Melena stool noted. Hemoglobin hematocrit are stable. Heart rate and rhythm regular.? Lungs decreased breath sounds with expiratory wheezes.? Abdomen was soft.? Bowel sounds were present.? Cholecystostomy tube in place. Draining minimal amounts of blood. Skin multiple bruises. Acute blood loss anemia secondary to gastric ulcer disease. multiple other areas contribute to anemia. Gastric ulcer disease.? Alcoholic Cirrhosis with complicating factors: Coagulopathy.? 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 Portal hypertension. C diff colitis. Cholecystitis status post cholecystostomy tube.? Endocarditis.? COPD.? Acute Respiratory failure.? ?DVT. ?alcohol abuse.? ?Nose bleed status post packing. CECILE. History CVA.? Bipolar disease. Recommendation: Continue vancomycin for 3 weeks. Then would consider taper at that time. Consider imaging of the right upper quadrant to ascertain any fluid collections. Continue supportive care. Objective Data Vital Signs Vital Signs: Vital Signs - 24 hr 03/26/22 10:12 03/26/22 10:30 03/26/22 11:00 Temperature Pulse Rate 102 H 103 H Respiratory Rate 15 Blood Pressure Pulse Oximetry 93 90 Oxygen Delivery Mechanical Ventilation Oxygen Flow Rate Fraction of Inspired Oxygen 40 03/26/22 11:09 03/26/22 11:09 03/26/22 12:00 Temperature Pulse Rate 117 H 106 H 102 H Respiratory Rate 15 18 Blood Pressure Pulse Oximetry 93 Oxygen Delivery Venturi Mask Oxygen Flow Rate 15 Fraction of Inspired Oxygen 50 03/26/22 12:00 03/26/22 14:00 03/26/22 12:00 Temperature 37.4 C Pulse Rate 100 100 103 H Respiratory Rate 15 18 Blood Pressure 130/80 Pulse Oximetry 98 96 Oxygen Delivery Venturi Mask Oxygen Flow Rate 15 Fraction of Inspired Oxygen 50 03/26/22 14:00 03/26/22 14:09 03/26/22 16:00 Temperature 37.4 C Pulse Rate 100 100 114 H Respiratory Rate 17 14 18 Blood Pressure 127/78 Pulse Oximetry 97 97 98 Oxygen Delivery Venturi Mask Venturi Mask Oxygen Flow Rate 12 12 Fraction of Inspired Oxygen 40 40 03/26/22 16:00 03/26/22 16:00 03/26/22 16:20 Temperature Pulse Rate 99 106 H 112 H Respiratory Rate 21 H 21 H Blood Pressure 132/73 Pulse Oximetry 97 Oxygen Delivery Oxygen Flow Rate Fraction of Inspired Oxygen 03/26/22 16:38 03/26/22 18:25 03/26/22 17:00 Temperature 37.6 C H Pulse Rate 112 H 114 H 106 H Respiratory Rate 18 25 H 20 Blood Pressure 125/77 145/83 H Pulse Oximetry 98 97 Oxygen Delivery Venturi Mask Oxygen Flow Rate 12 Fraction of Inspired Oxygen 03/26/22 17:01 03/26/22 17:30 03/26/22 18:00 Temperature 37.6 C H 37.7 C H 37.8 C H Pulse Rate 108 H 131 H 126 H Respiratory Rate 24 H 18 22 H Blood Pressure 125/77 Pulse Oximetry 96 97 97 Oxygen Delivery Oxygen Flow Rate Fraction of Inspired Oxygen 03/26/22 18:01 03/26/22 18:00 03/26/22 18:19 Temperature 37.7 C H Pulse Rate 111 H 106 H 107 H Respiratory Rate 19 20 21 H Blood Pressure Pulse Oximetry 97 Oxygen Delivery Oxygen Flow Rate Fraction of Inspired Oxygen 03/26/22 18:00 03/26/22 19:19 03/26/22 19:19 Temperature Pulse Rate 122 H 108 H 108 H Respiratory Rate 20 20 Blood Pressure Pulse Oximetry 93 Oxygen Delivery Venturi Mask Oxygen Flow Rate 12 Fraction of Inspired Oxygen 40 03/26/22 19:31 03/26/22 20:00 03/26/22 20:00 Temperature 37.7 C H Pulse Rate 112 H 112 H 111 H Respiratory Rate 18 22 H Blood Pressure 164/94 H Pulse Oximetry 94 Oxygen Delivery Oxygen Flow Rate Fraction of Inspired Oxygen 03/26/22 20:00 03/26/22 22:00 03/26/22 22:00 Temperature 37.7 C H Pulse Rate 103 H 105 H Respiratory Rate 19 Blood Pressure 159/102 H Pulse Oximetry 94 95 Oxygen Delivery Venturi Mask
[2022-03-27] MEDS: THIAMINE HCL 100 MG TABLET FEED TUBE (11:44)
[2022-03-27] MEDS: FOLIC ACID 1 MG TABLET FEED TUBE (11:45)
[2022-03-27 12:15] LABS: Glucose Point of Care 125 mg/dl (65-105)
[2022-03-27] MEDS: racEPINEPHrine 2.25% NEBU SOLN 0.5 ML VIAL.NEB INHALATION (12:18)
--- NOTE | 2022-03-27 12:48 | PM.PNNEP ---
Progress Note: A&P Assessment and Plan (1) Acute kidney injury: Code(s): N17.9 - Acute kidney failure, unspecified Status: Acute Assessment and Plan: improving due to ATN from hypotension, infection/sepsis, and prerenal factors evaluation to date: urine electrolytes are non-prerenal CPK levels okay imaging without obstruction peak/plateau of creatinine at 3.5mg/dl creatinine continues to improve with good urine output (responsive to diuretic therapy) repletion of K+ as needed follow repeat labs and UOP (2) Hypernatremia: Code(s): E87.0 - Hyperosmolality and hypernatremia Status: Acute Assessment and Plan: due to free water deficit with possible exacerbation by PRN IV diuretics would use free water tube flushes and titrate to compensate alternatively, D5W IVFs can be used if necessary follow trend of sodium (3) Septic shock: Code(s): A41.9 - Sepsis, unspecified organism; R65.21 - Severe sepsis with septic shock Status: Acute Assessment and Plan: resolving due to acute cholecystitis +/- UTI +/- endocarditis s/p cholecystostomy drain placement - Surgery following off pressors at this time continue IV antibiotics follow culture data (4) Acute respiratory failure: Code(s): J96.00 - Acute respiratory failure, unspecified whether with hypoxia or hypercapnia Status: Acute Assessment and Plan: due to sepsis and previous hemodynamic instability extubated today (but at high risk for re-intubation) follow respiratory status closely (5) Endocarditis: Code(s): I38 - Endocarditis, valve unspecified Status: Acute Assessment and Plan: as noted by JASON on antibioitcs (6) C. difficile colitis: Code(s): A04.72 - Enterocolitis due to Clostridium difficile, not specified as recurrent Status: Acute Assessment and Plan: as noted by stool studies continue current therapy (7) Cirrhosis: Code(s): K74.60 - Unspecified cirrhosis of liver Status: Chronic Assessment and Plan: known issues secondary to alcohol abuse Will continue to follow. Subjective Date/time seen: 03/27/22 12:48 Extubated yesterday and remains so at my visit (remains on venturi-mask); started on steroids following racemic epinephrine nebulizer due to stridor yesterday evening; she still seems quite weak at this time; tolerating tube feeds and remains hemodynamically stable. Exam Narrative: General: female (looks older than stated age); on venturi-mask Heart: normal S1 and S2; no rub Lungs: coarse breath sounds Abdomen: soft, TTP, few bowel sounds Extremities: no cyanosis or clubbing; trace - 1+ edema Skin: jaundice unchanged Objective Data Vital Signs Vital Signs: Vital Signs Temp Pulse Resp BP Pulse Ox O2 Del Method O2 Flow Rate 03/27/22 12:00 84 16 97 Venturi Mask 12 03/27/22 12:30 82 16 03/27/22 12:20 84 18 03/27/22 12:00 36.8 C 84 25 H 160/93 H 96 03/27/22 12:01 99 20 03/27/22 11:45 98 20 03/27/22 10:00 36.9 C 75 14 144/92 H 99 03/27/22 10:00 75 03/27/22 09:15 37.0 C 78 19 96 03/27/22 09:01 37.1 C 75 17 125/80 98 03/27/22 09:00 37.1 C 74 16 98 03/27/22 08:45 37.1 C 81 19 96 03/27/22 08:44 37.1 C 84 20 150/98 H 98 03/27/22 08:40 37.1 C 80 21 H 120/71 96 03/27/22 08:30 37.1 C 114 H 19 03/27/22 08:15 37.1 C 106 H 20 97 03/27/22 08:02 37.0 C 115 H 24 H 96 03/27/22 08:01 37.0 C 113 H 25 H 186/116 H 95 03/27/22 08:00 76 25 H 96 Venturi Mask 12 03/27/22 08:00 112 H 03/27/22 08:32 108 H 03/27/22 08:00 37.1 C 110 H 23 H 186/116 H 95 03/27/22 07:30 107 H 20 03/27/22 07:19 110 H 20 94 Venturi Mask 12 03/27/22 07:18 110 H 22 H 03/27/22 06:00 37.1 C 106 H 21 H 170/102 H
--- NOTE | 2022-03-27 12:48 | P.PNNP_ITS ---
Progress Note: A&P Assessment and Plan (1) Acute kidney injury: Code(s): N17.9 - Acute kidney failure, unspecified Status: Acute Assessment and Plan: * improving * due to ATN from hypotension, infection/sepsis, and prerenal factors * evaluation to date: * urine electrolytes are non-prerenal * CPK levels okay * imaging without obstruction * peak/plateau of creatinine at 3.5mg/dl * creatinine continues to improve with good urine output (responsive to diuretic therapy) * repletion of K+ as needed * follow repeat labs and UOP (2) Hypernatremia: Code(s): E87.0 - Hyperosmolality and hypernatremia Status: Acute Assessment and Plan: * due to free water deficit with possible exacerbation by PRN IV diuretics * would use free water tube flushes and titrate to compensate * alternatively, D5W IVFs can be used if necessary * follow trend of sodium (3) Septic shock: Code(s): A41.9 - Sepsis, unspecified organism; R65.21 - Severe sepsis with septic shock Status: Acute Assessment and Plan: * resolving * due to acute cholecystitis +/- UTI +/- endocarditis * s/p cholecystostomy drain placement - Surgery following * off pressors at this time * continue IV antibiotics * follow culture data (4) Acute respiratory failure: Code(s): J96.00 - Acute respiratory failure, unspecified whether with hypoxia or hypercapnia Status: Acute Assessment and Plan: * due to sepsis and previous hemodynamic instability * extubated today (but at high risk for re-intubation) * follow respiratory status closely (5) Endocarditis: Code(s): I38 - Endocarditis, valve unspecified Status: Acute Assessment and Plan: * as noted by JASON * on antibioitcs (6) C. difficile colitis: Code(s): A04.72 - Enterocolitis due to Clostridium difficile, not specified as recurrent Status: Acute Assessment and Plan: * as noted by stool studies * continue current therapy (7) Cirrhosis: Code(s): K74.60 - Unspecified cirrhosis of liver Status: Chronic Assessment and Plan: * known issues secondary to alcohol abuse Will continue to follow. Subjective Date/time seen: 03/27/22 12:48 Extubated yesterday and remains so at my visit (remains on venturi-mask); started on steroids following racemic epinephrine nebulizer due to stridor yesterday evening; she still seems quite weak at this time; tolerating tube feeds and remains hemodynamically stable. Exam Narrative: General: female (looks older than stated age); on venturi-mask Heart: normal S1 and S2; no rub Lungs: coarse breath sounds Abdomen: soft, TTP, few bowel sounds Extremities: no cyanosis or clubbing; trace - 1+ edema Skin: jaundice unchanged Objective Data Vital Signs Vital Signs: Vital Signs Temp Pulse Resp BP Pulse Ox O2 Del Method O2 Flow Rate 03/27/22 12:00 84 16 97 Venturi Mask 12 03/27/22 12:30 82 16 03/27/22 12:20 84 18 03/27/22 12:00 36.8 C 84 25 H 160/93 H 96 03/27/22 12:01 99 20 03/27/22 11:45 98 20 03/27/22 10:00 36.9 C 75 14 144/92 H 99 03/27/22 10:00 75 03/27/22 09:15 37.0 C 78 19 96 03/27/22 09:01 37.1 C 75 17 125/80 98 03/27/22 09:00 37.1 C
[2022-03-27 15:34] LABS: Anion Gap 14 mmol/L (8-16); Blood Urea Nitrogen 32 mg/dL (7-17); Calcium 9.3 mg/dL (8.4-10.2); Carbon Dioxide 26 mmol/L (22-30); Chloride 111 mmol/L (98-107); Estimated CRCL calculation 46 ml/min; Estimated Glomerular Filt Rate 44; Glucose 143 mg/dL (65-110); Potassium 3.1 mmol/L (3.4-5.0); Sodium 151 mmol/L (137-145)
[2022-03-27] MEDS: POTASSIUM CHLORIDE 20 MEQ PACKET (FOR LIQUID) 40 MEQ PO (16:32)
[2022-03-27] MEDS: KCL 40 MEQ/WATER 100 ML 100 ML 25 ML IVPB (16:42)
[2022-03-27 18:02] LABS: Glucose Point of Care 149 mg/dl (65-105)
[2022-03-27 23:04] LABS: Anion Gap 12 mmol/L (8-16); Blood Urea Nitrogen 37 mg/dL (7-17); Calcium 9.2 mg/dL (8.4-10.2); Carbon Dioxide 26 mmol/L (22-30); Chloride 112 mmol/L (98-107); Estimated CRCL calculation 46 ml/min; Estimated Glomerular Filt Rate 44; Glucose 146 mg/dL (65-110); Potassium 3.3 mmol/L (3.4-5.0); Sodium 150 mmol/L (137-145)
[2022-03-28] VITALS (24 sets, daily range): BP systolic 131–172; BP diastolic 82–104; PULSE 74–97; RESP 15–26; TEMP 36.3–37.2; O2SAT 94–100
[2022-03-28] MEDS: SUCRALFATE 1 GM TABLET PO ×4 (00:01→17:35)
[2022-03-28] MEDS: IPRATROPIUM BR 0.02% INH SOLN 0.5 MG/2.5 ML VIAL INHALATION ×5 (00:35→19:29)
[2022-03-28] MEDS: ALBUTEROL SULFATE NEB 2.5 MG/3 ML INH INHALATION ×5 (00:35→19:29)
[2022-03-28] MEDS: VANCOMYCIN ORAL 125 MG/2.5 ML SYRUP FEED TUBE ×4 (06:34→17:35)
[2022-03-28] MEDS: CENTRAL LINE FLUSH 10 ML IV PUSH ×3 (06:34→21:34)
[2022-03-28 06:35] LABS: Hematocrit 26.1 % (37.0-47.0); Hemoglobin 8.2 g/dL (12.0-15.0); Mean Corpuscular HGB Conc 31.4 g/dl (32-36); Mean Corpuscular Hemoglobin 31.2 pg (26-34); Mean Corpuscular Volume 99.2 fl (80-100); Mean Platelet Volume 10.4 fl (7.4-10.4); Platelet Count Result 209 k/mm3 (150-375); Red Blood Count 2.63 M/mm3 (4.2-5.4); Red Cell Distribution Width 23.7 % (11.5-14.5); White Blood Count 15.3 K/mm3 (4.5-10.0)
[2022-03-28 06:46] LABS: Alanine Aminotransferase 17 U/L (6-35); Albumin Level 4.5 g/dL (3.5-5.1); Alkaline Phosphatase 65 U/L (38-126); Anion Gap 10 mmol/L (8-16); Aspartate Amino Transferase 47 U/L (14-36); Blood Urea Nitrogen 39 mg/dL (7-17); Calcium 9.3 mg/dL (8.4-10.2); Carbon Dioxide 28 mmol/L (22-30); Chloride 114 mmol/L (98-107); Estimated CRCL calculation 46 ml/min; Estimated Glomerular Filt Rate 44; Glucose 155 mg/dL (65-110); Magnesium 1.7 mg/dL (1.6-2.3); Phosphorus 2.5 mg/dL (2.5-4.5); Potassium 3.4 mmol/L (3.4-5.0); Sodium 152 mmol/L (137-145)
[2022-03-28 06:47] LABS: INR 2.8; Partial Thromboplastin Time 40.1 SECONDS (22.3-36.8); Prothrombin Time 28.4 Seconds (11.1-14.7)
[2022-03-28] MEDS: CEFEPIME 0.5 GM in DEXTROSE 5% IN WATER 50 ML IVPB ×2 (09:03→21:33)
[2022-03-28] MEDS: FOLIC ACID 1 MG TABLET FEED TUBE (09:03)
[2022-03-28] MEDS: PANTOPRAZOLE SODIUM IV 40 MG VIAL IV PUSH ×2 (09:03→21:33)
[2022-03-28] MEDS: THIAMINE HCL 100 MG TABLET FEED TUBE (09:04)
[2022-03-28] MEDS: LABETALOL HCL INJ 100 MG/20 ML VIAL 20 MG IV PUSH (09:09)
[2022-03-28] MEDS: MAGNESIUM SULF 2 GM/WATER 50ML 2 GM/50 ML BAG IVPB (09:31)
[2022-03-28] MEDS: POTASSIUM CHLORIDE 20 MEQ PACKET (FOR LIQUID) 40 MEQ FEED TUBE ×2 (09:31)
[2022-03-28] MEDS: KCL 20 MEQ/D5W 1,000 ML 1,000 ML 100 ML IV CONT (09:42)
[2022-03-28 09:59] LABS: Ammonia 22 umol/L (9-30)
[2022-03-28 10:00] LABS: Lipase 338 U/L (23-300)
--- NOTE | 2022-03-28 10:48 | WPDGIPROGNO ---
Subjective Date/time seen: 03/28/22 10:48 Patient presently on a Venti mask. Continues to have black stools. There continues have blood per cholecystostomy tube. Ultrasound confirms tube in place. Hemoglobin hematocrit are stable. White blood cell count is increased. Patient tolerating tube feedings. No significant tube feedings or gross blood noted in stomach when checking for residuals. Heart rate and rhythm regular.? Lungs decreased breath sounds with expiratory wheezes.? Abdomen was soft.? Bowel sounds were present.? Cholecystostomy tube in place.? Draining minimal amounts of blood. Skin multiple bruises. Acute blood loss anemia secondary to gastric ulcer disease. multiple other areas contribute to anemia. Gastric ulcer disease.? Alcoholic Cirrhosis with complicating factors: Coagulopathy.? 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 Portal hypertension. C diff colitis. Minimally elevated lipase. Cholecystitis status post cholecystostomy tube.? Tube in proper position. Endocarditis.? COPD.? Acute Respiratory failure.? Extubated. ?DVT. ?alcohol abuse.? ?Nose bleed status post packing. CECILE. History CVA.? Bipolar disease. Recommendation: Continue vancomycin for C diff. Would treat 2 weeks followed by taper. Continue tube feedings. Continue PPI b.i.d.. With elevated lipase which is continue to observe. She seems to tolerate tube feedings well. [facility] to resume care in the morning. Objective Data Vital Signs Vital Signs: Vital Signs - 24 hr 03/27/22 11:45 03/27/22 12:01 03/27/22 12:00 Temperature 36.8 C Pulse Rate 98 99 84 Respiratory Rate 20 20 25 H Blood Pressure 160/93 H Pulse Oximetry 96 Oxygen Delivery Oxygen Flow Rate Fraction of Inspired Oxygen 03/27/22 12:20 03/27/22 12:30 03/27/22 12:00 Temperature Pulse Rate 84 82 84 Respiratory Rate 18 16 16 Blood Pressure Pulse Oximetry 97 Oxygen Delivery Venturi Mask Oxygen Flow Rate 12 Fraction of Inspired Oxygen 40 03/27/22 12:00 03/27/22 14:00 03/27/22 14:00 Temperature Pulse Rate 81 85 96 Respiratory Rate 23 H Blood Pressure 151/72 H Pulse Oximetry 95 Oxygen Delivery Oxygen Flow Rate Fraction of Inspired Oxygen 03/27/22 15:18 03/27/22 15:18 03/27/22 16:00 Temperature Pulse Rate 98 98 84 Respiratory Rate 16 Blood Pressure 161/98 H Pulse Oximetry 97 Oxygen Delivery Venturi Mask Oxygen Flow Rate 12 Fraction of Inspired Oxygen 40 03/27/22 16:00 03/27/22 16:00 03/27/22 16:56 Temperature 36.8 C Pulse Rate 79 83 84 Respiratory Rate 21 H 20 Blood Pressure 148/97 H Pulse Oximetry 95 Oxygen Delivery Oxygen Flow Rate Fraction of Inspired Oxygen 03/27/22 17:07 03/27/22 18:00 03/27/22 18:00 Temperature 37.0 C Pulse Rate 85 89 89 Respiratory Rate 18 21 H Blood Pressure 150/86 H Pulse Oximetry 95 Oxygen Delivery Oxygen Flow Rate Fraction of Inspired Oxygen 03/27/22 20:25 03/27/22 20:25 03/27/22 20:37 Temperature Pulse Rate 94 94 91 Respiratory Rate 24 H 24 H 20 Blood Pressure Pulse Oximetry 94 Oxygen Delivery Venturi Mask Oxygen Flow Rate 12 Fraction of Inspired Oxygen 40 03/27/22 20:00 03/27/22 20:00 03/27/22 20:00 Temperature 37.1 C Pulse Rate 83 83 83 Respiratory Rate 20 21 H Blood Pressure 150/85 H Pulse Oximetry 97 97 Oxygen Delivery Venturi Mask Oxygen Flow Rate 12 Fraction of Inspired Oxygen 40 03/27/22 22:00 03/28/22 00:35 03/28/22 00:42 Temperature Pulse Rate 89 97 93 Respiratory Rate 22 H 26 H 19 Blood Pressure 163/101 H Pulse Oximetry 96 Oxygen Delivery Oxygen Flow Rate Fraction of Inspired Oxygen 03/28/22 00:00 03/28/22 00:00 03/28/22 00:00 Temperature 36.6 C Pulse Rate 83 82 91 Respiratory Rate 20 22 H Blood Pressure 144/89 H Pulse Oximetry 100 98 Oxygen Delivery Venturi Mask Oxygen Flow Rat
--- NOTE | 2022-03-28 11:14 | PM.PNNEP ---
Progress Note: A&P Assessment and Plan (1) Acute kidney injury: Code(s): N17.9 - Acute kidney failure, unspecified Status: Acute Assessment and Plan: improving due to ATN from hypotension, infection/sepsis, and prerenal factors evaluation to date: urine electrolytes are non-prerenal CPK levels okay imaging without obstruction peak/plateau of creatinine at 3.5mg/dl creatinine continues to improve with good urine output (responsive to diuretic therapy) repletion of K+ as needed follow repeat labs and UOP (2) Hypernatremia: Code(s): E87.0 - Hyperosmolality and hypernatremia Status: Acute Assessment and Plan: due to free water deficit with possible exacerbation by PRN IV diuretics would use free water tube flushes and titrate to compensate (ordered 200cc q4hr today) alternatively, small runs of D5W IVFs PRN can be used to help if necessary as well follow trend of sodium (3) Septic shock: Code(s): A41.9 - Sepsis, unspecified organism; R65.21 - Severe sepsis with septic shock Status: Acute Assessment and Plan: resolving due to acute cholecystitis +/- UTI +/- endocarditis s/p cholecystostomy drain placement - Surgery following off pressors at this time continue IV antibiotics follow culture data (4) Acute respiratory failure: Code(s): J96.00 - Acute respiratory failure, unspecified whether with hypoxia or hypercapnia Status: Acute Assessment and Plan: due to sepsis and previous hemodynamic instability extubated today (but at high risk for re-intubation) follow respiratory status closely (5) Endocarditis: Code(s): I38 - Endocarditis, valve unspecified Status: Acute Assessment and Plan: as noted by JASON on antibioitcs (6) C. difficile colitis: Code(s): A04.72 - Enterocolitis due to Clostridium difficile, not specified as recurrent Status: Acute Assessment and Plan: as noted by stool studies continue current therapy (7) Cirrhosis: Code(s): K74.60 - Unspecified cirrhosis of liver Status: Chronic Assessment and Plan: known issues secondary to alcohol abuse Will continue to follow. Subjective Date/time seen: 03/28/22 11:14 No new issues or problems overnight or earlier this AM; maintaing oxygen saturations with use of Venturi-mask; no reported shortness of breath, chest pain, or nose bleeding; major issues related to weakness and fatigue; remain hemodynamically stable without the need for pressors at this time. Exam Narrative: General: female (looks older than stated age); on venturi-mask Heart: normal S1 and S2; no rub Lungs: coarse breath sounds Abdomen: soft, TTP, few bowel sounds Extremities: no cyanosis or clubbing; trace - 1+ edema Skin: jaundiced Objective Data Vital Signs Vital Signs: Vital Signs Temp Pulse Resp BP Pulse Ox O2 Del Method O2 Flow Rate 03/28/22 10:00 36.5 C 74 19 131/82 98 03/28/22 08:00 95 Venturi Mask 03/28/22 09:09 92 03/28/22 08:00 36.4 C 91 19 172/99 H 100 03/28/22 08:07 93 19 03/28/22 08:07 93 18 95 Venturi Mask 03/28/22 08:00 90 18 03/28/22 06:00 96 23 H 163/98 H 96 03/28/22 04:50 96 20 03/28/22 04:44 92 25 H 03/28/22 04:00 36.6 C 95 22 H 156/90 H 95 03/28/22 04:00 95 03/28/22 04:00 83 20 100 Venturi Mask 03/28/22 02:00 90 18 94 03/28/22 00:00 91 03/28/22 00:00 36.6 C 82 22 H 144/89 H 98 03/28/22 00:00 83 20 100 Venturi Mask 03/28/22 00:42 93 19 03/28/22 00:35 97 26 H 03/27/22 22:00 89 22 H 163/101 H 96 03/27/22 20:00 37.1 C 83 21 H 150/85 H 97 03/27/22 20:00 83 03/27/22 20:00 83 20 97 Venturi Mask 03/27/22 20:37 91 20 03/27/22 20:25 94 24 H 03/27/22 20:25 94 24 H 94
--- NOTE | 2022-03-28 11:14 | P.PNNP_ITS ---
Progress Note: A&P Assessment and Plan (1) Acute kidney injury: Code(s): N17.9 - Acute kidney failure, unspecified Status: Acute Assessment and Plan: * improving * due to ATN from hypotension, infection/sepsis, and prerenal factors * evaluation to date: * urine electrolytes are non-prerenal * CPK levels okay * imaging without obstruction * peak/plateau of creatinine at 3.5mg/dl * creatinine continues to improve with good urine output (responsive to diuretic therapy) * repletion of K+ as needed * follow repeat labs and UOP (2) Hypernatremia: Code(s): E87.0 - Hyperosmolality and hypernatremia Status: Acute Assessment and Plan: * due to free water deficit with possible exacerbation by PRN IV diuretics * would use free water tube flushes and titrate to compensate (ordered 200cc q4hr today) * alternatively, small runs of D5W IVFs PRN can be used to help if necessary as well * follow trend of sodium (3) Septic shock: Code(s): A41.9 - Sepsis, unspecified organism; R65.21 - Severe sepsis with septic shock Status: Acute Assessment and Plan: * resolving * due to acute cholecystitis +/- UTI +/- endocarditis * s/p cholecystostomy drain placement - Surgery following * off pressors at this time * continue IV antibiotics * follow culture data (4) Acute respiratory failure: Code(s): J96.00 - Acute respiratory failure, unspecified whether with hypoxia or hype rcapnia Status: Acute Assessment and Plan: * due to sepsis and previous hemodynamic instability * extubated today (but at high risk for re-intubation) * follow respiratory status closely (5) Endocarditis: Code(s): I38 - Endocarditis, valve unspecified Status: Acute Assessment and Plan: * as noted by JASON * on antibioitcs (6) C. difficile colitis: Code(s): A04.72 - Enterocolitis due to Clostridium difficile, not specified as recurrent Status: Acute Assessment and Plan: * as noted by stool studies * continue current therapy (7) Cirrhosis: Code(s): K74.60 - Unspecified cirrhosis of liver Status: Chronic Assessment and Plan: * known issues secondary to alcohol abuse Will continue to follow. Subjective Date/time seen: 03/28/22 11:14 No new issues or problems overnight or earlier this AM; maintaing oxygen saturations with use of Venturi-mask; no reported shortness of breath, chest pain, or nose bleeding; major issues related to weakness and fatigue; remain hemodynamically stable without the need for pressors at this time. Exam Narrative: General: female (looks older than stated age); on venturi-mask Heart: normal S1 and S2; no rub Lungs: coarse breath sounds Abdomen: soft, TTP, few bowel sounds Extremities: no cyanosis or clubbing; trace - 1+ edema Skin: jaundiced Objective Data Vital Signs Vital Signs: Vital Signs Temp Pulse Resp BP Pulse Ox O2 Del Method O2 Flow Rate 03/28/22 10:00 36.5 C 74 19 131/82 98 03/28/22 08:00 95 Venturi Mask 12 03/28/22 09:09 92 03/28/22 08:00 36.4 C 91 19 172/99 H 100 03/28/22 08:07 93 19 03/28/22 08:07 93 18 95 Venturi Mask 12 03/28/22 08:00 90 18 03/28/22 06:00 96 23 H 163/98 H 96 03/28/22 04:50
--- NOTE | 2022-03-28 11:49 | WPDINTPN ---
Progress Note: A&P Assessment and Plan (1) Septic shock: Code(s): A41.9 - Sepsis, unspecified organism; R65.21 - Severe sepsis with septic shock Status: Acute Assessment and Plan: Patient has been hypotensive since 03/18/2022. On 03/19/2022 received Dilaudid in the early hours in her systolic blood pressures dropped to the 70s, patient was given 250 mL IV fluid bolus in the was called. I did tell the hospitalist given additional 1 L IV fluid bolus and if blood pressures does not improve to center to the ICU. -upon arrival to the ICU patient systolic pressures was still in the 60s and 70s, patient was given 30 mL/kg IV fluids, -Levophed and vasopressin weaned off at this time -lactic acid has normalized -source is likely secondary to UTI, acute cholecystitis, hemorrhagic shock -03/19/2022: Blood cultures, urine cultures and sputum cultures obtained and negative till now urine culture grew Margot which is likely a colonization. - vancomycin IV dced 03/24 - changed Zosyn to cefepime 03/23 - 03/26 change Flagyl to p.o. vancomycin for C diff - Continue cefepime - 03/25 repeat blood and urine culture sent - 03/26 - Urine culture grew Margot, guzman replaced. patient is afebrile now and WBCs normal hence I will hold anti fungal treatment at this time she is afebrile And hemodynamically stable WBC increased today likely secondary to steroids that she received over last 2 days for her stridor. 03/19/2022: CT scan of the chest abdomen and pelvis -Distended gallbladder with gallstone in the neck correlate for acute cholecystitis, cirrhosis, anasarca, small ascites. Bilateral breast implants probable intracapsular left imprint lecture and possible extracapsular right implant rupture. Moderate pleural effusions bilaterally with atelectasis, correlate for aspiration or pneumonia. (2) Acute respiratory failure: Code(s): J96.00 - Acute respiratory failure, unspecified whether with hypoxia or hypercapnia Status: Acute Assessment and Plan: Patient arrived in the ICU on 03/19, she had shallow broad respirations, tachypneic, ill looking and in impending respiratory failure -patient was intubated on 03/19, she had a lot of coffee-ground emesis during intubation, no white suction have and briskly placed in ET tube through the vocal cords using the glide scope. Physician who intubated the patient concluded that patient likely aspirated gastric contents 03/26 extubated after a successful weaning trial patient is maintaining her oxygenation on Ventimask. She did develop some stridor as per nursing report later in the evening on 03/27. she also had some wheezing on exam patient was treated with a course of course of Solu-Medrol, bronchodilators and Lasix no stridor or wheezing on today's exam. Continue to monitor patient's daughter has decided the patient would not want re-intubation if respiratory status deteriorates. Patient was DNR earlier but now she is also DNI incentive spirometry if patient able to do it (3) Ileus: Code(s): K56.7 - Ileus, unspecified Status: Acute Assessment and Plan: Patient was complaining of abdominal pain on arrival to the ICU, stat obstructive series showed possible ileus versus small-bowel obstruction CT scan suggested obstruction -general surgery is following. - patient is having bowel movements andtolerating tube feeds -patient recently had C diff colitis, currently on p.o. vancomycin- > IV Flagyl -> per tube vancomycin - tube feeds were resumed after EGD and will be continued (4) Acute kidney injury: Code(s): N17.9 - Acute kidney failure, unspecified Status: Acute Assessment and Plan: Patient has been hypotensive since the morning of 03/18/2022 -acute kidney injury likely related to hypotension, ATN, septic shock, hypovolemia, infection, -patient has been adequately volume resuscitated -hold further IV fluids as patient has received signifi
[2022-03-28 12:05] LABS: Glucose Point of Care 170 mg/dl (65-105)
[2022-03-28 18:21] LABS: Glucose Point of Care 125 mg/dl (65-105)
[2022-03-29] VITALS (21 sets, daily range): BP systolic 113–144; BP diastolic 69–91; PULSE 76–95; RESP 17–28; TEMP 36.3–37.1; O2SAT 95–100; BMI 34.8
[2022-03-29] MEDS: ALBUTEROL SULFATE NEB 2.5 MG/3 ML INH INHALATION ×5 (00:15→16:48)
[2022-03-29] MEDS: IPRATROPIUM BR 0.02% INH SOLN 0.5 MG/2.5 ML VIAL INHALATION ×5 (00:15→16:48)
[2022-03-29 00:24] LABS: Glucose Point of Care 137 mg/dl (65-105)
[2022-03-29] MEDS: VANCOMYCIN ORAL 125 MG/2.5 ML SYRUP FEED TUBE ×3 (00:40→12:25)
[2022-03-29] MEDS: SUCRALFATE 1 GM TABLET PO ×3 (00:40→12:20)
[2022-03-29 04:50] LABS: Hematocrit 26.9 % (37.0-47.0); Hemoglobin 8.8 g/dL (12.0-15.0); Mean Corpuscular HGB Conc 32.7 g/dl (32-36); Mean Corpuscular Volume 97.8 fl (80-100); Mean Platelet Volume 11.2 fl (7.4-10.4); Platelet Count Result 229 k/mm3 (150-375); Red Blood Count 2.75 M/mm3 (4.2-5.4); Red Cell Distribution Width 24.5 % (11.5-14.5)
[2022-03-29 05:03] LABS: Alanine Aminotransferase 20 U/L (6-35); Albumin Level 3.8 g/dL (3.5-5.1); Alkaline Phosphatase 83 U/L (38-126); Anion Gap 5 mmol/L (8-16); Aspartate Amino Transferase 61 U/L (14-36); Bilirubin,Total 7.1 mg/dL (0.2-1.3); Blood Urea Nitrogen 43 mg/dL (7-17); Calcium 8.9 mg/dL (8.4-10.2); Carbon Dioxide 31 mmol/L (22-30); Chloride 112 mmol/L (98-107); Estimated CRCL calculation 56 ml/min; Estimated Glomerular Filt Rate 55; Glucose 137 mg/dL (65-110); Phosphorus 2.4 mg/dL (2.5-4.5); Potassium 3.2 mmol/L (3.4-5.0); Sodium 148 mmol/L (137-145)
[2022-03-29 05:04] LABS: INR 2.6; Partial Thromboplastin Time 39.7 SECONDS (22.3-36.8); Prothrombin Time 26.7 Seconds (11.1-14.7)
[2022-03-29] MEDS: CENTRAL LINE FLUSH 10 ML IV PUSH (06:04)
[2022-03-29] MEDS: KCL 40 MEQ/WATER 100 ML 100 ML 25 ML IVPB (08:39)
[2022-03-29] MEDS: CEFEPIME 0.5 GM in DEXTROSE 5% IN WATER 50 ML IVPB (08:39)
[2022-03-29] MEDS: POTASSIUM/PHOSPHORUS/SODIUM 1.5 GM PACKET 1 PACKET PO (08:40)
[2022-03-29] MEDS: FLUCONAZOLE 200 MG/NACL 100 ML 200 MG/100 ML BAG 100 MG IVPB (08:40)
[2022-03-29] MEDS: FOLIC ACID 1 MG TABLET FEED TUBE (08:41)
[2022-03-29] MEDS: PANTOPRAZOLE SODIUM IV 40 MG VIAL IV PUSH (08:41)
[2022-03-29] MEDS: THIAMINE HCL 100 MG TABLET FEED TUBE (08:41)
[2022-03-29] MEDS: MAGNESIUM SULF 2 GM/WATER 50ML 2 GM/50 ML BAG IVPB (08:46)
--- NOTE | 2022-03-29 09:33 | WPDINTPN ---
Progress Note: A&P Assessment and Plan (1) Septic shock: Code(s): A41.9 - Sepsis, unspecified organism; R65.21 - Severe sepsis with septic shock Status: Acute Assessment and Plan: Upon ICU admission: Patient has been hypotensive since 03/18/2022. On 03/19/2022 received Dilaudid in the early hours in her systolic blood pressures dropped to the 70s, patient was given 250 mL IV fluid bolus in the was called. I did tell the hospitalist given additional 1 L IV fluid bolus and if blood pressures does not improve to center to the ICU. -upon arrival to the ICU patient systolic pressures was still in the 60s and 70s, patient was given 30 mL/kg IV fluids, -Levophed and vasopressin weaned off at this time -lactic acid has normalized -source is likely secondary to UTI, acute cholecystitis, hemorrhagic shock -03/19/2022: Blood cultures, urine cultures and sputum cultures obtained and negative till now urine culture grew Margot tropicalis, given increasing leukocytosis started on Diflucan - vancomycin IV dced 03/24 - changed Zosyn to cefepime 03/23 - 03/26 change Flagyl to p.o. vancomycin for C diff -patient now on cefepime (03/23) and p.o. vancomycin for C diff (03/26) - 03/25 repeat blood and urine culture sent - 03/26 - Urine culture grew Margot, guzman replaced. patient is afebrile now and WBCs normal hence I will hold anti fungal treatment at this time she is afebrile And hemodynamically stable WBC increased today likely secondary to steroids that she received over last 2 days for her stridor. 03/19/2022: CT scan of the chest abdomen and pelvis -Distended gallbladder with gallstone in the neck correlate for acute cholecystitis, cirrhosis, anasarca, small ascites. Bilateral breast implants probable intracapsular left imprint lecture and possible extracapsular right implant rupture. Moderate pleural effusions bilaterally with atelectasis, correlate for aspiration or pneumonia. (2) Acute respiratory failure: Code(s): J96.00 - Acute respiratory failure, unspecified whether with hypoxia or hypercapnia Status: Acute Assessment and Plan: Patient arrived in the ICU on 03/19, she had shallow broad respirations, tachypneic, ill looking and in impending respiratory failure -patient was intubated on 03/19, she had a lot of coffee-ground emesis during intubation, no white suction have and briskly placed in ET tube through the vocal cords using the glide scope. Physician who intubated the patient concluded that patient likely aspirated gastric contents 03/26 extubated after a successful weaning trial patient is maintaining her oxygenation on Ventimask. She did develop some stridor as per nursing report later in the evening on 03/27. she also had some wheezing on exam patient was treated with a course of course of Solu-Medrol, bronchodilators and Lasix -continues to have some stridor but no wheezing this morning. Have ordered racemic epinephrine nebulizer treatment patient's daughter has decided the patient would not want re-intubation if respiratory status deteriorates. Patient was DNR earlier but now she is also DNI incentive spirometry if patient able to do it (3) Ileus: Code(s): K56.7 - Ileus, unspecified Status: Acute Assessment and Plan: Patient was complaining of abdominal pain on arrival to the ICU, stat obstructive series showed possible ileus versus small-bowel obstruction CT scan suggested obstruction -general surgery is following. - patient is having bowel movements and tolerating tube feeds -patient recently had C diff colitis, currently on p.o. vancomycin- > IV Flagyl -> per tube vancomycin - tube feeds were resumed after EGD and will be continued (4) Acute kidney injury: Code(s): N17.9 - Acute kidney failure, unspecified Status: Acute Assessment and Plan: Patient has been hypotensive since the morning of 03/18/2022 -acute kidney injury likely related to hypote
[2022-03-29] MEDS: racEPINEPHrine 2.25% NEBU SOLN 0.5 ML VIAL.NEB INHALATION (09:58)
--- NOTE | 2022-03-29 10:46 | PM.PNNEP ---
Progress Note: A&P Assessment and Plan (1) Acute kidney injury: Code(s): N17.9 - Acute kidney failure, unspecified Status: Acute Assessment and Plan: improving/resolving due to ATN from hypotension, infection/sepsis, and prerenal factors evaluation to date: urine electrolytes are non-prerenal CPK levels okay imaging without obstruction peak/plateau of creatinine at 3.5mg/dl creatinine continues to improve with good urine output (responsive to diuretic therapy) repletion of K+ as needed follow repeat labs and UOP (2) Hypernatremia: Code(s): E87.0 - Hyperosmolality and hypernatremia Status: Acute Assessment and Plan: improving due to free water deficit with possible exacerbation by PRN IV diuretics would use free water tube flushes and titrate to compensate (ordered 200cc q4hr today) alternatively, small runs of D5W IVFs PRN can be used to help if necessary as well follow trend of sodium (3) Septic shock: Code(s): A41.9 - Sepsis, unspecified organism; R65.21 - Severe sepsis with septic shock Status: Acute Assessment and Plan: resolving due to acute cholecystitis +/- UTI +/- endocarditis s/p cholecystostomy drain placement - Surgery following off pressors at this time continue IV antibiotics follow culture data (4) Acute respiratory failure: Code(s): J96.00 - Acute respiratory failure, unspecified whether with hypoxia or hypercapnia Status: Acute Assessment and Plan: due to sepsis and previous hemodynamic instability extubated but at high risk for re-intubation (but DNR/DNI) follow respiratory status closely (5) Endocarditis: Code(s): I38 - Endocarditis, valve unspecified Status: Acute Assessment and Plan: as noted by JASON on antibioitcs (6) C. difficile colitis: Code(s): A04.72 - Enterocolitis due to Clostridium difficile, not specified as recurrent Status: Acute Assessment and Plan: as noted by stool studies continue current therapy (7) Cirrhosis: Code(s): K74.60 - Unspecified cirrhosis of liver Status: Chronic Assessment and Plan: known issues secondary to alcohol abuse No much else to really add - will continue to follow from a distance. Subjective Date/time seen: 03/29/22 10:46 Patient's respiratory status at the time of my visit is quite tenuous - good oxygen saturations with Venturi-mask but she appears somewhat fatigued and using accessory muscles; stable hemodynamics overnight and earlier this AM; renal function remains stable but has significant edema. Exam Narrative: General: female (looks older than stated age); on venturi-mask Heart: normal S1 and S2; no rub Lungs: coarse breath sounds and decreased at bases Abdomen: soft, TTP, few bowel sounds Extremities: no cyanosis or clubbing; 2+ edema Skin: jaundiced apparent Objective Data Vital Signs Vital Signs: Vital Signs Temp Pulse Resp BP Pulse Ox O2 Del Method O2 Flow Rate 03/29/22 11:47 87 23 H 03/29/22 10:09 76 18 03/29/22 10:00 80 21 H 03/29/22 08:10 81 20 03/29/22 07:57 77 28 H 03/29/22 07:56 95 Venturi Mask 9 03/29/22 06:00 93 27 H 113/91 H 100 03/29/22 05:58 91 03/29/22 04:00 87 23 H 97 Venturi Mask 9 03/29/22 04:00 36.5 C 79 19 118/77 97 03/29/22 02:00 36.4 C 78 18 122/78 98 03/29/22 04:00 88 03/29/22 04:12 87 23 H 03/29/22 04:03 90 24 H 03/29/22 01:55 77 03/29/22 00:00 84 19 100 Venturi Mask 9 03/29/22 00:00 37.1 C 87 22 H 144/82 H 100 03/29/22 00:00 88 03/29/22 00:25 84 19 03/29/22 00:16 95 26 H 03/28/22 22:00 79 15 141/83 H 98 03/28/22 22:00 79 03/28/22 20:00 37.2 C 78 18 156/93 H 98 03/28/22 19:55 86 22 H 96 Venturi Mask 9 03/28/22 19:55 86
--- NOTE | 2022-03-29 10:46 | P.PNNP_ITS ---
Progress Note: A&P Assessment and Plan (1) Acute kidney injury: Code(s): N17.9 - Acute kidney failure, unspecified Status: Acute Assessment and Plan: * improving/resolving * due to ATN from hypotension, infection/sepsis, and prerenal factors * evaluation to date: * urine electrolytes are non-prerenal * CPK levels okay * imaging without obstruction * peak/plateau of creatinine at 3.5mg/dl * creatinine continues to improve with good urine output (responsive to diuretic therapy) * repletion of K+ as needed * follow repeat labs and UOP (2) Hypernatremia: Code(s): E87.0 - Hyperosmolality and hypernatremia Status: Acute Assessment and Plan: * improving * due to free water deficit with possible exacerbation by PRN IV diuretics * would use free water tube flushes and titrate to compensate (ordered 200cc q4hr today) * alternatively, small runs of D5W IVFs PRN can be used to help if necessary as well * follow trend of sodium (3) Septic shock: Code(s): A41.9 - Sepsis, unspecified organism; R65.21 - Severe sepsis with septic shock Status: Acute Assessment and Plan: * resolving * due to acute cholecystitis +/- UTI +/- endocarditis * s/p cholecystostomy drain placement - Surgery following * off pressors at this time * continue IV antibiotics * follow culture data (4) Acute respiratory failure: Code(s): J96.00 - Acute respiratory failure, unspecified whether with hypoxia or hypercapnia Status: Acute Assessment and Plan: * due to sepsis and previous hemodynamic instability * extubated but at high risk for re-intubation (but DNR/DNI) * follow respiratory status closely (5) Endocarditis: Code(s): I38 - Endocarditis, valve unspecified Status: Acute Assessment and Plan: * as noted by JASON * on antibioitcs (6) C. difficile colitis: Code(s): A04.72 - Enterocolitis due to Clostridium difficile, not specified as recurrent Status: Acute Assessment and Plan: * as noted by stool studies * continue current therapy (7) Cirrhosis: Code(s): K74.60 - Unspecified cirrhosis of liver Status: Chronic Assessment and Plan: * known issues secondary to alcohol abuse No much else to really add - will continue to follow from a distance. Subjective Date/time seen: 03/29/22 10:46 Patient's respiratory status at the time of my visit is quite tenuous - good oxygen saturations with Venturi-mask but she appears somewhat fatigued and using accessory muscles; stable hemodynamics overnight and earlier this AM; renal function remains stable but has significant edema. Exam Narrative: General: female (looks older than stated age); on venturi-mask Heart: normal S1 and S2; no rub Lungs: coarse breath sounds and decreased at bases Abdomen: soft, TTP, few bowel sounds Extremities: no cyanosis or clubbing; 2+ edema Skin: jaundiced apparent Objective Data Vital Signs Vital Signs: Vital Signs Temp Pulse Resp BP Pulse Ox O2 Del Method O2 Flow Rate 03/29/22 11:47 87 23 H 03/29/22 10:09 76 18 03/29/22 10:00 80 21 H 03/29/22 08:10 81 20 03/29/22 07:57 77 28 H 03/29/22 07:56 95 Venturi Mask 9 03/29/22 06:00 93 27 H 113/91 H 100 03/29/22 05:5
--- NOTE | 2022-03-29 11:36 | PCPTNOTE ---
Attempted PT evaluation, patient currently has a line attached not allowing for mobilization. Per RN, check back later. Will follow.
--- NOTE | 2022-03-29 11:46 | PCNFU ---
Nutrition Follow-Up Complete: Suboptimal po intake related to reduced appetite and intake as evidenced by charted intake of meals 25% or less most meals. Goal: Increase PO intake Patient has not met current goal. Pt current nutrition is Vital AF 1.2 at 40 ml/hr over 22 hours. Last recorded weight is 100.8 kg, down from 104.1 kg. Bowel Motility:+Bm reported 03/29 Labs Reviewed:Glu 137, BUN 43, GFR 55, Na 148, Hgb 8.8, K 3.2 Meds Noted:Protonix, Flagyl, Zosyn, Levophed, Vancomycin, Atrovent, Cefepime, Folic Acid, Thiamine, Carafate, Diflucan, Protonix. Skin: WNL Additional Notes: Patient extubated on 03/26. Venturi mask. Tube feeding continue at this time of Vital AF 1.2 at 40 ml/hr. Called Cath Lab Radiology Technician today regarding goal rate of tube feedings. Recommending Vital AF 1.2 at 50 ml/hr over 22 hours, providing 1320 kcals/82 gms protein/892 ml water. 200 ml water flush, Na 148 today. Agree with diet orders. Monitor in ICU rounds and reassessing every Monday and Monday.
[2022-03-29 12:02] LABS: Glucose Point of Care 123 mg/dl (65-105)
--- NOTE | 2022-03-29 14:07 | WPDGIPROGNO ---
Progress Note: A&P Assessment and Plan (1) Acute cholecystitis: Code(s): K81.0 - Acute cholecystitis Status: Acute Assessment and Plan: patient with acute cholecystitis. appears improved with cholecystotomy tube. Surgery following. (2) Endocarditis: Code(s): I38 - Endocarditis, valve unspecified Status: Acute Assessment and Plan: Patient with aortic valve endocarditis. Long-term antibiotics suggested. (3) Acute respiratory failure: Code(s): J96.00 - Acute respiratory failure, unspecified whether with hypoxia or hypercapnia Status: Acute Assessment and Plan: Patient now weaned off ventilator. Patient has instruct chance not to reintubate should she decline. (4) Right-sided epistaxis: Code(s): R04.0 - Epistaxis Status: Acute Assessment and Plan: Epistaxis now resolved. Likely related to thrombocytopenia and coagulopathy. (5) C. difficile colitis: Code(s): A04.72 - Enterocolitis due to Clostridium difficile, not specified as recurrent Status: Acute Assessment and Plan: C difficile colitis identified. Tapering doses of vancomycin identified suggested. (6) Peptic ulcer disease: Code(s): K27.9 - Peptic ulcer, site unspecified, unspecified as acute or chronic, without hemorrhage or perforation Status: Acute Assessment and Plan: Patient with gastric ulcer that cause several recent episodes of bleeding. She also has erosive esophagitis and superficial duodenal ulcers that appear to be improving. Patient should avoid NSAIDs. Long-term use of PPI therapy advised. I would defer any thoughts of anticoagulation for at least several weeks. (7) Cirrhosis: Code(s): K74.60 - Unspecified cirrhosis of liver Status: Chronic Assessment and Plan: Patient with cirrhosis of liver by imaging. This correlates with her findings likely on the basis of alcohol use. This likely accounts for her thrombocytosis tenia and coagulopathy. Supportive care advised for now. (8) COPD (chronic obstructive pulmonary disease): Code(s): J44.9 - Chronic obstructive pulmonary disease, unspecified Status: Acute (9) Bipolar 1 disorder: Code(s): F31.9 - Bipolar disorder, unspecified Status: Acute (10) Alcohol abuse: Code(s): F10.10 - Alcohol abuse, uncomplicated Status: Acute Subjective Date/time seen: 03/29/22 14:07 Patient now extubated in office in a later. Dobbhoff tube in place tolerating tube feedings without difficulty. No evidence of additional bleeding over the weekend. Patient week unable to give any history. Review of Systems Review of Systems: Review of systems noncontributory secondary to mental status and general debility. Exam Narrative: Physical exam reveals patient to be arousable. She is alert not able to converse. HEENT exam reveals NG tube in place. Lungs reveal scattered rhonchi. Heart without murmur. Abdomen obese. Bowel sounds present soft nontender with no local Koul eyes tenderness. No organomegaly at Objective Data Vital Signs Vital Signs: Vital Signs - 24 hr 03/28/22 16:00 03/28/22 18:00 03/28/22 16:00 Temperature 97.3 F L 97.5 F L Pulse Rate 79 75 Respiratory Rate 20 17 Blood Pressure 149/101 H 152/98 H Pulse Oximetry 99 96 99 Oxygen Delivery Venturi Mask Oxygen Flow Rate 9 Fraction of Inspired Oxygen 35 03/28/22 16:00 03/28/22 18:00 03/28/22 19:30 Temperature Pulse Rate 79 75 86 Respiratory Rate 24 H Blood Pressure Pulse Oximetry Oxygen Delivery Oxygen Flow Rate Fraction of Inspired Oxygen 03/28/22 19:34 03/28/22 19:42 03/28/22 19:55 Temperature Pulse Rate 85 83 86 Respiratory Rate 21 H 22 H Blood Pressure Pulse Oximetry 96 Oxygen Delivery Venturi Mask Oxygen Flow Rate 12 Fraction of Inspired Oxygen 40 03/28/22 19:55 03/28/22 20:00 03/28/22 22:00
[2022-03-29] MEDS: LORazepam INJ (*CRX) 2 MG/ML VIAL IV PUSH (15:47)
[2022-03-29] MEDS: ONDANSETRON INJ 4 MG/2 ML VIAL IV PUSH (15:47)
[2022-03-29] MEDS: MORPHINE SULFATE INJ (*CRX) 10 MG/ML AMP 5 MG IV PUSH (15:48)
--- NOTE | 2022-03-29 16:26 | PCOTNOTE ---
Attempted OT evaluation, pt unable to participate today due to medical status with placement of line. Per RN, check back later. Will follow.
--- NOTE | 2022-03-29 17:13 | PM.DS ---
DS: Admitting Diagnosis Discharge Date 03/29/2022 Admitting Diagnosis Hematoma emesis DS: Summary Hospital Course Reason for hospitalization: Chief Complaint: Hematemesis Narrative: Ms. Drake is a 71-year-old female who presents to the emergency room with complaints hematemesis and dark tarry stools that started today.? Patient states that she was out ?partying on single to my? and has been vomiting since then, but today she noticed blood in her vomit and dark tarry stools.? Patient states she has been getting very dizzy over the last few days and has fallen multiple times.? Patient denies any loss of consciousness are hitting her head, she states she has just felt very weak.? Patient denies any chest pain, shortness a breath, syncopal, or near syncopal episodes.? Patient states that she does drink alcohol on a regular basis.? Patient states it depends on what kind of weak it is but typically she drinks 2-3 times weekly and it can be up to a 5th of vodka at a time.? Upon evaluation emergency room patient was noted to have bloody vomitus and patient underwent CT scan.? CT of the abdomen and pelvis showed infectious, inflammatory, or ischemic changes to the sigmoid colon.? Extrahepatic biliary duct and pancreatic duct dilatation with mild inflammatory changes the gallbladder and marcial hepatis, no obstructing stones or masses detected in this examination, clinical and laboratory correlation advised.? CT finding suspicious for cirrhosis with portal hypertension.? Patient did have an NG tube placed in the emergency room and there was approximately 500 cc of coffee-ground fluid return. Patient states she has a known history of hypertension, and per previous records patient also has a history of asthma, bipolar disorder, and COPD. Hospital Course: patient is 71-year-old female admitted to the hospital with GI bleed and history of alcohol abuse patient went into respiratory failure on 03/19 and was transferred to ICU and intubated patient had a coffee-ground emesis during the intervention, patient also developed sepsis reason shock patient was vigorously hydrated however required pressors, patient also with? acute cholecystitis? on 03/20 patient had ultrasound-guided cholecystostomy tube placement,? surgery service suspect sepsis secondary to acute cholecystitis? being treated Cefepime,? Flagyl and vancomycin, bile still no growth, patient with abnormal prothrombin time secondary to DIC, and cause of her bleeding, Patient developed nose bleeding seen by ENT,? and rhino rocket was placed,? and plan is to remove the packing today if there is no bleeding,? today patient was seen by GI and had EGD showed several nonbleeding ulcers, GI recommended continue PPI, and avoid NSAID,patient currently on vent unable to provide any review of symptom, patient is seen by bellperson,? GI and General surgery and appreciate. patient remains on ventilator continue to have bleeding and prognosis is poor today patient met with a hospice service will discharge the patient will be admitted under hospice Time Spent with Patient Time attestation: Total time spent providing and/or coordinating discharge services: Patient was seen and examined at the time of the discharge Condition at discharge is stable Code status:DNR Time spent preparing discharge summary, discharge medications, discussing discharge planning with pillowcase cleaner and patient is 35 minutes. Exam Narrative: Patient is comfort able, NAD HEENT:? ET tube in place L UNGS: normal respi ratory effort ABD: ? distended Lower extremities: no ed lucrecia SKIN: nonjaund iced Neuro:? on ve nt and sedated. DS: Data Data Completed and Pending Completed studies during hospitalization: Pending at discharge 03/10/22 12:09 Surgical [PTH] Routine Labs on day of discharge: Labs from last 24 hours 03/29/22 03/29/22 03/29/22 11:54 04:40 04:40 WBC RBC Hgb Hct MCV MCH MCHC RDW
== END 2022-03-29 17:11 | disposition hospice, inpatient (51) | DRG 871 ==
LOC: ANHED 15:43 → ANHICU 17:14 → ANHIMU 03-10 17:56 → ANH3MEDSUR 03-12 23:07 → ANHICU 03-19 14:27
PROVIDERS: Chiropractor; Internal Medicine; Internal Medicine Cardiovascular Disease; Internal Medicine Gastroenterology; Internal Medicine Hematology & Oncology; Internal Medicine Nephrology; Admitting Provider Family Medicine; Emergency Provider Emergency Medicine; Visit Provider Family Medicine
PROC: 0DJ08ZZ Inspection of Upper Intestinal Tract, Via Natural or Artificial Opening Endoscopic (ICD-10-PCS; CPT 43235; principal; 2022-03-10 11:30)
PROC: B245ZZ4 Ultrasonography of Left Heart, Transesophageal (ICD-10-PCS; CPT 93312; principal; 2022-03-16 10:30)
DX: A41.9 Sepsis, unspecified organism (principal); I21.A1 Myocardial infarction type 2; N39.0 Urinary tract infection, site not specified; T83.511A Infection and inflammatory reaction due to indwelling urethral catheter, initial encounter; J96.00 Acute respiratory failure, unspecified whether with hypoxia or hypercapnia; R65.21 Severe sepsis with septic shock; N17.0 Acute kidney failure with tubular necrosis; R57.8 Other shock; K25.0 Acute gastric ulcer with hemorrhage; A04.72 Enterocolitis due to Clostridium difficile, not specified as recurrent; K76.6 Portal hypertension; I82.621 Acute embolism and thrombosis of deep veins of right upper extremity; K56.7 Ileus, unspecified; K81.0 Acute cholecystitis; E87.0 Hyperosmolality and hypernatremia; K26.3 Acute duodenal ulcer without hemorrhage or perforation; Z20.822 Contact with and (suspected) exposure to COVID-19; E87.6 Hypokalemia; F10.10 Alcohol abuse, uncomplicated; F17.210 Nicotine dependence, cigarettes, uncomplicated; F31.9 Bipolar disorder, unspecified; J44.9 Chronic obstructive pulmonary disease, unspecified; Z91.81 History of falling; Z80.0 Family history of malignant neoplasm of digestive organs; K52.9 Noninfective gastroenteritis and colitis, unspecified; R01.1 Cardiac murmur, unspecified; K70.30 Alcoholic cirrhosis of liver without ascites; K21.00 Gastro-esophageal reflux disease with esophagitis, without bleeding; Z86.73 Personal history of transient ischemic attack (TIA), and cerebral infarction without residual deficits; I95.9 Hypotension, unspecified; E80.6 Other disorders of bilirubin metabolism; T17.218A Gastric contents in pharynx causing other injury, initial encounter; D69.59 Other secondary thrombocytopenia; D73.1 Hypersplenism; D64.9 Anemia, unspecified; R04.0 Epistaxis; Y84.6 Urinary catheterization as the cause of abnormal reaction of the patient, or of later complication, without mention of misadventure at the time of the procedure; Z82.49 Family history of ischemic heart disease and other diseases of the circulatory system; Z79.899 Other long term (current) drug therapy; Z79.51 Long term (current) use of inhaled steroids
CPT/HCPCS: 36415; 36430; 36569; 36600; 47490; 71045; 71250; 73030; 74018; 74019; 74176; 74177; 76705; 80048; 80053; 80074; 80202; 80307; 81001; 81003; 82140; 82274; 82375; 82550; 82565; 82570; 82607; 82746; 82805; 82948; 83050; 83605; 83615; 83690; 83735; 83880; 84100; 84145; 84156; 84300; 84484; 85014; 85018; 85025; 85027; 85049; 85055; 85380; 85384; 85610; 85730; 86022; 86140; 86850; 86900; 86901; 86920; 87040; 87070; 87075; 87077; 87086; 87088; 87102; 87106; 87186; 87205; 87206; 87493; 87522; 88305; 88342; 93005; 93306; 93312; 93320; 93325; 93970; 93971; 94002; 94003; 94640; 96361; 96365; 96366; 96367; 96368; 96375; 96376; 97110; 97161; 97166; 97530; 97535; 99285; A9270; C1729; C1751; C8929; C9113; C9803; G0378; J0131; J0171; J0610; J0692; J1170; J1450; J1940; J2001; J2060; J2250; J2270; J2310; J2354; J2405; J2543; J2704; J2765; J2920; J2997; J3010; J3370; J3411; J3430; J3475; J3480; J7030; J7040; J7050; J7060; J7070; J7120; P9012; P9016; P9017; P9047; Q9957; Q9967; U0003; U0005

== ENCOUNTER 2022-03-29 17:29 | HOS | payer OTHER, MEDICARE, SELFPAY ==
[2022-03-29] MEDS: MORPHINE SULFATE (*CRX) 2 MG/ML INJ IV PUSH (18:12)
--- NOTE | 2022-03-29 18:32 | PC.NURSE ---
This patient, Sade Drake, was transfered from ICU 6 to 3 Med Surg Room 318-01. Patient/family oriented to hospital policies and general routines including ID bracelet, bed and alarms, visiting hours, pain management, procedures, bathroom and other care routines, personal items, smoking policy, room service/diet, and visiting hours. Information on how to activate the Rapid Response Team has been discussed. Patient/Family are encouraged to report perceived risks to care and to ask questions if they do not understand what they are told or what they should do. Hospice care continued via [facility].
[2022-03-29 18:33] VITALS: O2SAT 92
[2022-03-29] MEDS: MORPHINE SULFATE INJ (*CRX) 50 MG in SODIUM CHLORIDE 0.9% IV 95 ML IV CONT (19:12)
[2022-03-29 20:00] VITALS: BP 103/65; PULSE 91; RESP 12; TEMP 36.4; O2SAT 100
--- NOTE | 2022-03-30 15:00 | PM.IMHP ---
H&P: HPI History of Present Illness Date/Time: 03/30/22 15:00 Chief Complaint: uncontrolled dyspnea Narrative: Addmitted to acute care after binge drinking for at least 10 days. GI bleed due to gastric ulcer. Cholecystitis with sepsis treated with antibx and cholecystostomy. C diff colitis treated with tapering doses of vancomycin. Bacterinal endocarditis treated with antibiotics. Developed resp failure and DIC and multiorgan failure. Family optied for extubation and comfort care. Review of Systems Review of Systems: ROS unobtainable: Yes unobtainable due to medical condition Constitutional: Comments: patient prior to my exam [facility] Past Medical History Medical History Acute stroke due to ischemia Altered mental status Asthma Bipolar 1 disorder C. difficile colitis Cirrhosis Coagulopathy COPD (chronic obstructive pulmonary disease) Falls Gallstones Rhabdomyolysis Thrombocytopenia due to hypersplenism Family History Family History Father Asthma Colon cancer Grandparent Asthma Chronic obstructive pulmonary disease Mother Colon cancer Diabetes mellitus Hypertension Sibling Hypertension Social History Social History Smoking packs per day: 0.25 Smoking cigarettes per day: 5.0 Years smoked: 52 Smoking pack-years: 13.00 Smoking status: Light tobacco smoker Tobacco type: cigarettes Second hand tobacco smoke exposure: Yes Alcohol intake: current Drinks per week: 9 Substance use: never Substance use type: does not use Other substance usage details: recreational Last use: 03/03/22 Gender identity (if verbalized by the patient): Female Spiritual care concerns: No Meds Home Medications and Allergies Home Medications Medication Instructions Recorded Confirmed Type albuterol sulfate 90 mcg/actuation 18 mcg inhalation DAILY PRN 06/22/21 03/09/22 History aerosol inhaler (ProAir HFA) Shortness Of Breath Or Wheezing aspirin 81 mg tablet,delayed 81 mg PO DAILY 06/22/21 03/09/22 History release bupropion HCl 100 mg tablet 100 mg PO DAILY 06/22/21 03/09/22 History fluoxetine 10 mg capsule 10 mg PO DAILY 06/22/21 03/09/22 History fluticasone 100 mcg-salmeterol 50 1 ea inhalation BID 06/22/21 03/09/22 History mcg/dose blistr powdr for inhalation (Wixela Inhub) ibuprofen 800 mg tablet 800 mg PO TID PRN Pain 06/22/21 03/09/22 History quetiapine 200 mg tablet 200 mg PO QPM 06/22/21 03/09/22 History atorvastatin 20 mg tablet 20 mg PO DAILY 30 days #30 tabs 03/19/22 Rx nafcillin 2 gram intravenous 2 g IV Q4HR 28 days #112 ea 03/19/22 Rx solution sucralfate 1 gram tablet 1 g PO ACHS 30 days #120 tabs 03/19/22 Rx vancomycin 1,000 mg intravenous 125 mg PO Q6HR 10 days #40 ea 03/19/22 Rx injection Allergies Allergy/AdvReac Type Severity Reaction Status Date / Time No Known Allergies Allergy Verified 03/10/22 10:54 Vital Signs Vital Signs - 24 hr 03/29/22 18:33 03/29/22 20:00 Temperature 97.5 F L Pulse Rate 91 Respiratory Rate 12 Blood Pressure 103/65 Pulse Oximetry 92 100 Oxygen Delivery Nasal Cannula Oxygen Flow Rate 3 Assessment and Plan Assessment and plan (1) Palliative care by specialist: Code(s): Z51.5 - Encounter for palliative care Status: Acute Assessment and Plan: MEETS INPATIENT HOSPICE CRITERIA DUE TO REQUIRING CONTINUOUS IV MORPHINE FOR CONTROL OF DYSPNEA REMAINDER OF PALLIATIVE REGIMEN ORDERED (2) Acute cholecystitis: Code(s): K81.0 - Acute cholecystitis Status: Acute (3) Acute kidney injury: Code(s): N17.9 - Acute kidney failure, unspecified Status: Acute (4) Abnormal coagulation profile: Code(s): R79.1 - Abnormal coagulation profile Status: Acute (5) Ileus: Code(s): K56.7
--- NOTE | 2022-03-30 15:09 | PM.DDS ---
Discharge Summary Date and Time Date of : 03/30/22 Time of : 01:25 Provider Pronounced By: Pearl Strickland RN/Salome Velásquez RN Probable Cause of Probable Cause of : HEPATIC ENCEPHALOPATHY WITH RESPIRATORY FAILURE Summary Hospital Course: ADMITTED TO INPATIENT HOSPICE SERVICE FOR CONTROL OF DYSPNEA AFTER PALLIATIVE EXTUBATION. MEDICATIONS TITRATED TO COMFORT. PATIENT COMFORTABLY. Additional Data Confirmation of as documented by pronouncing clinician: Pupillary Reflex, Palpable Pulses, Response to Stimuli, Heart Tones and Breath Sounds Name of Provider Notified: Ab Montoya-message to cell phone with request to call 3 med/surg nurse's st Time Provider Notified: 01:55 Family Requests Autopsy: No Concept Artist Notified: Yes Date [facility] Notified of : 03/30/22 Time [facility] Notified of : 01:36
== END 2022-03-30 01:25 | disposition expired | DRG 951 ==
LOC: ANHICU 17:50 → ANH3MEDSUR 18:31
PROVIDERS: Admitting Provider Internal Medicine; Visit Provider Internal Medicine
DX: Z51.5 Encounter for palliative care (principal); A41.9 Sepsis, unspecified organism; K81.0 Acute cholecystitis; N17.9 Acute kidney failure, unspecified; K56.7 Ileus, unspecified; I38 Endocarditis, valve unspecified; A04.72 Enterocolitis due to Clostridium difficile, not specified as recurrent; R79.1 Abnormal coagulation profile; K27.9 Peptic ulcer, site unspecified, unspecified as acute or chronic, without hemorrhage or perforation; K76.0 Fatty (change of) liver, not elsewhere classified; J44.9 Chronic obstructive pulmonary disease, unspecified; F10.10 Alcohol abuse, uncomplicated; Z79.899 Other long term (current) drug therapy; F17.210 Nicotine dependence, cigarettes, uncomplicated; Z79.82 Long term (current) use of aspirin; K74.60 Unspecified cirrhosis of liver
CPT/HCPCS: A9270; J2270